=== PATIENT | female | born 1940 | race Caucasian/White ===

== ENCOUNTER → 2017-01-13 | Day surgery (SDC) | payer OTHER ==
[2017-01-08 08:06] VITALS: Ht 161.3 cm; Wt 67.3 kg
[~2017-01-13] VITALS: Ht 161.3 cm; Wt 67.3 kg
[~2017-01-13] MED LIST: 500ML BSS 0.3ML EPI 1:1000PF IRRIG ONE; ACETAMINOPHEN 325 MG TAB PO PRN; AMIO200T4 PO; AMLO2.5T PO; AMVISC PLUS 0.8ML SYRINGE INT OCU ONE; ANT25 PO; ATOR-26 PO; BROM0.07 OPR; BSS FLUSH ONE; BUSP-8 PO; CEPH500C PO; DEXT30TA7 PO; DULO60CA44 PO; EpINEphrine INJ 1MG/ML AMP 1 MG/ML AMP ONE; ISOS30TA35 PO; ISOS30TA51 PO; LACTATED RINGER'S 1000ML 500 ML IV SCH; LIDOCAINE 3.5% OPH GEL PER APPLICATION CHARGE ONE; LIDOCAINE HCL 1% MPF 2 ML VIAL ONE; MAGN400T5 PO; MECL1TAB42 PO; METO25TA56 PO; MIDAZOLAM HCL 1 MG/ML 2ML VIAL ONE; NRV5 PO; OCUCOAT 1 ML SOLN IO ONE; POLY335019 PO; POTA1TAB97 PO; POVIDONE-IODINE OP SOLN 30 ML BTL ONE; PRED1SUS OPR; PRLSR20 PO; PROM25TA9 PO; PROPARACAINE 0.5% OP SOLN PER DROP CHARGE OPR SCH; TOBRAMYCIN/DEXAMETHASONE OPH OINT PER APPLN CHARGE ONE; TRAZ1TAB5 PO; VSC/5 PO; WARF5TAB90 PO
[2017-01-13] MEDS: PHENYLEPHRINE HCL 2.5% OP SOLN PER DROP CHARGE OPR SCH ×2 (09:57→10:02)
[2017-01-13] MEDS: TROPICAMIDE 1% OP SOLN PER DROP CHARGE OPR SCH ×2 (09:58→10:03)
[2017-01-13] MEDS: CYCLOPENTOLATE HCL 1% OP SOLN PER DROP CHARGE OPR SCH ×2 (09:59→10:04)
[2017-01-13] MEDS: KETOROLAC 0.5% OP SOLN PER DROP CHARGE OPR SCH ×2 (10:00→10:05)
[2017-01-13] MEDS: GATIFLOXACIN OP SOLN PER DROP CHARGE OPR SCH ×2 (10:01→10:11)
--- NOTE | 2017-01-13 10:21 | History & Physical Bridge - [place] ---
H&P Re-Evaluation Bridge Note: I have examined the patient, reviewed the History & Physical and in the interval since the performance of the History & Physical I have noted the following changes of clinical significance: No changes noted
--- NOTE | 2017-01-13 11:05 | Discharge Instructions-SurgCtr ---
Discharge Instructions Date of Service Jan 13, 2017. Visit Reason for Visit: Cataract Right Eye Discharge Discharge Diagnosis / Problem: cataract Discharge Goals Goal(s): Improve function Activity Recommendations Activity Limitations: per Instructions/Follow-up section Anesthesia . Post Anesthesia Instructions: If you have had General Anesthesia or IV Sedation: * Do not drive today. * Resume driving when surgeon permits. * Do not make important decisions or sign legal documents today. * Call surgeon for: 1. Temperature elevations greater than 101 degrees F. 2. Uncontrollable pain. 3. Excessive bleeding. 4. Persistent nausea and vomiting. 5. Medication intolerance (nausea, vomiting or rash). * For nausea and vomiting use only clear liquids such as: tea, soda, bouillon until nausea subsides, then gradually increase diet as tolerated. * If you have any concerns or questions, call your surgeon's office. If physician is unavailable and it is an emergency, call 911 or go to the nearest emergency room. . Instructions / Follow-Up Instructions / Follow-Up ACTIVITY RECOMMENDATIONS: * No strenuous lifting, jogging or running for 4 days * No swimming or yard work for 1 week. * Limited bending is permitted, such as putting on shoes. RETURN TO SCHOOL/WORK: No work until seen by physician in office. MEDICATIONS: Resume previous medications unless instructed otherwise by your surgeon. This includes eye drops for glaucoma. Zymaxid/Gatifloxacin (catalan cap) - one drop every 2 hours until bedtime Nevanac/Ilevro/Prolensa/Ketorolac (otto cap) - one drop every 4 hours until bedtime Prednisolone (white/pink cap, SHAKE WELL) - one drop every 2 hours until bedtime Starting tomorrow - all 3 drops every 4 hours until seen in the office Optive drops - as needed for discomfort SPECIAL CARE INSTRUCTIONS: * Wear eyeshield when sleeping, for four nights. * You may wear your own glasses or sunglasses while awake. * You may read or watch TV * You may shower and wash your face, but be gentle around the eye and pat dry. * Blurry vision and mild irritation are normal. * Call office if pain is more severe or vision becomes dark at . FOLLOW UP VISIT: Follow-up with Dr Castro tomorrow. Diet Recommendations Home Diet: resume previous diet Procedures Procedures Performed: Right Cataract Phacoemulsification With Intraocular Lens Implant Pending Studies Studies pending at discharge: no Medical Emergencies . Who to Call and When: Medical Emergencies: If at any time you feel your situation is an emergency, please call 911 immediately. . Non-Emergent Contact Non-Emergency issues call your: [employer] . . "Provider Documentation" section prepared by Ishmael Castro.
[2017-01-13 11:06] VITALS: TEMP 36.7
--- NOTE | 2017-01-13 11:06 | [facility] Operative Report ---
Operative Report Date of Service Jan 13, 2017. Operative Report 1. PREOPERATIVE DIAGNOSIS: Cataract of the right eye. 2. POSTOPERATIVE DIAGNOSIS: Same. 3. PROCEDURE: Phacoemulsification with intraocular lens implantation of the right eye. SURGEON: Dr. Ishmael Castro. ANESTHESIA: Topical Lidocaine gel, 1% Non- Preserved intracameral Lidocaine, and monitored intravenous sedation. INDICATIONS FOR THE PROCEDURE: The patient is a 76 - year-old female with a history of cataract of the right eye causing significant visual impairment. The details of the proposed procedure were explained to the patient who asked appropriate questions and following discussion of all risks, benefits and alternatives agreed to have the procedure done. 4. OPERATION AND FINDINGS: DESCRIPTION OF PROCEDURE: After informed consent was obtained, the patient was brought to the Operating Room at the [facility]. The patient was placed in a supine position and then the right eye was prepped and draped in the usual sterile fashion for intraocular surgery. A drop of topical Lidocaine gel was placed in the operative eye. A wire lid speculum was then placed in the fornices. A corneal paracentesis was then created temporally. The Non-Preserved Lidocaine was then instilled into the anterior chamber. The anterior chamber was then pressurized with viscoelastic. A 2.0 mm clear corneal incision was then created temporally. A cystotome was inserted into the anterior chamber and used to create a tear in the anterior lens capsule. This capsular tear was then used to create a small flap and the flap was dragged in a counterclockwise direction in order to create a continuous curvilinear capsulorrhexis. Hydrodissection was accomplished with balanced salt solution. Phacoemulsification of the lens nucleus was then performed in a standard [id number] technique. The phaco time was 18 seconds with an average power of 14 %. The remaining cortical material was removed using irrigation aspiration. The capsular bag was then filled with viscoelastic. A [employer] Lomb MI60L +23.0 diopters lens was then loaded into the injector and injected into the capsular bag. The remaining viscoelastic was removed with the irrigation aspiration handpiece. The wound was hydrated and then checked and found to be watertight. The intraocular pressure was checked and found to be adequate. The wire lid speculum was removed and the patient's face was cleaned and dried. TobraDex ointment was placed in the inferior fornix. The patient was discharged to the Recovery Room having tolerated the procedure well. There were no complications. The patient will be seen tomorrow in the office for follow-up. I attest to the content of the Intraoperative Record and any orders documented therein. Any exceptions are noted below.
[2017-01-13 11:45] VITALS: BP 145/67; PULSE 52; O2SAT 96
--- NOTE | 2017-01-13 11:47 | Anesthesia Progress Nt - [facility] ---
Anesthesia Post Op Note Date & Time Jan 13, 2017 at 11:47 Vital Signs Pain Intensity: 0 Vital Signs Past 12 Hours Date Time Temp Pulse Resp B/P Pulse Ox O2 Delivery O2 Flow Rate FiO2 01/13/17 11:06 36.7 48 16 149/78 96 Room Air 01/13/17 09:48 36.7 68 16 188/88 94 Room Air Notes Mental Status: alert / awake / arousable, participated in evaluation Pt Amnestic to Procedure: Yes Nausea / Vomiting: adequately controlled Pain: adequately controlled Airway Patency, RR, SpO2: stable & adequate BP & HR: stable & adequate Hydration State: stable & adequate Anesthetic Complications: no major complications apparent
== END | disposition home or self-care (01) ==
LOC: X.SURG 09:17
PROVIDERS: ATTEND Ophthalmology
DX: H26.9 Unspecified cataract (principal); I25.10 Atherosclerotic heart disease of native coronary artery without angina pectoris; M15.9 Polyosteoarthritis, unspecified; G47.33 Obstructive sleep apnea (adult) (pediatric); I87.1 Compression of vein; I10 Essential (primary) hypertension; D50.9 Iron deficiency anemia, unspecified; Z79.899 Other long term (current) drug therapy

== ENCOUNTER 2017-01-25 15:18 | Emergency (ER) | payer OTHER ==
[~2017-01-25] VITALS: Ht 165.1 cm; Wt 69.0 kg
[~2017-01-25 15:18] MED LIST changes: -500ML BSS 0.3ML EPI 1:1000PF IRRIG ONE; -ACETAMINOPHEN 325 MG TAB PO PRN; -AMIO200T4 PO; -AMLO2.5T PO; -AMVISC PLUS 0.8ML SYRINGE INT OCU ONE; -ANT25 PO; -ATOR-26 PO; -BSS FLUSH ONE; -BUSP-8 PO; -CEPH500C PO; -DEXT30TA7 PO; -DULO60CA44 PO; -EpINEphrine INJ 1MG/ML AMP 1 MG/ML AMP ONE; -ISOS30TA35 PO; -ISOS30TA51 PO; -LACTATED RINGER'S 1000ML 500 ML IV SCH; -LIDOCAINE 3.5% OPH GEL PER APPLICATION CHARGE ONE; -LIDOCAINE HCL 1% MPF 2 ML VIAL ONE; -MAGN400T5 PO; -MECL1TAB42 PO; -MIDAZOLAM HCL 1 MG/ML 2ML VIAL ONE; -NRV5 PO; -OCUCOAT 1 ML SOLN IO ONE; -POTA1TAB97 PO; -POVIDONE-IODINE OP SOLN 30 ML BTL ONE; -PRED1SUS OPR; -PRLSR20 PO; -PROM25TA9 PO; -PROPARACAINE 0.5% OP SOLN PER DROP CHARGE OPR SCH; -TOBRAMYCIN/DEXAMETHASONE OPH OINT PER APPLN CHARGE ONE; -TRAZ1TAB5 PO; -VSC/5 PO; -WARF5TAB90 PO
[2017-01-25 15:33] VITALS: TEMP 36.3; Ht 165.1 cm; Wt 69.0 kg
[2017-01-25] MEDS ORDERED: SODIUM CHLORIDE 0.9% 1000ML 1,000 ML IV ONE (17:05)
[2017-01-25] MEDS ORDERED: SODIUM CHLORIDE 0.9% 1000ML 1,000 ML IV STA (17:05)
[2017-01-25] MEDS ORDERED: MECLIZINE HCL 25 MG TAB PO STA (17:06)
--- NOTE | 2017-01-25 17:08 | EMERGENCY ROOM VISIT NOTE ---
History Report prepared by Ashley: Edgar Robert Under the Supervision of: Dr. Heath Loomis M.D. First contact with patient: 16:55 Chief Complaint: DIZZY Stated Complaint: DIZZY, DRY HEAVES Nursing Triage Summary: Patient brought in to triage via wheelchair per patient has been dizzy since last night states she was unable to make it to the bathroom without assistance. Patient states when she moves her head she is dizzy also having nausea and vomiting. History of Present Illness The patient is a 76 year old female who presents to the Emergency Room with complaints of constant worsening dizziness starting yesterday. The states that she was at an auction, and she was unable to walk due to the dizziness. The patient additionally states that she has been vomiting liquid recently. The patient states that she is always dizzy, and this was after an aneurysm repair 7-8 years ago. The patient states that she feels like she is spinning. The patient denies headaches, chest pain, shortness of breath, fevers , chills, hematochezia, diarrhea, urinary symptoms, or ringing in her ears. The patient states that she is currently on Coumadin, and she denies any recent falls. The additionally states that the patient has not drank much water recently. Source of History: patient, spouse/significant other Onset: yesterday Position: other (global) Quality: other (diziness) Timing: constant, worsening Associated Symptoms: + vomiting, No SOB, No chest pain, No chills, No diarrhea, No fevers, No headache, No hematochezia, No urinary symptoms Review of Systems See HPI for pertinent positives & negatives. A total of 10 systems reviewed and were otherwise negative. Past Medical & Surgical Medical Problems: (1) Anticoagulant therapy (2) Asthma (3) Atrial fibrillation (4) Atrial fibrillation with RVR (5) Atrial fibrillation with RVR (6) Atrial fibrillation with RVR (7) Atrial flutter (8) Benign hypertension (9) Carotid artery stenosis (10) Cellulitis of left hand (11) CORON ATHEROSCLER NOS TYPE VESSEL, EWIIAAPAAYP OR GRAFT (12) Cystitis (13) Dehydration (14) Dizziness (15) Dizziness (16) Dizziness (17) Dizziness (18) Dizziness (19) Dizziness due to old head injury (20) Generalized osteoarthritis (21) History of - pulmonary embolus (22) Hypertensive heart disease (23) Hypothyroidism (24) Left ventricular hypertrophy (25) Multiple cardiac ablastions (26) Nausea & vomiting (27) Paroxysmal supraventricular tachycardia (28) Postconcussive syndrome (29) s/p ablation for SVT (30) s/p appendectomy (31) s/p hysterectomy (32) s/p left TKA (33) s/p lumbar decompression (34) s/p PTCA 1999 (35) Sleep apnea (36) Small bowel obstruction (37) Spinal stenosis in cervical region (38) Supratherapeutic INR (39) UTI (urinary tract infection) (40) UTI (urinary tract infection) (41) UTI (urinary tract infection) (42) UTI (urinary tract infection) (43) Vomiting (44) Weakness Old medical records were reviewed. Nurse's notes were reviewed and I agree with. Family History Diabetes mellitus FH: cancer FH: lung disease Hypertension Social History Smoking Status: Never Smoker Alcohol Use: none Drug Use: none Marital Status: Housing Status: lives with family Occupation Status: retired Current/Historical Medications Scheduled Amiodarone Hcl (Cordarone), 200 MG PO HS Atorvastatin (Lipitor), 80 MG PO HS Bromfenac Sodium (Ophth) (Prolensa), 1 DROP OPR DAILY Buspirone Hcl (Buspirone Hcl), 10 MG PO BID Cephalexin Monohydrate (Keflex), 500 MG PO QID Duloxetine Hcl (Cymbalta), 60 MG PO HS Isosorbide Dinitrate (Isordil), 30 MG PO QAM Magnesium Oxide (Mag-Ox), 400 MG PO QAM Metoprolol Tartrate (Lopressor) (Lopressor), 12.5 MG PO BID Omeprazole (Prilosec), 20 MG PO QAM Potassium Chloride (K-Tab), 1 TAB PO QAM Prednisolone Acetate (Ophth) (Omnipred), 1 DROPS OPR TID Solifenacin (Vesicare), 5 MG PO QAM Trazodone Hcl (Desyrel), 50 MG PO HS Warfarin Sodium (Coumadin), 5 MG PO Q2D Warfarin Sodium (Coumadin), 2.5 MG PO Q2D Scheduled PRN Meclizine Hcl (Meclizine Hcl), 1 TAB PO TID PRN for Dizziness or Vertigo Allergies Coded Allergies: Carbenicillin (Verified Allergy, Unknown, "DON'T REMEMBER", 01/25/17) Penicillins (Verified Allergy, Unknown, HIVES, 01/25/17) has tolerated ceftriaxone and cefepime Pneumococcal Polysaccharides (Verified Allergy, Unknown, FEVER/RASH, ) Sulfamethoxazole w/Trimethoprim (Verified Adverse Reaction, Mild, GI SYMPTOMS, 01/25/17) nausea /vomiting Physical Exam Vital Signs Date Time Temp Pulse Resp B/P Pulse Ox O2 Delivery O2 Flow Rate FiO2 01/25/17 19:44 59 18 161/73 96 Room Air 01/25/17 18:51 55 24 162/70 99 Room Air 01/25/17 17:11 54 01/25/17 16:56 61 169/75 72 156/84 78 178/91 01/25/17 15:33 36.3 56 20 183/76 98 Room Air Physical Exam General: Non-ill appearing older female in no acute distress. Awake and answering questions appropriately HEENT: Normal cephalic atraumatic. Pupils are equal round and reactive to light. Sclerae anicteric. No nystagmus. Extraocular movements are intact. Oropharynx is pink with moist mucous membranes. No swelling of the mouth lips or tongue. Neck: Supple with a midline trachea. No meningeal signs or stiffness, no JVD or bruits. No Stridor. Chest: Clear to auscultation bilaterally. No wheezes or rhonchi. No increased work of breathing. Heart: regular rate and rhythm. Abdomen: Soft nontender, nondistended without rebound guarding or rigidity. Extremities: No cyanosis clubbing or edema. No calf tenderness or assymetry Spine/Back. Non tender to palpation. No CVA tenderness Skin: Good turgor without rashes. Neurologic exam: Dizziness occurs when she sits up but she seems fine at rest. Finger to nose intact. No tremor. Cranial nerves two through 12 are intact. Motor and sensation are intact and symmetrical throughout. Medical Decision & Procedures ER Provider Diagnostic Interpretation: Radiology results as stated below per my review and radiologist interpretation: HEAD CT NONCONTRAST CT DOSE: 537.48 mGy.cm HISTORY: Mental status change dizziness TECHNIQUE: Multiaxial CT images of the head were performed without the use of intravenous contrast. Comparison: 09/26/2016 Findings: The paranasal sinuses and mastoid air cells are clear. Stable operative changes consistent with several craniotomies and suprasellar clips. 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 Old left occipital infarct. Moderate chronic small vessel change of aging. Scattered areas of chronic encephalomalacia. No evidence for new or interval process. Impression: Chronic and postoperative change. No acute intracranial abnormality. Electronically signed by: David Fields M.D. 01/25/2017 6:41 PM Dictated Date/Time: 01/25/2017 6:39 PM CHEST ONE VIEW PORTABLE CLINICAL HISTORY: CHEST PAIN dyspnea COMPARISON STUDY: 12/26/2015 FINDINGS: Mild emphysematous change. Mild chronic interstitial change both lung bases. Calcification mitral annulus. No focal infiltrate. IMPRESSION: Chronic change. No acute process. Electronically signed by: David Fields M.D. 01/25/2017 5:25 PM Dictated Date/Time: 01/25/2017 5:24 PM Laboratory Results 01/25/17 16:50 Red Blood Count 4.62, Mean Corpuscular Volume 89.0, Mean Corpuscular Hemoglobin 30.3, Mean Corpuscular Hemoglobin Concent 34.1, Mean Platelet Volume 8.8, Neutrophils (%) (Auto) 82.5, Lymphocytes (%) (Auto) 8.2, Monocytes (%) (Auto) 8.2, Eosinophils (%) (Auto) 0.6, Basophils (%) (Auto) 0.2, Neutrophils # (Auto) 5.10, Lymphocytes # (Auto) 0.51, Monocytes # (Auto) 0.51, Eosinophils # (Auto) 0.04, Basophils # (Auto) 0.01 01/25/17 16:50 Test 01/25/17 16:50 01/25/17 17:17 01/25/17 17:40 White Blood Count 6.19 K/uL (4.8-10.8) Red Blood Count 4.62 M/uL (4.2-5.4) Hemoglobin 14.0 g/dL (12.0-16.0) Hematocrit 41.1 % (37-47) Mean Corpuscular Volume 89.0 fL (80-100) Mean Corpuscular Hemoglobin 30.3 pg (25-34) Mean Corpuscular Hemoglobin Concent 34.1 g/dl (32-36) Platelet Count 164 K/uL (130-400) Mean Platelet Volume 8.8 fL (7.4-10.4) Neutrophils (%) (Auto) 82.5 % Lymphocytes (%) (Auto) 8.2 % Monocytes (%) (Auto) 8.2 % Eosinophils (%) (Auto) 0.6 % Basophils (%) (Auto) 0.2 % Neutrophils # (Auto) 5.10 K/uL (1.4-6.5) Lymphocytes # (Auto) 0.51 K/uL (1.2-3.4) Monocytes # (Auto) 0.51 K/uL (0.11-0.59) Eosinophils # (Auto) 0.04 K/uL (0-0.5) Basophils # (Auto) 0.01 K/uL (0-0.2) RDW Standard Deviation 47.7 fL (36.4-46.3) RDW Coefficient of Variation 14.6 % (11.5-14.5) Immature Granulocyte % (Auto) 0.3 % Immature Granulocyte # (Auto) 0.02 K/uL (0.00-0.02) Prothrombin Time 18.6 SECONDS (9.0-12.0) Prothromb Time International Ratio 1.7 (0.9-1.1) Activated Partial Thromboplast Time 32.1 SECONDS (21.0-31.0) Partial Thromboplastin Ratio 1.2 Anion Gap 8.0 mmol/L (3-11) Est Creatinine Clear Calc Drug Dose 59.4 ml/min Estimated GFR () 82.9 Estimated GFR (Non- 71.5 BUN/Creatinine Ratio 15.6 (10-20) Calcium Level 8.9 mg/dl (8.5-10.1) Total Bilirubin 0.6 mg/dl (0.2-1) Direct Bilirubin 0.2 mg/dl (0-0.2) Aspartate Amino Transf (AST/SGOT) 21 U/L (15-37) Alanine Aminotransferase (ALT/SGPT) 26 U/L (12-78) Alkaline Phosphatase 77 U/L (45-117) Total Protein 7.6 gm/dl (6.4-8.2) Albumin 3.9 gm/dl (3.4-5.0) Lipase 358 U/L (73-393) Bedside Troponin I 0.000 ng/ml (0-0.045) Urine Color YELLOW Urine Appearance CLEAR (CLEAR) Urine pH 6.5 (4.5-7.5) Urine Specific Manly 1.025 (1.000-1.030) Urine Protein 1+ (NEG) Urine Glucose (UA) NEG (NEG) Urine Ketones NEG (NEG) Urine Occult Blood NEG (NEG) Urine Nitrite NEG (NEG) Urine Bilirubin NEG (NEG) Urine Urobilinogen NEG (NEG) Urine Leukocyte Esterase NEG (NEG) Urine WBC (Auto) 5-10 /hpf (0-5) Urine RBC (Auto) 0-4 /hpf (0-4) Urine Hyaline Casts (Auto) 0 /lpf (0-5) Urine Epithelial Cells (Auto) >30 /lpf (0-5) Urine Bacteria (Auto) 4+ (NEG) Urine RBC /hpf (0-4) Urine WBC /hpf (0-5) Urine Epithelial Cells /lpf (0-5) Urine Bacteria (NEG) Labs reviewed by me Medications Administered Medications (Trade) Dose Ordered Sig/Oz Route Start Time Stop Time Status Last Admin Dose Admin Sodium Chloride 1,000 ml @ 999 mls/hr Q1H1M STAT IV 01/25/17 17:05 01/25/17 18:05 DC 01/25/17 17:32 999 MLS/HR Sodium Chloride (Nss 1000ml) 1,000 ml @ 150 mls/hr Q6H40M ONCE IV 01/25/17 17:05 01/25/17 19:56 DC 01/25/17 17:32 150 MLS/HR Meclizine HCl (Antivert Tab) 25 mg NOW STAT PO 01/25/17 17:06 01/25/17 17:07 DC 01/25/17 17:32 25 MG Cephalexin Monohydrate (Keflex 500MG Home Pack) 1 homepack NOW ONCE PO 01/25/17 19:15 01/25/17 19:17 DC 01/25/17 19:43 1 HOMEPACK Meclizine HCl (Antivert 25MG Home Pack) 1 homepack UD ONCE PO 01/25/17 19:15 01/25/17 19:17 DC 01/25/17 19:43 1 HOMEPACK ECG Indication: other (dizziness) Rate (beats per minute): 53 Rhythm: sinus bradycardia Findings: no acute ischemic change Comparison ECG Date: 12/27/15 Change: no significant change ED Course 165: Past medical records reviewed. The patient was evaluated in room C9, and a complete history and physical examination were performed. 170: Sodium Chloride 1000 ml @ 150 mls/hr IV, Sodium Chloride 1000 ml @ 999 mls /hr IV 170: Antivert Tab 25mg PO 1909: Upon reevaluation, the patient is feeling better, she was walking around, and she wants to go home. I discussed the results and treatment plan with her. She verbalized agreement of the treatment plan. The patient was discharged home. 1914: Antivert 25mg 1 Home Pack PO, Keflex 500mg 1 Home Pack PO Medical Decision Differentials include, but are not limited to; vertigo, dehydration, infection, intracranial process, arrhythmia, CVA, electrolyte or metabolic abnormality. This patient comes in as described above. She was placed in room C9. She is having some dizziness. It is only with movement. She has a long history of this according to her . She's had no recent falls. She looks well on exam and has a normal neurologic exam. She has no tremor and a finger-nose is intact. She has complicated medical history.. CAT scan shows no acute intracranial hemorrhage or process. Her INR is slightly subtherapeutic at 1.7. EKG does not suggest acute coronary syndrome or arrhythmia nor her symptoms. She has no acute electrolyte or metabolic abdomen. She was given IV hydration as well as meclizine and felt better. She is able and light with minimal difficulty. Her urinalysis does suggest a UTI. I reviewed her chart and she's been having dizziness in the past related a UTI. In light of this, I will start her on an antibiotic with the first dose was given here. I also gave her some meclizine to go home with. I talked about the patient her at length and they both desire to go home. Her does feel she is safe to go home. The patient does have memory issues and dementia and denies any complaints at present. I told has and she certainly got to be a fall risk and I don't want her fall on Coumadin. again he feels comfortable does not want her admitted at this point. I encouraged close follow-up with her regular doctor also encouraged very careful getting up and down and return to ER if symptoms worsen in any way. They're happy the plan and she was discharged to home. Impression Primary Impression: Vertigo Additional Impressions: UTI (urinary tract infection) Dizziness Scribe Attestation The scribe's documentation has been prepared under my direction and personally reviewed by me in its entirety. I confirm that the note above accurately reflects all work, treatment, procedures, and medical decision making performed by me. Departure Information Dispostion Home / Self-Care Prescriptions Meclizine Hcl (MECLIZINE HCL) 25 Mg Tab 1 TAB PO TID Y for Dizziness or Vertigo, #10 TAB Prov: Heath Loomis M.D. 01/25/17 Cephalexin Monohydrate (Keflex) 500 Mg Cap 500 MG PO QID for 7 Days, #28 CAP Prov: Heath Loomis M.D. 01/25/17 Referrals Teagan Loaiza M.D. (PCP) Forms HOME CARE DOCUMENTATION FORM, IMPORTANT VISIT INFORMATION Patient Instructions My [facility] Additional Instructions Rest. Drink plenty of fluids. Be very careful getting up and down. Use Keflex 500 mg 4 times a day for 7 daysantibiotic For dizziness, use meclizine 25 mg every 8 hours, be very careful getting up and down as it may make you drowsy. Do not take with any other medications that are sedating or before driving. Return if: Worsening of symptoms, fever or chills, any new problems or concerns. Problem Qualifiers
[2017-01-25 17:14] LABS: HEMATOCRIT 41.1 % (37-47); MEAN CORPUSCULAR HEMOGLOBIN 30.3 pg (25-34); MEAN CORPUSCULAR HGB CONC 34.1 g/dl (32-36); MEAN PLATELET VOLUME 8.8 fL (7.4-10.4); PLATELET COUNT 164 K/uL (130-400); RED BLOOD COUNT 4.62 M/uL (4.2-5.4); WHITE BLOOD COUNT 6.19 K/uL (4.8-10.8)
[2017-01-25 17:24] LABS: INR 1.7 (0.9-1.1); PARTIAL THROMBOPLASTIN RATIO 1.2; PROTHROMBIN TIME (PATIENT) 18.6 SECONDS (9.0-12.0)
--- NOTE | 2017-01-25 17:26 | DIAGNOSTIC IMAGING REPORT ---
CHEST ONE VIEW PORTABLE CLINICAL HISTORY: CHEST PAIN dyspnea COMPARISON STUDY: 12/26/2015 FINDINGS: Mild emphysematous change. Mild chronic interstitial change both lung bases. Calcification mitral annulus. No focal infiltrate. IMPRESSION: Chronic change. No acute process. Electronically signed by: David Fields M.D. 01/25/2017 5:25 PM Dictated Date/Time: 01/25/2017 5:24 PM
[2017-01-25 17:32] LABS: BUN/CREATININE RATIO 15.6 (10-20); CALCIUM 8.9 mg/dl (8.5-10.1); CREATININE 0.81 mg/dl (0.60-1.20); POTASSIUM 3.7 mmol/L (3.5-5.1)
[2017-01-25 17:51] LABS: BASO % 0.2 %; BASO ABS # 0.01 K/uL (0-0.2); COMPLETE YES; EOS % 0.6 %; IG% 0.3 %; LYMPH % 8.2 %; LYMPH ABS # 0.51 K/uL (1.2-3.4); MONO % 8.2 %; NEUT % 82.5 %
[2017-01-25 17:59] LABS: MANUAL MICROSCOPIC REQUIRED? YES; URINE APPEARANCE CLEAR (CLEAR); URINE BILIRUBIN NEG (NEG); URINE COLOR YELLOW; URINE NITRITE NEG (NEG); URINE PH 6.5 (4.5-7.5); URINE SPECIFIC GRAVITY 1.025 (1.000-1.030); UROBILINOGEN NEG (NEG)
[2017-01-25 18:07] LABS: REVIEW REQ? NO
[2017-01-25 18:22] LABS: URINE EPITHELIAL CELL AUTO >30 /lpf (0-5)
--- NOTE | 2017-01-25 18:42 | DIAGNOSTIC IMAGING REPORT ---
HEAD CT NONCONTRAST CT DOSE: 537.48 mGy.cm HISTORY: Mental status change dizziness TECHNIQUE: Multiaxial CT images of the head were performed without the use of intravenous contrast. Comparison: 09/26/2016 Findings: The paranasal sinuses and mastoid air cells are clear. Stable operative changes consistent with several craniotomies and suprasellar clips. 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 Old left occipital infarct. Moderate chronic small vessel change of aging. Scattered areas of chronic encephalomalacia. No evidence for new or interval process. Impression: Chronic and postoperative change. No acute intracranial abnormality. Electronically signed by: David Fields M.D. 01/25/2017 6:41 PM Dictated Date/Time: 01/25/2017 6:39 PM
[2017-01-25] MEDS ORDERED: CEPHALEXIN 500MG HOME PACK 1 EA BTL PO ONE (19:15)
[2017-01-25] MEDS ORDERED: MECLIZINE HCL 25MG HOME PACK PO ONE (19:15)
[2017-01-25] MEDS ORDERED: CEPH500C PO (19:25)
[2017-01-25] MEDS ORDERED: MECL1TAB42 PO (19:25)
[2017-01-25 19:44] VITALS: BP 161/73; PULSE 59; O2SAT 96
--- NOTE | 2017-01-27 12:06 | Pharmacy Progress Note ---
ED Pharmacist Culture FollowUp Date of Service: Jan 27, 2017. Patient was sent home with a prescription for Cephalexin 500mg QID x 7 days, which should cover the E coli growing from the patient's URINE culture. No action required.
[2017-03-05] MEDS ORDERED: TRAZ1TAB5 PO (05:29)
[2017-03-05] MEDS ORDERED: VSC/5 PO (08:05)
[2017-03-05] MEDS ORDERED: AMIO200T4 PO (08:05)
[2017-03-05] MEDS ORDERED: PRED1SUS OPR (08:40)
[2017-03-05] MEDS ORDERED: ISOS30TA51 PO (09:31)
[2017-03-05] MEDS ORDERED: DULO60CA44 PO (09:31)
[2017-03-05] MEDS ORDERED: PRLSR20 PO (09:31)
[2017-03-05] MEDS ORDERED: POTA1TAB97 PO (09:31)
[2017-03-05] MEDS ORDERED: BUSP-8 PO (09:31)
[2017-03-06] MEDS ORDERED: ISOS30TA35 PO (12:10)
[2017-03-10] MEDS ORDERED: NRV5 PO (11:26)
[2017-03-10] MEDS ORDERED: ANT25 PO ×2 (11:26→11:32)
[2017-03-10] MEDS ORDERED: AMLO2.5T PO ×3 (11:32→11:34)
== END 2017-01-25 19:48 | disposition home or self-care (01) ==
LOC: C.EDB 15:21 → C.EDC 19:48
DX: R42 Dizziness and giddiness (principal); N39.0 Urinary tract infection, site not specified; Z79.01 Long term (current) use of anticoagulants; I48.91 Unspecified atrial fibrillation; I77.1 Stricture of artery; M19.90 Unspecified osteoarthritis, unspecified site; Z86.711 Personal history of pulmonary embolism; I11.9 Hypertensive heart disease without heart failure; E03.9 Hypothyroidism, unspecified; F07.81 Postconcussional syndrome; G47.30 Sleep apnea, unspecified; M48.02 Spinal stenosis, cervical region; Z83.3 Family history of diabetes mellitus; Z80.9 Family history of malignant neoplasm, unspecified; Z83.6 Family history of other diseases of the respiratory system; Z82.49 Family history of ischemic heart disease and other diseases of the circulatory system; Z79.899 Other long term (current) drug therapy

== ENCOUNTER → 2017-02-10 | Day surgery (SDC) | payer OTHER ==
[2017-01-23 08:43] VITALS: Ht 161.3 cm; Wt 67.3 kg
[~2017-02-10] VITALS: Ht 161.3 cm; Wt 67.3 kg
[~2017-02-10] MED LIST changes: +500ML BSS 0.3ML EPI 1:1000PF IRRIG ONE; +ACETAMINOPHEN 325 MG TAB PO PRN; +AMIO200T4 PO; +AMLO2.5T PO; +AMVISC PLUS 0.8ML SYRINGE INT OCU ONE; +ANT25 PO; +ATOR-26 PO; +BSS FLUSH ONE; +BUSP-8 PO; +DULO60CA44 PO; +EpINEphrine INJ 1MG/ML AMP 1 MG/ML AMP ONE; +ISOS30TA35 PO; +ISR/30 PO; +LACTATED RINGER'S 1000ML 500 ML IV SCH; +LIDOCAINE 3.5% OPH GEL PER APPLICATION CHARGE ONE; +LIDOCAINE HCL 1% MPF 2 ML VIAL ONE; +MAGN400T5 PO; +MECL-91 PO; +MECL1TAB42 PO; +MIDAZOLAM HCL 1 MG/ML 2ML VIAL ONE; +NITR1CAP16 PO; +NRV5 PO; +OCUCOAT 1 ML SOLN IO ONE; -POLY335019 PO; +POTA1TAB97 PO; +POVIDONE-IODINE OP SOLN 30 ML BTL ONE; +PRED1SUS OPR; +PRLSR20 PO; +PROM25TA9 PO; +PROPARACAINE 0.5% OP SOLN PER DROP CHARGE OPL SCH; +TOBRAMYCIN/DEXAMETHASONE OPH OINT PER APPLN CHARGE ONE; +TRAZ-120 PO; +VSC/5 PO; +WARF5TAB90 PO
[2017-02-10] MEDS: PHENYLEPHRINE HCL 2.5% OP SOLN PER DROP CHARGE OPL SCH ×2 (08:57→09:02)
[2017-02-10] MEDS: TROPICAMIDE 1% OP SOLN PER DROP CHARGE OPL SCH ×2 (08:58→09:03)
[2017-02-10] MEDS: CYCLOPENTOLATE HCL 1% OP SOLN PER DROP CHARGE OPL SCH ×2 (08:59→09:04)
[2017-02-10] MEDS: KETOROLAC 0.5% OP SOLN PER DROP CHARGE OPL SCH ×2 (09:00→09:05)
[2017-02-10] MEDS: GATIFLOXACIN OP SOLN PER DROP CHARGE OPL SCH ×2 (09:01→09:11)
--- NOTE | 2017-02-10 09:45 | Discharge Instructions-[facility] ---
Discharge Instructions Date of Service Feb 10, 2017. Visit Reason for Visit: Left Cataract Discharge Discharge Diagnosis / Problem: cataract Discharge Goals Goal(s): Improve function Activity Recommendations Activity Limitations: per Instructions/Follow-up section Anesthesia . Post Anesthesia Instructions: If you have had General Anesthesia or IV Sedation: * Do not drive today. * Resume driving when surgeon permits. * Do not make important decisions or sign legal documents today. * Call surgeon for: 1. Temperature elevations greater than 101 degrees F. 2. Uncontrollable pain. 3. Excessive bleeding. 4. Persistent nausea and vomiting. 5. Medication intolerance (nausea, vomiting or rash). * For nausea and vomiting use only clear liquids such as: tea, soda, bouillon until nausea subsides, then gradually increase diet as tolerated. * If you have any concerns or questions, call your surgeon's office. If physician is unavailable and it is an emergency, call 911 or go to the nearest emergency room. . Instructions / Follow-Up Instructions / Follow-Up ACTIVITY RECOMMENDATIONS: * No strenuous lifting, jogging or running for 4 days * No swimming or yard work for 1 week. * Limited bending is permitted, such as putting on shoes. RETURN TO SCHOOL/WORK: No work until seen by physician in office. MEDICATIONS: Resume previous medications unless instructed otherwise by your surgeon. This includes eye drops for glaucoma. Zymaxid/Gatifloxacin (catalan cap) - one drop every 2 hours until bedtime Nevanac/Ilevro/Prolensa/Ketorolac (otto cap) - one drop every 4 hours until bedtime Prednisolone (white/pink cap, SHAKE WELL) - one drop every 2 hours until bedtime Starting tomorrow - all 3 drops every 4 hours until seen in the office Optive drops - as needed for discomfort SPECIAL CARE INSTRUCTIONS: * Wear eyeshield when sleeping, for four nights. * You may wear your own glasses or sunglasses while awake. * You may read or watch TV * You may shower and wash your face, but be gentle around the eye and pat dry. * Blurry vision and mild irritation are normal. * Call office if pain is more severe or vision becomes dark at . FOLLOW UP VISIT: Follow-up with Dr Castro tomorrow. Diet Recommendations Home Diet: resume previous diet Procedures Procedures Performed: Left Cataract Phacoemulsification With Intraocular Lens Implant Pending Studies Studies pending at discharge: no Medical Emergencies . Who to Call and When: Medical Emergencies: If at any time you feel your situation is an emergency, please call 911 immediately. . Non-Emergent Contact Non-Emergency issues call your: Manager [employer] . . "Provider Documentation" section prepared by Ishmael Castro.
--- NOTE | 2017-02-10 09:46 | [facility] Operative Report ---
Operative Report Date of Service Feb 10, 2017. Operative Report 1. PREOPERATIVE DIAGNOSIS: Cataract of the left eye. 2. POSTOPERATIVE DIAGNOSIS: Same. 3. PROCEDURE: Phacoemulsification with intraocular lens implantation of the left eye. SURGEON: Dr. Ishmael Castro. ANESTHESIA: Topical Lidocaine gel, 1% Non- Preserved intracameral Lidocaine, and monitored intravenous sedation. INDICATIONS FOR THE PROCEDURE: The patient is a 76 - year-old female with a history of cataract of the left eye causing significant visual impairment. The details of the proposed procedure were explained to the patient who asked appropriate questions and following discussion of all risks, benefits and alternatives agreed to have the procedure done. 4. OPERATION AND FINDINGS: DESCRIPTION OF PROCEDURE: After informed consent was obtained, the patient was brought to the Operating Room at the [facility]. The patient was placed in a supine position and then the left eye was prepped and draped in the usual sterile fashion for intraocular surgery. A drop of topical Lidocaine gel was placed in the operative eye. A wire lid speculum was then placed in the fornices. A corneal paracentesis was then created temporally. The Non-Preserved Lidocaine was then instilled into the anterior chamber. The anterior chamber was then pressurized with viscoelastic. A 2.0 mm clear corneal incision was then created temporally. A cystotome was inserted into the anterior chamber and used to create a tear in the anterior lens capsule. This capsular tear was then used to create a small flap and the flap was dragged in a counterclockwise direction in order to create a continuous curvilinear capsulorrhexis. Hydrodissection was accomplished with balanced salt solution. Phacoemulsification of the lens nucleus was then performed in a standard [id number] technique. The phaco time was 24 seconds with an average power of 15 %. The remaining cortical material was removed using irrigation aspiration. The capsular bag was then filled with viscoelastic. A [employer]ch [employer] Lomb MI60L +23.0 diopters lens was then loaded into the injector and injected into the capsular bag. The remaining viscoelastic was removed with the irrigation aspiration handpiece. The wound was hydrated and then checked and found to be watertight. The intraocular pressure was checked and found to be adequate. The wire lid speculum was removed and the patient's face was cleaned and dried. TobraDex ointment was placed in the inferior fornix. The patient was discharged to the Recovery Room having tolerated the procedure well. There were no complications. The patient will be seen tomorrow in the office for follow-up. I attest to the content of the Intraoperative Record and any orders documented therein. Any exceptions are noted below.
[2017-02-10 09:50] VITALS: TEMP 36.8
--- NOTE | 2017-02-10 09:54 | Anesthesia Progress Nt - [facility] ---
Anesthesia Post Op Note Date & Time Feb 10, 2017 at 09:54 Vital Signs Pain Intensity: 0 Vital Signs Past 12 Hours Date Time Temp Pulse Resp B/P Pulse Ox O2 Delivery O2 Flow Rate FiO2 02/10/17 09:50 36.8 71 16 164/92 98 Room Air 02/10/17 08:49 36.6 66 16 131/79 95 Room Air Notes Mental Status: alert / awake / arousable, participated in evaluation Pt Amnestic to Procedure: No Nausea / Vomiting: adequately controlled Pain: adequately controlled Airway Patency, RR, SpO2: stable & adequate BP & HR: stable & adequate Hydration State: stable & adequate Anesthetic Complications: no major complications apparent Pt doing well. Recall as expected.
[2017-02-10 10:09] VITALS: BP 152/66; PULSE 61; O2SAT 95
== END | disposition home or self-care (01) ==
LOC: X.SURG 08:31
PROVIDERS: ATTEND Ophthalmology
DX: H26.9 Unspecified cataract (principal); E03.9 Hypothyroidism, unspecified

== ENCOUNTER 2017-03-05 15:10 | Inpatient (IN) | payer OTHER ==
[~2017-03-05] VITALS: Ht 165.1 cm; Wt 71.7 kg
[~2017-03-05 15:10] MED LIST changes: -500ML BSS 0.3ML EPI 1:1000PF IRRIG ONE; -ACETAMINOPHEN 325 MG TAB PO PRN; -AMLO2.5T PO; -AMVISC PLUS 0.8ML SYRINGE INT OCU ONE; -ANT25 PO; -ATOR-26 PO; -BSS FLUSH ONE; -EpINEphrine INJ 1MG/ML AMP 1 MG/ML AMP ONE; -ISOS30TA35 PO; -LACTATED RINGER'S 1000ML 500 ML IV SCH; -LIDOCAINE 3.5% OPH GEL PER APPLICATION CHARGE ONE; -LIDOCAINE HCL 1% MPF 2 ML VIAL ONE; -MAGN400T5 PO; -MECL-91 PO; -MIDAZOLAM HCL 1 MG/ML 2ML VIAL ONE; -NITR1CAP16 PO; -NRV5 PO; -OCUCOAT 1 ML SOLN IO ONE; -POVIDONE-IODINE OP SOLN 30 ML BTL ONE; -PROM25TA9 PO; -PROPARACAINE 0.5% OP SOLN PER DROP CHARGE OPL SCH; -TOBRAMYCIN/DEXAMETHASONE OPH OINT PER APPLN CHARGE ONE; -WARF5TAB90 PO
[2017-03-05] MEDS ORDERED: MAGN400T5 PO (15:18)
[2017-03-05] MEDS ORDERED: WARF5TAB90 PO (15:20)
--- NOTE | 2017-03-05 15:28 | EMERGENCY ROOM VISIT NOTE ---
History Report prepared by Ashley: Keshia Kim Under the Supervision of: Dr. Ish Howard D.O. First contact with patient: 15:15 Chief Complaint: DIZZY Stated Complaint: DIZZY, CONFUSION History of Present Illness The patient is a 76 year old female who presents to the Emergency Room with complaints of worsening dizziness beginning a month and a half prior to arrival. The patient has been experiencing vertigo symptoms that include dizziness with standing and the occasional nausea. She has also been experiencing confusion and forgetfulness of everyday task. Today the patient was out to lunch with her and was very weak getting out of the car. She had trouble bringing her fork to her mouth successfully and kept missing. The patient does experiencing shortness of breath with exertion. 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 She denies headache, fever, urinary symptoms, chest pain, swelling to legs or abdominal pain. She is currently on Warfarin. The patient's notes that 2 nights ago she got up to use the bathroom. He noticed it had been some time since she left and went to look for her. The patient's found the patient walking up the street. The patient is unsure as to why she was walking in the street. 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 Review of Systems See HPI for pertinent positives & negatives. A total of 10 systems reviewed and were otherwise negative. Past Medical & Surgical Medical Problems: (1) Anticoagulant therapy (2) Asthma (3) Atrial fibrillation (4) Atrial fibrillation with RVR (5) Atrial fibrillation with RVR (6) Atrial fibrillation with RVR (7) Atrial flutter (8) Benign hypertension (9) Carotid artery stenosis (10) Cellulitis of left hand (11) CORON ATHEROSCLER NOS TYPE VESSEL, UMKUMIUT OR GRAFT (12) Cystitis (13) Dehydration (14) Dizziness (15) Dizziness (16) Dizziness (17) Dizziness (18) Dizziness (19) Dizziness due to old head injury (20) Generalized osteoarthritis (21) History of - pulmonary embolus (22) Hypertensive heart disease (23) Hypothyroidism (24) Left ventricular hypertrophy (25) Multiple cardiac ablastions (26) Nausea & vomiting (27) Paroxysmal supraventricular tachycardia (28) Postconcussive syndrome (29) s/p ablation for SVT (30) s/p appendectomy (31) s/p hysterectomy (32) s/p left TKA (33) s/p lumbar decompression (34) s/p PTCA 1999 (35) Sleep apnea (36) Small bowel obstruction (37) Spinal stenosis in cervical region (38) Supratherapeutic INR (39) UTI (urinary tract infection) (40) UTI (urinary tract infection) (41) UTI (urinary tract infection) (42) UTI (urinary tract infection) (43) Vomiting (44) Weakness Family History Diabetes mellitus FH: cancer FH: lung disease Hypertension Social History Smoking Status: Never Smoker Alcohol Use: none Drug Use: none Marital Status: Housing Status: lives with family Occupation Status: retired Current/Historical Medications Scheduled Amiodarone Hcl (Cordarone), 200 MG PO HS Atorvastatin (Lipitor), 80 MG PO HS Bromfenac Sodium (Ophth) (Prolensa), 1 DROP OPR QID Buspirone Hcl (Buspirone Hcl), 10 MG PO BID Duloxetine Hcl (Cymbalta), 60 MG PO HS Isosorbide Dinitrate (Isordil), 30 MG PO QAM Magnesium Oxide (Mag-Ox), 400 MG PO QAM Metoprolol Tartrate (Lopressor) (Lopressor), 12.5 MG PO BID Omeprazole (Prilosec), 20 MG PO QAM Potassium Chloride (K-Tab), 1 TAB PO QAM Prednisolone Acetate (Ophth) (Omnipred), 1 DROPS OPR TID Solifenacin (Vesicare), 5 MG PO QAM Trazodone Hcl (Desyrel), 50 MG PO HS Warfarin Sodium (Coumadin), 5 MG PO Q2D Warfarin Sodium (Coumadin), 2.5 MG PO Q2D Allergies Coded Allergies: Carbenicillin (Verified Allergy, Unknown, "DON'T REMEMBER", 02/10/17) Penicillins (Verified Allergy, Unknown, HIVES, 02/10/17) has tolerated ceftriaxone and cefepime Pneumococcal Polysaccharides (Verified Allergy, Unknown, FEVER/RASH, 4/4/ 17) Sulfamethoxazole w/Trimethoprim (Verified Adverse Reaction, Mild, GI SYMPTOMS, 02/10/17) nausea /vomiting Physical Exam Vital Signs Date Time Temp Pulse Resp B/P Pulse Ox O2 Delivery O2 Flow Rate FiO2 03/05/17 17:58 96 03/05/17 17:56 70 110/62 Room Air 03/05/17 16:13 87 03/05/17 16:09 94 111/52 106 114/74 03/05/17 15:35 97 Room Air 03/05/17 15:35 97 Room Air 03/05/17 15:12 36.7 89 18 99/65 96 Room Air Physical Exam GENERAL: Patient is awake, alert, and in no acute distress. Patient is resting comfortably and showing no signs of anxiety or pain. EYES: The conjunctivae are clear. The pupils are round and reactive. EARS, NOSE, MOUTH AND THROAT: The nose is without any evidence of any deformity. Mucous membranes are dry tongue is midline NECK: The neck is nontender and supple. RESPIRATORY: Diminished breath sounds at both bases, no tachypnea or conversational dyspnea. CARDIOVASCULAR: Regular rate and rhythm noted there no murmurs rubs or gallops normal S1 normal S2 GASTROINTESTINAL: The abdomen is soft. Bowel sounds are present in all quadrants. Abdomen is nontender MUSCULOSKELETAL/EXTREMITIES: There is no evidence of gross deformity full range of motion is noted in the hips and shoulders SKIN: There is no obvious evidence of any rash. There are no petechiae, pallor or cyanosis noted. NEUROLOGIC: Patient is awake alert and oriented to person, place and situation. Strength symmetrical. No facial droop. Medical Decision & Procedures ER Provider Diagnostic Interpretation: Radiology results as stated below per my review and radiologist interpretation: CT HEAD WITHOUT CONTRAST (CT) CLINICAL HISTORY: Altered mental status. COMPARISON STUDY: 01/25/2017 TECHNIQUE: Axial CT of the brain is performed from the vertex to the skull base. IV contrast was not administered for this examination. CT DOSE: 638.56 mGycm FINDINGS: No intra or extra-axial mass lesions are visualized. There is no CT evidence of acute cortical infarction. There is no evidence of midline shift. There is no acute hemorrhage. No calvarial fractures are visualized. There are postsurgical changes of a right frontal temporal craniotomy. There are patchy white matter hypodensities likely on a small vessel basis. 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 There are postsurgical changes of prior aneurysm clipping. There is no evidence of pathologic ventricular dilatation. There is no evidence of acute sinusitis IMPRESSION: Old postsurgical changes and areas of encephalomalacia/prior infarction. No acute intracranial findings. Electronically signed by: Matheus Krishnamurthy M.D. 03/05/2017 4:34 PM Dictated Date/Time: 03/05/2017 4:31 PM CHEST ONE VIEW PORTABLE CLINICAL HISTORY: Altered mental status. Weakness. COMPARISON STUDY: Chest radiograph January 25, 2017. FINDINGS: Lung volumes are normal. Lungs are clear. There is no pneumothorax or pleural effusion. Cardiac size is normal. Cardiac mediastinal silhouette is stable. There is no evidence of pulmonary edema. IMPRESSION: No acute cardiopulmonary findings. Electronically signed by: Kong Liang M.D. 03/05/2017 4:05 PM Dictated Date/Time: 03/05/2017 4:[address] SCAN OF THE ABDOMEN AND PELVIS WITHOUT CONTRAST CLINICAL HISTORY: Left flank pain COMPARISON STUDY: 08/14/2015 TECHNIQUE: CT scan of the abdomen and pelvis was performed from the lung bases to the proximal femurs. Images are reviewed in the axial, sagittal, and coronal planes. IV contrast was not administered for this examination. CT DOSE: 286.24 mGy.cm FINDINGS: Lower chest: There are mild dependent atelectatic changes. Liver: The unenhanced liver is normal in size, contour, and attenuation. There is no intrahepatic biliary ductal dilatation. Gallbladder: Surgically absent Spleen: Normal in size and attenuation. Pancreas: No pancreatic masses are visualized in this noncontrast study. There is no CT evidence of acute pancreatitis. There is a stable linear calcification the pancreatic body. Adrenal glands: Unremarkable. Kidneys: No renal, ureteral, or bladder calculi are visualized. There is a 14 mm left renal cyst. Bowel: There are no transition zones to indicate bowel obstruction. There is mild fecal retention. There is no evidence of acute diverticulitis. The appendix is not visualized with certainty. There is no evidence of acute appendicitis. There is a left lower quadrant colonic anastomosis. Peritoneum: There is no intraperitoneal free air or abdominal ascites. Vasculature: There are moderate atheromatous calcifications present. There is mild iliac ectasia. There is no evidence of abdominal aortic aneurysm. Adenopathy: None. Pelvic viscera: The uterus appears surgically absent. There is air within the bladder, likely iatrogenic. Skeletal structures: There is a grade 2/4 spondylolisthesis of L5 and S1. There are postsurgical changes of an L5-S1 discectomy and interbody fusion and posterior pedicle screw fixation. IMPRESSION: 1. No evidence of bowel obstruction. No evidence of free air 2. No renal, ureteral, or bladder calculi identified 3. No acute inflammatory changes 4. Mild fecal retention 5. Air within the bladder, likely iatrogenic Electronically signed by: Matheus Krishnamurthy M.D. 03/05/2017 6:37 PM Dictated Date/Time: 03/05/2017 6:31 PM Laboratory Results 03/05/17 15:27 Red Blood Count 4.69, Mean Corpuscular Volume 93.4, Mean Corpuscular Hemoglobin 30.5, Mean Corpuscular Hemoglobin Concent 32.6, Mean Platelet Volume 9.0, Neutrophils (%) (Auto) 72.6, Lymphocytes (%) (Auto) 16.4, Monocytes (%) (Auto) 9.5, Eosinophils (%) (Auto) 1.3, Basophils (%) (Auto) 0.1, Neutrophils # (Auto) 4.97, Lymphocytes # (Auto) 1.12, Monocytes # (Auto) 0.65, Eosinophils # (Auto) 0.09, Basophils # (Auto) 0.01 03/05/17 15:27 Test 03/05/17 15:27 03/05/17 18:07 03/05/17 18:08 White Blood Count 6.85 K/uL (4.8-10.8) Red Blood Count 4.69 M/uL (4.2-5.4) Hemoglobin 14.3 g/dL (12.0-16.0) Hematocrit 43.8 % (37-47) Mean Corpuscular Volume 93.4 fL (80-100) Mean Corpuscular Hemoglobin 30.5 pg (25-34) Mean Corpuscular Hemoglobin Concent 32.6 g/dl (32-36) Platelet Count 220 K/uL (130-400) Mean Platelet Volume 9.0 fL (7.4-10.4) Neutrophils (%) (Auto) 72.6 % Lymphocytes (%) (Auto) 16.4 % Monocytes (%) (Auto) 9.5 % Eosinophils (%) (Auto) 1.3 % Basophils (%) (Auto) 0.1 % Neutrophils # (Auto) 4.97 K/uL (1.4-6.5) Lymphocytes # (Auto) 1.12 K/uL (1.2-3.4) Monocytes # (Auto) 0.65 K/uL (0.11-0.59) Eosinophils # (Auto) 0.09 K/uL (0-0.5) Basophils # (Auto) 0.01 K/uL (0-0.2) RDW Standard Deviation 48.7 fL (36.4-46.3) RDW Coefficient of Variation 14.4 % (11.5-14.5) Immature Granulocyte % (Auto) 0.1 % Immature Granulocyte # (Auto) 0.01 K/uL (0.00-0.02) Prothrombin Time 16.1 SECONDS (9.0-12.0) Prothromb Time International Ratio 1.5 (0.9-1.1) Activated Partial Thromboplast Time 28.2 SECONDS (21.0-31.0) Partial Thromboplastin Ratio 1.1 Anion Gap 5.0 mmol/L (3-11) Est Creatinine Clear Calc Drug Dose 39.4 ml/min Estimated GFR () 42.8 Estimated GFR (Non- 36.9 BUN/Creatinine Ratio 17.3 (10-20) Calcium Level 8.6 mg/dl (8.5-10.1) Phosphorus Level 2.8 mg/dl (2.5-4.9) Magnesium Level 2.3 mg/dl (1.8-2.4) Total Bilirubin 0.8 mg/dl (0.2-1) Direct Bilirubin 0.2 mg/dl (0-0.2) Aspartate Amino Transf (AST/SGOT) 18 U/L (15-37) Alanine Aminotransferase (ALT/SGPT) 29 U/L (12-78) Alkaline Phosphatase 73 U/L (45-117) Total Creatine Kinase 92 U/L (26-192) Creatine Kinase MB 1.8 ng/ml (0.5-3.6) Creatine Kinase MB Ratio 2.0 (0-3.0) Troponin I 0.024 ng/ml (0-0.045) Pro-B-Type Natriuretic Peptide 1902 pg/ml (0-900) Total Protein 7.2 gm/dl (6.4-8.2) Albumin 3.9 gm/dl (3.4-5.0) Lipase 355 U/L (73-393) Thyroid Stimulating Hormone (TSH) 1.390 uIu/ml (0.300-4.500) Bedside Lactic Acid Venous 1.05 mmol/L (0.90-1.70) Random Cortisol 8.17 mcg/dl Laboratory results per my review. Medications Administered Medications (Trade) Dose Ordered Sig/Oz Route Start Time Stop Time Status Last Admin Dose Admin Sodium Chloride (Nss 1000ml) 1,000 ml @ 999 mls/hr Q1H1M STAT IV 03/05/17 15:29 03/05/17 16:29 DC 03/05/17 15:29 999 MLS/HR ECG Indication: other (dizziness) Rate (beats per minute): 84 Rhythm: atrial flutter Findings: nonspecific-ST abn (diffuse), other (LVH by votlage criteria) Change: Atrial flutter replaced bradycardia from January 25, 2017. ED Course 1524: The patient was evaluated in room C1. A complete history and physical examination were performed. 1529: Sodium Chloride 1,000 ml @ 999 mls/hr IV. 1751: I reevaluated the patient and she is experiencing left flank pain. 1803: I discussed the patient's case with Dr. Lynn - [facility] [place]. The patient will be evaluated for further management. 1807: Upon reevaluation, the patient is hemodynamically stable. I discussed results and treatment plan with the patient and her . She verbalizes agreement and understanding. I spoke with Dr. Lynn of the [facility] [place]. The patient will be evaluated for further management and care. Medical Decision Differential diagnosis: Etiologies such as metabolic, infection, hypo/hyperglycemia, electrolyte abnormalities, cardiac sources, intracerebral event, toxicologic, neurologic, as well as others were entertained. Nursing notes reviewed. Additional history is obtained from the patient's family member. The patient is a 76-year-old female who presented to emergency department for an evaluation of dizziness. The patient was found have hypotension. He was treated with IV fluids. I discussed the patient's laboratory and radiographic studies with her and her family member. The patient was found have some signs of pulmonary edema but her creatinine was elevated compared to baseline. I discussed her case with the on-call [facility]. They've agreed to evaluate the patient in emergency department for further management and disposition. The patient's urine was still pending at the time of disposition. 2310: I discussed his case with the nighttime [facility] to make him aware of the urinalysis being positive for urinary tract infection. Urine culture is pending. I will defer antibiotic treatment to admitting team at this time. Consults Time Called: 1800 Consulting Physician: Dr. Shane KHAN Returned Call: 1802 I discussed the patient's case with Dr. Shane KHAN. The patient will be evaluated for further management. Impression Primary Impression: Dizziness Additional Impressions: Hypotension Dehydration Acute kidney injury UTI (urinary tract infection) Scribe Attestation The scribe's documentation has been prepared under my direction and personally reviewed by me in its entirety. I confirm that the note above accurately reflects all work, treatment, procedures, and medical decision making performed by me. Departure Information Dispostion Being Evaluated By Hospitalist Referrals Teagan Loaiza M.D. (PCP) Problem Qualifiers Additional Impressions: Hypotension Hypotension type: unspecified hypotension type Qualified Codes: I95.9 - Hypotension, unspecified UTI (urinary tract infection) Urinary tract infection type: acute cystitis Hematuria presence: without hematuria Qualified Codes: N30.00 - Acute cystitis without hematuria
[2017-03-05] MEDS ORDERED: SODIUM CHLORIDE 0.9% 1000ML 1,000 ML IV STA (15:29)
[2017-03-05 15:42] LABS: BASO % 0.1 %; BASO ABS # 0.01 K/uL (0-0.2); COMPLETE YES; EOS % 1.3 %; HEMATOCRIT 43.8 % (37-47); IG% 0.1 %; LYMPH % 16.4 %; LYMPH ABS # 1.12 K/uL (1.2-3.4); MEAN CELL VOLUME 93.4 fL (80-100); MEAN CORPUSCULAR HEMOGLOBIN 30.5 pg (25-34); MEAN CORPUSCULAR HGB CONC 32.6 g/dl (32-36); MONO % 9.5 %; NEUT % 72.6 %; PLATELET COUNT 220 K/uL (130-400); RED BLOOD COUNT 4.69 M/uL (4.2-5.4); WHITE BLOOD COUNT 6.85 K/uL (4.8-10.8)
[2017-03-05 15:53] LABS: INR 1.5 (0.9-1.1); PARTIAL THROMBOPLASTIN RATIO 1.1; PROTHROMBIN TIME (PATIENT) 16.1 SECONDS (9.0-12.0)
[2017-03-05 16:04] LABS: BUN/CREATININE RATIO 17.3 (10-20); CALCIUM 8.6 mg/dl (8.5-10.1); CREATININE 1.4 mg/dl (0.60-1.20); MAGNESIUM 2.3 mg/dl (1.8-2.4); POTASSIUM 3.5 mmol/L (3.5-5.1)
--- NOTE | 2017-03-05 16:07 | DIAGNOSTIC IMAGING REPORT ---
CHEST ONE VIEW PORTABLE CLINICAL HISTORY: Altered mental status. Weakness. COMPARISON STUDY: Chest radiograph January 25, 2017. FINDINGS: Lung volumes are normal. Lungs are clear. There is no pneumothorax or pleural effusion. Cardiac size is normal. Cardiac mediastinal silhouette is stable. There is no evidence of pulmonary edema. IMPRESSION: No acute cardiopulmonary findings. Electronically signed by: Kong Liang M.D. 03/05/2017 4:05 PM Dictated Date/Time: 03/05/2017 4:00 PM
[2017-03-05 16:12] LABS: PHOSPHORUS 2.8 mg/dl (2.5-4.9); THYROID STIMULATING HORMONE 1.39 uIu/ml (0.300-4.500)
--- NOTE | 2017-03-05 16:35 | DIAGNOSTIC IMAGING REPORT ---
CT HEAD WITHOUT CONTRAST (CT) CLINICAL HISTORY: Altered mental status. COMPARISON STUDY: 01/25/2017 TECHNIQUE: Axial CT of the brain is performed from the vertex to the skull base. IV contrast was not administered for this examination. CT DOSE: 638.56 mGycm FINDINGS: No intra or extra-axial mass lesions are visualized. There is no CT evidence of acute cortical infarction. There is no evidence of midline shift. There is no acute hemorrhage. No calvarial fractures are visualized. There are postsurgical changes of a right frontal temporal craniotomy. There are patchy white matter hypodensities likely on a small vessel basis. 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 There are postsurgical changes of prior aneurysm clipping. There is no evidence of pathologic ventricular dilatation. There is no evidence of acute sinusitis IMPRESSION: Old postsurgical changes and areas of encephalomalacia/prior infarction. No acute intracranial findings. Electronically signed by: Matheus Krishnamurthy M.D. 03/05/2017 4:34 PM Dictated Date/Time: 03/05/2017 4:31 PM
[2017-03-05] MEDS ORDERED: ATOR-26 PO (17:34)
--- NOTE | 2017-03-05 18:38 | DIAGNOSTIC IMAGING REPORT ---
CT SCAN OF THE ABDOMEN AND PELVIS WITHOUT CONTRAST CLINICAL HISTORY: Left flank pain COMPARISON STUDY: 08/14/2015 TECHNIQUE: CT scan of the abdomen and pelvis was performed from the lung bases to the proximal femurs. Images are reviewed in the axial, sagittal, and coronal planes. IV contrast was not administered for this examination. CT DOSE: 286.24 mGy.cm FINDINGS: Lower chest: There are mild dependent atelectatic changes. Liver: The unenhanced liver is normal in size, contour, and attenuation. There is no intrahepatic biliary ductal dilatation. Gallbladder: Surgically absent Spleen: Normal in size and attenuation. Pancreas: No pancreatic masses are visualized in this noncontrast study. There is no CT evidence of acute pancreatitis. There is a stable linear calcification the pancreatic body. Adrenal glands: Unremarkable. Kidneys: No renal, ureteral, or bladder calculi are visualized. There is a 14 mm left renal cyst. Bowel: There are no transition zones to indicate bowel obstruction. There is mild fecal retention. There is no evidence of acute diverticulitis. The appendix is not visualized with certainty. There is no evidence of acute appendicitis. There is a left lower quadrant colonic anastomosis. Peritoneum: There is no intraperitoneal free air or abdominal ascites. Vasculature: There are moderate atheromatous calcifications present. There is mild iliac ectasia. There is no evidence of abdominal aortic aneurysm. Adenopathy: None. Pelvic viscera: The uterus appears surgically absent. There is air within the bladder, likely iatrogenic. Skeletal structures: There is a grade 2/4 spondylolisthesis of L5 and S1. There are postsurgical changes of an L5-S1 discectomy and interbody fusion and posterior pedicle screw fixation. IMPRESSION: 1. No evidence of bowel obstruction. No evidence of free air 2. No renal, ureteral, or bladder calculi identified 3. No acute inflammatory changes 4. Mild fecal retention 5. Air within the bladder, likely iatrogenic Electronically signed by: Matheus Krishnamurthy M.D. 03/05/2017 6:37 PM Dictated Date/Time: 03/05/2017 6:31 PM
[2017-03-05] MEDS ORDERED: ACETAMINOPHEN 325 MG TAB PO PRN (18:45)
[2017-03-05] MEDS ORDERED: ONDANSETRON INJ 2 MG/ML 2 ML VIAL IV PRN (18:45)
[2017-03-05] MEDS ORDERED: POLYETHYLENE (MIRALAX) 17 GM PACK PO PRN (18:45)
--- NOTE | 2017-03-05 19:09 | History and Physical ---
History & Physical Date & Time of Service: Mar 05, 2017 at 18:55 Chief Complaint: Dizzy, Confusion Primary Care Physician: Teagan Loaiza M.D. History of Present Illness Source: patient, spouse The patient is a 76 year old female with PMH as below, who presents to the Emergency Room with complaints of worsening dizziness. Patient is awake, oriented to self, person, but not to time, unclear why she was brought to ER. History obtained from , daughter by bedside. Patient does have chronic dizziness on and off, admitted in past for it, tests done, but unclear etiology. She has also been experiencing increased confusion, forgetfulness with everyday tasks. 2 nights ago she got up to go to bathroom and ended up being outside her house Today the patient was out to lunch with her and was very weak getting out of the car. She had trouble bringing her fork to her mouth successfully and kept missing. The patient does experiencing shortness of breath with exertion, which is chronic. 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 She denies headache, fever, urinary symptoms, chest pain, swelling to legs or abdominal pain, cough, diarrhea, nausea, vomiting or any recent illness. does admit that she doesnt drink enough water. In ED, noted to be hypotensive with BP in 90s, responded to IVF and now it is 110s. Asymptomatic on my evaluation. Labs- no sig abnormalities, EKG- Atrial flutter , rate controlled, CXR, CT head , CT abd/pelvis- no acute abnormalities. RENU - creatinine 1\\.4 We will admit patient for hypotension, RENU further evaluation and mx. Past Medical/Surgical History Medical Problems: (1) Anticoagulant therapy Status: Chronic (2) Asthma Status: Chronic (3) Atrial fibrillation Status: Chronic (4) Atrial fibrillation with RVR Status: Resolved (5) Atrial fibrillation with RVR Status: Resolved (6) Atrial fibrillation with RVR Status: Resolved (7) Atrial flutter Status: Resolved (8) Benign hypertension Status: Chronic (9) Carotid artery stenosis Status: Chronic (10) Cellulitis of left hand Status: Resolved (11) CORON ATHEROSCLER NOS TYPE VESSEL, NUIQSUT OR GRAFT Status: Chronic (12) Cystitis Status: Resolved (13) Dehydration Status: Resolved (14) Dizziness Status: Resolved (15) Dizziness Status: Resolved (16) Dizziness Status: Resolved (17) Dizziness Status: Resolved (18) Dizziness Status: Resolved (19) Dizziness due to old head injury Status: Resolved (20) Generalized osteoarthritis Status: Chronic (21) History of - pulmonary embolus Status: Resolved (22) Hypertensive heart disease Status: Chronic (23) Hypothyroidism Status: Chronic (24) Left ventricular hypertrophy Status: Chronic (25) Multiple cardiac ablastions Status: Resolved (26) Nausea & vomiting Status: Resolved (27) Paroxysmal supraventricular tachycardia Status: Resolved (28) Postconcussive syndrome Status: Resolved (29) s/p ablation for SVT Permanent Comment: Dr. Osei [facility] [place] 08/28/10 Status: Resolved (30) s/p appendectomy Status: Resolved (31) s/p hysterectomy Status: Resolved (32) s/p left TKA Status: Resolved (33) s/p lumbar decompression Status: Resolved (34) s/p PTCA 1999 Status: Resolved (35) Sleep apnea Status: Chronic (36) Small bowel obstruction Status: Resolved (37) Spinal stenosis in cervical region Status: Chronic (38) Supratherapeutic INR Status: Resolved (39) UTI (urinary tract infection) Status: Resolved (40) UTI (urinary tract infection) Status: Resolved (41) UTI (urinary tract infection) Status: Resolved (42) UTI (urinary tract infection) Status: Resolved (43) Vomiting Status: Resolved (44) Weakness Status: Resolved Family History Diabetes mellitus FH: cancer FH: lung disease Hypertension Social History Smoking Status: Never Smoker Drug Use: none Marital Status: Housing status: lives with family Occupational Status: retired Immunizations History of Influenza Vaccine: Unknown Influenza Vaccine Date: Sep 08, 2011 History of Tetanus Vaccine?: Yes History of Pneumococcal: Unknown Pneumococcal Date: May 03, 2009 History of Hepatitis B Vaccine: Unknown Hepatitis Immunization Date: Dec 13, 1994 Multi-Drug Resistant Organisms History of MDRO: No Allergies Coded Allergies: Carbenicillin (Verified Allergy, Unknown, "DON'T REMEMBER", 02/10/17) Penicillins (Verified Allergy, Unknown, HIVES, 02/10/17) has tolerated ceftriaxone and cefepime Pneumococcal Polysaccharides (Verified Allergy, Unknown, FEVER/RASH, ) Sulfamethoxazole w/Trimethoprim (Verified Adverse Reaction, Mild, GI SYMPTOMS, 02/10/17) nausea /vomiting Home Medications Scheduled Amiodarone Hcl (Cordarone), 200 MG PO HS Atorvastatin (Lipitor), 80 MG PO HS Bromfenac Sodium (Ophth) (Prolensa), 1 DROP OPR QID Buspirone Hcl (Buspirone Hcl), 10 MG PO BID Duloxetine Hcl (Cymbalta), 60 MG PO HS Isosorbide Dinitrate (Isordil), 30 MG PO QAM Magnesium Oxide (Mag-Ox), 400 MG PO QAM Metoprolol Tartrate (Lopressor) (Lopressor), 12.5 MG PO BID Omeprazole (Prilosec), 20 MG PO QAM Potassium Chloride (K-Tab), 1 TAB PO QAM Prednisolone Acetate (Ophth) (Omnipred), 1 DROPS OPR TID Solifenacin (Vesicare), 5 MG PO QAM Trazodone Hcl (Desyrel), 50 MG PO HS Warfarin Sodium (Coumadin), 5 MG PO Q2D Warfarin Sodium (Coumadin), 2.5 MG PO Q2D Review of Systems Constitutional: No chills, No fever, No sweats, No weight loss Eyes: No discharge, No redness ENT: No hearing loss, No nasal symptoms Respiratory: + shortness of breath (chronic on exertion, mild), No cough, No hemoptysis, No sputum, No wheezing Cardiovascular: No chest pain, No edema, No orthopnea, No palpitations Abdomen: No constipation, No diarrhea, No nausea, No pain, No vomiting Genitourinary - Female: No dysuria, No urinary frequency, No urinary urgency Neurologic: + memory loss, + problem reported (dizziness +), No paralysis, No weakness Psychiatric: No depression symptoms Hematologic / Lymphatic: No abnormal bleeding/bruising Integumentary: No rash Physical Exam Vital Signs Date Time Temp Pulse Resp B/P Pulse Ox O2 Delivery O2 Flow Rate FiO2 03/05/17 17:58 96 03/05/17 17:56 70 110/62 Room Air 03/05/17 16:13 87 03/05/17 16:09 94 111/52 106 114/74 03/05/17 15:35 97 Room Air 03/05/17 15:35 97 Room Air 03/05/17 15:12 36.7 89 18 99/65 96 Room Air General Appearance: no apparent distress, + pertinent finding (awake, oriented to place, person but not to time) Head: normocephalic, atraumatic Eyes: PERRL ENT: hearing grossly normal Neck: supple, no JVD Respiratory/Chest: chest non-tender, lungs clear, normal breath sounds, no respiratory distress, no accessory muscle use Cardiovascular: no edema, no JVD, no murmur, + pertinent finding (atrial flutter) Abdomen/GI: normal bowel sounds, non tender, soft Back: no CVA tenderness Extremities/Musculoskelatal: no calf tenderness, no pedal edema Neurologic/Psych: ragman II-XII nml as tested, no motor/sensory deficits, alert Skin: normal color Diagnostics Laboratory Results Results Past 24 Hours Test 03/05/17 15:27 03/05/17 18:07 03/05/17 18:08 Range/Units White Blood Count 6.85 4.8-10.8 K/uL Red Blood Count 4.69 4.2-5.4 M/uL Hemoglobin 14.3 12.0-16.0 g/dL Hematocrit 43.8 37-47 % Mean Corpuscular Volume 93.4 80-100 fL Mean Corpuscular Hemoglobin 30.5 25-34 pg Mean Corpuscular Hemoglobin Concent 32.6 32-36 g/dl Platelet Count 220 130-400 K/uL Mean Platelet Volume 9.0 7.4-10.4 fL Neutrophils (%) (Auto) 72.6 % Lymphocytes (%) (Auto) 16.4 % Monocytes (%) (Auto) 9.5 % Eosinophils (%) (Auto) 1.3 % Basophils (%) (Auto) 0.1 % Neutrophils # (Auto) 4.97 1.4-6.5 K/uL Lymphocytes # (Auto) 1.12 1.2-3.4 K/uL Monocytes # (Auto) 0.65 0.11-0.59 K/uL Eosinophils # (Auto) 0.09 0-0.5 K/uL Basophils # (Auto) 0.01 0-0.2 K/uL RDW Standard Deviation 48.7 36.4-46.3 fL RDW Coefficient of Variation 14.4 11.5-14.5 % Immature Granulocyte % (Auto) 0.1 % Immature Granulocyte # (Auto) 0.01 0.00-0.02 K/uL Prothrombin Time 16.1 9.0-12.0 SECONDS Prothromb Time International Ratio 1.5 0.9-1.1 Activated Partial Thromboplast Time 28.2 21.0-31.0 SECONDS Partial Thromboplastin Ratio 1.1 Sodium Level 145 136-145 mmol/L Potassium Level 3.5 3.5-5.1 mmol/L Chloride Level 111 98-107 mmol/L Carbon Dioxide Level 29 21-32 mmol/L Anion Gap 5.0 3-11 mmol/L Blood Urea Nitrogen 24 7-18 mg/dl Creatinine 1.40 0.60-1.20 mg/dl Est Creatinine Clear Calc Drug Dose 39.4 ml/min Estimated GFR () 42.8 Estimated GFR (Non- 36.9 BUN/Creatinine Ratio 17.3 10-20 Random Glucose 104 70-99 mg/dl Calcium Level 8.6 8.5-10.1 mg/dl Phosphorus Level 2.8 2.5-4.9 mg/dl Magnesium Level 2.3 1.8-2.4 mg/dl Total Bilirubin 0.8 0.2-1 mg/dl Direct Bilirubin 0.2 0-0.2 mg/dl Aspartate Amino Transf (AST/SGOT) 18 15-37 U/L Alanine Aminotransferase (ALT/SGPT) 29 12-78 U/L Alkaline Phosphatase 73 45-117 U/L Total Creatine Kinase 92 26-192 U/L Creatine Kinase MB 1.8 0.5-3.6 ng/ml Creatine Kinase MB Ratio 2.0 0-3.0 Troponin I 0.024 0-0.045 ng/ml Pro-B-Type Natriuretic Peptide 1902 0-900 pg/ml Total Protein 7.2 6.4-8.2 gm/dl Albumin 3.9 3.4-5.0 gm/dl Lipase 355 73-393 U/L Thyroid Stimulating Hormone (TSH) 1.390 0.300-4.500 uIu/ml Bedside Lactic Acid Venous 1.05 0.90-1.70 mmol/L Microbiology Results 03/05/17 Blood Culture, Received Pending 03/05/17 Blood Culture, Received Pending Diagnostic Radiology EKG- A flutter , rate controlled 84, no acute changes CXR, CT abd/pelvis, CT head reviewed- no acute abn Impression Assessment and Plan DIZZINESS Likely secondary to HYPOTENSION Likely volume depletion, though exact etiology unclear.. Has had dizziness x 1 month, intermittent, no syncope palpitations, not associated with movements. -D/D considered: Infection, but clinically none noted- no s/s of infection, Chronically has elevated BPs so no tendency for low BP , Orthostatics - negative. No associated neurological symptoms. 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 DEMENTIA Per H & P developing signs of early dementia W/F Sundowning symptoms -WIll need outpatient evaluation and discussed about safety concerns at home- not to leave her alone HX OF ATRIAL FLUTTER, RATE CONTROLLED Hx of Ablation in past -On amiodarone -On warfarin, Heparin SQ till INR therapeutic HX OF STROKE With no focal deficits HX OF CAD WITH STENTING IN 1999 Stable -EKG- no acute changes DVT PROPHYLAXIS Heparin SQ till inr therapeutic DNR/DNI per patient DISPOSITION observation med surg Discussed with family Level of Care Med/Surg Resuscitation Status DO NOT RESUSCITATE VTE Prophylaxis VTE Risk Assessment Done? Y/N: Yes Risk Level: High Given or contraindicated: Unfractionated heparin SQ (coumadin)
[2017-03-05 19:32] LABS: URINE APPEARANCE CLOUDY (CLEAR); URINE BILIRUBIN NEG (NEG); URINE COLOR DK YELLOW; URINE EPITHELIAL CELL AUTO >30 /lpf (0-5); URINE NITRITE POS (NEG); URINE SPECIFIC GRAVITY 1.023 (1.000-1.030); UROBILINOGEN NEG (NEG)
[2017-03-05 19:36] LABS: MANUAL MICROSCOPIC REQUIRED? NO; REVIEW REQ? YES
[2017-03-05 20:22] VITALS: BP 160/86; PULSE 62; TEMP 36.7; O2SAT 97; Ht 165.1 cm; Wt 71.7 kg
[2017-03-05] MEDS: SODIUM CHLORIDE 0.9% 1000ML 1,000 ML IV SCH (21:42)
[2017-03-05] MEDS: PrednisoLONE ACET 1% OP SUSP 5 ML BTL OPR SCH (21:44)
[2017-03-05] MEDS ORDERED: PNEUMOCOCCAL POLYSACCHARIDES 25 MCG/0.5 ML VIAL/SYR IM. ONE (21:45)
[2017-03-05] MEDS ORDERED: PNEUMOCOCCAL ADMINISTRATION CHARGE ONE (21:45)
[2017-03-05] MEDS: METOPROLOL TARTRATE 25 MG TAB PO SCH (21:46)
[2017-03-05] MEDS: WARFARIN SOD 5 MG TAB PO SCH (21:47)
[2017-03-05] MEDS: AMIODARONE 200 MG TAB PO SCH (21:48)
[2017-03-05] MEDS: DULOXETINE HCL 60 MG CAP PO SCH (21:48)
[2017-03-05] MEDS: TRAZODONE HCL 50 MG TAB PO SCH (21:48)
[2017-03-05] MEDS: ATORVASTATIN 40 MG TAB PO SCH (21:48)
[2017-03-05] MEDS: HEPARIN SOD 5000 UNIT/0.5 ML CARP SQ SCH (21:55)
[2017-03-05 23:48] VITALS: BP 157/75; PULSE 75; TEMP 36.6; O2SAT 91
[2017-03-06] MEDS: CEFTRIAXONE SOD INJ 1 GM in DEXTROSE 5% ADD-VANTAGE 50ML 50 ML IV SCH (04:28)
[2017-03-06] MEDS: HEPARIN SOD 5000 UNIT/0.5 ML CARP SQ SCH ×3 (06:16→21:16)
[2017-03-06 08:04] LABS: MEAN CELL VOLUME 94.2 fL (80-100); MEAN CORPUSCULAR HEMOGLOBIN 29.5 pg (25-34); MEAN CORPUSCULAR HGB CONC 31.3 g/dl (32-36); MEAN PLATELET VOLUME 9.1 fL (7.4-10.4); PLATELET COUNT 171 K/uL (130-400); RED BLOOD COUNT 4.14 M/uL (4.2-5.4); WHITE BLOOD COUNT 4.28 K/uL (4.8-10.8)
[2017-03-06 08:09] LABS: INR 1.6 (0.9-1.1)
[2017-03-06] MEDS: MAGNESIUM OXIDE 400 MG TAB PO SCH (08:12)
[2017-03-06] MEDS: METOPROLOL TARTRATE 25 MG TAB PO SCH ×2 (08:12→20:58)
[2017-03-06] MEDS: POTASSIUM CHLORIDE 20 MEQ TABCR PO SCH (08:13)
[2017-03-06] MEDS: PANTOprazole SOD 40 MG TAB PO SCH (08:14)
[2017-03-06] MEDS: PrednisoLONE ACET 1% OP SUSP 5 ML BTL OPR SCH ×3 (08:15→20:56)
[2017-03-06] MEDS: SODIUM CHLORIDE 0.9% 1000ML 1,000 ML IV SCH (08:19)
[2017-03-06 08:34] LABS: BUN/CREATININE RATIO 21.9 (10-20); CREATININE 0.9 mg/dl (0.60-1.20); POTASSIUM 3.5 mmol/L (3.5-5.1)
[2017-03-06 08:40] VITALS: BP 161/80; PULSE 57; TEMP 36.3; O2SAT 100
[2017-03-06 08:57] LABS: CALCIUM 8.6 mg/dl (8.5-10.1)
[2017-03-06] MEDS ORDERED: ISOSORBIDE DINITRATE 30 MG PO SCH (09:00)
[2017-03-06] MEDS ORDERED: ISOS30TA35 PO (12:10)
[2017-03-06] MEDS: SODIUM CHLORIDE 0.45% 1000ML 1,000 ML IV SCH (12:35)
[2017-03-06] MEDS: POLYETHYLENE (MIRALAX) 17 GM PACK PO SCH (12:35)
[2017-03-06] MEDS ORDERED: MECLIZINE HCL 12.5 MG TAB PO PRN (15:30)
[2017-03-06] MEDS ORDERED: MECLIZINE HCL 25 MG TAB PO ONE (15:30)
--- NOTE | 2017-03-06 15:32 | Progress Note ---
Internal Med Progress Note Date of Service: Mar 06, 2017. Provider Documentation: SUBJECTIVE: ongoing dizziness for 1-2 months but got worse yesterday was not able to walk still feeling dizzy when sitting up afebrile no nausea no sob or chest pain OBJECTIVE: Vital Signs-as noted below Exam: General-Alert and awake ENT-normal hearing Neck-no neck masses Lungs-cta b/l no wheezing or crackles Heart-s1 and s2 heard regular rate and rhythm no murmurs Abdomen-soft bowel sounds no tenderness no distension Extremities-no edema no erythema Neuro-Alert and awake moves extremities Lab data as noted below. ASSESSMENT & PLAN: DIZZINESS was hypotensive on presentation but currently hypertensive no significant orthostatic hypotension ct head unremarkable meclizine prn gentle fluids pt/ot f/u echo and carotid Doppler RENU Creatinine 1.4, last one 0.81 resolved PROBABLE EARLY DEMENTIA Per H & P developing signs of early dementia W/F symptoms pt/ot out patient followup HX OF ATRIAL FLUTTER, RATE CONTROLLED Hx of Ablation in past On amiodarone On warfarin, Heparin SQ till INR therapeutic INR 1.6 today. HX OF STROKE With no focal deficits HX OF CAD WITH STENTING IN 1999 Stable on statin and b chon DVT PROPHYLAXIS Heparin SQ till inr therapeutic DNR/DNI per patient DISPOSITION observation med surg Vital Signs: Date Time Temp Pulse Resp B/P Pulse Ox O2 Delivery O2 Flow Rate FiO2 03/06/17 08:40 36.3 57 16 161/80 100 Room Air 03/06/17 08:00 Room Air 03/06/17 01:15 Room Air 03/05/17 23:48 36.6 75 20 157/75 91 Room Air 03/05/17 20:22 36.7 62 20 160/86 97 Room Air 03/05/17 19:15 74 14 122/69 96 Room Air 03/05/17 17:58 96 03/05/17 17:56 70 110/62 Room Air 03/05/17 16:13 87 03/05/17 16:09 94 111/52 106 114/74 03/05/17 15:35 97 Room Air 03/05/17 15:35 97 Room Air Lab Results: Results Past 24 Hours Test 03/05/17 18:07 03/05/17 18:08 03/05/17 19:15 03/06/17 07:14 Range/Units Bedside Lactic Acid Venous 1.05 0.90-1.70 mmol/L Random Cortisol 8.17 mcg/dl Urine Color DK YELLOW Urine Appearance CLOUDY CLEAR Urine pH 5.0 4.5-7.5 Urine Specific [place] 1.023 1.000-1.030 Urine Protein NEG NEG Urine Glucose (UA) NEG NEG Urine Ketones NEG NEG Urine Occult Blood 1+ NEG Urine Nitrite POS NEG Urine Bilirubin NEG NEG Urine Urobilinogen NEG NEG Urine Leukocyte Esterase LARGE NEG Urine WBC (Auto) >30 0-5 /hpf Urine RBC (Auto) 0-4 0-4 /hpf Urine Hyaline Casts (Auto) 1-5 0-5 /lpf Urine Epithelial Cells (Auto) >30 0-5 /lpf Urine Bacteria (Auto) 4+ NEG Urine Pathogenic Casts 0 /lpf White Blood Count 4.28 4.8-10.8 K/uL Red Blood Count 4.14 4.2-5.4 M/uL Hemoglobin 12.2 12.0-16.0 g/dL Hematocrit 39.0 37-47 % Mean Corpuscular Volume 94.2 80-100 fL Mean Corpuscular Hemoglobin 29.5 25-34 pg Mean Corpuscular Hemoglobin Concent 31.3 32-36 g/dl RDW Standard Deviation 48.9 36.4-46.3 fL RDW Coefficient of Variation 14.3 11.5-14.5 % Platelet Count 171 130-400 K/uL Mean Platelet Volume 9.1 7.4-10.4 fL Prothrombin Time 17.0 9.0-12.0 SECONDS Prothromb Time International Ratio 1.6 0.9-1.1 Sodium Level 148 136-145 mmol/L Potassium Level 3.5 3.5-5.1 mmol/L Chloride Level 112 98-107 mmol/L Carbon Dioxide Level 28 21-32 mmol/L Anion Gap 8.0 3-11 mmol/L Blood Urea Nitrogen 20 7-18 mg/dl Creatinine 0.90 0.60-1.20 mg/dl Est Creatinine Clear Calc Drug Dose 54.4 ml/min Estimated GFR () 73.0 Estimated GFR (Non- 63.0 BUN/Creatinine Ratio 21.9 10-20 Random Glucose 85 70-99 mg/dl Calcium Level 8.6 8.5-10.1 mg/dl Microbiology Results 03/05/17 Blood Culture, Received Pending 03/05/17 Blood Culture, Received Pending
[2017-03-06 15:37] VITALS: BP 151/95; PULSE 63; TEMP 36.4; O2SAT 94
[2017-03-06] MEDS: WARFARIN SOD 2.5 MG TAB PO SCH (15:45)
[2017-03-06 16:00] VITALS: O2SAT 96
[2017-03-06] MEDS: ATORVASTATIN 40 MG TAB PO SCH (20:59)
[2017-03-06] MEDS: AMIODARONE 200 MG TAB PO SCH (21:00)
[2017-03-06] MEDS: DULOXETINE HCL 60 MG CAP PO SCH (21:01)
[2017-03-06] MEDS: TRAZODONE HCL 50 MG TAB PO SCH (21:02)
[2017-03-06] MEDS ORDERED: LORAZEPAM 0.5 MG TAB PO ONE (23:00)
[2017-03-06 23:12] VITALS: BP 144/78; PULSE 100; TEMP 36.5; O2SAT 97
[2017-03-07] MEDS: SODIUM CHLORIDE 0.45% 1000ML 1,000 ML IV SCH ×2 (02:01→14:05)
[2017-03-07] MEDS: CEFTRIAXONE SOD INJ 1 GM in DEXTROSE 5% ADD-VANTAGE 50ML 50 ML IV SCH (03:46)
[2017-03-07] MEDS: HEPARIN SOD 5000 UNIT/0.5 ML CARP SQ SCH ×3 (05:54→20:24)
[2017-03-07 07:35] VITALS: BP 172/81; PULSE 87; TEMP 36.5; O2SAT 98
[2017-03-07 08:03] LABS: BASO % 0.3 %; BASO ABS # 0.01 K/uL (0-0.2); COMPLETE YES; EOS % 3.1 %; HEMATOCRIT 37.3 % (37-47); IG% 0.3 %; LYMPH % 24.5 %; LYMPH ABS # 0.78 K/uL (1.2-3.4); MEAN CELL VOLUME 92.8 fL (80-100); MEAN CORPUSCULAR HEMOGLOBIN 30.6 pg (25-34); MEAN PLATELET VOLUME 9.2 fL (7.4-10.4); MONO % 6.3 %; NEUT % 65.5 %; PLATELET COUNT 156 K/uL (130-400); RED BLOOD COUNT 4.02 M/uL (4.2-5.4); WHITE BLOOD COUNT 3.18 K/uL (4.8-10.8)
[2017-03-07 08:33] LABS: BUN/CREATININE RATIO 14.4 (10-20); CREATININE 0.94 mg/dl (0.60-1.20); MAGNESIUM 1.9 mg/dl (1.8-2.4); POTASSIUM 3.4 mmol/L (3.5-5.1)
[2017-03-07] MEDS: POLYETHYLENE (MIRALAX) 17 GM PACK PO SCH (08:43)
[2017-03-07] MEDS: PrednisoLONE ACET 1% OP SUSP 5 ML BTL OPR SCH ×3 (08:44→20:22)
[2017-03-07] MEDS: ISOSORBIDE MONONITRATE 30 MG TABCR PO SCH (08:45)
[2017-03-07] MEDS: POTASSIUM CHLORIDE 20 MEQ TABCR PO SCH (08:45)
[2017-03-07] MEDS: METOPROLOL TARTRATE 25 MG TAB PO SCH ×2 (08:46→20:22)
[2017-03-07] MEDS: MAGNESIUM OXIDE 400 MG TAB PO SCH (08:46)
[2017-03-07] MEDS: PANTOprazole SOD 40 MG TAB PO SCH (08:46)
[2017-03-07 15:22] VITALS: BP 128/82; PULSE 96; TEMP 36.3; O2SAT 95
[2017-03-07] MEDS: WARFARIN SOD 5 MG TAB PO SCH (15:56)
--- NOTE | 2017-03-07 16:38 | Progress Note ---
Internal Med Progress Note Date of Service: Mar 07, 2017. Provider Documentation: SUBJECTIVE: sitting on the chair comfortably daughter in the room says dizziness improved eating ok no complaints OBJECTIVE: Vital Signs-as noted below Exam: General-Alert and awake ENT-normal hearing Neck-no neck masses Lungs-cta b/l no wheezing or crackles Heart-s1 and s2 heard regular rate and rhythm no murmurs Abdomen-soft bowel sounds no tenderness no distension Extremities-no edema no erythema Neuro-Alert and awake moves extremities Lab data as noted below. ASSESSMENT & PLAN: DIZZINESS was hypotensive on presentation but currently hypertensive no significant orthostatic hypotension ct head unremarkable meclizine prn gentle fluids pt/ot improved pt/ot RENU Creatinine 1.4, last one 0.81 resolved PROBABLE EARLY DEMENTIA Per H & P developing signs of early dementia W/F owning symptoms pt/ot out patient followup HX OF ATRIAL FLUTTER, RATE CONTROLLED Hx of Ablation in past On amiodarone On warfarin, Heparin SQ till INR therapeutic INR 1.6 HX OF STROKE With no focal deficits HX OF CAD WITH STENTING IN 1999 Stable on statin and b chon DVT PROPHYLAXIS Heparin SQ till inr therapeutic DNR/DNI per patient DISPOSITION ot recommends rehab social service for d/c planning Vital Signs: Date Time Temp Pulse Resp B/P Pulse Ox O2 Delivery O2 Flow Rate FiO2 03/07/17 15:22 36.3 96 16 128/82 95 Room Air 03/07/17 10:19 Room Air 03/07/17 07:35 36.5 87 16 172/81 98 Room Air 03/07/17 00:15 Room Air 03/06/17 23:12 36.5 100 18 144/78 97 Room Air Lab Results: Results Past 24 Hours Test 03/07/17 07:35 Range/Units White Blood Count 3.18 4.8-10.8 K/uL Red Blood Count 4.02 4.2-5.4 M/uL Hemoglobin 12.3 12.0-16.0 g/dL Hematocrit 37.3 37-47 % Mean Corpuscular Volume 92.8 80-100 fL Mean Corpuscular Hemoglobin 30.6 25-34 pg Mean Corpuscular Hemoglobin Concent 33.0 32-36 g/dl Platelet Count 156 130-400 K/uL Mean Platelet Volume 9.2 7.4-10.4 fL Neutrophils (%) (Auto) 65.5 % Lymphocytes (%) (Auto) 24.5 % Monocytes (%) (Auto) 6.3 % Eosinophils (%) (Auto) 3.1 % Basophils (%) (Auto) 0.3 % Neutrophils # (Auto) 2.08 1.4-6.5 K/uL Lymphocytes # (Auto) 0.78 1.2-3.4 K/uL Monocytes # (Auto) 0.20 0.11-0.59 K/uL Eosinophils # (Auto) 0.10 0-0.5 K/uL Basophils # (Auto) 0.01 0-0.2 K/uL RDW Standard Deviation 47.7 36.4-46.3 fL RDW Coefficient of Variation 14.0 11.5-14.5 % Immature Granulocyte % (Auto) 0.3 % Immature Granulocyte # (Auto) 0.01 0.00-0.02 K/uL Sodium Level 146 136-145 mmol/L Potassium Level 3.4 3.5-5.1 mmol/L Chloride Level 109 98-107 mmol/L Carbon Dioxide Level 31 21-32 mmol/L Anion Gap 6.0 3-11 mmol/L Blood Urea Nitrogen 14 7-18 mg/dl Creatinine 0.94 0.60-1.20 mg/dl Est Creatinine Clear Calc Drug Dose 52.1 ml/min Estimated GFR () 69.3 Estimated GFR (Non- 59.8 BUN/Creatinine Ratio 14.4 10-20 Random Glucose 84 70-99 mg/dl Calcium Level 9.0 8.5-10.1 mg/dl Magnesium Level 1.9 1.8-2.4 mg/dl Vitamin B12 Level 328 211-911 pg/mL Folate 6.00 >5.38 ng/mL Microbiology Results 03/06/17 Urine Culture - Preliminary, Resulted PIN-POINT GROWTH PRESENT, REINCUBATING.
[2017-03-07] MEDS: DULOXETINE HCL 60 MG CAP PO SCH (20:20)
[2017-03-07] MEDS: ATORVASTATIN 40 MG TAB PO SCH (20:21)
[2017-03-07] MEDS: TRAZODONE HCL 50 MG TAB PO SCH (20:21)
[2017-03-07] MEDS: AMIODARONE 200 MG TAB PO SCH (20:21)
[2017-03-07 22:51] VITALS: BP 140/96; PULSE 132; TEMP 36.6; O2SAT 95
[2017-03-08] MEDS: CEFTRIAXONE SOD INJ 1 GM in DEXTROSE 5% ADD-VANTAGE 50ML 50 ML IV SCH (04:09)
[2017-03-08] MEDS: HEPARIN SOD 5000 UNIT/0.5 ML CARP SQ SCH (06:26)
[2017-03-08 06:58] VITALS: BP 152/93; PULSE 70; TEMP 36.6; O2SAT 96
[2017-03-08 07:26] LABS: BASO % 0.2 %; BASO ABS # 0.01 K/uL (0-0.2); COMPLETE YES; EOS % 2.6 %; HEMATOCRIT 36.9 % (37-47); IG% 0.2 %; LYMPH % 25.1 %; LYMPH ABS # 1.05 K/uL (1.2-3.4); MEAN CELL VOLUME 92.9 fL (80-100); MEAN CORPUSCULAR HEMOGLOBIN 30.2 pg (25-34); MEAN CORPUSCULAR HGB CONC 32.5 g/dl (32-36); MEAN PLATELET VOLUME 9.1 fL (7.4-10.4); MONO % 9.6 %; NEUT % 62.3 %; PLATELET COUNT 143 K/uL (130-400); RED BLOOD COUNT 3.97 M/uL (4.2-5.4); WHITE BLOOD COUNT 4.18 K/uL (4.8-10.8)
[2017-03-08 07:34] LABS: INR 2.1 (0.9-1.1); PROTHROMBIN TIME (PATIENT) 22.7 SECONDS (9.0-12.0)
[2017-03-08 07:53] LABS: BUN/CREATININE RATIO 15.6 (10-20); CALCIUM 8.3 mg/dl (8.5-10.1); CREATININE 0.96 mg/dl (0.60-1.20); MAGNESIUM 1.9 mg/dl (1.8-2.4); POTASSIUM 3.9 mmol/L (3.5-5.1)
[2017-03-08] MEDS: PrednisoLONE ACET 1% OP SUSP 5 ML BTL OPR SCH ×3 (09:00→20:34)
[2017-03-08] MEDS: POTASSIUM CHLORIDE 20 MEQ TABCR PO SCH (09:00)
[2017-03-08] MEDS: ISOSORBIDE MONONITRATE 30 MG TABCR PO SCH (09:00)
[2017-03-08] MEDS: MAGNESIUM OXIDE 400 MG TAB PO SCH (09:01)
[2017-03-08] MEDS: METOPROLOL TARTRATE 25 MG TAB PO SCH ×2 (09:01→20:36)
[2017-03-08] MEDS: PANTOprazole SOD 40 MG TAB PO SCH (09:01)
[2017-03-08] MEDS: POLYETHYLENE (MIRALAX) 17 GM PACK PO SCH (09:01)
[2017-03-08 09:44] VITALS: O2SAT 96
--- NOTE | 2017-03-08 14:13 | Progress Note ---
Internal Med Progress Note Date of Service: Mar 08, 2017. Provider Documentation: SUBJECTIVE: patient was confused last night doing ok now eating fine moved bowels no dizziness OBJECTIVE: Vital Signs-as noted below Exam: General-Alert and awake ENT-normal hearing Neck-no neck masses Lungs-cta b/l no wheezing or crackles Heart-s1 and s2 heard regular rate and rhythm no murmurs Abdomen-soft bowel sounds no tenderness no distension Extremities-no edema no erythema Neuro-Alert and awake moves extremities Lab data as noted below. ASSESSMENT & PLAN: DIZZINESS was hypotensive on presentation but currently hypertensive no significant orthostatic hypotension ct head unremarkable meclizine prn gentle fluids improved pt/ot RENU Creatinine 1.4, last one 0.81 resolved PROBABLE EARLY DEMENTIA Per H & P developing signs of early dementia W/F symptoms seems had delirium last night will monitor out patient followup HX OF ATRIAL FLUTTER, RATE CONTROLLED Hx of Ablation in past On amiodarone On warfarin, Heparin SQ till INR therapeutic INR 2.1 HX OF STROKE With no focal deficits HX OF CAD WITH STENTING IN 1999 Stable on statin and b chon DVT PROPHYLAXIS on coumadin DNR/DNI per patient DISPOSITION ot recommends rehab social service for d/c planning Vital Signs: Date Time Temp Pulse Resp B/P Pulse Ox O2 Delivery O2 Flow Rate FiO2 03/08/17 09:44 96 Room Air 03/08/17 06:58 36.6 70 18 152/93 96 03/07/17 23:50 Room Air 03/07/17 22:51 36.6 132 20 140/96 95 Room Air 03/07/17 16:00 Room Air 03/07/17 15:22 36.3 96 16 128/82 95 Room Air Lab Results: Results Past 24 Hours Test 03/08/17 07:16 Range/Units White Blood Count 4.18 4.8-10.8 K/uL Red Blood Count 3.97 4.2-5.4 M/uL Hemoglobin 12.0 12.0-16.0 g/dL Hematocrit 36.9 37-47 % Mean Corpuscular Volume 92.9 80-100 fL Mean Corpuscular Hemoglobin 30.2 25-34 pg Mean Corpuscular Hemoglobin Concent 32.5 32-36 g/dl Platelet Count 143 130-400 K/uL Mean Platelet Volume 9.1 7.4-10.4 fL Neutrophils (%) (Auto) 62.3 % Lymphocytes (%) (Auto) 25.1 % Monocytes (%) (Auto) 9.6 % Eosinophils (%) (Auto) 2.6 % Basophils (%) (Auto) 0.2 % Neutrophils # (Auto) 2.60 1.4-6.5 K/uL Lymphocytes # (Auto) 1.05 1.2-3.4 K/uL Monocytes # (Auto) 0.40 0.11-0.59 K/uL Eosinophils # (Auto) 0.11 0-0.5 K/uL Basophils # (Auto) 0.01 0-0.2 K/uL RDW Standard Deviation 48.1 36.4-46.3 fL RDW Coefficient of Variation 14.2 11.5-14.5 % Immature Granulocyte % (Auto) 0.2 % Immature Granulocyte # (Auto) 0.01 0.00-0.02 K/uL Prothrombin Time 22.7 9.0-12.0 SECONDS Prothromb Time International Ratio 2.1 0.9-1.1 Sodium Level 147 136-145 mmol/L Potassium Level 3.9 3.5-5.1 mmol/L Chloride Level 110 98-107 mmol/L Carbon Dioxide Level 32 21-32 mmol/L Anion Gap 5.0 3-11 mmol/L Blood Urea Nitrogen 15 7-18 mg/dl Creatinine 0.96 0.60-1.20 mg/dl Est Creatinine Clear Calc Drug Dose 51.0 ml/min Estimated GFR () 67.5 Estimated GFR (Non- 58.3 BUN/Creatinine Ratio 15.6 10-20 Random Glucose 90 70-99 mg/dl Calcium Level 8.3 8.5-10.1 mg/dl Magnesium Level 1.9 1.8-2.4 mg/dl
[2017-03-08 14:50] VITALS: BP 93/53; PULSE 87; TEMP 36.6; O2SAT 95
[2017-03-08] MEDS: WARFARIN SOD 2.5 MG TAB PO SCH (16:17)
[2017-03-08] MEDS: ATORVASTATIN 40 MG TAB PO SCH (20:32)
[2017-03-08] MEDS: TRAZODONE HCL 50 MG TAB PO SCH (20:33)
[2017-03-08] MEDS: AMIODARONE 200 MG TAB PO SCH (20:33)
[2017-03-08] MEDS: DULOXETINE HCL 60 MG CAP PO SCH (20:34)
[2017-03-08 20:42] VITALS: BP 165/83; PULSE 90
[2017-03-09] VITALS (8 sets, daily range): BP systolic 86–155; BP diastolic 52–79; PULSE 68–98; TEMP 36.7; O2SAT 93–97
[2017-03-09] MEDS: CEFTRIAXONE SOD INJ 1 GM in DEXTROSE 5% ADD-VANTAGE 50ML 50 ML IV SCH (04:48)
[2017-03-09 07:00] LABS: BASO % 0.5 %; BASO ABS # 0.02 K/uL (0-0.2); COMPLETE YES; EOS % 2.1 %; HEMATOCRIT 36.3 % (37-47); IG% 0.3 %; LYMPH % 21.3 %; LYMPH ABS # 0.81 K/uL (1.2-3.4); MEAN CELL VOLUME 92.8 fL (80-100); MEAN CORPUSCULAR HEMOGLOBIN 30.7 pg (25-34); MEAN CORPUSCULAR HGB CONC 33.1 g/dl (32-36); MEAN PLATELET VOLUME 9.3 fL (7.4-10.4); MONO % 8.7 %; NEUT % 67.1 %; PLATELET COUNT 159 K/uL (130-400); RED BLOOD COUNT 3.91 M/uL (4.2-5.4)
[2017-03-09 07:12] LABS: INR 2.1 (0.9-1.1); PROTHROMBIN TIME (PATIENT) 23.7 SECONDS (9.0-12.0)
[2017-03-09 07:41] LABS: CREATININE 0.95 mg/dl (0.60-1.20)
[2017-03-09 07:42] LABS: BUN/CREATININE RATIO 14.6 (10-20); CALCIUM 8.9 mg/dl (8.5-10.1); MAGNESIUM 1.9 mg/dl (1.8-2.4); POTASSIUM 3.6 mmol/L (3.5-5.1)
[2017-03-09] MEDS: PrednisoLONE ACET 1% OP SUSP 5 ML BTL OPR SCH ×3 (08:42→20:26)
[2017-03-09] MEDS: ISOSORBIDE MONONITRATE 30 MG TABCR PO SCH (08:42)
[2017-03-09] MEDS: POLYETHYLENE (MIRALAX) 17 GM PACK PO SCH (08:43)
[2017-03-09] MEDS: POTASSIUM CHLORIDE 20 MEQ TABCR PO SCH (08:43)
[2017-03-09] MEDS: METOPROLOL TARTRATE 25 MG TAB PO SCH ×2 (08:43→20:27)
[2017-03-09] MEDS: MAGNESIUM OXIDE 400 MG TAB PO SCH (08:43)
[2017-03-09] MEDS: PANTOprazole SOD 40 MG TAB PO SCH (08:44)
[2017-03-09] MEDS: WARFARIN SOD 5 MG TAB PO SCH (16:24)
--- NOTE | 2017-03-09 18:15 | Progress Note ---
Internal Med Progress Note Date of Service: March 09, 2017. Provider Documentation: SUBJECTIVE: patine BP was high in morning and dropped to 80's after imdur and felt dizzy later feeling ok afebrile no nausea OBJECTIVE: Vital Signs-as noted below Exam: General-Alert and awake ENT-normal hearing Neck-no neck masses Lungs-cta b/l no wheezing or crackles Heart-s1 and s2 heard regular rate and rhythm no murmurs Abdomen-soft bowel sounds no tenderness no distension Extremities-no edema no erythema Neuro-Alert and awake moves extremities Lab data as noted below. ASSESSMENT & PLAN: DIZZINESS was hypotensive on presentation but currently hypertensive no significant orthostatic hypotension ct head unremarkable meclizine prn gentle fluids improved but again having dizziness today and her BP dropped after taking BP med will f/u echo changed Imdur to Norvasc will f/u mri RENU Creatinine 1.4, last one 0.81 resolved PROBABLE EARLY DEMENTIA Per H & P developing signs of early dementia W/F Sundowning symptoms will monitor out patient followup HX OF ATRIAL FLUTTER, RATE CONTROLLED Hx of Ablation in past On amiodarone On warfarin, Heparin SQ till INR therapeutic INR 2.1 HX OF STROKE With no focal deficits HX OF CAD WITH STENTING IN 1999 Stable on statin and b chon DVT PROPHYLAXIS on coumadin DNR/DNI per patient DISPOSITION plan to d/c home with home health in 1-2days social service for d/c planning Vital Signs: Date Time Temp Pulse Resp B/P Pulse Ox O2 Delivery O2 Flow Rate FiO2 03/09/17 15:44 36.7 83 20 138/79 93 03/09/17 13:13 68 109/69 03/09/17 11:16 98 90/55 03/09/17 10:30 99/62 03/09/17 10:30 98 86/52 03/09/17 09:49 Room Air 03/09/17 08:00 36.7 97 16 155/75 93 Room Air 03/09/17 00:05 96 Room Air 03/08/17 20:42 90 165/83 Lab Results: Results Past 24 Hours Test 03/09/17 06:00 Range/Units White Blood Count 3.80 4.8-10.8 K/uL Red Blood Count 3.91 4.2-5.4 M/uL Hemoglobin 12.0 12.0-16.0 g/dL Hematocrit 36.3 37-47 % Mean Corpuscular Volume 92.8 80-100 fL Mean Corpuscular Hemoglobin 30.7 25-34 pg Mean Corpuscular Hemoglobin Concent 33.1 32-36 g/dl Platelet Count 159 130-400 K/uL Mean Platelet Volume 9.3 7.4-10.4 fL Neutrophils (%) (Auto) 67.1 % Lymphocytes (%) (Auto) 21.3 % Monocytes (%) (Auto) 8.7 % Eosinophils (%) (Auto) 2.1 % Basophils (%) (Auto) 0.5 % Neutrophils # (Auto) 2.55 1.4-6.5 K/uL Lymphocytes # (Auto) 0.81 1.2-3.4 K/uL Monocytes # (Auto) 0.33 0.11-0.59 K/uL Eosinophils # (Auto) 0.08 0-0.5 K/uL Basophils # (Auto) 0.02 0-0.2 K/uL RDW Standard Deviation 48.3 36.4-46.3 fL RDW Coefficient of Variation 14.2 11.5-14.5 % Immature Granulocyte % (Auto) 0.3 % Immature Granulocyte # (Auto) 0.01 0.00-0.02 K/uL Prothrombin Time 23.7 9.0-12.0 SECONDS Prothromb Time International Ratio 2.1 0.9-1.1 Sodium Level 146 136-145 mmol/L Potassium Level 3.6 3.5-5.1 mmol/L Chloride Level 109 98-107 mmol/L Carbon Dioxide Level 30 21-32 mmol/L Anion Gap 7.0 3-11 mmol/L Blood Urea Nitrogen 14 7-18 mg/dl Creatinine 0.95 0.60-1.20 mg/dl Est Creatinine Clear Calc Drug Dose 51.6 ml/min Estimated GFR () 68.4 Estimated GFR (Non- 59.0 BUN/Creatinine Ratio 14.6 10-20 Random Glucose 87 70-99 mg/dl Calcium Level 8.9 8.5-10.1 mg/dl Magnesium Level 1.9 1.8-2.4 mg/dl
[2017-03-09] MEDS: TRAZODONE HCL 50 MG TAB PO SCH (20:26)
[2017-03-09] MEDS: AMIODARONE 200 MG TAB PO SCH (20:27)
[2017-03-09] MEDS: ATORVASTATIN 40 MG TAB PO SCH (20:28)
[2017-03-09] MEDS: DULOXETINE HCL 60 MG CAP PO SCH (20:28)
[2017-03-10 00:01] VITALS: BP 108/55; PULSE 79; TEMP 36.5; O2SAT 95
[2017-03-10 06:39] LABS: INR 2.1 (0.9-1.1); PROTHROMBIN TIME (PATIENT) 23.7 SECONDS (9.0-12.0)
[2017-03-10 07:29] VITALS: BP 170/114; PULSE 99; TEMP 36.6; O2SAT 98
[2017-03-10] MEDS ORDERED: AMLODIPINE BESYLATE 5 MG TAB PO SCH (08:00)
[2017-03-10] MEDS: MAGNESIUM OXIDE 400 MG TAB PO SCH (08:24)
[2017-03-10] MEDS: POTASSIUM CHLORIDE 20 MEQ TABCR PO SCH (08:24)
[2017-03-10] MEDS: METOPROLOL TARTRATE 25 MG TAB PO SCH (08:24)
[2017-03-10] MEDS: PrednisoLONE ACET 1% OP SUSP 5 ML BTL OPR SCH (08:25)
[2017-03-10] MEDS: PANTOprazole SOD 40 MG TAB PO SCH (08:25)
[2017-03-10] MEDS: POLYETHYLENE (MIRALAX) 17 GM PACK PO SCH (08:25)
[2017-03-10 08:26] VITALS: BP 130/68; PULSE 73
[2017-03-10] MEDS ORDERED: ANT25 PO ×2 (11:26→11:32)
[2017-03-10] MEDS ORDERED: NRV5 PO (11:26)
--- NOTE | 2017-03-10 11:28 | Discharge Instructions ---
Discharge Instructions Date of Service March 10, 2017. Admission Reason for Admission: Dizziness Discharge Discharge Diagnosis / Problem: dizziness, hypotesnion Discharge Goals Goal(s): Decrease discomfort, Improve function Activity Recommendations Activity Limitations: resume your previous activity . Instructions / Follow-Up Instructions / Follow-Up FOLLOWUP WITH FAMILY DOCTOR SCHEDULED ON March. BLOOD PRESSURE FOLLOWUP WITH FAMILY DOCTOR. STOPPED IMDUR BLOOD PRESSURE DROPPED AFTER TAKING IT AND CHANGED TO NEW MEDICATION AMLODIPINE. STOPPED MEDICATION IMDUR NEW MEDICATION AMLODIPINE 2.5MG PO DAILY Current Hospital Diet Patient's current hospital diet: AHA Diet (Heart Healthy), Low Sodium Diet (2gm Na) Discharge Diet Recommended Diet: AHA Diet (Heart Healthy) Pending Studies Studies pending at discharge: yes List of pending studies: ECHO REPORT Medical Emergencies . Who to Call and When: Medical Emergencies: If at any time you feel your situation is an emergency, please call 911 immediately. . Non-Emergent Contact Non-Emergency issues call your: Primary Care Provider . . "Provider Documentation" section prepared by Josh Pendleton. . VTE Core Measure Inpt VTE Proph given/why not?: Unfractionated heparin SQ (coumadin)
[2017-03-10 11:32] VITALS: BP 130/68; PULSE 73; TEMP 36.6; O2SAT 98
[2017-03-10] MEDS ORDERED: AMLO2.5T PO ×3 (11:32→11:34)
--- NOTE | 2017-03-10 13:22 | Progress Note ---
Internal Med Progress Note Date of Service: March 10, 2017. Provider Documentation: SUBJECTIVE: resting comfortably no dizziness today no sob eating fine ok to go home OBJECTIVE: Vital Signs-as noted below Exam: General-Alert and awake ENT-normal hearing Neck-no neck masses Lungs-cta b/l no wheezing or crackles Heart-s1 and s2 heard regular rate and rhythm no murmurs Abdomen-soft bowel sounds no tenderness no distension Extremities-no edema no erythema Neuro-Alert and awake moves extremities Lab data as noted below. ASSESSMENT & PLAN: DIZZINESS was hypotensive on presentation but currently hypertensive no significant orthostatic hypotension ct head unremarkable meclizine prn gentle fluids improved but again having dizziness on 03/09/17 and her BP dropped after taking Imdur will f/u echo changed Imdur to Norvasc stable now discharged to followup with PCP RENU Creatinine 1.4, last one 0.81 resolved PROBABLE EARLY DEMENTIA Per H & P developing signs of early dementia W/F Sundowning symptoms will monitor out patient followup HX OF ATRIAL FLUTTER, RATE CONTROLLED Hx of Ablation in past On amiodarone On warfarin, INR 2.1 HX OF STROKE With no focal deficits HX OF CAD WITH STENTING IN 1999 Stable on statin and b chon Discharged home with home health Vital Signs: Date Time Temp Pulse Resp B/P Pulse Ox O2 Delivery O2 Flow Rate FiO2 03/10/17 11:32 36.6 73 17 98 Room Air 03/10/17 09:00 Room Air 03/10/17 08:26 73 130/68 03/10/17 07:29 36.6 99 17 170/114 98 Room Air 03/10/17 00:01 36.5 79 16 108/55 95 Room Air 03/10/17 00:00 Room Air 03/09/17 20:24 94 129/76 97 03/09/17 16:00 93 Room Air 03/09/17 15:44 36.7 83 20 138/79 93 Lab Results: Results Past 24 Hours Test 03/10/17 06:00 Range/Units Prothrombin Time 23.7 9.0-12.0 SECONDS Prothromb Time International Ratio 2.1 0.9-1.1
--- NOTE | 2017-03-10 13:24 | Discharge Summary ---
Discharge Summary Date of Service March 10, 2017. Discharge Summary Admission Date: Mar 05, 2017 at 18:40 Discharge Date: March 10, 2017 Discharge Disposition: Home with services Principal Diagnosis: DIZZINESS HYPOTENSION Secondary Diagnoses/Problems: (1) Anticoagulant therapy Status: Chronic (2) Asthma Status: Chronic (3) Atrial fibrillation Status: Chronic (4) Atrial fibrillation with RVR Status: Resolved (5) Atrial fibrillation with RVR Status: Resolved (6) Atrial fibrillation with RVR Status: Resolved (7) Atrial flutter Status: Resolved (8) Benign hypertension Status: Chronic (9) Carotid artery stenosis Status: Chronic (10) Cellulitis of left hand Status: Resolved (11) CORON ATHEROSCLER NOS TYPE VESSEL, COQUILLE OR GRAFT Status: Chronic (12) Cystitis Status: Resolved (13) Dehydration Status: Resolved (14) Dizziness Status: Resolved (15) Dizziness Status: Resolved (16) Dizziness Status: Resolved (17) Dizziness Status: Resolved (18) Dizziness Status: Resolved (19) Dizziness due to old head injury Status: Resolved (20) Generalized osteoarthritis Status: Chronic (21) History of - pulmonary embolus Status: Resolved (22) Hypertensive heart disease Status: Chronic (23) Hypothyroidism Status: Chronic (24) Left ventricular hypertrophy Status: Chronic (25) Multiple cardiac ablastions Status: Resolved (26) Nausea & vomiting Status: Resolved (27) Paroxysmal supraventricular tachycardia Status: Resolved (28) Postconcussive syndrome Status: Resolved Procedures: CT HEAD: Old postsurgical changes and areas of encephalomalacia/prior infarction. No acute intracranial findings. CXR: No acute cardiopulmonary findings. CT ABD/PELVIS: 1. No evidence of bowel obstruction. No evidence of free air 2. No renal, ureteral, or bladder calculi identified 3. No acute inflammatory changes 4. Mild fecal retention 5. Air within the bladder, likely iatrogenic Medication Reconciliation New Medications: Amlodipine (Norvasc) 2.5 Mg Tab 2.5 MG PO DAILY for 30 Days, #30 TAB 2 Refills Meclizine HCl (Meclizine HCl) 25 Mg Tab 12.5 MG PO TID PRN for Dizziness or Vertigo, #20 TAB Continued Medications: Amiodarone Hcl (Cordarone) 200 Mg Tab 200 MG PO HS, TAB Atorvastatin (Lipitor) 80 Mg Tab 80 MG PO HS Bromfenac Sodium (Ophth) (Prolensa) 0.07 % Angélica 1 DROP OPR QID Buspirone Hcl (Buspirone Hcl) 10 Mg Tab 10 MG PO BID, TAB Duloxetine Hcl (Cymbalta) 60 Mg Cap 60 MG PO HS, CAP Magnesium Oxide (Mag-Ox) 400 Mg Tab 400 MG PO QAM Metoprolol Tartrate (Lopressor) (Lopressor) 25 Mg Tab 12.5 MG PO BID for 90 Days, #90 TAB 3 Refills Omeprazole (Prilosec) 20 Mg Capcr 20 MG PO QAM, CAP Potassium Chloride (K-Tab) 20 Meq Tab 1 TAB PO QAM Prednisolone Acetate (Ophth) (Omnipred) 1 % Delmy 1 DROPS OPR TID Solifenacin (Vesicare) 5 Mg Tab 5 MG PO QAM, TAB Trazodone Hcl (Desyrel) 50 Mg Tab 50 MG PO HS Warfarin Sodium (Coumadin) 5 Mg Tab 5 MG PO Q2D, TAB Warfarin Sodium (Coumadin) 5 Mg Tab 2.5 MG PO Q2D, TAB Discontinued Medications: Isosorbide Mononitrate Ext Rel (Imdur Ext Rel) 30 Mg Tabcr 1 TAB PO QAM, #30 TAB Admission Information HPI (per Admitting provider): The patient is a 76 year old female with PMH as below, who presents to the Emergency Room with complaints of worsening dizziness. Patient is awake, oriented to self, person, but not to time, unclear why she was brought to ER. History obtained from , daughter by bedside. Patient does have chronic dizziness on and off, admitted in past for it, tests done, but unclear etiology. She has also been experiencing increased confusion, forgetfulness with everyday tasks. 2 nights ago she got up to go to bathroom and ended up being outside her house Today the patient was out to lunch with her and was very weak getting out of the car. She had trouble bringing her fork to her mouth successfully and kept missing. The patient does experiencing shortness of breath with exertion, which is chronic. 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 She denies headache, fever, urinary symptoms, chest pain, swelling to legs or abdominal pain, cough, diarrhea, nausea, vomiting or any recent illness. does admit that she doesnt drink enough water. In ED, noted to be hypotensive with BP in 90s, responded to IVF and now it is 110s. Asymptomatic on my evaluation. Labs- no sig abnormalities, EKG- Atrial flutter , rate controlled, CXR, CT head , CT abd/pelvis- no acute abnormalities. RENU - creatinine 1\\.4 We will admit patient for hypotension, RENU further evaluation and mx. 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, no motor/sensory deficits, alert Skin: normal color Hospital Course DIZZINESS was hypotensive on presentation but currently hypertensive no significant orthostatic hypotension ct head unremarkable meclizine prn gentle fluids improved but again having dizziness on 03/09/17 and her BP dropped after taking Imdur will f/u echo changed Imdur to Norvasc stable now discharged to followup with PCP RENU Creatinine 1.4, last one 0.81 resolved PROBABLE EARLY DEMENTIA Per H & P developing signs of early dementia W/F Sundowning symptoms will monitor out patient followup HX OF ATRIAL FLUTTER, RATE CONTROLLED Hx of Ablation in past On amiodarone On warfarin, INR 2.1 HX OF STROKE With no focal deficits HX OF CAD WITH STENTING IN 1999 Stable on statin and b chon Discharged home with home health Total time spent on discharge = 35MINUTES This includes examination of the patient, discharge planning, medication reconciliation, and communication with other providers. Discharge Instructions Discharge Instructions Date of Service March 10, 2017. Admission Reason for Admission: Dizziness Discharge Discharge Diagnosis / Problem: dizziness, hypotesnion Discharge Goals Goal(s): Decrease discomfort, Improve function Activity Recommendations Activity Limitations: resume your previous activity . Instructions / Follow-Up Instructions / Follow-Up FOLLOWUP WITH FAMILY DOCTOR SCHEDULED ON March. BLOOD PRESSURE FOLLOWUP WITH FAMILY DOCTOR. STOPPED MEDICATION IMDUR NEW MEDICATION AMLODIPINE 2.5MG PO DAILY Current Hospital Diet Patient's current hospital diet: AHA Diet (Heart Healthy), Low Sodium Diet (2gm Na) Discharge Diet Recommended Diet: AHA Diet (Heart Healthy) Pending Studies Studies pending at discharge: yes List of pending studies: ECHO REPORT Medical Emergencies . Who to Call and When: Medical Emergencies: If at any time you feel your situation is an emergency, please call 911 immediately. . Non-Emergent Contact Non-Emergency issues call your: Primary Care Provider . . "Provider Documentation" section prepared by Josh Pendleton. . VTE Core Measure Inpt VTE Proph given/why not?: Unfractionated heparin SQ (coumadin)
== END 2017-03-10 12:22 | disposition home health service (06) | DRG 315 ==
LOC: ENRESERVDT → ENRESERVTM → C.EDB 15:11 → C.MS4W 18:40
PROVIDERS: ADMIT Internal Medicine; ATTEND Internal Medicine
DX: I95.9 Hypotension, unspecified (principal); I47.1 Supraventricular tachycardia; N30.00 Acute cystitis without hematuria; N17.9 Acute kidney failure, unspecified; I48.92 Unspecified atrial flutter; J45.909 Unspecified asthma, uncomplicated; I48.91 Unspecified atrial fibrillation; F03.90 Unspecified dementia, unspecified severity, without behavioral disturbance, psychotic disturbance, mood disturbance, and anxiety; I10 Essential (primary) hypertension; Z96.652 Presence of left artificial knee joint; Z88.0 Allergy status to penicillin; Z79.01 Long term (current) use of anticoagulants; E86.0 Dehydration; I65.29 Occlusion and stenosis of unspecified carotid artery; I25.10 Atherosclerotic heart disease of native coronary artery without angina pectoris; Z83.3 Family history of diabetes mellitus; Z86.73 Personal history of transient ischemic attack (TIA), and cerebral infarction without residual deficits; Z95.5 Presence of coronary angioplasty implant and graft; Z88.2 Allergy status to sulfonamides; Z86.711 Personal history of pulmonary embolism; Z66 Do not resuscitate

== ENCOUNTER 2017-03-15 14:52 | Emergency (ER) | payer OTHER ==
[~2017-03-15] VITALS: Ht 167.6 cm; Wt 68.5 kg
[~2017-03-15 14:52] MED LIST changes: +AMLO2.5T PO; +ANT25 PO; +ATOR-26 PO; -ISR/30 PO; +MAGN400T5 PO; -MECL1TAB42 PO; +WARF5TAB90 PO
[2017-03-15 15:01] VITALS: TEMP 36.4; Ht 167.6 cm; Wt 68.5 kg
[2017-03-15] MEDS ORDERED: ONDANSETRON INJ 2 MG/ML 2 ML VIAL IV STA (15:23)
[2017-03-15] MEDS ORDERED: SODIUM CHLORIDE 0.9% 1000ML 500 ML IV STA (15:23)
--- NOTE | 2017-03-15 15:30 | EMERGENCY ROOM VISIT NOTE ---
History Report prepared by Ashley: Susanne Barragan Under the Supervision of: Dr. Bubba Cooper M.D. First contact with patient: 15:16 Chief Complaint: ABDOMINAL PAIN Stated Complaint: ADB PAIN Nursing Triage Summary: Triage NOte: Pt reports right abd pain x several days. pt reports nausea. pt reports "i didn't sleep well last night i don't know why." History of Present Illness The patient is a 76 year old female who presents to the Emergency Room with complaints of intermittent lower abdominal pain for the past week. Her pain is worse on the right side. She is also nauseated and had diarrhea. Eating does not exacerbate her symptoms. She rates her pain as a 6/10 at its most severe. She has had this pain before but states that it was worse this morning. The patient denies urinary symptoms, fever, and vomiting. She has a history of bowel obstruction, as well as appendectomy, hysterectomy, and cholecystectomy. She takes Coumadin. She was recently in the hospital for dehydration and was discharged home 6 days ago. Daughter states that she started complaining of abdominal pain when she got home from the hospital. Source of History: patient, family Onset: 1 week ago Position: abdomen (lower) Symptom Intensity: 6/10 Timing: intermittent Associated Symptoms: + diarrhea, + nausea, No fevers, No urinary symptoms, No vomiting Review of Systems See HPI for pertinent positives & negatives. A total of 10 systems reviewed and were otherwise negative. Past Medical & Surgical Medical Problems: (1) Anticoagulant therapy (2) Asthma (3) Atrial fibrillation (4) Atrial fibrillation with RVR (5) Atrial fibrillation with RVR (6) Atrial fibrillation with RVR (7) Atrial flutter (8) Benign hypertension (9) Carotid artery stenosis (10) Cellulitis of left hand (11) CORON ATHEROSCLER NOS TYPE VESSEL, COMANCHE OR GRAFT (12) Cystitis (13) Dehydration (14) Dizziness (15) Dizziness (16) Dizziness (17) Dizziness (18) Dizziness (19) Dizziness due to old head injury (20) Generalized osteoarthritis (21) History of - pulmonary embolus (22) Hypertensive heart disease (23) Hypothyroidism (24) Left ventricular hypertrophy (25) Multiple cardiac ablastions (26) Nausea & vomiting (27) Paroxysmal supraventricular tachycardia (28) Postconcussive syndrome (29) s/p ablation for SVT (30) s/p appendectomy (31) s/p hysterectomy (32) s/p left TKA (33) s/p lumbar decompression (34) s/p PTCA 1999 (35) Sleep apnea (36) Small bowel obstruction (37) Spinal stenosis in cervical region (38) Supratherapeutic INR (39) UTI (urinary tract infection) (40) UTI (urinary tract infection) (41) UTI (urinary tract infection) (42) UTI (urinary tract infection) (43) Vomiting (44) Weakness Family History Diabetes mellitus FH: cancer FH: lung disease Hypertension Social History Smoking Status: Former Smoker Alcohol Use: none Drug Use: none Marital Status: Housing Status: lives with family Occupation Status: retired Current/Historical Medications Scheduled Amiodarone Hcl (Cordarone), 200 MG PO HS Amlodipine (Norvasc), 2.5 MG PO DAILY Atorvastatin (Lipitor), 80 MG PO HS Bromfenac Sodium (Ophth) (Prolensa), 1 DROP OPR QID Buspirone Hcl (Buspirone Hcl), 10 MG PO BID Duloxetine Hcl (Cymbalta), 60 MG PO HS Magnesium Oxide (Mag-Ox), 400 MG PO QAM Metoprolol Tartrate (Lopressor) (Lopressor), 12.5 MG PO BID Omeprazole (Prilosec), 20 MG PO QAM Potassium Chloride (K-Tab), 1 TAB PO QAM Prednisolone Acetate (Ophth) (Omnipred), 1 DROPS OPR TID Solifenacin (Vesicare), 5 MG PO QAM Trazodone Hcl (Desyrel), 50 MG PO HS Warfarin Sodium (Coumadin), 5 MG PO Q2D Warfarin Sodium (Coumadin), 2.5 MG PO Q2D Scheduled PRN Meclizine HCl (Meclizine HCl), 12.5 MG PO TID PRN for Dizziness or Vertigo Promethazine Hcl (Phenergan), 25 MG PO Q6H PRN for Nausea Allergies Coded Allergies: Carbenicillin (Verified Allergy, Unknown, "DON'T REMEMBER", 02/10/17) Penicillins (Verified Allergy, Unknown, HIVES, 02/10/17) has tolerated ceftriaxone and cefepime Pneumococcal Polysaccharides (Verified Allergy, Unknown, FEVER/RASH, ) Sulfamethoxazole w/Trimethoprim (Verified Adverse Reaction, Mild, GI SYMPTOMS, 02/10/17) nausea /vomiting Physical Exam Vital Signs Date Time Temp Pulse Resp B/P Pulse Ox O2 Delivery O2 Flow Rate FiO2 03/15/17 17:50 88 20 146/82 98 Room Air 03/15/17 16:37 80 18 141/71 98 Room Air 03/15/17 15:01 36.4 110 20 133/72 96 Room Air Physical Exam GENERAL: Patient is in no acute distress. HEENT: No acute trauma, normocephalic atraumatic, mucous membranes moist, no nasal congestion, no scleral icterus. NECK: No stridor, no adenopathy, no meningismus, trachea is midline. LUNGS: Clear to auscultation bilaterally, no wheeze, no rhonchi, breath sounds equal. HEART: Irregular and mildly tachycardic, no murmurs. ABDOMEN: Soft, tender mostly in the upper abdomen bilaterally, bowel sounds positive, no hernias, no peritonitis. EXTREMITIES: No cyanosis or edema, full range of motion of all the joints without pain or difficulty, no signs for acute trauma. NEUROLOGIC: Dementia noted, poor historian, no focal motor deficits, awake and alert. SKIN: No rash, no jaundice, no diaphoresis. Medical Decision & Procedures ER Provider Diagnostic Interpretation: Radiology results as stated below per my review and radiologist interpretation: CHEST ONE VIEW PORTABLE CLINICAL HISTORY: Pain, radiating to the abdomen. COMPARISON STUDY: 03/05/2017 FINDINGS: Current study is slightly limited due to motion artifact. The heart is at the upper limits of normal in size. There is no focal pulmonary consolidation. There is no overt failure. There are no effusions.[ IMPRESSION: No active disease in the chest. Electronically signed by: Matheus Krishnamurthy M.D. 03/15/2017 4:04 PM Dictated Date/Time: 03/15/2017 4:[address] SCAN OF THE ABDOMEN AND PELVIS WITHOUT CONTRAST CLINICAL HISTORY: Generalized abdominal pain COMPARISON STUDY: 03/05/2017 TECHNIQUE: CT scan of the abdomen and pelvis was performed from the lung bases to the proximal femurs. Images are reviewed in the axial, sagittal, and coronal planes. IV contrast was not administered for this examination. CT DOSE: 283.09 mGy.cm FINDINGS: Lower chest: There are mild dependent atelectatic changes. Liver: Right lobe of the liver is elongated measuring 20 cm. No focal hepatic masses are visualized on this noncontrast study Gallbladder: Surgically absent Spleen: Normal in size and attenuation. Pancreas: Unremarkable. Adrenal glands: Unremarkable. Kidneys: No renal calculi are visualized. There is a 16 mm left renal hypodensity likely representing a cyst. There is an 8 mm right renal hypodensity likely representing a cyst. Bowel: There is a surgical anastomotic suture line in the left pelvis. There are no transition zones indicate obstruction. By history the appendix is surgically absent. There is no acute diverticulitis. Peritoneum: There is no intraperitoneal free air or abdominal ascites. Vasculature: The abdominal aorta is normal in course and caliber. Adenopathy: None. Pelvic viscera: The uterus appears surgically absent. Skeletal structures: There are postsurgical changes the L5-S1 level. There is a grade 2 spondylolisthesis of L5 and S1. IMPRESSION: 1. No evidence of bowel obstruction. No evidence of free air 2. No renal, ureteral, or bladder calculi identified. 3. No acute inflammatory changes Electronically signed by: Matheus Krishnamurthy M.D. 03/15/2017 4:29 PM Dictated Date/Time: 03/15/2017 4:24 PM Laboratory Results 03/15/17 15:45 Red Blood Count 4.28, Mean Corpuscular Volume 92.8, Mean Corpuscular Hemoglobin 30.1, Mean Corpuscular Hemoglobin Concent 32.5, Mean Platelet Volume 8.7, Neutrophils (%) (Auto) 76.7, Lymphocytes (%) (Auto) 14.3, Monocytes (%) (Auto) 6.9, Eosinophils (%) (Auto) 1.5, Basophils (%) (Auto) 0.4, Neutrophils # (Auto) 4.12, Lymphocytes # (Auto) 0.77, Monocytes # (Auto) 0.37, Eosinophils # (Auto) 0.08, Basophils # (Auto) 0.02 03/15/17 15:45 Test 03/15/17 15:45 03/15/17 16:50 White Blood Count 5.37 K/uL (4.8-10.8) Red Blood Count 4.28 M/uL (4.2-5.4) Hemoglobin 12.9 g/dL (12.0-16.0) Hematocrit 39.7 % (37-47) Mean Corpuscular Volume 92.8 fL (80-100) Mean Corpuscular Hemoglobin 30.1 pg (25-34) Mean Corpuscular Hemoglobin Concent 32.5 g/dl (32-36) Platelet Count 181 K/uL (130-400) Mean Platelet Volume 8.7 fL (7.4-10.4) Neutrophils (%) (Auto) 76.7 % Lymphocytes (%) (Auto) 14.3 % Monocytes (%) (Auto) 6.9 % Eosinophils (%) (Auto) 1.5 % Basophils (%) (Auto) 0.4 % Neutrophils # (Auto) 4.12 K/uL (1.4-6.5) Lymphocytes # (Auto) 0.77 K/uL (1.2-3.4) Monocytes # (Auto) 0.37 K/uL (0.11-0.59) Eosinophils # (Auto) 0.08 K/uL (0-0.5) Basophils # (Auto) 0.02 K/uL (0-0.2) RDW Standard Deviation 47.8 fL (36.4-46.3) RDW Coefficient of Variation 14.1 % (11.5-14.5) Immature Granulocyte % (Auto) 0.2 % Immature Granulocyte # (Auto) 0.01 K/uL (0.00-0.02) Prothrombin Time 42.5 SECONDS (9.0-12.0) Prothromb Time International Ratio 3.8 (0.9-1.1) Activated Partial Thromboplast Time 38.7 SECONDS (21.0-31.0) Partial Thromboplastin Ratio 1.5 Anion Gap 8.0 mmol/L (3-11) Est Creatinine Clear Calc Drug Dose 46.2 ml/min Estimated GFR () 64.3 Estimated GFR (Non- 55.5 BUN/Creatinine Ratio 14.7 (10-20) Calcium Level 8.5 mg/dl (8.5-10.1) Total Bilirubin 0.9 mg/dl (0.2-1) Aspartate Amino Transf (AST/SGOT) 29 U/L (15-37) Alanine Aminotransferase (ALT/SGPT) 36 U/L (12-78) Alkaline Phosphatase 73 U/L (45-117) Troponin I < 0.015 ng/ml (0-0.045) Total Protein 7.0 gm/dl (6.4-8.2) Albumin 3.6 gm/dl (3.4-5.0) Globulin 3.4 gm/dl (2.5-4.0) Albumin/Globulin Ratio 1.1 (0.9-2) Lipase 252 U/L (73-393) Urine Color YELLOW Urine Appearance CLOUDY (CLEAR) Urine pH 6.0 (4.5-7.5) Urine Specific [place] 1.021 (1.000-1.030) Urine Protein NEG (NEG) Urine Glucose (UA) NEG (NEG) Urine Ketones NEG (NEG) Urine Occult Blood NEG (NEG) Urine Nitrite NEG (NEG) Urine Bilirubin NEG (NEG) Urine Urobilinogen NEG (NEG) Urine Leukocyte Esterase TRACE (NEG) Urine WBC (Auto) 5-10 /hpf (0-5) Urine RBC (Auto) 0-4 /hpf (0-4) Urine Hyaline Casts (Auto) 5-10 /lpf (0-5) Urine Epithelial Cells (Auto) >30 /lpf (0-5) Urine Bacteria (Auto) 1+ (NEG) Laboratory results reviewed by me. Medications Administered Medications (Trade) Dose Ordered Sig/Oz Route Start Time Stop Time Status Last Admin Dose Admin Sodium Chloride (Nss 1000ml) 500 ml @ 999 mls/hr Q31M STAT IV 03/15/17 15:23 03/15/17 15:53 DC 03/15/17 15:48 999 MLS/HR Ondansetron HCl (Zofran Inj) 4 mg NOW STAT IV 03/15/17 15:23 03/15/17 15:26 DC 03/15/17 15:47 4 MG ECG Indication: abdominal pain Rate (beats per minute): 85 Rhythm: atrial flutter Findings: no acute ischemic change, no ectopy ED Course 1516: The patient was evaluated in room A4B. A complete history and physical exam was performed. 1523: Zofran 4 mg IV, NSS 500 ml @ 999 mls/hr IV 1647: I reevaluated the patient and she is doing well. 1749: I reassessed the patient at this time. She is feeling better and resting comfortably. I discussed the results and treatment plan with the patient and her daughter. I answered all pertaining questions that they had. They expressed understanding and verbalized agreement. The patient will be discharged home. 181: Zofran 4 mg PO 1 homepack Medical Decision Differential diagnoses includes bowel obstruction, diverticulitis, hernia, pancreatitis, constipation, bowel ischemia, UTI. There is no leukocytosis or concerning anemia. No significant electrolyte abnormality, kidney failure, hepatitis or pancreatitis. Urinalysis does not show infection or hematuria. Chest x-ray does not show pneumonia or CHF, there was no free air. EKG showed atrial flutter, no acute ischemia. Cardiac enzyme testing 1 is not consistent with acute cardiac injury. Abdominal and pelvis CT does not show any evidence for diverticulitis or for bowel obstruction. There was no acute surgical process. INR was elevated, she was slightly over anticoagulated with Coumadin-of note, she is not bleeding. The patient received IV saline, she was given IV Zofran, she looks well. The cause for the pain is unclear. The pain does seem to come and go, she does not have any worrisome findings by our testing. She is being discharged with a few Phenergan tablets for nausea, a bland diet was suggested. She will follow with her doctor, she already has an upcoming appointment. Patient was encouraged to return to this ER for worsening symptoms, worsening pain, fever or vomiting. Impression Primary Impression: Diffuse abdominal pain Additional Impression: Nausea Scribe Attestation The scribe's documentation has been prepared under my direction and personally reviewed by me in its entirety. I confirm that the note above accurately reflects all work, treatment, procedures, and medical decision making performed by me. Departure Information Dispostion Home / Self-Care Prescriptions Promethazine Hcl (Phenergan) 25 Mg Tab 25 MG PO Q6H Y for Nausea, #12 TAB Prov: Bubba Cooper M.D. 03/15/17 Referrals Teagan Loaiza M.D. (PCP) Forms HOME CARE DOCUMENTATION FORM, IMPORTANT VISIT INFORMATION Patient Instructions My [facility] Additional Instructions phenergan 1 tab every 6 hours for nausea bland diet---crackers, soup, toast, gatorade see tracy rodriguez for a recheck this week return for fever, vomiting or worsening pain testing today was all ok as we discussed Problem Qualifiers
[2017-03-15 15:50] LABS: BASO % 0.4 %; BASO ABS # 0.02 K/uL (0-0.2); COMPLETE YES; EOS % 1.5 %; HEMATOCRIT 39.7 % (37-47); IG% 0.2 %; LYMPH % 14.3 %; LYMPH ABS # 0.77 K/uL (1.2-3.4); MEAN CELL VOLUME 92.8 fL (80-100); MEAN CORPUSCULAR HEMOGLOBIN 30.1 pg (25-34); MEAN CORPUSCULAR HGB CONC 32.5 g/dl (32-36); MEAN PLATELET VOLUME 8.7 fL (7.4-10.4); MONO % 6.9 %; NEUT % 76.7 %; PLATELET COUNT 181 K/uL (130-400); RED BLOOD COUNT 4.28 M/uL (4.2-5.4); WHITE BLOOD COUNT 5.37 K/uL (4.8-10.8)
--- NOTE | 2017-03-15 16:05 | DIAGNOSTIC IMAGING REPORT ---
CHEST ONE VIEW PORTABLE CLINICAL HISTORY: Pain, radiating to the abdomen. COMPARISON STUDY: 03/05/2017 FINDINGS: Current study is slightly limited due to motion artifact. The heart is at the upper limits of normal in size. There is no focal pulmonary consolidation. There is no overt failure. There are no effusions.[ IMPRESSION: No active disease in the chest. Electronically signed by: Matheus Krishnamurthy M.D. 03/15/2017 4:04 PM Dictated Date/Time: 03/15/2017 4:03 PM
[2017-03-15 16:06] LABS: PARTIAL THROMBOPLASTIN RATIO 1.5; PROTHROMBIN TIME (PATIENT) 42.5 SECONDS (9.0-12.0)
[2017-03-15 16:07] LABS: ALT/SGPT 36 U/L (12-78); AST/SGOT 29 U/L (15-37); BLOOD UREA NITROGEN 15 mg/dl (7-18); BUN/CREATININE RATIO 14.7 (10-20); CALCIUM 8.5 mg/dl (8.5-10.1); CARBON DIOXIDE 29 mmol/L (21-32); CHLORIDE 107 mmol/L (98-107); GLUCOSE 128 mg/dl (70-99); POTASSIUM 3.9 mmol/L (3.5-5.1); SODIUM 144 mmol/L (136-145)
[2017-03-15 16:10] LABS: INR 3.8 (0.9-1.1)
[2017-03-15 16:12] LABS: ALB/GLOB RATIO 1.1 (0.9-2); ALKALINE PHOSPHATASE 73 U/L (45-117)
--- NOTE | 2017-03-15 16:30 | DIAGNOSTIC IMAGING REPORT ---
CT SCAN OF THE ABDOMEN AND PELVIS WITHOUT CONTRAST CLINICAL HISTORY: Generalized abdominal pain COMPARISON STUDY: 03/05/2017 TECHNIQUE: CT scan of the abdomen and pelvis was performed from the lung bases to the proximal femurs. Images are reviewed in the axial, sagittal, and coronal planes. IV contrast was not administered for this examination. CT DOSE: 283.09 mGy.cm FINDINGS: Lower chest: There are mild dependent atelectatic changes. Liver: Right lobe of the liver is elongated measuring 20 cm. No focal hepatic masses are visualized on this noncontrast study Gallbladder: Surgically absent Spleen: Normal in size and attenuation. Pancreas: Unremarkable. Adrenal glands: Unremarkable. Kidneys: No renal calculi are visualized. There is a 16 mm left renal hypodensity likely representing a cyst. There is an 8 mm right renal hypodensity likely representing a cyst. Bowel: There is a surgical anastomotic suture line in the left pelvis. There are no transition zones indicate obstruction. By history the appendix is surgically absent. There is no acute diverticulitis. Peritoneum: There is no intraperitoneal free air or abdominal ascites. Vasculature: The abdominal aorta is normal in course and caliber. Adenopathy: None. Pelvic viscera: The uterus appears surgically absent. Skeletal structures: There are postsurgical changes the L5-S1 level. There is a grade 2 spondylolisthesis of L5 and S1. IMPRESSION: 1. No evidence of bowel obstruction. No evidence of free air 2. No renal, ureteral, or bladder calculi identified. 3. No acute inflammatory changes Electronically signed by: Matheus Krishnamurthy M.D. 03/15/2017 4:29 PM Dictated Date/Time: 03/15/2017 4:24 PM
[2017-03-15 17:01] LABS: URINE APPEARANCE CLOUDY (CLEAR); URINE BILIRUBIN NEG (NEG); URINE COLOR YELLOW; URINE EPITHELIAL CELL AUTO >30 /lpf (0-5); URINE NITRITE NEG (NEG); URINE SPECIFIC GRAVITY 1.021 (1.000-1.030); UROBILINOGEN NEG (NEG); ZZUR CULT IF INDIC CLEAN CATCH YES
[2017-03-15 17:08] LABS: MANUAL MICROSCOPIC REQUIRED? NO; REVIEW REQ? NO
[2017-03-15 17:50] VITALS: BP 146/82; PULSE 88; O2SAT 98
[2017-03-15] MEDS ORDERED: PROM25TA9 PO (18:10)
[2017-03-15] MEDS ORDERED: ONDANSETRON HOME PACK 4MG OD TAB PO ONE (18:15)
== END 2017-03-15 18:28 | disposition home or self-care (01) ==
LOC: C.EDB 14:53 → C.EDA 18:28
DX: R10.30 Lower abdominal pain, unspecified (principal); R11.0 Nausea; I48.92 Unspecified atrial flutter; I48.91 Unspecified atrial fibrillation; I10 Essential (primary) hypertension; E03.9 Hypothyroidism, unspecified; I25.10 Atherosclerotic heart disease of native coronary artery without angina pectoris; J45.909 Unspecified asthma, uncomplicated; I11.0 Hypertensive heart disease with heart failure; M19.90 Unspecified osteoarthritis, unspecified site; K56.60 Unspecified intestinal obstruction; Z87.820 Personal history of traumatic brain injury; Z87.440 Personal history of urinary (tract) infections; Z90.710 Acquired absence of both cervix and uterus; Z98.61 Coronary angioplasty status; Z86.711 Personal history of pulmonary embolism; Z87.891 Personal history of nicotine dependence; Z79.01 Long term (current) use of anticoagulants; Z79.899 Other long term (current) drug therapy; Z88.0 Allergy status to penicillin; Z88.2 Allergy status to sulfonamides; Z88.8 Allergy status to other drugs, medicaments and biological substances; Z83.3 Family history of diabetes mellitus; Z80.9 Family history of malignant neoplasm, unspecified; Z82.49 Family history of ischemic heart disease and other diseases of the circulatory system

== ENCOUNTER 2017-09-20 22:29 | Emergency (ER) | payer OTHER ==
[2017-09-20 22:32] VITALS: TEMP 36.6; Ht 154.9 cm
--- NOTE | 2017-09-20 23:06 | EMERGENCY ROOM VISIT NOTE ---
History Report prepared by Ashley: Merrill Luna Under the Supervision of: Dr. Michael Ledesma M.D. First contact with patient: 22:53 Chief Complaint: ABDOMINAL PAIN Stated Complaint: PAIN IN STOMACH,DIZZY Nursing Triage Summary: upper abdominal pain. and R side pain. started tonight after loose stool at 1700. talks for pt. pt states she has no pain. pt denies symptoms. when states, you had pain earlier, pt states "oh yes that was scary". states pt also had difficulty breathing earlier with the episode of pain and he put the "pap mask on her" and it made her feel better. pt does not use oxygen at home but wears CPap at night. History of Present Illness The patient is a 76 year old female who presents to the Emergency Room with complaints of constant right abdominal pain beginning a few hours ago. She currently rates her discomfort a 2/10 in severity. The patient notes her pain radiates across the lower abdomen, but it is more on the right side than the left. She states she got up to use the restroom, and when she returned to bed, she was short of breath. The patient's reports she tried using her breathing machine, but it did not help. The patient denies current shortness of breath, back pain, leg pain, and a history of gallbladder problems. She notes she has a history of an appendectomy, and she is on Coumadin. The states she has a history of a brain aneurysm that has resulted in mild memory contemplations. Source of History: patient, spouse/significant other Onset: a few hours ago Position: abdomen (lower) Symptom Intensity: 2/10 Timing: constant Associated Symptoms: + SOB, No back pain Note: Denies: leg pain Review of Systems All systems have been listed, reviewed, and are negative other than those previously mentioned. Please see Additional Medical History Sheet. Past Medical & Surgical Medical Problems: (1) Anticoagulant therapy (2) Asthma (3) Atrial fibrillation (4) Atrial fibrillation with RVR (5) Atrial fibrillation with RVR (6) Atrial fibrillation with RVR (7) Atrial flutter (8) Benign hypertension (9) Carotid artery stenosis (10) Cellulitis of left hand (11) CORON ATHEROSCLER NOS TYPE VESSEL, [place] OR GRAFT (12) Cystitis (13) Dehydration (14) Dizziness (15) Dizziness (16) Dizziness (17) Dizziness (18) Dizziness (19) Dizziness due to old head injury (20) Generalized osteoarthritis (21) History of - pulmonary embolus (22) Hypertensive heart disease (23) Hypothyroidism (24) Left ventricular hypertrophy (25) Multiple cardiac ablastions (26) Nausea & vomiting (27) Paroxysmal supraventricular tachycardia (28) Postconcussive syndrome (29) s/p ablation for SVT (30) s/p appendectomy (31) s/p hysterectomy (32) s/p left TKA (33) s/p lumbar decompression (34) s/p PTCA 1999 (35) Sleep apnea (36) Small bowel obstruction (37) Spinal stenosis in cervical region (38) Supratherapeutic INR (39) UTI (urinary tract infection) (40) UTI (urinary tract infection) (41) UTI (urinary tract infection) (42) UTI (urinary tract infection) (43) Vomiting (44) Weakness Family History Diabetes mellitus FH: cancer FH: lung disease Heart disease Hypertension Social History Smoking Status: Former Smoker Alcohol Use: none Drug Use: none Marital Status: Housing Status: lives with family Occupation Status: retired Current/Historical Medications Scheduled Amiodarone Hcl (Cordarone), 200 MG PO HS Amlodipine (Norvasc), 2.5 MG PO DAILY Atorvastatin (Lipitor), 80 MG PO HS Bromfenac Sodium (Ophth) (Prolensa), 1 DROP OPR QID Buspirone Hcl (Buspirone Hcl), 10 MG PO BID Duloxetine Hcl (Cymbalta), 60 MG PO HS Magnesium Oxide (Mag-Ox), 400 MG PO QAM Metoprolol Tartrate (Lopressor) (Lopressor), 112.5 MG PO BID Omeprazole (Prilosec), 20 MG PO QAM Potassium Chloride (K-Tab), 1 TAB PO QAM Prednisolone Acetate (Ophth) (Omnipred), 1 DROPS OPR TID Solifenacin (Vesicare), 5 MG PO QAM Trazodone Hcl (Desyrel), 50 MG PO HS Warfarin Sodium (Coumadin), 5 MG PO Q2D Warfarin Sodium (Coumadin), 2.5 MG PO Q2D Scheduled PRN Meclizine HCl (Meclizine 25), 12.5 MG PO TID PRN for dizziness Allergies Coded Allergies: Carbenicillin (Verified Allergy, Unknown, "DON'T REMEMBER", 09/20/17) Penicillins (Verified Allergy, Unknown, HIVES, 09/20/17) has tolerated ceftriaxone and cefepime Pneumococcal Polysaccharides (Verified Allergy, Unknown, FEVER/RASH, 09/20) Sulfamethoxazole w/Trimethoprim (Verified Adverse Reaction, Mild, GI SYMPTOMS, 09/20/17) nausea /vomiting Physical Exam Vital Signs Date Time Temp Pulse Resp B/P (MAP) Pulse Ox O2 Delivery O2 Flow Rate FiO2 09/21/17 01:01 93 17 115/52 96 09/20/17 23:49 86 20 166/78 98 Room Air 09/20/17 23:28 98 Room Air 09/20/17 23:26 96 14 168/146 97 Room Air 09/20/17 23:19 109 09/20/17 22:32 36.6 92 20 138/85 94 Room Air Physical Exam GENERAL: Patient awake, alert, oriented x 3. Patient follows commands. Patient does not appear toxic. Patient is adequately hydrated and well- nourished. SKIN: No erythema, pallor, cyanosis or rash HEENT: Normal head, pupils equal, reactive to light and accommodation. Oral cavity and posterior pharynx appear normal. Neck: Without adenopathy, no neck vein distention. LUNGS: Clear to auscultation. No wheezes, no rales, no rhonchi. HEART: No murmurs. No gallops. No rubs ABDOMEN: Right upper quadrant is tender to palpation. No masses, no rebound, no hepatomegaly or splenomegaly. Lower abdominal scar that is well healed. EXTREMITIES: No signs of trauma or infection. NEUROLOGIC: Cranial nerves II-XII within normal limits. No gross motor sensory function deficits. Medical Decision & Procedures ER Provider Diagnostic Interpretation: Radiology results as stated below per my review and radiologist interpretation: US Abdomen: No abdominal aortic aneurysm detected. Gallbladder surgically absent. Mild biliary prominence is likely due to cholecystectomy status. Enlarged echogenic liver, suggestive of hepatic steatosis. No hydronephrosis. Left renal cyst. Spleen is unremarkable. No free fluid. Radiologist: Robert Flaherty MD Study ready at 0055 and initial results transmitted at 0120. Chest X-Ray Interpretation: No acute infiltrate, pneumonia, or pneumothorax. Laboratory Results 09/20/17 23:15 Red Blood Count 4.58, Mean Corpuscular Volume 89.7, Mean Corpuscular Hemoglobin 29.7, Mean Corpuscular Hemoglobin Concent 33.1, Mean Platelet Volume 9.1, Neutrophils (%) (Auto) 74.5, Lymphocytes (%) (Auto) 15.6, Monocytes (%) (Auto) 7.8, Eosinophils (%) (Auto) 0.8, Basophils (%) (Auto) 0.3, Neutrophils # (Auto) 5.89, Lymphocytes # (Auto) 1.23, Monocytes # (Auto) 0.62, Eosinophils # (Auto) 0.06, Basophils # (Auto) 0.02 09/20/17 23:15 09/21/17 00:59 Test 09/20/17 23:15 09/21/17 00:59 White Blood Count 7.90 K/uL (4.8-10.8) Red Blood Count 4.58 M/uL (4.2-5.4) Hemoglobin 13.6 g/dL (12.0-16.0) Hematocrit 41.1 % (37-47) Mean Corpuscular Volume 89.7 fL (80-100) Mean Corpuscular Hemoglobin 29.7 pg (25-34) Mean Corpuscular Hemoglobin Concent 33.1 g/dl (32-36) Platelet Count 258 K/uL (130-400) Mean Platelet Volume 9.1 fL (7.4-10.4) Neutrophils (%) (Auto) 74.5 % Lymphocytes (%) (Auto) 15.6 % Monocytes (%) (Auto) 7.8 % Eosinophils (%) (Auto) 0.8 % Basophils (%) (Auto) 0.3 % Neutrophils # (Auto) 5.89 K/uL (1.4-6.5) Lymphocytes # (Auto) 1.23 K/uL (1.2-3.4) Monocytes # (Auto) 0.62 K/uL (0.11-0.59) Eosinophils # (Auto) 0.06 K/uL (0-0.5) Basophils # (Auto) 0.02 K/uL (0-0.2) RDW Standard Deviation 46.7 fL (36.4-46.3) RDW Coefficient of Variation 14.2 % (11.5-14.5) Immature Granulocyte % (Auto) 1.0 % Immature Granulocyte # (Auto) 0.08 K/uL (0.00-0.02) Prothrombin Time 20.8 SECONDS (9.0-12.0) Prothromb Time International Ratio 1.9 (0.9-1.1) Urine Color DK YELLOW Urine Appearance CLOUDY (CLEAR) Urine pH 5.0 (4.5-7.5) Urine Specific [place] 1.024 (1.000-1.030) Urine Protein 1+ (NEG) Urine Glucose (UA) NEG (NEG) Urine Ketones TRACE (NEG) Urine Occult Blood NEG (NEG) Urine Nitrite NEG (NEG) Urine Bilirubin NEG (NEG) Urine Urobilinogen NEG (NEG) Urine Leukocyte Esterase MODERATE (NEG) Urine WBC (Auto) >30 /hpf (0-5) Urine RBC (Auto) 0-4 /hpf (0-4) Urine Hyaline Casts (Auto) 10-30 /lpf (0-5) Urine Epithelial Cells (Auto) 20-30 /lpf (0-5) Urine Bacteria (Auto) 4+ (NEG) Urine Pathogenic Casts /lpf (0) Anion Gap 14.0 mmol/L (3-11) Estimated GFR () 37.3 Estimated GFR (Non- 32.1 BUN/Creatinine Ratio 13.4 (10-20) Calcium Level 9.2 mg/dl (8.5-10.1) Total Bilirubin 0.6 mg/dl (0.2-1) Alanine Aminotransferase (ALT/SGPT) 26 U/L (12-78) Alkaline Phosphatase 103 U/L (45-117) Total Protein 7.9 gm/dl (6.4-8.2) Albumin 3.7 gm/dl (3.4-5.0) Globulin 4.2 gm/dl (2.5-4.0) Albumin/Globulin Ratio 0.9 (0.9-2) Lipase 590 U/L (73-393) Aspartate Amino Transf (AST/SGOT) 110 U/L (15-37) Laboratory results as stated above per my review. Medications Administered Medications (Trade) Dose Ordered Sig/Oz Route Start Time Stop Time Status Last Admin Dose Admin Morphine Sulfate (MoRPHine SULFATE INJ) 6 mg Q1H PRN IV 09/20/17 23:45 10/04/17 23:44 09/20/17 23:46 6 MG Ondansetron HCl (Zofran Inj) 4 mg Q1HWA PRN IV 09/20/17 23:45 10/20/17 23:44 09/20/17 23:46 4 MG ECG Indication: abdominal pain Rate (beats per minute): 85 Rhythm: atrial flutter Findings: nonspecific-ST abn, other (variable block, normal axis) ED Course 2254: Past medical records reviewed. The patient was evaluated in room B09. A complete history and physical examination was performed. 2338: After being notified by the nurse, I reevaluated the patient. She is now experiencing severe epigastric pain that radiates into her back. 2345: Ordered Ondansetron HCl 4mg IV, Morphine Sulfate 6mg IV 0133: I reevaluated the patient. She is feeling better, but her pain keeps coming and going. Medical Decision I considered multiple diagnoses including: cholecystitis, cholelithiasis, UTI, bowel obstruction, diverticulitis, intestinal spasm, pyelonephritis, pancreatitis. The patient is here with abdominal pain which was apparently very severe at home and then subsided. While here in the ED the pain got worse again. The patient appeared to be writhing on the gurney. Multiple labs, urinalysis and imaging were obtained. Please see above. The patient appears to have a urinary tract infection. Her lipase is elevated. Ultrasound does not reveal a problem with her aorta. Patient was given morphine for pain. Due to the patient's intermittent and sometimes severe abdominal pain a CT with contrast was also ordered. The case was signed if to Dr. Gomez at 02:22. Medication Reconcilliation Current Medication List: was personally reviewed by me Blood Pressure Screening Patient's blood pressure: Normal blood pressure Blood pressure disposition: Did not require urgent referral Impression Primary Impression: Upper abdominal pain Additional Impressions: Urinary tract infection Elevated lipase Scribe Attestation The scribe's documentation has been prepared under my direction and personally reviewed by me in its entirety. I confirm that the note above accurately reflects all work, treatment, procedures, and medical decision making performed by me. Departure Information Referrals Teagan Loaiza M.D. (PCP) Patient Instructions My [facility] Problem Qualifiers
[2017-09-20] MEDS ORDERED: AMLO2.5T PO (23:24)
[2017-09-20] MEDS ORDERED: MECL-91 PO (23:27)
[2017-09-20 23:28] VITALS: O2SAT 98
[2017-09-20] MEDS ORDERED: METO25TA56 PO (23:29)
[2017-09-20 23:45] LABS: URINE APPEARANCE CLOUDY (CLEAR); URINE COLOR DK YELLOW; URINE EPITHELIAL CELL AUTO 20-30 /lpf (0-5); URINE NITRITE NEG (NEG); URINE SPECIFIC GRAVITY 1.024 (1.000-1.030); UROBILINOGEN NEG (NEG); ZZURINE CULT IF INDIC CATH YES
[2017-09-20] MEDS ORDERED: ONDANSETRON INJ 2 MG/ML 2 ML VIAL IV PRN (23:45)
[2017-09-20] MEDS ORDERED: MoRPHine SULFATE 10 MG/ML CARP/VIAL IV PRN (23:45)
[2017-09-20 23:46] LABS: BASO % 0.3 %; BASO ABS # 0.02 K/uL (0-0.2); COMPLETE YES; EOS % 0.8 %; HEMATOCRIT 41.1 % (37-47); LYMPH % 15.6 %; LYMPH ABS # 1.23 K/uL (1.2-3.4); MEAN CELL VOLUME 89.7 fL (80-100); MEAN CORPUSCULAR HEMOGLOBIN 29.7 pg (25-34); MEAN CORPUSCULAR HGB CONC 33.1 g/dl (32-36); MEAN PLATELET VOLUME 9.1 fL (7.4-10.4); MONO % 7.8 %; NEUT % 74.5 %; PLATELET COUNT 258 K/uL (130-400); RED BLOOD COUNT 4.58 M/uL (4.2-5.4)
[2017-09-20 23:55] LABS: INR 1.9 (0.9-1.1); PROTHROMBIN TIME (PATIENT) 20.8 SECONDS (9.0-12.0)
[2017-09-21 00:06] LABS: ALT/SGPT 26 U/L (12-78); BLOOD UREA NITROGEN 21 mg/dl (7-18); BUN/CREATININE RATIO 13.4 (10-20); CALCIUM 9.2 mg/dl (8.5-10.1); CARBON DIOXIDE 24 mmol/L (21-32); CHLORIDE 107 mmol/L (98-107); CREATININE 1.57 mg/dl (0.60-1.20); GLUCOSE 99 mg/dl (70-99); SODIUM 145 mmol/L (136-145)
[2017-09-21 00:08] LABS: ALB/GLOB RATIO 0.9 (0.9-2); ALKALINE PHOSPHATASE 103 U/L (45-117)
[2017-09-21 00:17] LABS: MANUAL MICROSCOPIC REQUIRED? NO; REVIEW REQ? YES
[2017-09-21 00:18] LABS: URINE BILIRUBIN NEG (NEG)
[2017-09-21 01:23] LABS: POTASSIUM 3.8 mmol/L (3.5-5.1)
[2017-09-21] MEDS ORDERED: OPTIRAY 320 IV PRN (03:30)
[2017-09-21] MEDS ORDERED: NITROFURANTOIN MONOHYDRATE 100 MG CAP PO ONE (06:00)
--- NOTE | 2017-09-21 06:02 | EMERGENCY ROOM VISIT NOTE ---
ED Visit Note First contact with patient: 02:49 This case was signed out to me at change of shift awaiting CT scan of the abdomen/pelvis. CT scan of the abdomen/pelvis as per stat rad: CT ABDOMEN & PELVIS wit contrast: Coarse calcification of mitral valve annulus. Coronary artery calcifications. Mild intra and extra hepatic bile duct dilation likely second to prior cholecystectomy. Liver, spleen, pancreas and adrenal glands are unremarkable. Cysts seen within both kidneys. Gas is seen within the urinary bladder likely secondary to recent instrumentation. Uterus is surgically absent. No adnexal masses. Appendix is not visualized. Stomach and small bowel are unremarkable. Noninflamed colonic diverticulosis. Degenerative changed of the spine with post-surgical changes. No acute osseous abnormality. Radiologist Eduardo Mendez I reviewed the results with the patient and her . I also reviewed previous urine cultures which show repetitive events of Escherichia coli UTI. 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 The Escherichia coli does appear to be susceptible to Macrobid. I do believe that the patient is suffering from acute cystitis. I will start her on Macrobid twice a day for the next 10 days. She was cautioned to return here to the emergency department if symptoms worsen. Also, she can follow up with her PCP in the next 48 hours for recheck.
[2017-09-21] MEDS ORDERED: NITR1CAP16 PO (06:05)
[2017-09-21 06:17] VITALS: BP 109/59; PULSE 73; O2SAT 97
--- NOTE | 2017-09-21 06:56 | DIAGNOSTIC IMAGING REPORT ---
CT ABD/PELVIS IV AND ORAL CONT CLINICAL HISTORY: intermittent mid abd pain COMPARISON STUDY: 03/15/2017 TECHNIQUE: Following the IV administration of 92 mL of Optiray-320, CT scan of the abdomen and pelvis was performed from the lung bases to the proximal femurs. Images are reviewed in the axial, sagittal, and coronal planes. IV contrast was administered without complication. A dose lowering technique was utilized adhering to the principles of ALARA. CT DOSE: 743.37 mGy.cm FINDINGS: Lower chest: There are dependent atelectatic changes present. Liver: The contrast-enhanced liver is normal in size, contour, and attenuation. There is no intrahepatic biliary ductal dilatation. The hepatic veins and portal veins are patent. Gallbladder: Surgically absent Spleen: Normal in size and attenuation. Pancreas: Unremarkable. Adrenal glands: Unremarkable. Kidneys: There is an 8 mm right renal cyst. There is a 2 cm left renal cyst. There is no hydronephrosis. Bowel: There are no transition zone to indicate bowel obstruction. By history the appendix is surgically absent. There is no acute diverticulitis. Peritoneum: There is no intraperitoneal free air or abdominal ascites. Vasculature: The abdominal aorta is normal in course and caliber. Adenopathy: None. Pelvic viscera: There is air within the bladder presumably iatrogenic. The uterus is surgically absent. Skeletal structures: Postsurgical changes are present the L5-S1 level. No destructive lesions are visualized. IMPRESSION: 1. No evidence of bowel obstruction. No evidence of free air 2. Air within the bladder likely iatrogenic 3. No acute inflammatory changes. Electronically signed by: Matheus Krishnamurthy M.D. 09/21/2017 6:55 AM Dictated Date/Time: 09/21/2017 6:51 AM
--- NOTE | 2017-09-21 07:17 | DIAGNOSTIC IMAGING REPORT ---
ABDOMEN COMPLETE (US) CLINICAL HISTORY: 76 years-old Female presenting with RUQ PAIN, SEVERE UPPER ABD PAIN INTO BACK. TECHNIQUE: Real-time grayscale and limited color Doppler ultrasound imaging of the abdomen was performed. COMPARISON: CT from 03/15/2017 and 09/21/2017. FINDINGS: Pancreas: Largely obscured due to overlying bowel gas. Liver: Hyperechogenic parenchyma with heterogeneous echotexture, likely indicating fibrosis or steatosis. The liver measures 20.0 cm in maximal sagittal dimension. Main portal vein patent with normal directional flow. Biliary: Mild diffuse intrahepatic biliary ductal dilatation involving both lobes of the liver. Common bile duct measures up to 8 mm in diameter. Gallbladder: Surgically absent. Spleen: Normal in echogenicity and size, measuring 10.3 cm in length. Kidneys: Simple 2.1 cm cyst noted at the upper pole the left kidney Otherwise normal in size and echogenicity. Right kidney measures 9.4 cm, and left kidney measures 8.9 cm. No hydronephrosis. Vasculature: Visualized portions of the IVC and abdominal aorta normal. Atherosclerosis. Ascites: None. IMPRESSION: 1. Hepatomegaly with suggestion of slightly hyperechogenic parenchyma with heterogeneous echotexture. This could indicate underlying steatosis, fibrosis, or inflammation. Correlate with liver function tests. 2. Mild diffuse intrahepatic biliary ductal dilatation likely a reservoir effect in the post cholecystectomy state. Electronically signed by: Kleber Gabriel M.D. 09/21/2017 7:16 AM Dictated Date/Time: 09/21/2017 7:10 AM
--- NOTE | 2017-09-21 08:00 | DIAGNOSTIC IMAGING REPORT ---
CHEST 2 VIEWS ROUTINE HISTORY: Right upper quadrant pain. Short of breath. COMPARISON: Chest 03/15/2017. FINDINGS: Mild diffuse interstitial thickening which is likely chronic. The heart is normal in size. Mitral annulus and aortic arch calcifications are again noted. No pleural effusions. No pneumothorax. No evidence for pulmonary edema. No new focal lung consolidations to suggest pneumonia. IMPRESSION: No significant change compared to the prior study. No acute process. Electronically signed by: Tapan Cat M.D. 09/21/2017 7:58 AM Dictated Date/Time: 09/21/2017 7:57 AM
== END 2017-09-21 06:19 | disposition home or self-care (01) ==
LOC: C.EDB 22:30
DX: R10.10 Upper abdominal pain, unspecified (principal); N39.0 Urinary tract infection, site not specified; R74.8 Abnormal levels of other serum enzymes; J45.909 Unspecified asthma, uncomplicated; I48.91 Unspecified atrial fibrillation; I25.10 Atherosclerotic heart disease of native coronary artery without angina pectoris; I11.9 Hypertensive heart disease without heart failure; M15.9 Polyosteoarthritis, unspecified; Z86.711 Personal history of pulmonary embolism; Z87.440 Personal history of urinary (tract) infections; Z87.820 Personal history of traumatic brain injury; Z87.891 Personal history of nicotine dependence; Z90.710 Acquired absence of both cervix and uterus; Z90.89 Acquired absence of other organs; Z98.890 Other specified postprocedural states; Z83.3 Family history of diabetes mellitus; Z82.49 Family history of ischemic heart disease and other diseases of the circulatory system; Z79.01 Long term (current) use of anticoagulants; Z79.899 Other long term (current) drug therapy

== ENCOUNTER 2017-10-17 11:12 | Emergency (ER) | payer OTHER ==
[~2017-10-17] VITALS: Ht 165.1 cm; Wt 68.5 kg
[2017-10-17 11:12] VITALS: Ht 165.1 cm; Wt 68.5 kg
[~2017-10-17 11:12] MED LIST changes: -ANT25 PO; +MECL-91 PO
[2017-10-17 11:20] VITALS: O2SAT 96
[2017-10-17 11:26] VITALS: TEMP 36.8
[2017-10-17 12:02] LABS: HEMATOCRIT 37.2 % (37-47); MEAN CELL VOLUME 90.1 fL (80-100); MEAN CORPUSCULAR HEMOGLOBIN 29.5 pg (25-34); MEAN CORPUSCULAR HGB CONC 32.8 g/dl (32-36); MEAN PLATELET VOLUME 9.1 fL (7.4-10.4); PLATELET COUNT 201 K/uL (130-400); RED BLOOD COUNT 4.13 M/uL (4.2-5.4); WHITE BLOOD COUNT 5.78 K/uL (4.8-10.8)
[2017-10-17 12:10] LABS: BUN/CREATININE RATIO 15.7 (10-20); CALCIUM 8.3 mg/dl (8.5-10.1); CREATININE 0.83 mg/dl (0.60-1.20); POTASSIUM 3.5 mmol/L (3.5-5.1)
[2017-10-17 12:11] LABS: INR 1.4 (0.9-1.1); PARTIAL THROMBOPLASTIN RATIO 1.2
--- NOTE | 2017-10-17 12:13 | DIAGNOSTIC IMAGING REPORT ---
CHEST ONE VIEW PORTABLE CLINICAL HISTORY: Chest pain. COMPARISON STUDY: Chest radiograph September 21, 2017. FINDINGS: There is no pneumothorax or pleural effusion. There is no consolidation to suggest pneumonia. Cardiomegaly is unchanged. Moderate interstitial thickening is unchanged. There is no evidence for overt pulmonary edema. IMPRESSION: No acute cardiopulmonary findings. No significant change since previous exam. Electronically signed by: Kong Liang M.D. 10/17/2017 12:12 PM Dictated Date/Time: 10/17/2017 12:10 PM
[2017-10-17 12:15] LABS: ALB/GLOB RATIO 0.9 (0.9-2); CKMB/CK RATIO 1.7 (0-3.0)
[2017-10-17] MEDS ORDERED: CIPR250T3 PO (12:19)
[2017-10-17] MEDS ORDERED: TRMCR130WC TOP (12:19)
--- NOTE | 2017-10-17 12:44 | EMERGENCY ROOM VISIT NOTE ---
History Report prepared by Ashley: Kirsten Eng Under the Supervision of: Dr. Devon Pineda D.O. First contact with patient: 11:41 Chief Complaint: CHEST PAIN Stated Complaint: CHEST PAIN Nursing Triage Summary: Patient presents to ER via ALS. Per EMS, patient lives at home with her family. Patient has hx of dementia. Patient c/o of chest pain and difficulty breathing. Symptoms resolved prior to arrival. Previous hx of A-fib. Patient received 324 mg of aspirin enroute. History of Present Illness The patient is a 76 year old female who presents to the Emergency Room with complaints of sudden chest pain beginning this morning. She rated the pain at a 6/10 when she had it, but states that she does not have it anymore. Per her family, the patient was having shortness of breath. Her family states that they gave her a Z-pack which did not help her shortness of breath. per family, the patient also had a headache and dry mouth. Her family states that the patient has dementia and Alzheimer's disease. The patient states that she feels fine right now, but her family states that the episode lasted a half hour. Her family states that the patient has atrial fibrillation and is on Warfarin. Source of History: patient Onset: this morning Position: chest Symptom Intensity: rated at a 6/10 Timing: other (sudden) Associated Symptoms: + headache, + SOB Review of Systems See HPI for pertinent positives & negatives. A total of 10 systems reviewed and were otherwise negative. 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, [employer] (13) Cystitis (14) Dehydration (15) Dementia (16) Dizziness (17) Dizziness (18) Dizziness (19) Dizziness (20) Dizziness (21) Dizziness due to old head injury (22) Generalized osteoarthritis (23) History of - pulmonary embolus (24) Hypertensive heart disease (25) Hypothyroidism (26) Left ventricular hypertrophy (27) Multiple cardiac ablastions (28) Nausea & vomiting (29) Paroxysmal supraventricular tachycardia (30) Postconcussive syndrome (31) s/p ablation for SVT (32) s/p appendectomy (33) s/p hysterectomy (34) s/p left TKA (35) s/p lumbar decompression (36) s/p PTCA 1999 (37) Sleep apnea (38) Small bowel obstruction (39) Spinal stenosis in cervical region (40) Supratherapeutic INR (41) UTI (urinary tract infection) (42) UTI (urinary tract infection) (43) UTI (urinary tract infection) (44) UTI (urinary tract infection) (45) Vomiting (46) Weakness Family History Diabetes mellitus FH: cancer FH: lung disease Heart disease Hypertension Social History Smoking Status: Former Smoker Alcohol Use: none Drug Use: none Marital Status: Housing Status: lives with family Occupation Status: retired Current/Historical Medications Scheduled Amiodarone Hcl (Cordarone), 200 MG PO HS Amlodipine (Norvasc), 2.5 MG PO DAILY Atorvastatin (Lipitor), 80 MG PO HS Buspirone Hcl (Buspirone Hcl), 10 MG PO BID Ciprofloxacin (Cipro), 250 MG PO BID Duloxetine Hcl (Cymbalta), 60 MG PO HS Magnesium Oxide (Mag-Ox), 400 MG PO QAM Metoprolol Tartrate (Lopressor) (Lopressor), 12.5 MG PO BID Omeprazole (Prilosec), 20 MG PO QAM Potassium Chloride (K-Tab), 20 MEQ PO QAM Solifenacin (Vesicare), 5 MG PO QAM Trazodone Hcl (Desyrel), 50 MG PO HS Triamcinolone Acet (Aristocort 0.1%), 1 APPLN TOP BID Warfarin Sodium (Coumadin), 5 MG PO Q2D Warfarin Sodium (Coumadin), 2.5 MG PO Q2D Scheduled PRN Meclizine HCl (Meclizine 25), 12.5 MG PO TID PRN for dizziness Allergies Coded Allergies: Carbenicillin (Verified Allergy, Unknown, "DON'T REMEMBER", 09/20/17) Penicillins (Verified Allergy, Unknown, HIVES, 09/20/17) has tolerated ceftriaxone and cefepime Pneumococcal Polysaccharides (Verified Allergy, Unknown, FEVER/RASH, 09/20) Sulfamethoxazole w/Trimethoprim (Verified Adverse Reaction, Mild, GI SYMPTOMS, 09/20/17) nausea /vomiting Physical Exam Vital Signs Date Time Temp Pulse Resp B/P (MAP) Pulse Ox O2 Delivery O2 Flow Rate FiO2 10/17/17 11:41 70 10/17/17 11:26 36.8 67 21 169/74 96 Room Air 10/17/17 11:20 36.8 67 21 169/74 96 Room Air 10/17/17 11:20 96 Room Air 10/17/17 11:12 96 Room Air 10/17/17 11:12 36.8 67 21 169/74 96 Room Air 10/17/17 11:12 96 Room Air Physical Exam CONSTITUTIONAL/VITAL SIGNS: Reviewed / noted above. GENERAL: Non-toxic in appearance. INTEGUMENTARY: Warm, dry, and [place]. HEAD: Normocephalic. EYES: without scleral icterus or trauma. ENT/OROPHARYNX: clear and moist. LYMPHADENOPATHY/NECK: Is supple without lymphadenopathy or meningismus. RESPIRATORY: Lungs clear and equal. CARDIOVASCULAR: Regular rate and rhythm. GI/ABDOMEN: Soft and nontender. No organomegaly or pulsatile mass. No rebound or guarding. Normal bowel sounds. EXTREMITIES: Warm and well perfused. BACK: No CVA tenderness. NEUROLOGICAL: Intact without focal deficits. PSYCHIATRIC: normal affect. MUSCULOSKELETAL: Normally developed with good muscle tone. Medical Decision & Procedures ER Provider Diagnostic Interpretation: Radiology results as stated below per my review and radiologist interpretation: CHEST ONE VIEW PORTABLE CLINICAL HISTORY: Chest pain. COMPARISON STUDY: Chest radiograph September 21, 2017. FINDINGS: There is no pneumothorax or pleural effusion. There is no consolidation to suggest pneumonia. Cardiomegaly is unchanged. Moderate interstitial thickening is unchanged. There is no evidence for overt pulmonary edema. IMPRESSION: No acute cardiopulmonary findings. No significant change since previous exam. Electronically signed by: Kong Liang M.D. 10/17/2017 12:12 PM Dictated Date/Time: 10/17/2017 12:10 PM Laboratory Results 10/17/17 10:42 10/17/17 10:42 Test 10/17/17 10:42 10/17/17 11:38 Red Blood Count 4.13 M/uL (4.2-5.4) Mean Corpuscular Volume 90.1 fL (80-100) Mean Corpuscular Hemoglobin 29.5 pg (25-34) Mean Corpuscular Hemoglobin Concent 32.8 g/dl (32-36) RDW Standard Deviation 45.8 fL (36.4-46.3) RDW Coefficient of Variation 13.9 % (11.5-14.5) Mean Platelet Volume 9.1 fL (7.4-10.4) Prothrombin Time 15.0 SECONDS (9.0-12.0) Prothromb Time International Ratio 1.4 (0.9-1.1) Activated Partial Thromboplast Time 30.7 SECONDS (21.0-31.0) Partial Thromboplastin Ratio 1.2 Anion Gap 3.0 mmol/L (3-11) Est Creatinine Clear Calc Drug Dose 57.8 ml/min Estimated GFR () 80.5 Estimated GFR (Non- 69.5 BUN/Creatinine Ratio 15.7 (10-20) Calcium Level 8.3 mg/dl (8.5-10.1) Total Bilirubin 0.7 mg/dl (0.2-1) Aspartate Amino Transf (AST/SGOT) 16 U/L (15-37) Alanine Aminotransferase (ALT/SGPT) 21 U/L (12-78) Alkaline Phosphatase 85 U/L (45-117) Total Creatine Kinase 65 U/L (26-192) Creatine Kinase MB 1.1 ng/ml (0.5-3.6) Creatine Kinase MB Ratio 1.7 (0-3.0) Total Protein 7.0 gm/dl (6.4-8.2) Albumin 3.4 gm/dl (3.4-5.0) Globulin 3.6 gm/dl (2.5-4.0) Albumin/Globulin Ratio 0.9 (0.9-2) Bedside Troponin I < 0.030 ng/ml (0-0.045) Laboratory results as stated above per my review. ECG Indication: chest pain Rate (beats per minute): 75 Rhythm: normal sinus Findings: no acute ischemic change, no ectopy ED Course 1132: Previous medical records were reviewed. The patient was evaluated in room C3. A complete history and physical examination was performed. 1237: On reevaluation, the patient is resting. I discussed the results and findings with the patient. She verbalized agreement of the treatment plan. She was discharged home. Medical Decision the differential was considered includes acute myocardial infarction, acute coronary syndrome, myocarditis, pericarditis, pericardial effusions /tamponad, esophageal perforation, thoracic aortic dissection, pulmonary embolism, pneumonia, pneumothorax, pancreatitis, shingles, acute cholecystitis, perforated abdominal viscus.. This is a 76-year-old female who presents to the ED with a chief complaint of some shortness of breath this morning that was transient and resolved after the daughter got there. The daughter states that she was able to calm down the mother. The patient was brought in for evaluation. The patient is not had any symptoms since that time. Total duration of her symptoms was about 30 minute. The patient has not had any fevers or recent illness. She denies having any exertional symptoms. Physical exam was normal. Vital signs are stable. Laboratory studies including CBC, metabolic panel and troponin as well as EKG were unremarkable. Chest x-ray did not show acute process. The patient was told the results of the tests. She is felt to be stable for discharge. Medication Reconcilliation Current Medication List: was personally reviewed by me Blood Pressure Screening Patient's blood pressure: Elevated blood pressure Blood pressure disposition: Referred to PCP Impression Primary Impression: SOB (shortness of breath) Scribe Attestation The scribe's documentation has been prepared under my direction and personally reviewed by me in its entirety. I confirm that the note above accurately reflects all work, treatment, procedures, and medical decision making performed by me. Departure Information Dispostion Home / Self-Care Referrals Leti De Los Santos D.O. (PCP) Forms Call Back Authorization, HOME CARE DOCUMENTATION FORM, IMPORTANT VISIT INFORMATION Patient Instructions My [facility] Additional Instructions Follow-up with your doctor for further care and evaluation in 1-2 days. Return to the emergency department for worsening or new symptoms or any concerns. You have been examined and treated today on an emergency basis only. This is not a substitute for, or an effort to provide, complete comprehensive medical care. It is impossible to recognize and treat all injuries or illnesses in a single emergency department visit. It is therefore important that you follow up closely with your doctor. Call as soon as possible for an appointment.
[2017-10-17 12:47] VITALS: PULSE 68; O2SAT 93
[2017-10-17 13:00] VITALS: BP 152/80
== END 2017-10-17 13:15 | disposition home or self-care (01) ==
LOC: EDBD 11:12 → C.EDC 11:13
DX: R06.02 Shortness of breath (principal); G30.9 Alzheimer's disease, unspecified; F02.80 Dementia in other diseases classified elsewhere, unspecified severity, without behavioral disturbance, psychotic disturbance, mood disturbance, and anxiety; J45.909 Unspecified asthma, uncomplicated; I11.9 Hypertensive heart disease without heart failure; I48.91 Unspecified atrial fibrillation; I25.10 Atherosclerotic heart disease of native coronary artery without angina pectoris; Z86.711 Personal history of pulmonary embolism; Z90.710 Acquired absence of both cervix and uterus; Z90.89 Acquired absence of other organs; Z87.891 Personal history of nicotine dependence; Z87.440 Personal history of urinary (tract) infections; Z79.01 Long term (current) use of anticoagulants; Z98.61 Coronary angioplasty status; Z83.3 Family history of diabetes mellitus; Z82.49 Family history of ischemic heart disease and other diseases of the circulatory system; Z79.899 Other long term (current) drug therapy

== ENCOUNTER 2018-03-26 17:24 | Inpatient (IN) | payer OTHER ==
[~2018-03-26] VITALS: Ht 157.5 cm; Wt 79.1 kg
[~2018-03-26 17:24] MED LIST changes: -ATOR-26 PO; -BROM0.07 OPR; +CIPR250T3 PO; -MECL-91 PO; -PRED1SUS OPR; +TRMCR130WC TOP
[2018-03-26] MEDS ORDERED: ATOR-26 PO (17:34)
[2018-03-26] MEDS ORDERED: SODIUM CHLORIDE 0.9% 500ML 500 ML IV STA (17:42)
--- NOTE | 2018-03-26 17:59 | DIAGNOSTIC IMAGING REPORT ---
CHEST ONE VIEW PORTABLE CLINICAL HISTORY: Weakness. Shortness of breath. COMPARISON STUDY: 10/17/2017 FINDINGS: The heart remains mildly enlarged. There is no overt failure. There is no focal pulmonary consolidation. There are no pleural effusions. Arthritic changes are present within the shoulders. There are peritendinous calcifications on the right. There is narrowing of the left humeral coronal distance suggesting chronic rotator cuff tear/degeneration[ IMPRESSION: No active disease in the chest. Electronically signed by: Matheus Krishnamurthy M.D. 03/26/2018 5:57 PM Dictated Date/Time: 03/26/2018 5:57 PM
[2018-03-26] MEDS ORDERED: DILTIAZEM BOLUS / DRIP IV STA (18:17)
[2018-03-26 18:33] LABS: BASO % 0.2 %; BASO ABS # 0.01 K/uL (0-0.2); EOS % 2.2 %; HEMATOCRIT 39.1 % (37-47); HEMOGLOBIN 12.9 g/dL (12.0-16.0); IG# 0.01 K/uL (0.00-0.02); LYMPH % 24.5 %; LYMPH ABS # 1.14 K/uL (1.2-3.4); MEAN CELL VOLUME 88.7 fL (80-100); MEAN CORPUSCULAR HEMOGLOBIN 29.3 pg (25-34); MEAN PLATELET VOLUME 8.9 fL (7.4-10.4); MONO ABS # 0.42 K/uL (0.11-0.59); NEUT % 63.9 %; NEUT ABS # 2.97 K/uL (1.4-6.5); PLATELET COUNT 202 K/uL (130-400); RED CELL DISTRIBUTION WIDTH CV 14.7 % (11.5-14.5); RED CELL DISTRIBUTION WIDTH SD 47.8 fL (36.4-46.3); WHITE BLOOD COUNT 4.65 K/uL (4.8-10.8)
[2018-03-26] MEDS ORDERED: DILTIAZEM BOLUS FROM BAG IV ONE (18:45)
[2018-03-26] MEDS ORDERED: DILTIAZEM HCL INJ 125 MG in DEXTROSE 5% 100ML IV PRN (18:45)
[2018-03-26 19:09] LABS: ALBUMIN 3.6 gm/dl (3.4-5.0); ALKALINE PHOSPHATASE 98 U/L (45-117); ALT/SGPT 20 U/L (12-78); AST/SGOT 19 U/L (15-37); BLOOD UREA NITROGEN 18 mg/dl (7-18); CALCIUM 8.3 mg/dl (8.5-10.1); CARBON DIOXIDE 29 mmol/L (21-32); CREATININE 1.02 mg/dl (0.60-1.20); GLUCOSE 104 mg/dl (70-99); POTASSIUM 3.9 mmol/L (3.5-5.1); SODIUM 142 mmol/L (136-145); TOTAL PROTEIN 7.1 gm/dl (6.4-8.2)
[2018-03-26 19:10] LABS: INR 2.4 (0.9-1.1); PTT PATIENT 35.4 SECONDS (21.0-31.0)
[2018-03-26] MEDS ORDERED: CEFTRIAXONE SOD INJ 1 GM ADDVIAL IV STA (19:11)
[2018-03-26] MEDS ORDERED: POTASSIUM CHLORIDE 10 MEQ TABCR PO STA (19:44)
[2018-03-26 20:00] VITALS: O2SAT 94
[2018-03-26] MEDS ORDERED: METOPROLOL TARTRATE 50 MG TAB PO ONE ×2 (20:15→22:02)
[2018-03-26] MEDS ORDERED: METO50TA17 PO (20:37)
[2018-03-26] MEDS ORDERED: SOLI5TAB2 PO (20:37)
[2018-03-26] MEDS ORDERED: SRQ25 PO (20:37)
[2018-03-26] MEDS ORDERED: PRMVC PV (20:37)
[2018-03-26] MEDS ORDERED: RIBO1TAB4 PO (20:37)
[2018-03-26] MEDS ORDERED: GUAI1TAB75 PO (20:37)
[2018-03-26] MEDS ORDERED: NMN5 PO (20:37)
[2018-03-26] MEDS ORDERED: RANI150T2 PO (20:37)
--- NOTE | 2018-03-26 20:58 | EMERGENCY ROOM VISIT NOTE ---
History Report prepared by Ashley: Merrill Luna Under the Supervision of: Dr. Eduardo Villalpando D.O. First contact with patient: 17:32 Chief Complaint: SHORTNESS OF BREATH Stated Complaint: SOB, RAPID HEART BEAT, CONFUSION, UTI? History of Present Illness The patient is a 77 year old female who presents to the Emergency Room with complaints of intermittent shortness of breath beginning a few days ago. The patient's daughter states the patient came up the stairs last night and almost fell. She reports the patient was weak, more confused, and short of breath. The daughter states she gave the patient Tylenol and waited to see how she became. The daughter notes the patient has been short of breath for a few days, and it worsens upon exertion. She states the patient was evaluated by her PCP today because of her shortness of breath and increased confusion. The daughter reports the patient had tests completed and told she had a fast heartbeat. She notes the patient can typically tell where she is at, and she typically does not know the year. The daughter states the patient has a history of a-fib and is on Coumadin. The patient reports she does not know where she is and what year it is. She notes she is currently discomfort-free. The patient denies headaches, change in vision, cough, runny nose, abdominal pain, weakness or numbness in her legs or arms, and chest pain. Source of History: patient Onset: few days ago Quality: other (SOB) Timing: intermittent Modifying Factors (Worsening): exertion Associated Symptoms: No headache, No cough, No chest pain, No weakness, No numbness Note: Associated symptoms: increased confusion Denies: change in vision, runny nose Review of Systems See HPI for pertinent positives & negatives. A total of 10 systems reviewed and were otherwise negative. Past Medical & Surgical Medical Problems: (1) Afib (2) Alzheimer disease (3) Anticoagulant therapy (4) Asthma (5) Atrial fibrillation (6) Atrial fibrillation with RVR (7) Atrial fibrillation with RVR (8) Atrial fibrillation with RVR (9) Atrial flutter (10) Benign hypertension (11) Carotid artery stenosis (12) Cellulitis of left hand (13) CORON ATHEROSCLER NOS TYPE VESSEL, [place] OR GRAFT (14) Cystitis (15) Dehydration (16) Dementia (17) Dizziness (18) Dizziness (19) Dizziness (20) Dizziness (21) Dizziness (22) Dizziness due to old head injury (23) Generalized osteoarthritis (24) History of - pulmonary embolus (25) Hypertensive heart disease (26) Hypothyroidism (27) Left ventricular hypertrophy (28) Multiple cardiac ablastions (29) Nausea & vomiting (30) Paroxysmal supraventricular tachycardia (31) Postconcussive syndrome (32) s/p ablation for SVT (33) s/p appendectomy (34) s/p hysterectomy (35) s/p left TKA (36) s/p lumbar decompression (37) s/p PTCA 1999 (38) Sleep apnea (39) Small bowel obstruction (40) Spinal stenosis in cervical region (41) Supratherapeutic INR (42) UTI (urinary tract infection) (43) UTI (urinary tract infection) (44) UTI (urinary tract infection) (45) UTI (urinary tract infection) (46) Vomiting (47) Weakness Family History Diabetes mellitus FH: cancer FH: lung disease Heart disease Hypertension Social History Smoking Status: Former Smoker Alcohol Use: none Drug Use: none Marital Status: Housing Status: lives with family Occupation Status: retired Current/Historical Medications Scheduled Amlodipine (Norvasc), 2.5 MG PO ON HOLD Atorvastatin (Lipitor), 80 MG PO HS Buspirone Hcl (Buspirone Hcl), 10 MG PO BID Duloxetine Hcl (Cymbalta), 60 MG PO HS Estrogens, Conjugated (Premarin), 1 APPLN PV MWF Magnesium Oxide (Mag-Ox), 400 MG PO QAM Memantine (Namenda), 5 MG PO BIDM Metoprolol Tartrate (Metoprolol Tartrate), 100 MG PO BID Omeprazole (Prilosec), 20 MG PO QAM Potassium Chloride (K-Tab), 20 MEQ PO QAM Quetiapine Fumarate (Quetiapine Fumarate), 25 MG PO HS Riboflavin (Riboflavin), 400 MG PO DAILY Solifenacin Succinate (Vesicare), 5 MG PO DAILY Trazodone Hcl (Desyrel), 50 MG PO HS Warfarin Sodium (Coumadin), 5 MG PO DAILY OR UD Scheduled PRN Guaifenesin La (Guaifenesin Er), 600 MG PO Q12H PRN for CONGESTION Meclizine HCl (Meclizine 25), 25 MG PO TID PRN for dizziness Ranitidine HCl (Ranitidine HCl), 150 MG PO QPM PRN for HEARTBURN Allergies Coded Allergies: Carbenicillin (Verified Allergy, Unknown, "DON'T REMEMBER", 09/20/17) Penicillins (Verified Allergy, Unknown, HIVES, 09/20/17) has tolerated ceftriaxone and cefepime Pneumococcal Polysaccharides (Verified Allergy, Unknown, FEVER/RASH, 09/20) Sulfamethoxazole w/Trimethoprim (Verified Adverse Reaction, Mild, GI SYMPTOMS, 09/20/17) nausea /vomiting Physical Exam Vital Signs Date Time Temp Pulse Resp B/P (MAP) Pulse Ox O2 Delivery O2 Flow Rate FiO2 03/26/18 20:00 98 18 120/77 94 Room Air 03/26/18 19:30 89 17 143/83 94 Room Air 03/26/18 19:00 116 19 158/111 97 03/26/18 18:39 95 Room Air 03/26/18 18:31 151/95 03/26/18 18:24 137 21 94 03/26/18 18:23 118 03/26/18 18:17 148/106 03/26/18 18:06 96 Room Air 03/26/18 18:06 96 Room Air 03/26/18 17:26 36.7 128 20 148/90 94 Room Air Physical Exam GENERAL: Sitting up in bed, alert, disheveled, no distress, non-toxic EYE EXAM: normal conjunctiva. PERRL and EOM's intact. OROPHARYNX: no exudate, no erythema, lips, buccal mucosa, and tongue normal and mucous membranes are moist NECK: supple, no nuchal rigidity, no adenopathy, non-tender LUNGS: Clear to auscultation. Normal chest wall mechanics HEART: Tachycardic and irregularly irregular, S1 normal and S2 normal ABDOMEN: abdomen soft, non-tender, normo-active bowel sounds, no masses, no rebound or guarding. BACK: Back is symmetrical on inspection and there is no deformity, no midline tenderness, no CVA tenderness. SKIN: no rashes and no bruising UPPER EXTREMITIES: upper extremities are grossly normal. LOWER EXTREMITIES: No pitting edema. NEURO EXAM: Awake no oriented to place or year. Cranial nerves II-XII intact, normal speech, no weakness of arms, no weakness of legs. No drift. Finger to nose intact. Gross sensation intact. Medical Decision & Procedures ER Provider Diagnostic Interpretation: Radiology results as stated below per my review and the radiologist's interpretation: CHEST ONE VIEW PORTABLE CLINICAL HISTORY: Weakness. Shortness of breath. COMPARISON STUDY: 10/17/2017 FINDINGS: The heart remains mildly enlarged. There is no overt failure. There is no focal pulmonary consolidation. There are no pleural effusions. Arthritic changes are present within the shoulders. There are peritendinous calcifications on the right. There is narrowing of the left humeral coronal distance suggesting chronic rotator cuff tear/degeneration[ IMPRESSION: No active disease in the chest. Electronically signed by: Matheus Krishnamurthy M.D. 03/26/2018 5:57 PM Dictated Date/Time: 03/26/2018 5:57 PM Laboratory Results 03/26/18 18:06 Red Blood Count 4.41, Mean Corpuscular Volume 88.7, Mean Corpuscular Hemoglobin 29.3, Mean Corpuscular Hemoglobin Concent 33.0, Mean Platelet Volume 8.9, Neutrophils (%) (Auto) 63.9, Lymphocytes (%) (Auto) 24.5, Monocytes (%) (Auto) 9.0, Eosinophils (%) (Auto) 2.2, Basophils (%) (Auto) 0.2, Neutrophils # (Auto) 2.97, Lymphocytes # (Auto) 1.14, Monocytes # (Auto) 0.42, Eosinophils # (Auto) 0.10, Basophils # (Auto) 0.01 03/26/18 18:06 Test 03/26/18 18:06 03/26/18 18:35 White Blood Count 4.65 K/uL (4.8-10.8) Red Blood Count 4.41 M/uL (4.2-5.4) Hemoglobin 12.9 g/dL (12.0-16.0) Hematocrit 39.1 % (37-47) Mean Corpuscular Volume 88.7 fL (80-100) Mean Corpuscular Hemoglobin 29.3 pg (25-34) Mean Corpuscular Hemoglobin Concent 33.0 g/dl (32-36) Platelet Count 202 K/uL (130-400) Mean Platelet Volume 8.9 fL (7.4-10.4) Neutrophils (%) (Auto) 63.9 % Lymphocytes (%) (Auto) 24.5 % Monocytes (%) (Auto) 9.0 % Eosinophils (%) (Auto) 2.2 % Basophils (%) (Auto) 0.2 % Neutrophils # (Auto) 2.97 K/uL (1.4-6.5) Lymphocytes # (Auto) 1.14 K/uL (1.2-3.4) Monocytes # (Auto) 0.42 K/uL (0.11-0.59) Eosinophils # (Auto) 0.10 K/uL (0-0.5) Basophils # (Auto) 0.01 K/uL (0-0.2) RDW Standard Deviation 47.8 fL (36.4-46.3) RDW Coefficient of Variation 14.7 % (11.5-14.5) Immature Granulocyte % (Auto) 0.2 % Immature Granulocyte # (Auto) 0.01 K/uL (0.00-0.02) Prothrombin Time 25.0 SECONDS (9.0-12.0) Prothromb Time International Ratio 2.4 (0.9-1.1) Activated Partial Thromboplast Time 35.4 SECONDS (21.0-31.0) Partial Thromboplastin Ratio 1.4 Anion Gap 6.0 mmol/L (3-11) Est Creatinine Clear Calc Drug Dose 47.3 ml/min Estimated GFR () 62.3 Estimated GFR (Non- 53.8 BUN/Creatinine Ratio 17.4 (10-20) Calcium Level 8.3 mg/dl (8.5-10.1) Magnesium Level 2.0 mg/dl (1.8-2.4) Total Bilirubin 0.6 mg/dl (0.2-1) Direct Bilirubin 0.2 mg/dl (0-0.2) Aspartate Amino Transf (AST/SGOT) 19 U/L (15-37) Alanine Aminotransferase (ALT/SGPT) 20 U/L (12-78) Alkaline Phosphatase 98 U/L (45-117) Troponin I < 0.015 ng/ml (0-0.045) Total Protein 7.1 gm/dl (6.4-8.2) Albumin 3.6 gm/dl (3.4-5.0) Thyroid Stimulating Hormone (TSH) 1.790 uIu/ml (0.300-4.500) Urine Color DK YELLOW Urine Appearance CLEAR (CLEAR) Urine pH 5.5 (4.5-7.5) Urine Specific [place] 1.023 (1.000-1.030) Urine Protein NEG (NEG) Urine Glucose (UA) NEG (NEG) Urine Ketones NEG (NEG) Urine Occult Blood TRACE (NEG) Urine Nitrite POS (NEG) Urine Bilirubin NEG (NEG) Urine Urobilinogen NEG (NEG) Urine Leukocyte Esterase SMALL (NEG) Urine WBC (Auto) 10-30 /hpf (0-5) Urine RBC (Auto) 0-4 /hpf (0-4) Urine Hyaline Casts (Auto) 1-5 /lpf (0-5) Urine Epithelial Cells (Auto) 10-20 /lpf (0-5) Urine Bacteria (Auto) 4+ (NEG) Laboratory results per my review. Medications Administered Medications (Trade) Dose Ordered Sig/Oz Route Start Time Stop Time Status Last Admin Dose Admin Sodium Chloride 500 ml @ 999 mls/hr Q31M STAT IV 03/26/18 17:42 03/26/18 18:12 DC 03/26/18 18:42 999 MLS/HR Diltiazem HCl (Cardizem Bolus From Bag) 15 mg ONE ONCE IV 03/26/18 18:45 03/26/18 18:46 DC 03/26/18 19:19 15 MG Diltiazem HCl 125 mg/Dextrose 125 ml @ 0 mls/hr Q0M PRN IV 03/26/18 18:45 04/25/18 18:44 03/26/18 19:13 5 MLS/HR Ceftriaxone Sodium (Rocephin Inj) 1 gm NOW STAT IV 03/26/18 19:11 03/26/18 19:12 DC 03/26/18 19:24 1 GM Potassium Chloride (Klor-Con M10) 20 meq NOW STAT PO 03/26/18 19:44 03/26/18 20:11 DC 03/26/18 20:18 20 MEQ Metoprolol Tartrate (Lopressor Tab) 50 mg 2015 ONCE PO 03/26/18 20:15 03/26/18 20:25 DC 03/26/18 20:18 50 MG ECG Per My Interpretation Indication: SOB/dyspnea Rate (beats per minute): 129 Rhythm: atrial flutter (with variable block) Findings: PVC, other (Normal axis.) ED Course ED COURSE: Vital signs were reviewed and showed hypertension and tachycardia. The patients medical record was reviewed The above diagnostic studies were performed and reviewed. ED treatments and interventions as stated above. 173: The patient was evaluated in room C08. A complete history and physical examination was performed. 174: Ordered Sodium Chloride 500 ml @ 999 mls/hr IV 1813: I reevaluated the patient and discussed current exam findings and test results. 1816: Ordered Diltiazem HCl 1ea IV 184: Ordered Diltiazem HCl 125mg/Dextrose 125ml @ 0 mls/hr Protocol IV, Diltiazem HCl 15mg IV 1910: Ordered Rocephin 1gm IV 1924: Upon reevaluation, the patient is resting and her heart rate is in the 90s. I discussed my findings with the patient and her daughter. They understand and agree with the treatment plan. 1927: [facility] the [facility] The patient will be evaluated for further management and care. Based on the patients age, coexisting illnesses, exam and lab findings the decision to treat as an inpatient was made. The patient remained stable while under my care. The patient will be evaluated for further management. Medical Decision Differential diagnoses includes but is not limited to pneumonia, bronchitis, COPD/Asthma exacerbation, pneumothorax, pulmonary embolism, congestive heart failure, acute coronary syndrome. Patient is a 77-year-old female who presents the ER for confusion associated with shortness of breath referred in by outside physicians office. On exam patient is tachycardic. EKG was obtained and showed atrial flutter with a variable block/A. fib with RVR heart rate was in the 130s. CBC along with BMP, LFTs, bilirubin, TSH and troponin was unremarkable. INR was therapeutic at 2.4. UA did suggest a UTI although some epithelial cells present with contamination. Patient was updated at bedside. Given IV antibiotics. Patient was placed on Cardizem drip and bolus. Heart rate trended down to the 90s. She remained stable. She is admitted to internal medicine with A. fib RVR now rate controlled and UTI. Medication Reconcilliation Current Medication List: was personally reviewed by me Blood Pressure Screening Patient's blood pressure: Elevated blood pressure Monitored by hospitalist. Consults Time Called: 1923 Consulting Physician: Rey Chaneler Hospitalist Returned Call: 1927 I discussed the patient's case with Dr. Enriquez [facility]. The patient will be evaluated for further management and care. Impression Primary Impression: Atrial fibrillation with RVR Additional Impression: UTI (urinary tract infection) Critical Care I have personally spent 35 minutes of critical care time in the direct management of this patient. This includes bedside care, interpretation of diagnostic studies, and testing, discussion with consultants, patient, and family members, and other required patient management activities. This 35 minutes is in excess of all separately billable procedures. Scribe Attestation The scribe's documentation has been prepared under my direction and personally reviewed by me in its entirety. I confirm that the note above accurately reflects all work, treatment, procedures, and medical decision making performed by me. Departure Information Dispostion Being Evaluated By Hospitalist Referrals Leti De Los Santos D.O. (PCP) Patient Instructions My [facility] Problem Qualifiers Additional Impression: UTI (urinary tract infection) Urinary tract infection type: acute cystitis Hematuria presence: with hematuria Qualified Codes: N30.01 - Acute cystitis with hematuria
[2018-03-26] MEDS ORDERED: OPTIRAY 320 IV PRN (21:00)
[2018-03-26] MEDS ORDERED: GUAIFENESIN 600 MG TABCR PO ONE (22:02)
[2018-03-26] MEDS ORDERED: QUETIAPINE FUMARATE 25 MG TAB PO ONE (22:02)
[2018-03-26] MEDS ORDERED: GUAIFENESIN 600 MG TABCR PO PRN (22:15)
[2018-03-26] MEDS ORDERED: RANITIDINE HCL 150 MG TAB PO PRN (22:15)
[2018-03-26] MEDS ORDERED: MECLIZINE HCL 12.5 MG TAB PO PRN (22:15)
[2018-03-26] MEDS ORDERED: CALCIUM GLUCONATE 10% 1,000 MG in SODIUM CHLORIDE 0.9% 50ML 50 ML IV STA (22:20)
[2018-03-26] MEDS ORDERED: PROCHLORPERAZINE INJ 5 MG in SYRINGE 4 ML IV PRN (22:30)
[2018-03-26] MEDS ORDERED: LACTATED RINGER'S 1000ML 1,000 ML IV ONE (22:30)
[2018-03-26] MEDS ORDERED: NITROGLYCERIN 0.4 MG SL PER TAB CHARGE SL PRN (22:30)
[2018-03-26] MEDS ORDERED: ACETAMINOPHEN 325 MG TAB PO PRN (22:30)
[2018-03-26] MEDS ORDERED: ERTAPENEM IV 1 GM in SODIUM CHLOR 0.9% AD-VAN 50ML 50 ML IV ONE (22:30)
[2018-03-26] MEDS ORDERED: HALOPERIDOL LACTATE 5 MG/ML 1 ML VIAL IM PRN (22:30)
[2018-03-26] MEDS ORDERED: HALOPERIDOL 1 MG TAB PO PRN (22:30)
[2018-03-26] MEDS ORDERED: TRAMADOL HCL 50 MG TAB PO PRN (22:30)
[2018-03-26 23:03] LABS: LIPASE 331 U/L (73-393)
[2018-03-26 23:06] VITALS: BP 158/99; PULSE 129; TEMP 36.6; O2SAT 96
[2018-03-26 23:22] VITALS: BP 173/84; PULSE 87; TEMP 36.7; Ht 157.5 cm; Wt 79.1 kg
[2018-03-26] MEDS ORDERED: MECL-91 PO (23:27)
[2018-03-27] MEDS ORDERED: DOCUSATE SODIUM 100 MG CAP PO ONE ×2 (03:07→08:00)
[2018-03-27 03:56] VITALS: BP 161/98; PULSE 102; TEMP 36.5; O2SAT 94
[2018-03-27] MEDS ORDERED: NURSING VERBAL MED ORDER ONE (04:30)
[2018-03-27] MEDS ORDERED: METOPROLOL TARTRATE 50 MG TAB PO ONE ×2 (04:32→07:50)
[2018-03-27 06:48] LABS: BASO % 0.2 %; BASO ABS # 0.01 K/uL (0-0.2); EOS % 1.9 %; EOS ABS # 0.11 K/uL (0-0.5); HEMATOCRIT 37.1 % (37-47); HEMOGLOBIN 12.4 g/dL (12.0-16.0); IG# 0.01 K/uL (0.00-0.02); LYMPH % 21.9 %; LYMPH ABS # 1.25 K/uL (1.2-3.4); MEAN CELL VOLUME 88.3 fL (80-100); MEAN CORPUSCULAR HEMOGLOBIN 29.5 pg (25-34); MEAN CORPUSCULAR HGB CONC 33.4 g/dl (32-36); MEAN PLATELET VOLUME 8.8 fL (7.4-10.4); MONO % 8.6 %; MONO ABS # 0.49 K/uL (0.11-0.59); NEUT % 67.2 %; NEUT ABS # 3.83 K/uL (1.4-6.5); PLATELET COUNT 174 K/uL (130-400); RED CELL DISTRIBUTION WIDTH CV 14.7 % (11.5-14.5); RED CELL DISTRIBUTION WIDTH SD 47.4 fL (36.4-46.3)
[2018-03-27 06:56] VITALS: BP 161/92; PULSE 92; TEMP 36.9; O2SAT 99
[2018-03-27 06:58] LABS: INR 2.2 (0.9-1.1)
[2018-03-27 07:29] LABS: BLOOD UREA NITROGEN 15 mg/dl (7-18); CALCIUM 8.6 mg/dl (8.5-10.1); CARBON DIOXIDE 27 mmol/L (21-32); CREATININE 0.81 mg/dl (0.60-1.20); GLUCOSE 102 mg/dl (70-99); POTASSIUM 3.7 mmol/L (3.5-5.1); SODIUM 142 mmol/L (136-145)
--- NOTE | 2018-03-27 07:51 | DIAGNOSTIC IMAGING REPORT ---
ABDOMEN AND PELVIS CT WITH IV CONTRAST CT DOSE: 522.07 mGy.cm HISTORY: Abdominal and back pain. TECHNIQUE: Multiaxial CT images of the abdomen and pelvis were performed following the use of intravenous contrast. A dose lowering technique was utilized adhering to the principles of ALARA. COMPARISON STUDY: Abdomen and pelvis CT 09/21/2017. FINDINGS: Cholecystectomy. Hysterectomy. Moderate stool within the colon. No bowel wall thickening or obstruction. The appendix is surgically absent. L5-S1 posterior fusion. Bilateral L5 pars defects. The heart is mildly enlarged. Coronary artery calcifications are noted. Mild motion artifact. No pneumoperitoneum. No pneumatosis. Degenerative changes seen within the bilateral hips. The liver, spleen, adrenal glands, and pancreas are unremarkable. No retroperitoneal lymphadenopathy. Advanced atherosclerotic plaque within the normal caliber abdominal aorta. No hydronephrosis. Stable left renal cyst. Circumferential bladder wall thickening. Punctate focus of gas within the bladder lumen. No retroperitoneal lymphadenopathy. No bowel wall thickening or obstruction. IMPRESSION: 1. Moderate bladder wall thickening. This favors a cystitis. Recommend correlation with urinalysis. Punctate focus of gas within the anterior bladder appears to be within the lumen and may be due to prior catheterization. 2. No bowel wall thickening or obstruction. 3. Postoperative changes as described above. Electronically signed by: Tapan Cta M.D. 03/27/2018 7:50 AM Dictated Date/Time: 03/27/2018 7:45 AM
[2018-03-27] MEDS: PANTOprazole SOD 40 MG TAB PO SCH (07:54)
[2018-03-27] MEDS: VESICARE~ORDER AWAITING ACTION SCH ×3 (07:55→16:00)
[2018-03-27] MEDS: MEMANTINE 5 MG TAB PO SCH ×2 (07:57→16:15)
[2018-03-27] MEDS ORDERED: ERTAPENEM CONSULT ACTIVE PRN (09:00)
[2018-03-27] MEDS ORDERED: METOPROLOL TARTRATE 50 MG TAB PO SCH ×2 (09:00→21:00)
--- NOTE | 2018-03-27 09:01 | HISTORY & PHYSICAL EXAMINATION ---
DATE OF ADMISSION: 03/26/2018 PRIMARY CARE DOCTOR: Dr. De Los Santos CHIEF COMPLAINT: "I don't know" as per records. "Fast heartbeat" as per daughter HISTORY OF PRESENT ILLNESS: History obtained from the patient, daughter, and records. Limited history from patient secondary to dementia. Medical history is significant for dementia, chronic diastolic heart failure, CAD sp stenting, hx CVA, history of PE/ DVT/atrial fibrillation/flutter sp ablation on Coumadin, history of recurrent UTI, urge incontinence per records, past tobacco abuse. History of ESBL E. coli UTI. Recent confinement last March 2017 for dizziness. As per the patient's daughter, the last few days the patient noted to be somewhat confused. Complaining of low back pain, possible UTI. Somewhat constipated. Seen at PCP's office. Heart rate noted to be elevated Patient's daughter mentioned that sometimes the patient struggles with her attempting to give patient her medication. Patient was sent to the Emergency Room, noted to be in rapid atrial flutter. Heart rate in the 120s. Cardizem infusion started in the ER. MEDICAL HISTORY: As above. A 2D echo from July 2017 showed atrial fibrillation, EF 65%, LVH, LA enlargement, mild MR, mild TR, moderate aortic sclerosis. SURGERIES: She has had appendectomy, hysterectomy, knee surgery, back surgery. HOME MEDICATIONS: Include amlodipine, atorvastatin, buspirone, duloxetine, guaifenesin, meclizine, Namenda, metoprolol 100 mg b.i.d., Prilosec, potassium chloride, atropine, Zantac, riboflavin, VESIcare, trazodone, Coumadin. ALLERGIES: ALLERGIC TO PENICILLIN, PNEUMOVAX. FAMILY HISTORY: Diabetes. PERSONAL AND SOCIAL HISTORY: Remote tobacco abuse. 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 No ETOH intake. Lives with . REVIEW OF SYSTEMS: Cannot be reliably obtained. PHYSICAL EXAMINATION: VITAL SIGNS: Blood pressure noted to be 148/90, pulse rate 120, later 105, RR 22, temperature 36.6, sats 98 on room air. GENERAL: Noted to be demented, pleasant, in no respiratory distress. SKIN: Normal color, warm. HEENT: Noted to be obese. [place] palpebral conjuctivae. No ptosis. Dry mucosa. NECK: Short neck. Supple. CHEST: Decreased breath sounds. No tenderness. HEART: Tachycardic, no murmur. ABDOMEN: Some distention, minimal hypogastric tenderness. EXTREMITIES: Minimal LE edema noted. No tenderness. No gross deformities. NEUROLOGIC EXAMINATION: Demented, but coherent. No facialasymmetry. No other gross focality. LABORATORIES: Hemoglobin was noted to be 12.9, hematocrit 39.1, white blood cell count 4.6, platelets 202. Sodium 138, potassium 3.9, chloride 107, CO2 29, BUN 80, creatinine 1, glucose 104. INR was noted to be 2.4. EKG: EKG as per my interpretation rate 130, atrial flutter, poor R-wave progression, occasional PVCs. Chest x-ray, no acute disease. UA, nitrite positive. ASSESSMENT: 1. Rapid atrial flutter Multifactorial : Discomfort from complicated UTI (hx urge incontinence as per records, past history ESBL E. coli UTI), no sepsis for now. Possible medication compliance issues secondary to dementia (Daughter says patient's oftentimes has to struggle to give patient her medications. ) INR therapeutic on Coumadin 2. Abdominal pain secondary to complicated UTI, constipation Rule out stone 3. hypertension, slightly elevated. 4. hx CAD/Cerebrovascular accident as per records. 5. Peripheral vascular disease as per records. 6. Past tobacco abuse per previous records. PLAN: PCU. titrate home beta chon Urine cultures, Ertapenem for now given past microbiologic hx. CT of the abdomen and pelvis RE abdominal pain ro stone Bowel regimen. PT/OT eval. DVT prophylaxis, Coumadin. INR 2-3 DNR as per patient's previous wishes as per daughter, Miss Autumn Ferreira. She requests updates from providers thru [phone]. MTDD
[2018-03-27 11:36] VITALS: BP 154/87; PULSE 69; TEMP 37.1; O2SAT 98
--- NOTE | 2018-03-27 15:00 | Progress Note ---
Internal Med Progress Note Date of Service: March 27, 2018. Provider Documentation: SUBJECTIVE: The patient was seen and examined in presence of daughters Has history of dementia and atrial fibrillation with history of recurrent UTI She was admitted yesterday with acute confusion and RVR She was noted to have UTI She has been feeling reasonably stable this morning OBJECTIVE: Vital Signs-as noted below Exam: General-no apparent distress Eyes-normal ENT-normal Neck-supple Lungs-clear to auscultate bilaterally with decreased breath sounds Heart-irregular Abdomen-benign, no hypogastric and/or renal angle tenderness Extremities-trace edema bilaterally Neuro-alert awake Pleasantly confused No focal neuro deficit Lab data as noted below. ASSESSMENT & PLAN: Mild Metabolic Encephalopathy Likely secondary to [place] SLOUGH with H/O recurrent UTI Has been ON Ertapenem Urine Culture-Gm Negative Bacilli Rapid atrial flutter RVR likely due to infection Metoprolol dose is Increased Rate is controlled Hypertension, slightly elevated. . Cerebrovascular accident as per records. No acute issue Peripheral vascular disease as per records. DVT prophylaxis, Coumadin. PT/OT eval. DNR PER DAUGHTER. The patient's power of deputy prosecuting attorney is daughter, Autumn Ferreira, requesting updates from providers, , . Vital Signs: Date Time Temp Pulse Resp B/P (MAP) Pulse Ox O2 Delivery O2 Flow Rate FiO2 03/27/18 11:36 37.1 69 20 154/87 (109) 98 Nasal Cannula 2.0 03/27/18 06:56 36.9 92 20 161/92 (115) 99 Nasal Cannula 3.0 03/27/18 04:00 Room Air 03/27/18 03:56 36.5 102 19 161/98 (119) 94 Room Air 03/27/18 00:00 Room Air 03/26/18 23:22 36.7 87 20 173/84 Room Air 03/26/18 23:06 36.6 129 18 158/99 (118) 96 Room Air 03/26/18 20:00 98 18 120/77 94 Room Air 03/26/18 19:30 89 17 143/83 94 Room Air 03/26/18 19:00 116 19 158/111 97 03/26/18 18:39 95 Room Air 03/26/18 18:31 151/95 03/26/18 18:24 137 21 94 5/18/18 18:23 118 03/26/18 18:17 148/106 03/26/18 18:06 96 Room Air 03/26/18 18:06 96 Room Air 03/26/18 17:26 36.7 128 20 148/90 94 Room Air Lab Results: Results Past 24 Hours Test 03/26/18 18:06 03/26/18 18:35 03/27/18 06:32 Range/Units White Blood Count 4.65 5.70 4.8-10.8 K/uL Red Blood Count 4.41 4.20 4.2-5.4 M/uL Hemoglobin 12.9 12.4 12.0-16.0 g/dL Hematocrit 39.1 37.1 37-47 % Mean Corpuscular Volume 88.7 88.3 80-100 fL Mean Corpuscular Hemoglobin 29.3 29.5 25-34 pg Mean Corpuscular Hemoglobin Concent 33.0 33.4 32-36 g/dl Platelet Count 202 174 130-400 K/uL Mean Platelet Volume 8.9 8.8 7.4-10.4 fL Neutrophils (%) (Auto) 63.9 67.2 % Lymphocytes (%) (Auto) 24.5 21.9 % Monocytes (%) (Auto) 9.0 8.6 % Eosinophils (%) (Auto) 2.2 1.9 % Basophils (%) (Auto) 0.2 0.2 % Neutrophils # (Auto) 2.97 3.83 1.4-6.5 K/uL Lymphocytes # (Auto) 1.14 1.25 1.2-3.4 K/uL Monocytes # (Auto) 0.42 0.49 0.11-0.59 K/uL Eosinophils # (Auto) 0.10 0.11 0-0.5 K/uL Basophils # (Auto) 0.01 0.01 0-0.2 K/uL RDW Standard Deviation 47.8 47.4 36.4-46.3 fL RDW Coefficient of Variation 14.7 14.7 11.5-14.5 % Immature Granulocyte % (Auto) 0.2 0.2 % Immature Granulocyte # (Auto) 0.01 0.01 0.00-0.02 K/uL Prothrombin Time 25.0 22.7 9.0-12.0 SECONDS Prothromb Time International Ratio 2.4 2.2 0.9-1.1 Activated Partial Thromboplast Time 35.4 21.0-31.0 SECONDS Partial Thromboplastin Ratio 1.4 Sodium Level 142 142 136-145 mmol/L Potassium Level 3.9 3.7 3.5-5.1 mmol/L Chloride Level 107 110 98-107 mmol/L Carbon Dioxide Level 29 27 21-32 mmol/L Anion Gap 6.0 5.0 3-11 mmol/L Blood Urea Nitrogen 18 15 7-18 mg/dl Creatinine 1.02 0.81 0.60-1.20 mg/dl Est Creatinine Clear Calc Drug Dose 47.3 58.4 ml/min Estimated GFR () 62.3 82.3 Estimated GFR (Non- 53.8 71.0 BUN/Creatinine Ratio 17.4 18.3 10-20 Random Glucose 104 102 70-99 mg/dl Calcium Level 8.3 8.6 8.5-10.1 mg/dl Magnesium Level 2.0 1.8-2.4 mg/dl Total Bilirubin 0.6 0.2-1 mg/dl Direct Bilirubin 0.2 0-0.2 mg/dl Aspartate Amino Transf (AST/SGOT) 19 15-37 U/L Alanine Aminotransferase (ALT/SGPT) 20 12-78 U/L Alkaline Phosphatase 98 45-117 U/L Troponin I < 0.015 < 0.015 0-0.045 ng/ml Total Protein 7.1 6.4-8.2 gm/dl Albumin 3.6 3.4-5.0 gm/dl Lipase 331 73-393 U/L Thyroid Stimulating Hormone (TSH) 1.790 0.300-4.500 uIu/ml Urine Color DK YELLOW Urine Appearance CLEAR CLEAR Urine pH 5.5 4.5-7.5 Urine Specific [place] 1.023 1.000-1.030 Urine Protein NEG NEG Urine Glucose (UA) NEG NEG Urine Ketones NEG NEG Urine Occult Blood TRACE NEG Urine Nitrite POS NEG Urine Bilirubin NEG NEG Urine Urobilinogen NEG NEG Urine Leukocyte Esterase SMALL NEG Urine WBC (Auto) 10-30 0-5 /hpf Urine RBC (Auto) 0-4 0-4 /hpf Urine Hyaline Casts (Auto) 1-5 0-5 /lpf Urine Epithelial Cells (Auto) 10-20 0-5 /lpf Urine Bacteria (Auto) 4+ NEG Microbiology Results 03/26/18 Urine Culture - Preliminary, Resulted Gram Negative Bacilli
[2018-03-27 15:09] VITALS: BP 167/112; PULSE 85; TEMP 36.7; O2SAT 92
[2018-03-27 15:23] VITALS: BP 171/97
[2018-03-27 19:00] VITALS: BP 149/72; PULSE 100; TEMP 37; O2SAT 98
[2018-03-27] MEDS ORDERED: TRAZODONE HCL 50 MG TAB PO SCH (21:00)
[2018-03-27] MEDS ORDERED: ATORVASTATIN 40 MG TAB PO SCH (21:00)
[2018-03-27] MEDS ORDERED: DULOXETINE HCL 60 MG CAP PO SCH (21:00)
[2018-03-27] MEDS ORDERED: QUETIAPINE FUMARATE 25 MG TAB PO SCH (21:00)
[2018-03-27] MEDS: METOPROLOL TARTRATE 50 MG TAB PO SCH (21:14)
[2018-03-27] MEDS ORDERED: ERTAPENEM IV 1 GM in SODIUM CHLOR 0.9% AD-VAN 50ML 50 ML IV SCH (23:00)
[2018-03-28 03:28] VITALS: BP 167/113; PULSE 101; TEMP 36.7; O2SAT 91
[2018-03-28 06:39] LABS: INR 1.6 (0.9-1.1)
[2018-03-28 06:58] VITALS: BP 137/86; PULSE 82; TEMP 36.3; O2SAT 97
[2018-03-28] MEDS: VESICARE~ORDER AWAITING ACTION SCH ×2 (08:42)
[2018-03-28] MEDS ORDERED: DOCUSATE SODIUM 100 MG CAP PO SCH (09:00)
[2018-03-28] MEDS ORDERED: CEPHALEXIN MONOHYDRATE 500 MG CAP PO ONE (09:39)
[2018-03-28] MEDS: METOPROLOL TARTRATE 50 MG TAB PO SCH (10:22)
[2018-03-28] MEDS: PANTOprazole SOD 40 MG TAB PO SCH (10:23)
[2018-03-28] MEDS: MEMANTINE 5 MG TAB PO SCH (10:23)
--- NOTE | 2018-03-28 11:00 | Progress Note ---
Internal Med Progress Note Date of Service: March 28, 2018. Provider Documentation: SUBJECTIVE: The patient was seen and examined in presence of daughters Has history of dementia and atrial fibrillation with history of recurrent UTI She was admitted yesterday with acute confusion and RVR She was noted to have UTI She has been feeling reasonably stable this morning 03/28: A little agitated last night Sleeping this AM No other symptoms reported OBJECTIVE: Vital Signs-as noted below Exam: General-no apparent distress Eyes-normal ENT-normal Neck-supple Lungs-clear to auscultate bilaterally with decreased breath sounds Heart-irregular Abdomen-benign, no hypogastric and/or renal angle tenderness Extremities-trace edema bilaterally Neuro-alert awake Pleasantly confused No focal neuro deficit Lab data as noted below. ASSESSMENT & PLAN: Mild Metabolic Encephalopathy Likely secondary to CROW with H/O recurrent UTI Has been ON Ertapenem Urine Culture-Gm Negative Bacilli Clearing up Back to baseline Started on Keflex Rapid atrial flutter RVR likely due to infection Metoprolol dose is Increased Rate is controlled Will continue current dose of BB Hypertension, slightly elevated. . Cerebrovascular accident as per records. No acute issue Peripheral vascular disease as per records. DVT prophylaxis, Coumadin. PT/OT eval. DNR PER DAUGHTER. The patient's power of attorney general is daughter, Autumn Ferreira, requesting updates from providers, , Discussed with the Daughter Willing to take her home today ,Has support at home. Vital Signs: Date Time Temp Pulse Resp B/P (MAP) Pulse Ox O2 Delivery O2 Flow Rate FiO2 03/28/18 06:58 36.3 82 20 137/86 (103) 97 Room Air 03/28/18 04:00 Room Air 03/28/18 03:28 36.7 101 18 167/113 (131) 91 Room Air 03/28/18 00:00 Room Air 03/27/18 20:00 Room Air 03/27/18 19:00 37.0 100 22 149/72 (97) 98 Room Air 03/27/18 16:05 Room Air 03/27/18 15:23 171/97 (121) 03/27/18 15:09 36.7 85 18 167/112 (130) 92 Room Air 03/27/18 12:05 Room Air 03/27/18 11:36 37.1 69 20 154/87 (109) 98 Nasal Cannula 2.0 Lab Results: Results Past 24 Hours Test 03/28/18 05:59 Range/Units Prothrombin Time 16.4 9.0-12.0 SECONDS Prothromb Time International Ratio 1.6 0.9-1.1
[2018-03-28 11:41] VITALS: BP 112/84; PULSE 90; TEMP 36.4; O2SAT 92
[2018-03-28] MEDS ORDERED: KFL500 PO (11:59)
--- NOTE | 2018-03-28 12:02 | Discharge Instructions ---
Discharge Instructions Date of Service March 28, 2018. Admission Reason for Admission: AFIB Discharge Discharge Diagnosis / Problem: Metabolic Encephalopathy-improved to baseline, UTI Discharge Goals Goal(s): Prevent Disease Progression Activity Recommendations Activity Limitations: resume your previous activity . Instructions / Follow-Up Instructions / Follow-Up PCP on 03/30/18 at 2:25 PM.Please keep the appointment Current Hospital Diet Patient's current hospital diet: AHA Diet (Heart Healthy) Discharge Diet Recommended Diet: AHA Diet (Heart Healthy) Pending Studies Studies pending at discharge: no Medical Emergencies . Who to Call and When: Medical Emergencies: If at any time you feel your situation is an emergency, please call 911 immediately. . Non-Emergent Contact Non-Emergency issues call your: Primary Care Provider . Past History Medical & Surgical History: (1) Atrial fibrillation (2) Hypothyroidism (3) Generalized osteoarthritis (4) Hypertensive heart disease (5) Paroxysmal atrial tachycardia (6) Sleep apnea (7) Spinal stenosis in cervical region (8) s/p PTCA 1999 (9) s/p ablation for SVT (10) s/p appendectomy (11) s/p hysterectomy (12) s/p left TKA (13) UTI (urinary tract infection) (14) Weakness . "Provider Documentation" section prepared by Ramos Erickson. .
[2018-03-28 13:18] VITALS: BP 112/84; PULSE 90; TEMP 36.4; O2SAT 92
--- NOTE | 2018-03-28 15:37 | Discharge Summary ---
Discharge Summary Date of Service March 28, 2018. Discharge Summary Admission Date: March 26, 2018 at 20:30 Discharge Date: March 28, 2018 Discharge Disposition: Home Principal Diagnosis: Metabolic Encephalopathy-improved to baseline,UTI Secondary Diagnoses/Problems: Please see H&P and Hospital progress note Medication Reconciliation New Medications: Cephalexin Monohydrate (Cephalexin) 500 Mg Cap 500 MG PO BID for 5 Days, #10 CAP Continued Medications: Amlodipine (Norvasc) 2.5 Mg Tab 2.5 MG PO ON HOLD, TAB Atorvastatin (Lipitor) 80 Mg Tab 80 MG PO HS Buspirone Hcl (Buspirone Hcl) 10 Mg Tab 10 MG PO BID, TAB Duloxetine Hcl (Cymbalta) 60 Mg Cap 60 MG PO HS, CAP Estrogens, Conjugated (Premarin) 14 Appln/30 Gm Cr 1 APPLN PV MWF 1/2 PLUNGER FULL Guaifenesin La (Guaifenesin Er) 600 Mg Tabcr 600 MG PO Q12H PRN for CONGESTION, TAB Magnesium Oxide (Mag-Ox) 400 Mg Tab 400 MG PO QAM Meclizine HCl (Meclizine 25) 25 Mg Tab 25 MG PO TID PRN for dizziness Memantine (Namenda) 5 Mg Tab 5 MG PO BIDM, TAB Metoprolol Tartrate (Metoprolol Tartrate) 50 Mg Tab 100 MG PO BID Omeprazole (Prilosec) 20 Mg Capcr 20 MG PO QAM, CAP Potassium Chloride (K-Tab) 20 Meq Tab 20 MEQ PO QAM Quetiapine Fumarate (Quetiapine Fumarate) 25 Mg Tab 25 MG PO HS Ranitidine HCl (Ranitidine HCl) 150 Mg Tab 150 MG PO QPM PRN for HEARTBURN TAKE AT DINNER OR HS Riboflavin (Riboflavin) 400 Mg Tab 400 MG PO DAILY Solifenacin Succinate (Vesicare) 5 Mg Tab 5 MG PO DAILY Trazodone Hcl (Desyrel) 50 Mg Tab 50 MG PO HS Warfarin Sodium (Coumadin) 5 Mg Tab 5 MG PO DAILY OR UD, TAB TAKE 1 TABLET DAILY OR UD BY ANTICOAGULATION CLINIC. Admission Information HPI (per Admitting provider): DATE OF ADMISSION: 03/26/2018 PRIMARY CARE DOCTOR: Dr. De Los Santos CHIEF COMPLAINT: "I don't know" as per records. "Fast heartbeat" as per daughter HISTORY OF PRESENT ILLNESS: History obtained from the patient, daughter, and records. Limited history from patient secondary to dementia. Medical history is significant for dementia, chronic diastolic heart failure, CAD sp stenting, hx CVA, history of PE/ DVT/atrial fibrillation/flutter sp ablation on Coumadin, history of recurrent UTI, urge incontinence per records, past tobacco abuse. History of ESBL E. coli UTI. Recent confinement last March 2017 for dizziness. As per the patient's daughter, the last few days the patient noted to be somewhat confused. Complaining of low back pain, possible UTI. Somewhat constipated. Seen at PCP's office. Heart rate noted to be elevated Patient's daughter mentioned that sometimes the patient struggles with her attempting to give patient her medication. Patient was sent to the Emergency Room, noted to be in rapid atrial flutter. Heart rate in the 120s. Cardizem infusion started in the ER. MEDICAL HISTORY: As above. A 2D echo from July 2017 showed atrial fibrillation, EF 65%, LVH, LA enlargement, mild MR, mild TR, moderate aortic sclerosis. SURGERIES: She has had appendectomy, hysterectomy, knee surgery, back surgery. HOME MEDICATIONS: Include amlodipine, atorvastatin, buspirone, duloxetine, guaifenesin, meclizine, Namenda, metoprolol 100 mg b.i.d., Prilosec, potassium chloride, atropine, Zantac, riboflavin, VESIcare, trazodone, Coumadin. ALLERGIES: ALLERGIC TO PENICILLIN, PNEUMOVAX. FAMILY HISTORY: Diabetes. PERSONAL AND SOCIAL HISTORY: Remote tobacco abuse. Retired [employer]. No ETOH intake. Lives with . REVIEW OF SYSTEMS: Cannot be reliably obtained. PHYSICAL EXAMINATION: VITAL SIGNS: Blood pressure noted to be 148/90, pulse rate 120, later 105, RR 22, temperature 36.6, sats 98 on room air. GENERAL: Noted to be demented, pleasant, in no respiratory distress. SKIN: Normal color, warm. HEENT: Noted to be obese. [place] palpebral conjuctivae. No ptosis. Dry mucosa. NECK: Short neck. Supple. CHEST: Decreased breath sounds. No tenderness. HEART: Tachycardic, no murmur. ABDOMEN: Some distention, minimal hypogastric tenderness. EXTREMITIES: Minimal LE edema noted. No tenderness. No gross deformities. NEUROLOGIC EXAMINATION: Demented, but coherent. No facialasymmetry. No other gross focality. LABORATORIES: Hemoglobin was noted to be 12.9, hematocrit 39.1, white blood cell count 4.6, platelets 202. Sodium 138, potassium 3.9, chloride 107, CO2 29, BUN 80, creatinine 1, glucose 104. INR was noted to be 2.4. EKG: EKG as per my interpretation rate 130, atrial flutter, poor R-wave progression, occasional PVCs. Chest x-ray, no acute disease. UA, nitrite positive. ASSESSMENT: 1. Rapid atrial flutter Multifactorial : Discomfort from complicated UTI (hx urge incontinence as per records, past history ESBL E. coli UTI), no sepsis for now. Possible medication compliance issues secondary to dementia (Daughter says patient's oftentimes has to struggle to give patient her medications. ) INR therapeutic on Coumadin 2. Abdominal pain secondary to complicated UTI, constipation Rule out stone 3. hypertension, slightly elevated. 4. hx CAD/Cerebrovascular accident as per records. 5. Peripheral vascular disease as per records. 6. Past tobacco abuse per previous records. PLAN: PCU. titrate home beta chon Urine cultures, Ertapenem for now given past microbiologic hx. CT of the abdomen and pelvis RE abdominal pain ro stone Bowel regimen. PT/OT eval. DVT prophylaxis, Coumadin. INR 2-3 DNR as per patient's previous wishes as per daughter, Miss Autumn Ferreira. She requests updates from providers thru [phone]. Hospital Course Mild Metabolic Encephalopathy Likely secondary to SHAYNA with H/O recurrent UTI Has been ON Ertapenem Urine Culture-Gm Negative Bacilli Clearing up Back to baseline Started on Keflex Rapid atrial flutter RVR likely due to infection Metoprolol dose is Increased Rate is controlled Will continue current dose of BB Hypertension, slightly elevated. . Cerebrovascular accident as per records. No acute issue Peripheral vascular disease as per records. DVT prophylaxis, Coumadin. PT/OT eval. DNR PER DAUGHTER. The patient's power of bankruptcy attorney is daughter, Autumn Ferreira, requesting updates from providers, , Discussed with the Daughter Willing to take her home today ,Has support at home. Total time spent on discharge = 35 minutes This includes examination of the patient, discharge planning, medication reconciliation, and communication with other providers. Discharge Instructions Date of Service March 28, 2018. Admission Reason for Admission: AFIB Discharge Discharge Diagnosis / Problem: Metabolic Encephalopathy-improved to baseline, UTI Discharge Goals Goal(s): Prevent Disease Progression Activity Recommendations Activity Limitations: resume your previous activity . Instructions / Follow-Up Instructions / Follow-Up PCP on 03/30/18 at 2:25 PM.Please keep the appointment Current Hospital Diet Patient's current hospital diet: AHA Diet (Heart Healthy) Discharge Diet Recommended Diet: AHA Diet (Heart Healthy) Pending Studies Studies pending at discharge: no Medical Emergencies . Who to Call and When: Medical Emergencies: If at any time you feel your situation is an emergency, please call 911 immediately. . Non-Emergent Contact Non-Emergency issues call your: Primary Care Provider . Past History Medical & Surgical History: (1) Atrial fibrillation (2) Hypothyroidism (3) Generalized osteoarthritis (4) Hypertensive heart disease (5) Paroxysmal atrial tachycardia (6) Sleep apnea (7) Spinal stenosis in cervical region (8) s/p PTCA 1999 (9) s/p ablation for SVT (10) s/p appendectomy (11) s/p hysterectomy (12) s/p left TKA (13) UTI (urinary tract infection) (14) Weakness . "Provider Documentation" section prepared by Ramos Erickson. . <Electronically signed by Ramos Erickson M.D.> Signed: 03/28/18 1207 Additional Copies To Leti De Los Santos D.O.
[2018-03-28] MEDS ORDERED: CEPHALEXIN MONOHYDRATE 500 MG CAP PO SCH (21:00)
== END 2018-03-28 14:10 | disposition home or self-care (01) | DRG 308 ==
LOC: C.EDB 17:25 → C.2T 20:30 → UNDOADMIN 20:30 → EDBEDREQ 20:34 → ENRESERV 20:39
PROVIDERS: ADMIT Internal Medicine; ATTEND Internal Medicine
DX: I48.92 Unspecified atrial flutter (principal); G93.41 Metabolic encephalopathy; N39.0 Urinary tract infection, site not specified; I50.32 Chronic diastolic (congestive) heart failure; B96.89 Other specified bacterial agents as the cause of diseases classified elsewhere; I48.91 Unspecified atrial fibrillation; K59.00 Constipation, unspecified; I11.0 Hypertensive heart disease with heart failure; I25.10 Atherosclerotic heart disease of native coronary artery without angina pectoris; G30.9 Alzheimer's disease, unspecified; F02.80 Dementia in other diseases classified elsewhere, unspecified severity, without behavioral disturbance, psychotic disturbance, mood disturbance, and anxiety; N39.41 Urge incontinence; J45.909 Unspecified asthma, uncomplicated; E03.9 Hypothyroidism, unspecified; I73.9 Peripheral vascular disease, unspecified; Z51.81 Encounter for therapeutic drug level monitoring; Z79.899 Other long term (current) drug therapy; Z79.01 Long term (current) use of anticoagulants; Z66 Do not resuscitate; Z86.711 Personal history of pulmonary embolism; Z87.440 Personal history of urinary (tract) infections; Z95.5 Presence of coronary angioplasty implant and graft; Z98.890 Other specified postprocedural states; Z86.73 Personal history of transient ischemic attack (TIA), and cerebral infarction without residual deficits; Z87.891 Personal history of nicotine dependence; Z88.1 Allergy status to other antibiotic agents; Z88.0 Allergy status to penicillin; Z88.2 Allergy status to sulfonamides; Z88.8 Allergy status to other drugs, medicaments and biological substances; Z88.7 Allergy status to serum and vaccine; Z82.49 Family history of ischemic heart disease and other diseases of the circulatory system; Z83.3 Family history of diabetes mellitus

== ENCOUNTER 2019-01-12 08:39 | Inpatient (IN) ==
[2019-01-12 09:33] LABS: Hematocrit (blood only) 40.3 % (37-47); Hemoglobin 12.7 g/dL (12.0-16.0); Immature Granulocytes # (auto) 0.02 K/uL (0.00-0.02); Immature Granulocytes % (auto) 0.3 %; Lymphocytes # (auto) 1.08 K/uL (1.2-3.4); Mean Corpuscular Hgb Conc 31.5 g/dL (32-36); Mean Platelet Volume 9.7 fL (7.4-10.4); Monocytes % (auto) 9.4 %; Neutrophils # (auto) 4.66 K/uL (1.4-6.5); Neutrophils % (auto) 73.3 %; Platelet Count 176 K/uL (130-400); RDW Coefficient of Variation 14.7 % (11.5-14.5); Red Blood Count 4.43 M/uL (4.2-5.4); White Blood Count 6.36 K/uL (4.8-10.8)
[2019-01-12 09:55] LABS: Albumin Level 3.6 gm/dl (3.4-5.0); BUN Creatinine Ratio 24.5 (10-20); Calcium 8.8 mg/dl (8.5-10.1); Est GFR (African American) 91.2; Est GFR (Non-African American) 78.7; Magnesium 2.1 mg/dl (1.8-2.4); Potassium 3.9 mmol/L (3.5-5.1)
[2019-01-12 09:57] LABS: Albumin Globulin Ratio 0.9 (0.9-2); Bilirubin,Total 0.6 mg/dl (0.2-1); Globulin 3.9 gm/dl (2.5-4.0); Total Protein 7.5 gm/dl (6.4-8.2); Troponin I 0.017 ng/ml (0-0.045)
--- NOTE | 2019-01-12 09:58 | CT Scan Report ---
HEAD CT NONCONTRAST CT DOSE: 1382.10 mGy.cm HISTORY: Right-sided weakness. Stroke evaluation TECHNIQUE: Multiaxial CT images of the head were performed without the use of intravenous contrast. A utomated exposure control was utilized for this study. A dose lowering technique was utilized adheri ng to the principles of ALARA. Comparison: Head CT 05/10/2018. Findings: The paranasal sinuses and mastoid air cells are clear. Motion artifact. No calvarial fractu res identified. 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 Atrophy and microvascular ischemic changes are noted. Multip le scattered areas of encephalomalacia seen throughout the brain consistent with old infarcts. The ri ght cerebellar and left frontal lobe old infarcts are new from the prior study. No definite mass, hem atoma, midline shift, or acute infarct. Impression: Motion artifact. No definite acute intracranial abnormality. Multiple old infarcts are noted. Electronically signed by: Tapan Cat M.D. 01/12/2019 9:53 AM
[2019-01-12 11:11] LABS: INR 1.1 (0.9-1.1); Partial Thromboplastin Ratio 0.9; Partial Thromboplastin Time 24.3 Seconds (21.0-31.0); Prothrombin Time 11.2 Seconds (9.0-12.0)
[2019-01-12] MEDS ORDERED: ASPIRIN CHEW 324 MG PO STA (11:35)
--- NOTE | 2019-01-12 13:03 | Emergency Department Note ---
Entered by Kirsten Eng acting as a scribe for History of Present Illness General Chief complaint: Weakness Time Seen by Provider: 01/12/19 08:49 Source: other (nursing staff) Limitations: altered mental status History of Present Illness Provider complaint: altered mental status Onset (ago): day(s) (last night) Location: head Quality: + other (altered mental status ) The patient is a 78 year old white female w/ PMHx of atrial fibrillation on Digoxin, a brain aneurysm, Alzheimer's, and HLD who presents to the ED w/ CC of an altered mental status since last night. Per nursing staff, the patient's last known well time was last night. Per nursing staff, there is decreased right arm strength. Limited HPI secondary to AMS. 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 Home Medications Home Medications Medication Instructions Recorded Confirmed Type atorvastatin 80 mg PO HS #0 06/22/15 01/12/19 History buspirone 10 mg PO TID #0 tab 02/08/16 01/12/19 History omeprazole 20 mg PO DAILY #0 cap 02/08/16 01/12/19 History metoprolol tartrate 100 mg PO BID #0 03/26/18 01/12/19 History digoxin 0.125 mg PO Q2D #0 05/10/18 01/12/19 History acetaminophen 325 mg PO Q4H PRN 01/12/19 01/12/19 History acetaminophen [Acetaminophen Extra 500 mg PO TID PRN 01/12/19 01/12/19 History Strength] bisacodyl 10 mg VA DAILY PRN 01/12/19 01/12/19 History hydrocodone-acetaminophen [Spangle] 1 tab PO Q4H 01/12/19 01/12/19 History lisinopril 40 mg PO DAILY 01/12/19 01/12/19 History lorazepam 0.5 mg PO DAILY 01/12/19 01/12/19 History lorazepam 0.5 mg PO DAILY PRN 01/12/19 01/12/19 History magnesium oxide 400 mg PO DAILY 01/12/19 01/12/19 History miconazole nitrate [Miconazorb AF] 1 applic TOPICAL BID 01/12/19 01/12/19 History potassium chloride 20 meq PO DAILY 01/12/19 01/12/19 History quetiapine 12.5 mg PO DAILY 01/12/19 01/12/19 History quetiapine 75 mg PO UD 01/12/19 01/12/19 History ranitidine HCl 150 mg PO BID 01/12/19 01/12/19 History sennosides-docusate sodium [Senna 2 tab PO BID 01/12/19 01/12/19 History with Docusate Sodium] sodium phosphates [Fleet Enema] 118 ml VA HS PRN 01/12/19 01/12/19 History venlafaxine 150 mg PO DAILY 01/12/19 01/12/19 History Allergies Allergy/AdvReac Type Severity Reaction Status Date / Time carbenicillin Allergy Unknown "DON'T Verified 01/12/19 09:06 REMEMBER" Penicillins Allergy Unknown HIVES Verified 01/12/19 09:06 pneumococcal vaccine Allergy Unknown FEVER/RASH Verified 01/12/19 09:06 Bactrim AdvReac Mild GI SYMPTOMS Verified 09/20/17 23:30 sulfamethoxazole AdvReac Mild GI SYMPTOMS Verified 01/12/19 09:06 trimethoprim AdvReac Mild GI SYMPTOMS Verified 01/12/19 09:06 Past Med/Surg History Medical History Brain aneurysm (Acute) Alzheimer disease (Chronic) Atrial fibrillation (Chronic) HLD (hyperlipidemia) (Chronic) Stroke (Resolved) Surgical History H/O craniotomy (Resolved) Social History Preferred Language: Singaporean Communication Ability: dementia Wiring Inspector Required: No Beliefs That Will Affect Care: None Current Living Situation: Long Term current occupational status: retired Other Information That Helps Us Care for You: No Feels Safe at Home: Yes Safety Concerns: Feels Safe At This Time Smoking Status: Never smoker Hx Alcohol Use: No Hx Substance Use: No Review of Systems Limited ROS secondary to AMS. Physical Exam Vital Signs Vital Signs - 24 hr 01/12/19 08:44 01/12/19 09:50 01/12/19 11:48 Temperature 36.6 C Temperature Source Oral Sepsis Recent Fever Within 48 Hours No Sepsis Action Taken by Nursing No Action Required Pulse Rate 66 Pulse Rate [Left] 90 96 H Pulse Rhythm [Left] Regular Regular Pulse Strength [Left] Normal Normal Respiratory Rate 16 20 20 Respiratory Effort / Characteristics Non-Labored Spontaneous Non-Labored Spontaneous Non-Labored Spontaneous Respiratory Depth Normal Normal Normal Respiratory Pattern Regular Regular Blood Pressure 172/106 H Blood Pressure [Left Arm] 190/62 H 190/112 H Blood Pressure Mean 128 Blood Pressure Mean [Left Arm] 104 138 Blood Pressure Position Sitting Blood Pressure Position [Left Arm] Lying Lying Pulse Oximetry 98 95 Oxygen Delivery Method Room Air Room Air 01/12/19 12:10 Temperature Temperature Source Sepsis Recent Fever Within 48 Hours Sepsis Action Taken by Nursing Pulse Rate Pulse Rate [Left] Pulse Rhythm [Left] Pulse Strength [Left] Respiratory Rate Respiratory Effort / Characteristics Spontaneous Respiratory Depth Shallow Respiratory Pattern Regular Blood Pressure Blood Pressure [Left Arm] Blood Pressure Mean Blood Pressure Mean [Left Arm] Blood Pressure Position Blood Pressure Position [Left Arm] Pulse Oximetry Oxygen Delivery Method Room Air GENERAL: Pleasantly demented, intermittently follows commands. EYE EXAM: Normal conjunctiva. PERRL, no anisocoria and EOM's grossly intact w/o pain OROPHARYNX: Moist mucus membranes. NECK: Supple, no nuchal rigidity, no adenopathy, non-tender. No signs of meningismus. LUNGS: Clear to auscultation bilaterally. Normal chest wall mechanics. HEART: Normal sinus rhythm, no MRG. ABDOMEN: Abdomen soft, non-tender, no masses, no rebound or guarding. BACK: No CVA TTP. SKIN: No rashes and no bruising. UPPER EXTREMITIES: Upper extremities are grossly normal. LOWER EXTREMITIES: No pitting edema. No calf pain. NEURO EXAM: Pleasantly demented. Some repetitive speech, questionable dysarthria. Alert. Eyes open. Intermittently follows commands. Difficult to ascertain RUE strength but is able to raise it to the level of her head. Symmetric b/l LE strength and good strenght LUE. Course 0854: Past medical records reviewed. The patient was evaluated in room C9, and a complete history and physical examination were performed. 1010: I spoke with the patient's daughter. She said that the patient does have some slight change to her speech and that her right arm may be weaker but she baseline weakness of the right arm. Furthermore, we discussed if there is no change in the treatment if she would be comfortable with taking the patient home and she agreed. 1131: I discussed the patient's case with Dr. Monae Neurology who recommends Aspirin and admission. 1139: I discussed the patient's case with Mindi Flores who will evaluate the patient for further management. 1145: I updated the patient's daughter who verbalized agreement and understanding of the treatment plan. Consultations Consultation #1: Dr. Monae Neurology Time: 11:31 Consultation #2: Mindi Flores Time: 11:39 Medical Decision Making Differential Diagnosis Etiologies such as metabolic, infection, hypoglycemia, electrolyte abnormalities, cardiac sources, intracerebral event, toxicologic, neurologic, as well as others were entertained. Medical Records Attestation: I reviewed the patient's medical records. Home Medications Current Medication List: was personally reviewed by me Laboratory Data Attestation: I reviewed the patient's lab results. Result diagrams: 01/12/19 09:11 01/12/19 09:11 Lab Results 01/12/19 01/12/19 01/12/19 Range/Units 09:11 09:11 09:11 WBC 6.36 (4.8-10.8) K/uL RBC 4.43 (4.2-5.4) M/uL Hgb 12.7 (12.0-16.0) g/dL Hct 40.3 (37-47) % MCV 91.0 (80-100) fL MCH 28.7 (25-34) pg MCHC 31.5 L (32-36) g/dL RDW Std Deviation 49.0 H (36.4-46.3) fL RDW Coeff of Tre 14.7 H (11.5-14.5) % Plt Count 176 (130-400) K/uL MPV 9.7 (7.4-10.4) fL Immature Gran % (Auto) 0.3 % Neut % (Auto) 73.3 % Lymph % (Auto) 17.0 % [place] % (Auto) 9.4 % Eos % (Auto) 0.0 % Baso % (Auto) 0.0 % Immature Gran # (Auto) 0.02 (0.00-0.02) K/uL Neut # (Auto) 4.66 (1.4-6.5) K/uL Lymph # (Auto) 1.08 L (1.2-3.4) K/uL [place] # (Auto) 0.60 H (0.11-0.59) K/uL Eos # (Auto) 0.00 (0-0.5) K/uL Baso # (Auto) 0.00 (0-0.2) K/uL PT Cancelled INR Cancelled APTT Cancelled PTT Ratio Cancelled Sodium 144 (136-145) mmol/L Potassium 3.9 (3.5-5.1) mmol/L Chloride 107 (98-107) mmol/L Carbon Dioxide 30 (21-32) mmol/L Anion Gap 6.0 (3-11) BUN 18 (7-18) mg/dl Creatinine 0.74 (0.6-1.2) mg/dl Est Cr Clr Drug Dosing 61.0 ml/min Est GFR ( Amer) 91.2 Est GFR (Non-Af Amer) 78.7 BUN/Creatinine Ratio 24.5 H (10-20) Glucose 95 (70-99) mg/dl Calcium 8.8 (8.5-10.1) mg/dl Magnesium 2.1 (1.8-2.4) mg/dl Total Bilirubin 0.6 (0.2-1) mg/dl AST 19 (15-37) U/L ALT 20 (12-78) U/L Alkaline Phosphatase 89 (45-117) U/L Troponin I 0.017 (0-0.045) ng/ml Total Protein 7.5 (6.4-8.2) gm/dl Albumin 3.6 (3.4-5.0) gm/dl Globulin 3.9 (2.5-4.0) gm/dl Albumin/Globulin Ratio 0.9 (0.9-2) Specimen Hemolysis Digoxin (0.8-2.0) ng/ml Blood Type Antibody Screen 01/12/19 01/12/19 01/12/19 Range/Units 09:11 09:11 10:15 WBC (4.8-10.8) K/uL RBC (4.2-5.4) M/uL Hgb (12.0-16.0) g/dL Hct (37-47) % MCV (80-100) fL MCH (25-34) pg MCHC (32-36) g/dL RDW Std Deviation (36.4-46.3) fL RDW Coeff of Tre (11.5-14.5) % Plt Count (130-400) K/uL MPV (7.4-10.4) fL Immature Gran % (Auto) % Neut % (Auto) % Lymph % (Auto) % [place] % (Auto) % Eos % (Auto) % Baso % (Auto) % Immature Gran # (Auto) (0.00-0.02) K/uL Neut # (Auto) (1.4-6.5) K/uL Lymph # (Auto) (1.2-3.4) K/uL [place] # (Auto) (0.11-0.59) K/uL Eos # (Auto) (0-0.5) K/uL Baso # (Auto) (0-0.2) K/uL PT INR APTT PTT Ratio Sodium (136-145) mmol/L Potassium (3.5-5.1) mmol/L Chloride (98-107) mmol/L Carbon Dioxide (21-32) mmol/L Anion Gap (3-11) BUN (7-18) mg/dl Creatinine (0.6-1.2) mg/dl Est Cr Clr Drug Dosing ml/min Est GFR ( Amer) Est GFR (Non-Af Amer) BUN/Creatinine Ratio (10-20) Glucose (70-99) mg/dl Calcium (8.5-10.1) mg/dl Magnesium (1.8-2.4) mg/dl Total Bilirubin (0.2-1) mg/dl AST (15-37) U/L ALT (12-78) U/L Alkaline Phosphatase (45-117) U/L Troponin I (0-0.045) ng/ml Total Protein (6.4-8.2) gm/dl Albumin (3.4-5.0) gm/dl Globulin (2.5-4.0) gm/dl Albumin/Globulin Ratio (0.9-2) Specimen Hemolysis Digoxin 0.3 L (0.8-2.0) ng/ml Blood Type Cancelled B Negative Antibody Screen Cancelled NEGATIVE 01/12/19 Range/Units 10:15 WBC (4.8-10.8) K/uL RBC (4.2-5.4) M/uL Hgb (12.0-16.0) g/dL Hct (37-47) % MCV (80-100) fL MCH (25-34) pg MCHC (32-36) g/dL RDW Std Deviation (36.4-46.3) fL RDW Coeff of Tre (11.5-14.5) % Plt Count (130-400) K/uL MPV (7.4-10.4) fL Immature Gran % (Auto) % Neut % (Auto) % Lymph % (Auto) % [place] % (Auto) % Eos % (Auto) % Baso % (Auto) % Immature Gran # (Auto) (0.00-0.02) K/uL Neut # (Auto) (1.4-6.5) K/uL Lymph # (Auto) (1.2-3.4) K/uL [place] # (Auto) (0.11-0.59) K/uL Eos # (Auto) (0-0.5) K/uL Baso # (Auto) (0-0.2) K/uL PT 11.2 INR 1.1 APTT 24.3 PTT Ratio 0.9 Sodium (136-145) mmol/L Potassium (3.5-5.1) mmol/L Chloride (98-107) mmol/L Carbon Dioxide (21-32) mmol/L Anion Gap (3-11) BUN (7-18) mg/dl Creatinine (0.6-1.2) mg/dl Est Cr Clr Drug Dosing ml/min Est GFR ( Amer) Est GFR (Non-Af Amer) BUN/Creatinine Ratio (10-20) Glucose (70-99) mg/dl Calcium (8.5-10.1) mg/dl Magnesium (1.8-2.4) mg/dl Total Bilirubin (0.2-1) mg/dl AST (15-37) U/L ALT (12-78) U/L Alkaline Phosphatase (45-117) U/L Troponin I (0-0.045) ng/ml Total Protein (6.4-8.2) gm/dl Albumin (3.4-5.0) gm/dl Globulin (2.5-4.0) gm/dl Albumin/Globulin Ratio (0.9-2) Specimen Hemolysis Digoxin (0.8-2.0) ng/ml Blood Type Antibody Screen Imaging Data Radiologist's Impression: Radiology results as stated below per my review and the radiologist's interpretation: HEAD CT NONCONTRAST CT DOSE: 1382.10 mGy.cm HISTORY: Right-sided weakness. Stroke evaluation TECHNIQUE: Multiaxial CT images of the head were performed without the use of intravenous contrast. Automated exposure control was utilized for this study. A dose lowering technique was utilized adhering to the principles of ALARA. Comparison: Head CT 05/10/2018. Findings: The paranasal sinuses and mastoid air cells are clear. Motion artifact. No calvarial fractures identified. 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 Atrophy and microvascular ischemic changes are noted. Multiple scattered areas of encephalomalacia seen throughout the brain consistent with old infarcts. The right cerebellar and left frontal lobe old infarcts are new from the prior study. No definite mass, hematoma, midline shift, or acute infarct. Impression: Motion artifact. No definite acute intracranial abnormality. Multiple old infa rcts are noted. Electronically signed by: Tapan Cat M.D. 01/12/2019 9:53 AM ECG Data Attestation: I personally reviewed and interpreted this ECG as follows: Indication: altered mental status Rate (beats per minute): 67 Rhythm: sinus rhythm Findings: + other (normal intervals, significant motion artifact) and + PAC; no acute ischemic change (no obvious) Blood Pressure Blood Pressure Findings: Elevated blood pressure Blood Pressure Disposition: further management by hospitalist ANDREA Santos Patient was seen and evaluated the bedside. Patient did have a known history of dementia A. fib on Coumadin. There was concern for right upper extremity weakness. Patient is somewhat difficult to understand but the patient will intermittently follow commands. The patient is able to raise her right upper extremity although may be somewhat weaker but it is difficult to test her strength she will only intermittently follow commands. Patient did a blood work completed along with CT of the head. CT the head is unremarkable. The patient's other blood work is unremarkable. Of note the patient does not take any antiplatelets and does not take any Coumadin. I did discuss that given the patient's known history and unknown time of onset I would speak with neurology. Neurology gave recommendations of full dose aspirin and additional imaging of the head and neck. I did convey this to the family who is in agreement of the bedside. The patient was subsequently admitted to the medicine service. Impression & Plan Slurred speech, History of dementia, Dysarthria Discharge Plan Visit Data Chief Complaint: Weakness ED Provider: Chris Ferrer Discharge Problem: Slurred speech, History of dementia, Dysarthria Patient Disposition: Being Evaluated by Hospitalist Forms Stand Alone Forms: My [facility] Prescriptions Prescriptions: No Action atorvastatin 80 mg Tablet 80 mg PO HS Qty: 0 RF: 0 buspirone 30 mg Tablet 10 mg PO TID Qty: 0 RF: 0 omeprazole 20 mg Capsule,Delayed Release(Dr/Ec) 20 mg PO DAILY Qty: 0 RF: 0 metoprolol tartrate 50 mg Tablet 100 mg PO BID Qty: 0 RF: 0 digoxin 125 mcg Tablet 0.125 mg PO Q2D Qty: 0 RF: 0 acetaminophen 325 mg Tablet 325 mg PO Q4H PRN (Reason: Pain) RF: 0 hydrocodone-acetaminophen [Spangle] 5-325 mg Tablet 1 tab PO Q4H RF: 0 sennosides-docusate sodium [Senna with Docusate Sodium] 8.6-50 mg Tablet 2 tab PO BID RF: 0 Miconazorb AF 2 % Powder 1 applic TOPICAL BID RF: 0 venlafaxine 150 mg Capsule,Extended Release 24hr 150 mg PO DAILY RF: 0 acetaminophen [Acetaminophen Extra Strength] 500 mg Tablet 500 mg PO TID PRN (Reason: Pain) RF: 0 bisacodyl 10 mg Suppository 10 mg VA DAILY PRN (Reason: Constipation) RF: 0 Fleet Enema 19-7 gram/118 mL Enema 118 ml VA HS PRN (Reason: Constipation) RF: 0 quetiapine 25 mg Tablet 12.5 mg PO DAILY RF: 0 quetiapine 25 mg Tablet 75 mg PO UD RF: 0 magnesium oxide 400 mg (241.3 mg magnesium) Tablet 400 mg PO DAILY RF: 0 lorazepam 0.5 mg Tablet 0.5 mg PO DAILY RF: 0 lorazepam 0.5 mg Tablet 0.5 mg PO DAILY PRN (Reason: Anxiety) RF: 0 ranitidine HCl 150 mg Tablet 150 mg PO BID RF: 0 lisinopril 40 mg Tablet 40 mg PO DAILY RF: 0 potassium chloride 20 mEq Tablet Extended Release 20 meq PO DAILY RF: 0 Referrals Referrals: Barbara Mckinney MD [Primary Care Provider] - The scribe's documentation has been prepared under my direction and personally reviewed by me in its entirety. I confirm that the note above accurately reflects all work, treatment, procedures, and medical decision making performed by me.
--- NOTE | 2019-01-12 13:21 | History & Physical Report ---
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 Complaints included R arm weakness, slurred speech and right facial droop from [facility]. In ED CT scan was obtained which revealed prior infarcts but no acute abnormality. Neurology was contacted per ED provider and recommended to give ASA 325 x 1. Patient does have history of right cerebellar infarct and left frontal infarct as well as recent small non-aneurysmal IPH in 05/2018. Lastly she had a right frontotemporal craniotomy with aneurysm clip repair. Pt was Hypertensive on admission with BP 192/111 UA also +wbc, bacturia, and leuk esterase History and Physical was very limited given patients advanced vascular dementia -admit to telemetry -obtain MRI of brain w/o contrast -obtain b/l carotid dopplar -consult neurology -patient is already on high intensity statin therapy but will obtain lipid panel -Initiate ASA 81mg daily and await further anti platelet recommendations as per neurology -PT/OT/ST consult for eval/tx -patient passed dysphagia screen so will advance diet to Heart Healthy -Initiate Ceftriaxone 1g daily until urine culture returns (2) Afib: -Patient with history of paroxysmal atrial fibrillation requiring numerous ablation and cardioversions in past -Currently on metoprolol and digoxin therapy -Patient is not on anticoagulation despite chadsvasc 7 given recent intraparenchymal hemorrhage and high fall risk -Further given patient's advanced dementia do not feel it would improve QOL at this point (3) HTN (hypertension): -will allow permissive HTN at this point until CVA r/o -continue metoprolol but will hold lisinopril for now -monitor (4) Vascular dementia: -with intermittent agitation and evening flight risk -continue lorazepam and seroquel as prescribed as outpatient -1:1 observation while family not in room (5) CKD (chronic kidney disease) stage 3, GFR 30-59 ml/min: -history of CKD stage 3 however current bun/cr 18/0.74 with egfr 78 -slight pre-renal with ratio >20:1 -will give 1L IVF at 70cc/hr -repeat BMP in a.m. (6) Diastolic CHF: -euvolemic on exam -continue BB, but hold lisinopril for now -not on any diuretics (7) SUSY (obstructive sleep apnea): -intolerant to cpap (8) GERD (gastroesophageal reflux disease): -continue PPI and ranitidine (9) Depression: -mood stable with intermittent agitation -Continue venlafaxine, Seroquel (10) DVT prophylaxis: -SCDS, given recent hx of IPH will avoid chemoprophylaxis Disposition: return to [facility] [facility] once medically able, case management consulted Follow up: PCP Dr. Mckinney/Majo Ramon PA-C upon discharge Patient was seen and examined in collaboration with Dr. Lemos, please see addendum. Starting 01/13/19 patient will be under the care of Dr. Bethea History of Present Illness Chief Complaint: CVA like sx starting this morning. 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 2 daughters are at bedside. ROS unobtainable from patient given dementia. According to [facility] reports patient exhibited right-sided weakness, was unable to sluggish, slurred speech, right facial droop started this morning, unknown time. At that time her BP was 179/83 and given history of CVA was referred to ED via EMS. At baseline patient has severe dementia, garbled speech, doesn't recognize family, wheel chair bound during the day. Per family [facility] reports at night patient will get out of bed and walk to other patient rooms and has had numerous falls w/o significant injury. Allergies Allergy/AdvReac Type Severity Reaction Status Date / Time carbenicillin Allergy Unknown "DON'T Verified 01/12/19 09:06 REMEMBER" Penicillins Allergy Unknown HIVES Verified 01/12/19 09:06 pneumococcal vaccine Allergy Unknown FEVER/RASH Verified 01/12/19 09:06 Bactrim AdvReac Mild GI SYMPTOMS Verified 09/20/17 23:30 sulfamethoxazole AdvReac Mild GI SYMPTOMS Verified 01/12/19 09:06 trimethoprim AdvReac Mild GI SYMPTOMS Verified 01/12/19 09:06 Home Medications Home Medications Medication Instructions Recorded Confirmed Type atorvastatin 80 mg PO HS #0 06/22/15 01/12/19 History buspirone 10 mg PO TID #0 tab 02/08/16 01/12/19 History omeprazole 20 mg PO DAILY #0 cap 02/08/16 01/12/19 History metoprolol tartrate 100 mg PO BID #0 03/26/18 01/12/19 History digoxin 0.125 mg PO Q2D #0 05/10/18 01/12/19 History acetaminophen 325 mg PO Q4H PRN 01/12/19 01/12/19 History acetaminophen [Acetaminophen Extra 500 mg PO TID PRN 01/12/19 01/12/19 History Strength] bisacodyl 10 mg [place] DAILY PRN 01/12/19 01/12/19 History hydrocodone-acetaminophen [[place]] 1 tab PO Q4H 01/12/19 01/12/19 History lisinopril 40 mg PO DAILY 01/12/19 01/12/19 History lorazepam 0.5 mg PO DAILY 01/12/19 01/12/19 History lorazepam 0.5 mg PO DAILY PRN 01/12/19 01/12/19 History magnesium oxide 400 mg PO DAILY 01/12/19 01/12/19 History miconazole nitrate [Miconazorb AF] 1 applic TOPICAL BID 01/12/19 01/12/19 History potassium chloride 20 meq PO DAILY 01/12/19 01/12/19 History quetiapine 12.5 mg PO DAILY 01/12/19 01/12/19 History quetiapine 75 mg PO UD 01/12/19 01/12/19 History ranitidine HCl 150 mg PO BID 01/12/19 01/12/19 History sennosides-docusate sodium [Senna 2 tab PO BID 01/12/19 01/12/19 History with Docusate Sodium] sodium phosphates [Fleet Enema] 118 ml CA HS PRN 01/12/19 01/12/19 History venlafaxine 150 mg PO DAILY 01/12/19 01/12/19 History Past Med/Surg History Medical History Vascular dementia (Chronic) HTN (hypertension) (Chronic) History of CVA (cerebrovascular accident) (Chronic) SUSY (obstructive sleep apnea) (Chronic) Diastolic CHF (Chronic) GERD (gastroesophageal reflux disease) (Chronic) CKD (chronic kidney disease) stage 3, GFR 30-59 ml/min (Chronic) Depression (Chronic) History of pulmonary embolus (PE) (Resolved) Atrial fibrillation (Chronic) HLD (hyperlipidemia) (Chronic) Hypothyroidism (Chronic) Stroke (Resolved) Surgical History History of appendectomy (Resolved) History of resection of small bowel (Resolved) secondary to high grade SBO History of total left knee replacement (TKR) (Resolved) History of percutaneous coronary intervention (Resolved) s/p Stent of RCA in 1999 History of radiofrequency ablation procedure for cardiac arrhythmia (Resolved) S/P PVI ablation in 2009 for afib/flutter s/p CTI flutter ablation in 2014 S/P Cardioversion in 04/2015 and 12/27/15 H/O craniotomy (Resolved) Right frontotemporal craniotomy with aneurysm clip Family History Other Family history non-contributory Social History Preferred Language: Tajik Communication Ability: Dementia 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 Beliefs That Will Affect Care: None Current Living Situation: [facility] current occupational status: retired Other Information That Helps Us Care for You: No Feels Safe at Home: Yes Safety Concerns: Feels Safe At This Time Smoking Status: Former smoker Hx Alcohol Use: No Hx Substance Use: No Review of Systems Unobtainable due to cognitive status Physical Exam Vital Signs (Past 24 Hours): Last Vital Signs Temp 36.6 C 01/12/19 08:44 Pulse 96 H 01/12/19 11:48 Resp 20 01/12/19 11:48 BP 190/112 H 01/12/19 11:48 Pulse Ox 95 01/12/19 11:48 Physical Exam: Gen: Elderly, F, lying in bed, sleeping, b/l temporal wasting, NAD, not conversing due to sleeping Patient recently agitated and combative and just fell asleep, family wishing to defer physical exam at this time until patient awake Head: Normocephalic, Atraumatic Eyes: unable to examine ENT: normal pharynx, mucous membranes dry, minimal teeth, poor dentition Neck: supple, no adenopathy, No JVD, no bruit, Resp: Clear to auscultation b/l, no wheeze, rales, rhonchi poor inspiratory effort/exam. Normal insp/exp effort, no accessory muscle use CV: Tachycardic rate, regular rhythm, 2/6 FENG noted RUSB, no rub, gallop, or ectopy Abd: +BS x 4, soft, nontender, nondistended Musculoskeletal: unable to assess Extremities: No edema bilaterally, b/l pedal pulse +1 equal Skin: warm, moist, no rash apparent, negative turgor, cap refill < 2sec Neuro: Sleeping/drowsy, unable to obtain adequate neuro exam : deferred Results & Data Laboratory Results Short CBC 01/12/19 Range/Units 09:11 WBC 6.36 (4.8-10.8) K/uL Hgb 12.7 (12.0-16.0) g/dL Hct 40.3 (37-47) % Plt Count 176 (130-400) K/uL BMP 01/12/19 09:11 Sodium 144 Potassium 3.9 Chloride 107 Carbon Dioxide 30 BUN 18 Creatinine 0.74 Glucose 95 Calcium 8.8 Cardiac Enzymes 01/12/19 Range/Units 09:11 Troponin I 0.017 (0-0.045) ng/ml Liver Function 01/12/19 Range/Units 09:11 Total Bilirubin 0.6 (0.2-1) mg/dl AST 19 (15-37) U/L ALT 20 (12-78) U/L Alkaline Phosphatase 89 (45-117) U/L Albumin 3.6 (3.4-5.0) gm/dl Diagnostic Findings CT Head: Comparison: Head CT 05/10/2018. Findings: The paranasal sinuses and mastoid air cells are clear. Motion artifact. No calvarial fractures identified. 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 Atrophy and microvascular ischemic changes are noted. Multiple scattered areas of encephalomalacia seen throughout the brain consistent with old infarcts. The right cerebellar and left frontal lobe old infarcts are new from the prior study. No definite mass, hematoma, midline shift, or acute infarct. Impression: Motion artifact. No definite acute intracranial abnormality. Multiple old infarcts are noted. ECG Rate (beats per minute): 67 Rhythm: normal sinus Code Status & VTE Plan Code Status DNR VTE Prophylaxis Plan VTE Prophylaxis will be ordered: Yes Reason for no VTE drug order: Contraindicated Supervising Physician Co-Signing Physician Notes Patient is a 78-year-old female with history of vascular dementia, CVA, frontotemporal aneurysm s/p craniotomy & Clip, Left thalamic hemorrhage and other problems presents with history of stroke like symptoms. Patient is a very poor historian secondary to vascular dementia and most of the history is obtained from patient's family, and old medical records and ER physician. As per the family, patient was noted to have right-sided weakness, slurred speech and facial droop. CT head showed multiple old infarcts and no acute intracranial abnormality. Patient does not follow commands but was able to move all her extremities. Patient developed SVT and later converted to A. fib RVR. Patient was initially given adenosine and later Cardizem which improved her heart rate. On exam patient is moderately built and nourished, lungs are clear to auscultation, irregularly irregular rhythm, tachycardic, positive systolic murmur, abdomen is soft, nontender, patient is alert and awake, moves all her extremities. Could not perform complete neurological exam secondary to patient's mental status. No pedal edema noted. Patient missed her morning medications including metoprolol. Patient will be admitted under telemetry unit. Stroke workup including MRI brain, carotid ultrasound, echo will be ordered. Neurology is consulted. Patient received aspirin in ED. Plan to initiate aspirin 81 mg and continue Lipitor. Afib RVR:: Restart home metoprolol, digoxin. Consider Cardizem drip if has recurrence of Afib RVR. Patient is currently not on anticoagulation secondary to history of spontaneous intra- cranial hemorrhage and high risk for bleeding and falls. Consult Cardiology for Input. Urine suggestive of possible urinary tract infection. Continue empiric Rocephin until urine cultures finalized. I personally reviewed the record. Patient is interviewed and examined at bedside. Patient's care is coordinated with Mindi Marc PA-C. Please refer to the documentation above for details of patient's presentation and for discussion of other issues. Patient is DNR status--confirmed with family. (1) Diastolic CHF Heart failure chronicity: chronic Qualified Code(s): I50.32 - Chronic diastolic (congestive) heart failure (2) Vascular dementia Dementia behavioral disturbance: with behavioral disturbance Qualified C ode(s): F01.51 - Vascular dementia with behavioral disturbance (3) Afib Atrial fibrillation type: paroxysmal Qualified Code(s): I48.0 - Paroxysmal atrial fibrillation (4) Depression Depression Type: unspecified Qualified Code(s): F32.9 - Major depressive disorder, single episode, unspecified (5) GERD (gastroesophageal reflux disease) Esophagitis presence: without esophagitis Qualified Code(s): K21.9 - Gastro- esophageal reflux disease without esophagitis (6) HTN (hypertension) Hypertension type: essential hypertension Qualified Code(s): I10 - Essential (primary) hypertension (7) CVA (cerebral vascular accident) CVA mechanism: unspecified Qualified Code(s): I63.9 - Cerebral infarction, unspecified
[2019-01-12] MEDS ORDERED: ACETAMINOPHEN 325 MG TAB PO PRN (15:18)
[2019-01-12] MEDS ORDERED: MAGNESIUM HYDROXIDE SUSP 30 ML UDC PO PRN (15:18)
[2019-01-12] MEDS ORDERED: LORazepam 0.5 MG TAB PO PRN (15:18)
[2019-01-12] MEDS ORDERED: ALUMINUM/MAGNESIUM SUSP 30 ML UDC PO PRN (15:18)
[2019-01-12] MEDS ORDERED: POLYETHYLENE (MIRALAX) 17 GM PACK PO PRN (15:18)
[2019-01-12] MEDS ORDERED: PHARMACIST DISCHARGE MED REC CONSULT PRN (15:18)
[2019-01-12] MEDS ORDERED: ONDANSETRON INJ 2 MG/ML 2 ML VIAL IV PRN (15:18)
[2019-01-12] MEDS ORDERED: SODIUM CHLORIDE 0.9% 1000ML 1,000 ML IV SCH (15:18)
[2019-01-12 16:27] LABS: Appearance Urine Cloudy (Clear); Bacteria Urine Automated 4+ (Negative); Bilirubin Urine Negative (Negative); Blood Urine Negative (Negative); Color Urine Yellow; Epithelial Cell Urine Auto >30 /lpf (0-5); Glucose Urine UA Negative (Negative); Ketones Urine Negative (Negative); Leukocyte Esterase Urine 1+ (Negative); Nitrite Urine Negative (Negative); Protein Urine Negative (Negative); RBC Urine Automated 0-4 /hpf (0-4); Urobilinogen Urine Negative (Negative); WBC Urine Automated >30 /hpf (0-5); pH Urine 8.5 (4.5-7.5)
[2019-01-12 16:38] LABS: Cast Urine Automated 0 /lpf (0-5)
[2019-01-12] MEDS: QUETIAPINE FUMARATE 25 MG TABLET PO SCH ×2 (16:45→20:30)
[2019-01-12] MEDS: DIGOXIN 0.125 MG TAB PO SCH (16:45)
--- NOTE | 2019-01-12 17:32 | Neurology Consultation ---
Date of Consultation January 12, 2019 Assessment & Plan (1) CVA (cerebral vascular accident): 1. previous 05/10/2018 stroke ICH deep white matter with INR 2.0 2. cardiology last outpatient note no anticoag due to high risk of bleed and fall risk 3. currently on no antiplt therapy will wait for full work up before decision if needed 4. TTE - EF 60-65% no ASD 5. carotid US pending read 6. MRI brain - ordered 7. family would be helpful with new compared to old symptoms 8. severe dementia limits physical exam and evaluation 9. UTI- treat to culture 10. digoxin - not therapeutic 11. further recommendations once imaging is completed. Supervising Physician Co-Signing Physician Notes I have seen and discussed above patient with Dr Tammy Adrian, neurology Pt not in room when I went to see her. Hx reviewed CT reviewed. Prior hx of aneurysm with clip and stroke and hx of L thal, int capsule hemorrhage while on coumadin with INR 2, no severe htn , hx of afib, with new R arm weakness, UTI. P MRI, carotid. would be infectious worsening of neurol deficit. Due to prior ICH pt is a poor AC candidate if new infarct. ASA likely of lower risk but protective, await imaging. 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 [facility] she exhibited right-sided weakness, was unable to sluggish, slurred speech, right facial droop started this morning, unknown time. At that time her BP was 179/83 and given history of CVA was referred to ED via EMS. She has severe dementia, garbled speech, doesn't recognize family, wheel chair bound during the day. She has had numerous falls at [facility] due to getting out of bed and wandering. Currently she is lying in bed and with movement she yells that she is having pain. no family in room currently. Allergies Allergy/AdvReac Type Severity Reaction Status Date / Time carbenicillin Allergy Unknown "DON'T Verified 01/12/19 09:06 REMEMBER" Penicillins Allergy Unknown HIVES Verified 01/12/19 09:06 pneumococcal vaccine Allergy Unknown FEVER/RASH Verified 01/12/19 09:06 Bactrim AdvReac Mild GI SYMPTOMS Verified 09/20/17 23:30 sulfamethoxazole AdvReac Mild GI SYMPTOMS Verified 01/12/19 09:06 trimethoprim AdvReac Mild GI SYMPTOMS Verified 01/12/19 09:06 Home Medications Home Medications Medication Instructions Recorded Confirmed Type atorvastatin 80 mg PO HS #0 06/22/15 01/12/19 History buspirone 10 mg PO TID #0 tab 02/08/16 01/12/19 History omeprazole 20 mg PO DAILY #0 cap 02/08/16 01/12/19 History metoprolol tartrate 100 mg PO BID #0 03/26/18 01/12/19 History digoxin 0.125 mg PO Q2D #0 05/10/18 01/12/19 History acetaminophen 325 mg PO Q4H PRN 01/12/19 01/12/19 History acetaminophen [Acetaminophen Extra 500 mg PO TID PRN 01/12/19 01/12/19 History Strength] bisacodyl 10 mg [place] DAILY PRN 01/12/19 01/12/19 History hydrocodone-acetaminophen [[place]] 1 tab PO Q4H 01/12/19 01/12/19 History lisinopril 40 mg PO DAILY 01/12/19 01/12/19 History lorazepam 0.5 mg PO DAILY 01/12/19 01/12/19 History lorazepam 0.5 mg PO DAILY PRN 01/12/19 01/12/19 History magnesium oxide 400 mg PO DAILY 01/12/19 01/12/19 History miconazole nitrate [Miconazorb AF] 1 applic TOPICAL BID 01/12/19 01/12/19 History potassium chloride 20 meq PO DAILY 01/12/19 01/12/19 History quetiapine 12.5 mg PO DAILY 01/12/19 01/12/19 History quetiapine 75 mg PO UD 01/12/19 01/12/19 History ranitidine HCl 150 mg PO BID 01/12/19 01/12/19 History sennosides-docusate sodium [Senna 2 tab PO BID 01/12/19 01/12/19 History with Docusate Sodium] sodium phosphates [Fleet Enema] 118 ml MI HS PRN 01/12/19 01/12/19 History venlafaxine 150 mg PO DAILY 01/12/19 01/12/19 History Patient History Medical History Vascular dementia (Chronic) HTN (hypertension) (Chronic) History of CVA (cerebrovascular accident) (Chronic) SUSY (obstructive sleep apnea) (Chronic) Diastolic CHF (Chronic) GERD (gastroesophageal reflux disease) (Chronic) CKD (chronic kidney disease) stage 3, GFR 30-59 ml/min (Chronic) Depression (Chronic) History of pulmonary embolus (PE) (Resolved) Atrial fibrillation (Chronic) HLD (hyperlipidemia) (Chronic) Hypothyroidism (Chronic) Stroke (Resolved) Surgical History History of appendectomy (Resolved) History of resection of small bowel (Resolved) secondary to high grade SBO History of total left knee replacement (TKR) (Resolved) History of percutaneous coronary intervention (Resolved) s/p Stent of RCA in 1999 History of radiofrequency ablation procedure for cardiac arrhythmia (Resolved) S/P PVI ablation in 2009 for afib/flutter s/p CTI flutter ablation in 2014 S/P Cardioversion in 04/2015 and 12/27/15 H/O craniotomy (Resolved) Right frontotemporal craniotomy with aneurysm clip Family History Other Family history non-contributory Social History Preferred Language: Lao Communication Ability: Dementia Production 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 Required: No Beliefs That Will Affect Care: None Current Living Situation: Intermediate current occupational status: retired Other Information That Helps Us Care for You: No Feels Safe at Home: Yes Safety Concerns: Feels Safe At This Time Smoking Status: Former smoker Hx Alcohol Use: No Hx Substance Use: No Physical Exam Vital Signs (Past 24 Hours): Last Vital Signs Temp 36.5 C 01/12/19 15:18 Pulse 111 H 01/12/19 16:45 Resp 19 01/12/19 15:18 BP 152/85 H 01/12/19 15:18 Pulse Ox 96 01/12/19 15:18 Gen: NAD, does not know where she is CV irregular lungs course breath sounds very garbled speech asked where she is in pain "I don't know" squeezes with hands and pulls against resistance lifts legs against gravity but yells when resistance is applied Results & Data Laboratory Results Abnormal lab results 01/12/19 01/12/19 01/12/19 Range/Units 09:11 09:11 09:11 MCHC 31.5 L (32-36) g/dL RDW Std Deviation 49.0 H (36.4-46.3) fL RDW Coeff of Tre 14.7 H (11.5-14.5) % Lymph # (Auto) 1.08 L (1.2-3.4) K/uL [place] # (Auto) 0.60 H (0.11-0.59) K/uL BUN/Creatinine Ratio 24.5 H (10-20) Urine Appearance (Clear) Urine pH (4.5-7.5) Ur Leukocyte Esterase (Negative) Urine WBC (Auto) (0-5) /hpf U Epithel Cells (Auto) (0-5) /lpf Urine Bacteria (Auto) (Negative) Digoxin 0.3 L (0.8-2.0) ng/ml 01/12/19 Range/Units 16:05 MCHC (32-36) g/dL RDW Std Deviation (36.4-46.3) fL RDW Coeff of Tre (11.5-14.5) % Lymph # (Auto) (1.2-3.4) K/uL [place] # (Auto) (0.11-0.59) K/uL BUN/Creatinine Ratio (10-20) Urine Appearance Cloudy H (Clear) Urine pH 8.5 H (4.5-7.5) Ur Leukocyte Esterase 1+ H (Negative) Urine WBC (Auto) >30 H (0-5) /hpf U Epithel Cells (Auto) >30 H (0-5) /lpf Urine Bacteria (Auto) 4+ H (Negative) Digoxin (0.8-2.0) ng/ml Diagnostic Findings CT head-Motion artifact. No definite acute intracranial abnormality. Multiple old infarcts are noted. carotid doppler pending read
--- NOTE | 2019-01-12 17:51 | Ultrasound Report ---
US carotid doppler BI CLINICAL HISTORY: 78 years-old Female with CVA. Acute strokelike symptoms COMPARISON: CT head of same day, CT soft tissue neck 12/11/2015, carotid ultrasound 05/17/2014 TECHNIQUE: Multiple real time sonographic images of the carotid bifurcations were obtained assessing otto scale, color Doppler and spectral wave form appearance FINDINGS: Blood pressures were not obtained secondary to patient condition. The overall study is limited second veda to patient condition. RIGHT CAROTID: No flow identified within the right ICA. Atheromatous plaque/thrombus noted about the distal common carotid artery and visualized ICA. Peak systolic velocity of 90 cm/s noted within the r ight external carotid artery. Systolic velocity of 19 cm/s within the common carotid artery. LEFT CAROTID: The peak systolic velocity within the left ICA is not diagnostically visualized The en d diastolic velocity was also not diagnostically visualized secondary to lack of patient cooperation. . Peak systolic velocity of 69 cm/s within the left common carotid artery with end-diastolic velocity of 15 cm/s. Moderate mixed plaque formation about the left common carotid artery and left carotid bu lb. There is normal antegrade vertebral flow bilaterally. IMPRESSION: 1. Very Limited exam secondary to patient condition and lack of cooperation. 2. Age-indeterminate thrombosed distal right common carotid artery, and visualized right ICA. These f indings are new from 2014. 3. Atheromatous plaque about the left carotid arteries with peak systolic velocities not identified s econdary to patient movement. The above report was generated using voice recognition software. It may contain grammatical, syntax o r spelling errors. Electronically signed by: Goyo Maldonado M.D. 01/12/2019 5:50 PM
[2019-01-12] MEDS ORDERED: LORazepam 0.5 MG/1 ML VIAL IV STA (18:05)
[2019-01-12] MEDS ORDERED: LORazepam 2 MG/4 ML VIAL ONE (18:11)
[2019-01-12] MEDS ORDERED: METOPROLOL TARTRATE 1 MG/ML VIAL IV ONE (18:14)
[2019-01-12] MEDS ORDERED: METOPROLOL TARTRATE 1 MG/ML VIAL IV STA (18:24)
[2019-01-12] MEDS ORDERED: ADENOSINE IV SOLN 3 MG/ML 2 ML VIAL IV ONE ×2 (18:27→18:28)
[2019-01-12] MEDS ORDERED: dilTIAZem HCl 5 MG/ML 5 ML VIAL IV ONE (18:39)
[2019-01-12] MEDS ORDERED: dilTIAZem HCl 125 MG in DEXTROSE 5% 100 ML IV SCH (18:45)
[2019-01-12] MEDS ORDERED: dilTIAZem HCl 5 MG/ML 5 ML VIAL IV STA (18:45)
[2019-01-12] MEDS ORDERED: ADENOSINE IV SOLN 3 MG/ML 2 ML VIAL IV STA ×2 (18:48)
[2019-01-12] MEDS: cefTRIAXone SODIUM 1,000 MG in DEXTROSE 5% 50 ML IV SCH (20:28)
[2019-01-12] MEDS: METOPROLOL TARTRATE 100 MG TAB PO SCH (20:29)
[2019-01-12] MEDS: MICONAZOLE NITRATE POWDER 43 GM TOP SCH (20:29)
[2019-01-12] MEDS: DOCUSATE SODIUM/SENNA 50/8.6MG TAB PO SCH (20:29)
[2019-01-12] MEDS: ATORVASTATIN 40 MG TAB PO SCH (20:31)
[2019-01-13] MEDS ORDERED: LABETALOL HCL IV 5 MG/ML 20ML IV STA (04:41)
[2019-01-13 07:31] LABS: Estimated Average Glucose 117 mg/dl; Hemoglobin A1C 5.7 % (4.5-5.6)
[2019-01-13 07:32] LABS: Basophils # (auto) 0.01 K/uL (0-0.2); Basophils % (auto) 0.1 %; Hematocrit (blood only) 42.7 % (37-47); Hemoglobin 13.7 g/dL (12.0-16.0); Immature Granulocytes # (auto) 0.01 K/uL (0.00-0.02); Immature Granulocytes % (auto) 0.1 %; Lymphocytes # (auto) 1.03 K/uL (1.2-3.4); Lymphocytes % (auto) 13.5 %; Mean Corpuscular Hgb Conc 32.1 g/dL (32-36); Mean Corpuscular Volume 89.7 fL (80-100); Mean Platelet Volume 9.8 fL (7.4-10.4); Monocytes # (auto) 0.76 K/uL (0.11-0.59); Neutrophils % (auto) 76.3 %; Platelet Count 210 K/uL (130-400); RDW Coefficient of Variation 14.6 % (11.5-14.5); RDW Standard Deviation 47.3 fL (36.4-46.3); Red Blood Count 4.76 M/uL (4.2-5.4); White Blood Count 7.61 K/uL (4.8-10.8)
[2019-01-13 08:14] LABS: BUN Creatinine Ratio 12.2 (10-20); Calcium 8.5 mg/dl (8.5-10.1); Creatinine Clr Calc Pharmacy 53.1 ml/min; Est GFR (African American) 80.6; Est GFR (Non-African American) 69.5; Potassium 3.6 mmol/L (3.5-5.1)
[2019-01-13] MEDS: cefTRIAXone SODIUM 1,000 MG in DEXTROSE 5% 50 ML IV SCH (08:53)
[2019-01-13] MEDS: MICONAZOLE NITRATE POWDER 43 GM TOP SCH ×2 (08:56→21:37)
[2019-01-13] MEDS: METOPROLOL TARTRATE 100 MG TAB PO SCH ×2 (08:57→21:35)
[2019-01-13] MEDS: QUETIAPINE FUMARATE 25 MG TABLET PO SCH ×3 (08:59→21:35)
[2019-01-13] MEDS: VENLAFAXINE HCL XR 150 MG CAPXR PO SCH (08:59)
[2019-01-13] MEDS: ASPIRIN 81 MG ECTAB PO SCH (09:00)
[2019-01-13] MEDS: PANTOprazole 40 MG TAB PO SCH (09:01)
[2019-01-13] MEDS: MAGNESIUM OXIDE 400 MG TAB PO SCH (09:02)
[2019-01-13] MEDS: DOCUSATE SODIUM/SENNA 50/8.6MG TAB PO SCH ×2 (09:02→21:38)
[2019-01-13] MEDS: POTASSIUM CHLORIDE 20 MEQ TABCR PO SCH (09:02)
--- NOTE | 2019-01-13 13:36 | Cardiology Consultation ---
Date of Consultation January 13, 2019 Assessment & Plan (1) Atrial flutter: Patient carries a history of paroxysmal atrial arrhythmias including atrial fibrillation and atrial flutter. Outpatient records reveal predominantly atrial fibrillation his rhythm. Though patient presented this admission and initially in sinus rhythm she is once again lapsed into atrial flutter overnight. This does not appear to be a cause of her current complaints question mental status changes secondary to acute neurologic event, hypertensive urgency, or underlying infectious process. We will titrate beta-chon higher for rate and rhythm control Documents reflect prior decision to avoid anticoagulation as patient would not reverse. Will supplement potassium Recommend resuming antihypertensive therapies (2) Vascular dementia: (3) HTN (hypertension): (4) History of CVA (cerebrovascular accident): History of Present Illness Reason for Consultation: Change in mental status Requesting Physician: Dr. Bethea Attending Physician: Lamine Bethea MD History of Present Illness Patient is a 78-year-old female with vascular dementia and complex past medical history as listed below 1. History of tachycardia induced cardiomyopathy 2. Paroxysmal, persistent, atrial fibrillation and atrial flutter. 1. Status post PVI ablation in 2009 2. Status post cardioversion in April 2015 3. Status post CTI flutter ablation in 07/2015. 4. Recurrent atrial flutter requiring resumption of amiodarone, successful ALPA guided synchronized electrical cardioversion using a single 125 J biphasic shock on December 27, 2015 5. Presentation on 12/09/2016 with with recurrent ASYMPTOMATIC atrial flutter with a controlled ventricular response. 24-hour holter monitor revealed normal sinus with an average heart rate of 63 bpm. There were rare PAC's and PVCs. Symptoms of shortness of breath and dizziness correlated with normal sinus rhythm. Minimum heart rate was 63 bpm. Maximum heart rate was 110 bpm. 3. Hospitalized at [facility] in May 2018 with a spontaneous nonaneurysmal left thalamic IPH and urinary tract infection. Hemorrhage felt to be in a typical location for a primary hypertensive bleed. No definitive evidence of amyloid on limited MRI per documentation. 4. ASCVD with prior stenting of the RCA in 1999 5. Cardiac catheterization in 2006 and again on February 03, 2012 showing nonobstructive coronary artery disease 6. Nonobstructive carotid occlusive disease 7. Diastolic CHF, NYHA Class II-III 8. Obstructive sleep apnea 9. Asthmatic lung disease 10. Past DVT and PE 11. Prior CVA 12. Hypertension with hypertensive heart disease 13. Dyslipidemia 14. Hypothyroidism 15. Obesity 16. Obstructive sleep apnea 17. Stage III CKD 18. Chronic fatigue syndrome 19. CKD 20. Osteoarthritis with cervical spinal stenosis Patient presents this admission noting having had change in mental status while at extended care facility per report patient unable to confirm or add additional information to recent records with minimal verbalization on questioning. There is reported observation of right arm weakness and slurring of speech. Initial CT scan in the emergency room unrevealing. Blood pressures since admission have been significantly hypertensive. Telemetry reveals lapse and atrial flutter with mildly elevated ventricular response rate overnight. In the past anticoagulation is not been administered due to past intracranial hemorrhage though possibly hypertensive mediated Allergies Allergy/AdvReac Type Severity Reaction Status Date / Time carbenicillin Allergy Unknown "DON'T Verified 01/12/19 09:06 REMEMBER" Penicillins Allergy Unknown HIVES Verified 01/12/19 09:06 pneumococcal vaccine Allergy Unknown FEVER/RASH Verified 01/12/19 09:06 Bactrim AdvReac Mild GI SYMPTOMS Verified 09/20/17 23:30 sulfamethoxazole AdvReac Mild GI SYMPTOMS Verified 01/12/19 09:06 trimethoprim AdvReac Mild GI SYMPTOMS Verified 01/12/19 09:06 Home Medications Home Medications Medication Instructions Recorded Confirmed Type atorvastatin 80 mg PO HS #0 06/22/15 01/12/19 History buspirone 10 mg PO TID #0 tab 02/08/16 01/12/19 History omeprazole 20 mg PO DAILY #0 cap 02/08/16 01/12/19 History metoprolol tartrate 100 mg PO BID #0 03/26/18 01/12/19 History digoxin 0.125 mg PO Q2D #0 05/10/18 01/12/19 History acetaminophen 325 mg PO Q4H PRN 01/12/19 01/12/19 History acetaminophen [Acetaminophen Extra 500 mg PO TID PRN 01/12/19 01/12/19 History Strength] bisacodyl 10 mg SC DAILY PRN 01/12/19 01/12/19 History hydrocodone-acetaminophen [[facility]] 1 tab PO Q4H 01/12/19 01/12/19 History lisinopril 40 mg PO DAILY 01/12/19 01/12/19 History lorazepam 0.5 mg PO DAILY 01/12/19 01/12/19 History lorazepam 0.5 mg PO DAILY PRN 01/12/19 01/12/19 History magnesium oxide 400 mg PO DAILY 01/12/19 01/12/19 History miconazole nitrate [Miconazorb AF] 1 applic TOPICAL BID 01/12/19 01/12/19 History potassium chloride 20 meq PO DAILY 01/12/19 01/12/19 History quetiapine 12.5 mg PO DAILY 01/12/19 01/12/19 History quetiapine 75 mg PO UD 01/12/19 01/12/19 History ranitidine HCl 150 mg PO BID 01/12/19 01/12/19 History sennosides-docusate sodium [Senna 2 tab PO BID 01/12/19 01/12/19 History with Docusate Sodium] sodium phosphates [Fleet Enema] 118 ml SC HS PRN 01/12/19 01/12/19 History venlafaxine 150 mg PO DAILY 01/12/19 01/12/19 History Patient History Medical History Vascular dementia (Chronic) HTN (hypertension) (Chronic) History of CVA (cerebrovascular accident) (Chronic) SUSY (obstructive sleep apnea) (Chronic) Diastolic CHF (Chronic) GERD (gastroesophageal reflux disease) (Chronic) CKD (chronic kidney disease) stage 3, GFR 30-59 ml/min (Chronic) Depression (Chronic) History of pulmonary embolus (PE) (Resolved) Atrial fibrillation (Chronic) HLD (hyperlipidemia) (Chronic) Hypothyroidism (Chronic) Stroke (Resolved) Surgical History History of appendectomy (Resolved) History of resection of small bowel (Resolved) secondary to high grade SBO History of total left knee replacement (TKR) (Resolved) History of percutaneous coronary intervention (Resolved) s/p Stent of RCA in 1999 History of radiofrequency ablation procedure for cardiac arrhythmia (Resolved) S/P PVI ablation in 2009 for afib/flutter s/p CTI flutter ablation in 2014 S/P Cardioversion in 04/2015 and 12/27/15 H/O craniotomy (Resolved) Right frontotemporal craniotomy with aneurysm clip Family History Other Family history non-contributory Social History Preferred Language: Russian Communication Ability: Dementia Gold Layer Required: No Beliefs That Will Affect Care: None Current Living Situation: Alf current occupational status: retired Other Information That Helps Us Care for You: No Feels Safe at Home: Yes Safety Concerns: Feels Safe At This Time Smoking Status: Former smoker Hx Alcohol Use: No Hx Substance Use: No Review of Systems As per HPI and otherwise unobtainable Physical Exam Vital Signs (Past 24 Hours): Last Vital Signs Temp 36.7 C 01/13/19 11:31 Pulse 103 H 01/13/19 11:31 Resp 20 01/13/19 11:31 BP 178/98 H 01/13/19 11:31 Pulse Ox 95 01/13/19 11:31 Physical Exam: Vital signs heart rates 103 blood pressure is 178/98 P Patient is a chronically ill-appearing female. Currently being fed lunch. No overt verbalization HEENT exam is normocephalic and atraumatic Neck is thin there is no distinct jugular venous distention there is no audible bruits there is no visible marie waves Lungs revealed mildly diminished breath sounds without rhonchi rales or wheeze Cardiovascular exam is irregularly irregular grade 2/6 systolic murmur is no diastolic murmur Abdomen soft nontender is no palpable visceromegaly Extremities trace pedal edema only Neuro patient nonconversant does move extremities Results & Data Laboratory Results Laboratory Results - last 24 hr 01/12/19 01/12/19 01/12/19 09:11 09:11 16:05 WBC RBC Hgb Hct MCV MCH MCHC RDW Std Deviation RDW Coeff of Tre Plt Count MPV Immature Gran % (Auto) Neut % (Auto) Lymph % (Auto) [place] % (Auto) Eos % (Auto) Baso % (Auto) Immature Gran # (Auto) Neut # (Auto) Lymph # (Auto) [place] # (Auto) Eos # (Auto) Baso # (Auto) Sodium Potassium Chloride Carbon Dioxide Anion Gap BUN Creatinine Est Cr Clr Drug Dosing Est GFR ( Amer) Est GFR (Non-Af Amer) BUN/Creatinine Ratio Glucose Estimat Average Glucose 117 Hemoglobin A1c 5.7 H Calcium Triglycerides Cholesterol LDL Cholesterol, Calc VLDL Cholesterol, Calc HDL Cholesterol Cholesterol/HDL Ratio TSH 1.380 Urine Color Yellow Urine Appearance Cloudy H Urine pH 8.5 H Ur Specific [place] 1.010 Urine Protein Negative Urine Glucose (UA) Negative Urine Ketones Negative Urine Blood Negative Urine Nitrite Negative Urine Bilirubin Negative Urine Urobilinogen Negative Ur Leukocyte Esterase 1+ H Urine WBC (Auto) >30 H Urine RBC (Auto) 0-4 U Hyaline Cast (Auto) 0 U Epithel Cells (Auto) >30 H Urine Bacteria (Auto) 4+ H 01/13/19 01/13/19 07:03 07:03 WBC 7.61 RBC 4.76 Hgb 13.7 Hct 42.7 MCV 89.7 MCH 28.8 MCHC 32.1 RDW Std Deviation 47.3 H RDW Coeff of Tre 14.6 H Plt Count 210 MPV 9.8 Immature Gran % (Auto) 0.1 Neut % (Auto) 76.3 Lymph % (Auto) 13.5 [place] % (Auto) 10.0 Eos % (Auto) 0.0 Baso % (Auto) 0.1 Immature Gran # (Auto) 0.01 Neut # (Auto) 5.80 Lymph # (Auto) 1.03 L [place] # (Auto) 0.76 H Eos # (Auto) 0.00 Baso # (Auto) 0.01 Sodium 141 Potassium 3.6 Chloride 105 Carbon Dioxide 28 Anion Gap 8.0 BUN 10 D Creatinine 0.82 Est Cr Clr Drug Dosing 53.1 Est GFR ( Amer) 80.6 Est GFR (Non-Af Amer) 69.5 BUN/Creatinine Ratio 12.2 Glucose 122 H Estimat Average Glucose Hemoglobin A1c Calcium 8.5 Triglycerides 111 Cholesterol 143 LDL Cholesterol, Calc 83 VLDL Cholesterol, Calc 22 HDL Cholesterol 38 Cholesterol/HDL Ratio 4 TSH Urine Color Urine Appearance Urine pH Ur Specific [place] Urine Protein Urine Glucose (UA) Urine Ketones Urine Blood Urine Nitrite Urine Bilirubin Urine Urobilinogen Ur Leukocyte Esterase Urine WBC (Auto) Urine RBC (Auto) U Hyaline Cast (Auto) U Epithel Cells (Auto) Urine Bacteria (Auto) (1) Vascular dementia Dementia behavioral disturbance: with behavioral disturbance Qualified Code(s): F01.51 - Vascular dementia with behavioral disturbance (2) HTN (hypertension) Hypertension type: essential hypertension Qualified Code(s): I10 - Essential (primary) hypertension
[2019-01-13] MEDS ORDERED: POTASSIUM CHLORIDE 20 MEQ/15 ML UDC PO STA (13:52)
[2019-01-13] MEDS ORDERED: METOPROLOL TARTRATE 50 MG TAB PO STA (13:53)
--- NOTE | 2019-01-13 14:37 | Neurology Progress Note ---
Date of Service January 13, 2019 Assessment & Plan (1) CVA (cerebral vascular accident): 1. previous 05/10/2018 stroke ICH deep white matter with INR 2.0 2. cardiology last outpatient note no anticoag due to high risk of bleed and fall risk- seen this visit with no change recommended 3. currently on no antiplt therapy will wait for full work up before decision if needed 4. TTE - EF 60-65% no ASD 5. carotid US poor quality and some plaque formation 6. MRI brain - ordered may be delayed due to aneurysm clip 7. family would be helpful with new compared to old symptoms 8. severe dementia limits physical exam and evaluation 9. UTI- treat to culture 10. digoxin - not therapeutic Supervising Physician Co-Signing Physician Notes I have seen and discussed above patient with Dr Tammy Adrian, neurology Pt awake alert, unable to state name, marginally follows command but is purposeful. Perhaps mild flattening R NLF and perhaps R arm drifts greater than left. Imp pt with multiple prior central episodes most recently L thal bleed, nonhypertensive, INR 2 at time. Now with increased R sided sx, possibly related to UTI, cannot entirely exclude new ischemic stroke. Since pt has a fib, it would be reasonable to start asa.MRI may not be able to be done due to inability to cooperate. Discussed issues, risks with family. 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 According to halfway reports she exhibited right-sided weakness, was unable to sluggish, slurred speech, right facial droop started this morning, unknown time. At that time her BP was 179/83 and given history of CVA was referred to ED via EMS. She has severe dementia, garbled speech, doesn't recognize family, wheel chair bound during the day. She has had numerous falls at [place] due to getting out of bed and wandering. Currently she is lying in bed and OT is working to get her to bedside chair. when asked if she has pain she states "yes" but can not voice where. She was cooperative with bathing this am and ate her lunch with assistance. Physical Exam Vital Signs (Past 24 Hours): Last Vital Signs Temp 36.7 C 01/13/19 11:31 Pulse 103 H 01/13/19 11:31 Resp 20 01/13/19 11:31 BP 178/98 H 01/13/19 11:31 Pulse Ox 95 01/13/19 11:31 Gen: alert to name lungs CTA CV irregular with help of PT patient is sat up in bed, legs over edge sits independently. She bears her own weight at bedside and sits independently in chair She is not following instructions but she does say she is "cold" Results & Data Laboratory Results Abnormal lab results 01/12/19 01/12/19 01/13/19 Range/Units 09:11 16:05 07:03 RDW Std Deviation 47.3 H (36.4-46.3) fL RDW Coeff of Tre 14.6 H (11.5-14.5) % Lymph # (Auto) 1.03 L (1.2-3.4) K/uL [place] # (Auto) 0.76 H (0.11-0.59) K/uL Glucose (70-99) mg/dl Hemoglobin A1c 5.7 H (4.5-5.6) % Urine Appearance Cloudy H (Clear) Urine pH 8.5 H (4.5-7.5) Ur Leukocyte Esterase 1+ H (Negative) Urine WBC (Auto) >30 H (0-5) /hpf U Epithel Cells (Auto) >30 H (0-5) /lpf Urine Bacteria (Auto) 4+ H (Negative) 01/13/19 Range/Units 07:03 RDW Std Deviation (36.4-46.3) fL RDW Coeff of Tre (11.5-14.5) % Lymph # (Auto) (1.2-3.4) K/uL [place] # (Auto) (0.11-0.59) K/uL Glucose 122 H (70-99) mg/dl Hemoglobin A1c (4.5-5.6) % Urine Appearance (Clear) Urine pH (4.5-7.5) Ur Leukocyte Esterase (Negative) Urine WBC (Auto) (0-5) /hpf U Epithel Cells (Auto) (0-5) /lpf Urine Bacteria (Auto) (Negative) Diagnostic Findings carotid doppler- Very Limited exam secondary to patient condition and lack of cooperation. Age-indeterminate thrombosed distal right common carotid artery, and visualized right ICA. These findings are new from 2014. Atheromatous plaque about the left carotid arteries with peak systolic velocities not identified secondary to patient movement. (1) CVA (cerebral vascular accident) CVA mechanism: unspecified Qualified Code(s): I63.9 - Cerebral infarction, unspecified
[2019-01-13] MEDS: LORazepam 0.5 MG TAB PO SCH (15:18)
--- NOTE | 2019-01-13 16:06 | Hospitalist Progress Note ---
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 Complaints included R arm weakness, slurred speech and right facial droop from [facility]. In ED CT scan was obtained which revealed prior infarcts but no acute abnormality. Neurology was contacted per ED provider and recommended to give ASA 325 x 1. Patient does have history of right cerebellar infarct and left frontal infarct as well as recent small non-aneurysmal IPH in 05/2018. Lastly she had a right frontotemporal craniotomy with aneurysm clip repair. Pt was Hypertensive on admission with BP 192/111 UA also +wbc, bacturia, and leuk esterase 01/13/19 Brain MRI cannot be performed as patient not cooperating started on Aspirin 81mg po daily may need repeat CT head today Neurologist consulted maintain BP on the high normal range to promote adequate cerebral perfusion for the next 48 hours (2) Afib: per admitting service notes: -Patient with history of paroxysmal atrial fibrillation requiring numerous ablation and cardioversions in past -Currently on metoprolol and digoxin therapy -Patient is not on anticoagulation despite chadsvasc 7 given recent intraparenchymal hemorrhage and high fall risk -Further given patient's advanced dementia do not feel it would improve QOL at this point 01/13/19 remain in a fib Additional Metoprolol added ASA started on admission monitor (3) HTN (hypertension): -will allow permissive HTN at this point until CVA r/o -continue metoprolol - systolic bp only 120s hold Lisinopril (4) Vascular dementia: -with intermittent agitation and evening flight risk -continue lorazepam and seroquel as prescribed as outpatient -1:1 observation while family not in room (5) CKD (chronic kidney disease) stage 3, GFR 30-59 ml/min: -history of CKD stage 3 however current bun/cr 18/0.74 with egfr 78 crea 0.8 (6) Diastolic CHF: -euvolemic on exam -continue BB, but hold lisinopril for now -not on any diuretics (7) SUSY (obstructive sleep apnea): -intolerant to cpap (8) GERD (gastroesophageal reflux disease): -continue PPI and ranitidine (9) Depression: -mood stable with intermittent agitation -Continue venlafaxine, Seroquel (10) DVT prophylaxis: -SCDS, given recent hx of IPH will avoid chemoprophylaxis [facility], case management consulted Follow up: PCP Dr. Mckinney/Majo Ramon PA-C upon discharge Subjective ff up for cva symptoms remains in A fib with RVR seen resting in bed, sleeping, drowsy opens eyes, but very irritable, not cooperating with exam comfortable moves all extremities equally,no dysarthria, no facial droop no other symptoms/signs noted Physical Exam Vital Signs (Past 24 Hours): Last Vital Signs Temp 37.0 C 01/13/19 14:43 Pulse 96 H 01/13/19 14:43 Resp 18 01/13/19 14:43 BP 120/63 01/13/19 14:43 Pulse Ox 96 01/13/19 14:43 Physical Exam: General-not in distress, speaks in sentences with no effort or accessory muscle use Eyes- anicteric Neck- no JVD Lungs- clear breath sounds bilaterally, no rales/wheezes Heart- normal rate, irregularly irregular rhythm; no murmurs Abdomen- normal bowel sounds, nondistended, soft, nontender Extremities- no pretibial edema, no calf tenderness Neuro-sleepy, no gross focal deficits notes Skin- warm & dry Results & Data Laboratory Results Laboratory Results - last 24 hr 01/12/19 01/12/19 01/13/19 09:11 16:05 07:03 WBC 7.61 RBC 4.76 Hgb 13.7 Hct 42.7 MCV 89.7 MCH 28.8 MCHC 32.1 RDW Std Deviation 47.3 H RDW Coeff of Tre 14.6 H Plt Count 210 MPV 9.8 Immature Gran % (Auto) 0.1 Neut % (Auto) 76.3 Lymph % (Auto) 13.5 [place] % (Auto) 10.0 Eos % (Auto) 0.0 Baso % (Auto) 0.1 Immature Gran # (Auto) 0.01 Neut # (Auto) 5.80 Lymph # (Auto) 1.03 L [place] # (Auto) 0.76 H Eos # (Auto) 0.00 Baso # (Auto) 0.01 Sodium Potassium Chloride Carbon Dioxide Anion Gap BUN Creatinine Est Cr Clr Drug Dosing Est GFR ( Amer) Est GFR (Non-Af Amer) BUN/Creatinine Ratio Glucose Estimat Average Glucose 117 Hemoglobin A1c 5.7 H Calcium Triglycerides Cholesterol LDL Cholesterol, Calc VLDL Cholesterol, Calc HDL Cholesterol Cholesterol/HDL Ratio Urine Color Yellow Urine Appearance Cloudy H Urine pH 8.5 H Ur Specific [place] 1.010 Urine Protein Negative Urine Glucose (UA) Negative Urine Ketones Negative Urine Blood Negative Urine Nitrite Negative Urine Bilirubin Negative Urine Urobilinogen Negative Ur Leukocyte Esterase 1+ H Urine WBC (Auto) >30 H Urine RBC (Auto) 0-4 U Hyaline Cast (Auto) 0 U Epithel Cells (Auto) >30 H Urine Bacteria (Auto) 4+ H 01/13/19 07:03 WBC RBC Hgb Hct MCV MCH MCHC RDW Std Deviation RDW Coeff of Tre Plt Count MPV Immature Gran % (Auto) Neut % (Auto) Lymph % (Auto) [place] % (Auto) Eos % (Auto) Baso % (Auto) Immature Gran # (Auto) Neut # (Auto) Lymph # (Auto) [place] # (Auto) Eos # (Auto) Baso # (Auto) Sodium 141 Potassium 3.6 Chloride 105 Carbon Dioxide 28 Anion Gap 8.0 BUN 10 D Creatinine 0.82 Est Cr Clr Drug Dosing 53.1 Est GFR ( Amer) 80.6 Est GFR (Non-Af Amer) 69.5 BUN/Creatinine Ratio 12.2 Glucose 122 H Estimat Average Glucose Hemoglobin A1c Calcium 8.5 Triglycerides 111 Cholesterol 143 LDL Cholesterol, Calc 83 VLDL Cholesterol, Calc 22 HDL Cholesterol 38 Cholesterol/HDL Ratio 4 Urine Color Urine Appearance Urine pH Ur Specific [place] Urine Protein Urine Glucose (UA) Urine Ketones Urine Blood Urine Nitrite Urine Bilirubin Urine Urobilinogen Ur Leukocyte Esterase Urine WBC (Auto) Urine RBC (Auto) U Hyaline Cast (Auto) U Epithel Cells (Auto) Urine Bacteria (Auto) (1) CVA (cerebral vascular accident) CVA mechanism: unspecified Qualified Code(s): I63.9 - Cerebral infarction, unspecified (2) Afib Atrial fibrillation type: paroxysmal Qualified Code(s): I48.0 - Paroxysmal atrial fibrillation (3) HTN (hypertension) Hypertension type: essential hypertension Qualified Code(s): I10 - Essential (primary) hypertension (4) Vascular dementia Dementia behavioral disturbance: with behavioral disturbance Qualified Code(s): F01.51 - Vascular dementia with behavioral disturbance (5) Diastolic CHF Heart failure chronicity: chronic Qualified Code(s): I50.32 - Chronic diastolic (congestive) heart failure (6) GERD (gastroesophageal reflux disease) Esophagitis presence: without esophagitis Qualified Code(s): K21.9 - Gastro- esophageal reflux disease without esophagitis (7) Depression Depression Type: unspecified Qualified Code(s): F32.9 - Major depressive disorder, single episode, unspecified
[2019-01-13] MEDS: ATORVASTATIN 40 MG TAB PO SCH (21:37)
[2019-01-14] MEDS ORDERED: LABETALOL HCL IV 5 MG/ML 20ML IV PRN (03:56)
[2019-01-14 06:51] LABS: Basophils # (auto) 0.01 K/uL (0-0.2); Basophils % (auto) 0.1 %; Hematocrit (blood only) 44.2 % (37-47); Hemoglobin 14.3 g/dL (12.0-16.0); Immature Granulocytes # (auto) 0.03 K/uL (0.00-0.02); Immature Granulocytes % (auto) 0.3 %; Lymphocytes % (auto) 6.7 %; Mean Corpuscular Hgb Conc 32.4 g/dL (32-36); Mean Corpuscular Volume 89.3 fL (80-100); Mean Platelet Volume 10.2 fL (7.4-10.4); Monocytes # (auto) 0.53 K/uL (0.11-0.59); Neutrophils # (auto) 9.24 K/uL (1.4-6.5); Neutrophils % (auto) 87.9 %; Platelet Count 206 K/uL (130-400); RDW Coefficient of Variation 14.5 % (11.5-14.5); RDW Standard Deviation 46.8 fL (36.4-46.3); Red Blood Count 4.95 M/uL (4.2-5.4); White Blood Count 10.51 K/uL (4.8-10.8)
[2019-01-14] MEDS ORDERED: HydrALAZINE HCL 20 MG/ML VIAL IV STA (06:52)
[2019-01-14 07:30] LABS: BUN Creatinine Ratio 17.7 (10-20); Calcium 9.1 mg/dl (8.5-10.1); Creatinine Clr Calc Pharmacy 53.9 ml/min; Est GFR (African American) 81.8; Est GFR (Non-African American) 70.5; Potassium 3.8 mmol/L (3.5-5.1)
[2019-01-14] MEDS: METOPROLOL TARTRATE 100 MG TAB PO SCH ×2 (08:04→20:23)
[2019-01-14] MEDS: MAGNESIUM OXIDE 400 MG TAB PO SCH (08:04)
[2019-01-14] MEDS: PANTOprazole 40 MG TAB PO SCH (08:05)
[2019-01-14] MEDS: QUETIAPINE FUMARATE 25 MG TABLET PO SCH ×3 (08:05→20:23)
[2019-01-14] MEDS: VENLAFAXINE HCL XR 150 MG CAPXR PO SCH (08:05)
[2019-01-14] MEDS: ASPIRIN 81 MG ECTAB PO SCH (08:05)
[2019-01-14] MEDS: DOCUSATE SODIUM/SENNA 50/8.6MG TAB PO SCH ×2 (08:05→20:24)
[2019-01-14] MEDS: cefTRIAXone SODIUM 1,000 MG in DEXTROSE 5% 50 ML IV SCH (08:05)
[2019-01-14] MEDS: POTASSIUM CHLORIDE 20 MEQ TABCR PO SCH (08:06)
[2019-01-14] MEDS: MICONAZOLE NITRATE POWDER 43 GM TOP SCH ×2 (08:06→20:23)
--- NOTE | 2019-01-14 11:30 | Hospitalist Progress Note ---
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 Complaints included R arm weakness, slurred speech and right facial droop from [facility]. In ED CT scan was obtained which revealed prior infarcts but no acute abnormality. Neurology was contacted per ED provider and recommended to give ASA 325 x 1. Patient does have history of right cerebellar infarct and left frontal infarct as well as recent small non-aneurysmal IPH in 05/2018. Lastly she had a right frontotemporal craniotomy with aneurysm clip repair. Pt was Hypertensive on admission with BP 192/111 UA also +wbc, bacturia, and leuk esterase 01/14/19 symptoms resolved, no recurrence since admission initial CT head: no acute process Brain MRI cannot be performed as patient not cooperating no further imaging as per Neuro started on Aspirin 81mg po daily per Neuro recommendations in light of A fib maintaining BP on the high normal range to promote adequate cerebral perfusion (2) Afib: per admitting service notes: -Patient with history of paroxysmal atrial fibrillation requiring numerous ablation and cardioversions in past -Currently on metoprolol and digoxin therapy -Patient is not on anticoagulation despite chadsvasc 7 given recent intraparenchymal hemorrhage and high fall risk -Further given patient's advanced dementia do not feel it would improve QOL at this point 01/14/19 remains in a fib on usua Metoprolol BID HR 120s late afternoon IV NSS x 1 bag ordered as patient seems somewhat dry, possible leading to tachycardia ASA started on admission appreciate Cardiology service recommendations (3) HTN (hypertension): BP elevated overnight -continue metoprolol, Lisinopril monitor (4) UTI (urinary tract infection): Urine culture E coli already received 3 days of IV Ceftriaxone (5) Vascular dementia: -with intermittent agitation and evening flight risk -continue lorazepam and seroquel as prescribed as outpatient -1:1 observation while family not in room (6) CKD (chronic kidney disease) stage 3, GFR 30-59 ml/min: -history of CKD stage 3 however current bun/cr 18/0.74 with egfr 78 crea 0.8 (7) Diastolic CHF: -not on any diuretics on the dry side, given IV NSS x 1 bag (8) SUSY (obstructive sleep apnea): -intolerant to cpap (9) GERD (gastroesophageal reflux disease): -continue PPI and ranitidine (10) Depression: -mood stable with intermittent agitation -Continue venlafaxine, Seroquel (11) DVT prophylaxis: -SCDS, given recent hx of IPH will avoid chemoprophylaxis [facility]position: [facility] Follow up: PCP Dr. Mckinney/Majo Ramon PA-C upon discharge Subjective ff up for stroke like symptoms seen resting in bedside chair comfortable, but irritable not cooperative with exam ambulated to the bathroom with assistance moves all extremities equally, no facial droop no neuro symptoms as per RN no other symptoms Physical Exam Vital Signs (Past 24 Hours): Last Vital Signs Temp 36.8 C 01/14/19 07:24 Pulse 94 H 01/14/19 09:05 Resp 22 01/14/19 07:24 BP 155/80 H 01/14/19 09:05 Pulse Ox 98 01/14/19 07:24 Physical Exam: General- alert, not in distress, breathing with no effort or accessory muscle use Eyes- anicteric Neck- no JVD Lungs- clear breath sounds bilaterally, no rales/wheezes Heart- normal rate, regular rhythm; no murmurs Abdomen- normal bowel sounds, nondistended, soft, nontender Extremities- no pretibial edema, no calf tenderness Neuro- alert,no gross focal neurologic deficits noted difficult to perform as patient noncooperative Skin- warm & dry Results & Data Laboratory Results Laboratory Results - last 24 hr 01/14/19 01/15/19 01/15/19 06:34 06:34 06:34 WBC 13.54 H RBC 4.92 Hgb 14.1 Hct 44.4 MCV 90.2 MCH 28.7 MCHC 31.8 L RDW Std Deviation 48.2 H RDW Coeff of Tre 14.8 H Plt Count 192 MPV 10.5 H Immature Gran % (Auto) 0.1 Neut % (Auto) 82.1 Lymph % (Auto) 6.5 Boyle % (Auto) 11.2 Eos % (Auto) 0.0 Baso % (Auto) 0.1 Immature Gran # (Auto) 0.02 Neut # (Auto) 11.11 H Lymph # (Auto) 0.88 L Boyle # (Auto) 1.52 H Eos # (Auto) 0.00 Baso # (Auto) 0.01 Sodium 140 141 Potassium 3.8 3.7 Chloride 107 107 Carbon Dioxide 27 26 Anion Gap 6.0 8.0 BUN 14 15 Creatinine 0.81 0.95 Est Cr Clr Drug Dosing 53.9 46.0 Est GFR ( Amer) 81.8 67.4 Est GFR (Non-Af Amer) 70.5 58.2 BUN/Creatinine Ratio 17.7 15.3 Glucose 161 H 138 H Calcium 9.1 9.0 (1) Diastolic CHF Heart failure chronicity: chronic Qualified Code(s): I50.32 - Chronic diastolic (congestive) heart failure (2) Vascular dementia Dementia behavioral disturbance: with behavioral disturbance Qualified Code(s): F01.51 - Vascular dementia with behavioral disturbance (3) Afib Atrial fibrillation type: paroxysmal Qualified Code(s): I48.0 - Paroxysmal atrial fibrillation (4) Depression Depression Type: unspecified Qualified Code(s): F32.9 - Major depressive disorder, single episode, unspecified (5) GERD (gastroesophageal reflux disease) Esophagitis presence: without esophagitis Qualified Code(s): K21.9 - Gastro- esophageal reflux disease without esophagitis (6) HTN (hypertension) Hypertension type: essential hypertension Qualified Code(s): I10 - Essential (primary) hypertension
[2019-01-14] MEDS: METOPROLOL TARTRATE 1 MG/ML VIAL IV PRN (13:19)
[2019-01-14] MEDS: LORazepam 0.5 MG TAB PO SCH (13:55)
--- NOTE | 2019-01-14 15:04 | Cardiology Progress Note ---
Date of Service January 14, 2019 Assessment & Plan (1) Atrial flutter: Patient carries a history of paroxysmal atrial arrhythmias including atrial fibrillation and atrial flutter. Outpatient records reveal predominantly atrial fibrillation his rhythm. Though patient presented this admission and initially in sinus rhythm she is once again lapsed into atrial flutter overnight. This does not appear to be a cause of her current complaints question mental status changes secondary to acute neurologic event, hypertensive urgency, or underlying infectious process. Plan continue current dose of beta-chon Documents reflect prior decision to avoid anticoagulation as patient would not reverse. As rates are improving we will continue therapies as ordered we will sign off (2) Vascular dementia: (3) HTN (hypertension): (4) History of CVA (cerebrovascular accident): Subjective Patient seen and examined, chart medications telemetry reviewed. Patient nonverbal brighter more alert today intermittently agitated with stimulation Heart rates trending toward better control Physical Exam Vital Signs (Past 24 Hours): Last Vital Signs Temp 36.5 C 01/14/19 12:00 Pulse 94 H 01/14/19 12:00 Resp 20 01/14/19 12:00 BP 117/79 01/14/19 12:00 Pulse Ox 94 01/14/19 12:00 Physical Exam: Patient is a chronically ill-appearing female. Sitting out of bed in chair. No overt verbalization HEENT exam is normocephalic and atraumatic Neck is thin there is no distinct jugular venous distention there is no audible bruits there is no visible marie waves Lungs revealed mildly diminished breath sounds without rhonchi rales or wheeze Cardiovascular exam is irregularly irregular grade 2/6 systolic murmur is no diastolic murmur Abdomen soft nontender is no palpable visceromegaly Extremities trace pedal edema only Neuro patient nonconversant does move extremities (1) Vascular dementia Dementia behavioral disturbance: with behavioral disturbance Qualified Code(s): F01.51 - Vascular dementia with behavioral disturbance (2) HTN (hypertension) Hypertension type: essential hypertension Qualified Code(s): I10 - Essential (primary) hypertension
[2019-01-14] MEDS: DIGOXIN 0.125 MG TAB PO SCH (15:48)
[2019-01-14] MEDS ORDERED: SODIUM CHLORIDE 0.9% 500 ML IV SCH (18:15)
[2019-01-14] MEDS: ATORVASTATIN 40 MG TAB PO SCH (20:22)
[2019-01-15] MEDS: METOPROLOL TARTRATE 1 MG/ML VIAL IV PRN (04:09)
[2019-01-15 06:51] LABS: Basophils # (auto) 0.01 K/uL (0-0.2); Basophils % (auto) 0.1 %; Hematocrit (blood only) 44.4 % (37-47); Hemoglobin 14.1 g/dL (12.0-16.0); Immature Granulocytes # (auto) 0.02 K/uL (0.00-0.02); Immature Granulocytes % (auto) 0.1 %; Lymphocytes # (auto) 0.88 K/uL (1.2-3.4); Lymphocytes % (auto) 6.5 %; Mean Corpuscular Hgb Conc 31.8 g/dL (32-36); Mean Corpuscular Volume 90.2 fL (80-100); Mean Platelet Volume 10.5 fL (7.4-10.4); Monocytes # (auto) 1.52 K/uL (0.11-0.59); Monocytes % (auto) 11.2 %; Neutrophils # (auto) 11.11 K/uL (1.4-6.5); Neutrophils % (auto) 82.1 %; Platelet Count 192 K/uL (130-400); RDW Coefficient of Variation 14.8 % (11.5-14.5); RDW Standard Deviation 48.2 fL (36.4-46.3); Red Blood Count 4.92 M/uL (4.2-5.4); White Blood Count 13.54 K/uL (4.8-10.8)
[2019-01-15 07:08] LABS: BUN Creatinine Ratio 15.3 (10-20); Est GFR (African American) 67.4; Est GFR (Non-African American) 58.2; Potassium 3.7 mmol/L (3.5-5.1)
[2019-01-15] MEDS: DOCUSATE SODIUM/SENNA 50/8.6MG TAB PO SCH ×3 (07:44→21:32)
[2019-01-15] MEDS: cefTRIAXone SODIUM 1,000 MG in DEXTROSE 5% 50 ML IV SCH (07:44)
[2019-01-15] MEDS: MAGNESIUM OXIDE 400 MG TAB PO SCH (07:45)
[2019-01-15] MEDS: QUETIAPINE FUMARATE 25 MG TABLET PO SCH ×4 (07:45→21:32)
[2019-01-15] MEDS: VENLAFAXINE HCL XR 150 MG CAPXR PO SCH (07:45)
[2019-01-15] MEDS: PANTOprazole 40 MG TAB PO SCH (07:47)
[2019-01-15] MEDS: ASPIRIN 81 MG ECTAB PO SCH (07:48)
[2019-01-15] MEDS: METOPROLOL TARTRATE 100 MG TAB PO SCH ×3 (07:48→21:32)
[2019-01-15] MEDS: POTASSIUM CHLORIDE 20 MEQ TABCR PO SCH (07:49)
[2019-01-15] MEDS: MICONAZOLE NITRATE POWDER 43 GM TOP SCH ×2 (07:49→19:53)
[2019-01-15] MEDS: LISINOPRIL 40 MG TAB PO SCH (07:50)
--- NOTE | 2019-01-15 13:47 | Hospitalist Progress Note ---
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 Complaints included R arm weakness, slurred speech and right facial droop from [facility]. In ED CT scan was obtained which revealed prior infarcts but no acute abnormality. Neurology was contacted per ED provider and recommended to give ASA 325 x 1. Patient does have history of right cerebellar infarct and left frontal infarct as well as recent small non-aneurysmal intracranial Hge in 05/2018. Lastly she had a right frontotemporal craniotomy with aneurysm clip repair. Pt was Hypertensive on admission with BP 192/111 UA also +wbc, bacturia, and leuk esterase initial CT head: no acute process Brain MRI cannot be performed as patient not cooperating no further imaging as per Neuro started on Aspirin 81mg po daily per Neuro recommendations in light of A fib maintaining BP on the high normal range to promote adequate cerebral perfusion (2) Afib: -Patient with history of paroxysmal atrial fibrillation requiring numerous ablation and cardioversions in past -Currently on metoprolol and digoxin therapy -Patient is not on anticoagulation despite chadsvasc 7 given recent intraparenchymal hemorrhage and high fall risk -Further given patient's advanced dementia do not feel it would improve QOL at this point appreciate Cardiology service recommendations (3) HTN (hypertension): -continue metoprolol, Lisinopril monitor (4) UTI (urinary tract infection): Urine culture E coli on iv rocephin (5) Vascular dementia: -pt found to be more sedated this evening hx of behavioral disturbance with agitation at evening was on scheduled dose of Ativan , Buspar and Seroquel will hold off scheduled Ativan and reduce dose of Seroquel to prevent worsening sedation in setting of possive TIA vs CVA cont tomnitor (6) CKD (chronic kidney disease) stage 3, GFR 30-59 ml/min: -history of CKD stage 3 however current bun/cr 18/0.74 with egfr 78 crea 0.8 (7) Diastolic CHF: vol status stable (8) SUSY (obstructive sleep apnea): -intolerant to cpap (9) GERD (gastroesophageal reflux disease): -continue PPI and ranitidine (10) Depression: -Continue venlafaxine, Seroquel (11) DVT prophylaxis: -SCDS, given recent hx of IPH will avoid chemoprophylaxis Disposition: return to [facility] Follow up: PCP Dr. Mckinney/Majo Ramon PA-C upon discharge Subjective Patient found to be very sedated, difficult to arouse Per nursing aid, did not wake up to have dinner, Patient was awake earlier today, got Seroquel around 5 PM, has been sleeping since Vitals remained stable Reviewed patient's medication list On multiple sedative medications, which can have worsening effect in the setting of TIA /possible CVA ( unable to have MRI scan ) with baseline advanced dementia Order to hold scheduled dose of Ativan Will reduce dose of Seroquel at p.m.: Ordered for 75 mg at 5 PM and 9 PM Also on BuSpar scheduled dose 10 mg p.o. 3 times daily Continue to monitor patient's mental status, avoid polypharmacy, and will titrate down sedative meds as much as possible Physical Exam Vital Signs (Past 24 Hours): Last Vital Signs Temp 36.5 C 01/15/19 11:32 Pulse 80 01/15/19 11:32 Resp 20 01/15/19 11:32 BP 150/84 H 01/15/19 11:32 Pulse Ox 96 01/15/19 11:32 Constitutional: + ill appearing Elderly female remains sedated, moves all limbs with sternal rub, barely arousable Does not follow command, not able to complete Eyes: Clear nonicteric, reactive to to light, pupils bilateral round ENMT: Dry oral mucosa Cardiovascular: RRR, no murmur, no edema Gastrointestinal (Abdomen): Percussion/Palpation: abdomen soft Neurologic: Able to assess this patient not able to cooperate it, remain sedated Psychiatric: Slight advanced dementia, with worsening of mental status secondary to acute CVA, medication effect (1) Diastolic CHF Heart failure chronicity: chronic Qualified Code(s): I50.32 - Chronic diastolic (congestive) heart failure (2) Vascular dementia Dementia behavioral disturbance: with behavioral disturbance Qualified Code(s): F01.51 - Vascular dementia with behavioral disturbance (3) Afib Atrial fibrillation type: paroxysmal Qualified Code(s): I48.0 - Paroxysmal atrial fibrillation (4) Depression Depression Type: unspecified Qualified Code(s): F32.9 - Major depressive disorder, single episode, unspecified (5) GERD (gastroesophageal reflux disease) Esophagitis presence: without esophagitis Qualified Code(s): K21.9 - Gastro- esophageal reflux disease without esophagitis (6) HTN (hypertension) Hypertension type: essential hypertension Qualified Code(s): I10 - Essential (primary) hypertension
[2019-01-15] MEDS: LORazepam 0.5 MG TAB PO SCH (14:33)
[2019-01-15] MEDS: ATORVASTATIN 40 MG TAB PO SCH ×2 (19:53→21:32)
[2019-01-16] MEDS: cefTRIAXone SODIUM 1,000 MG in DEXTROSE 5% 50 ML IV SCH (08:33)
[2019-01-16] MEDS: MICONAZOLE NITRATE POWDER 43 GM TOP SCH ×2 (08:35→19:53)
[2019-01-16] MEDS: DOCUSATE SODIUM/SENNA 50/8.6MG TAB PO SCH ×3 (08:49→19:56)
[2019-01-16] MEDS: PANTOprazole 40 MG TAB PO SCH (08:49)
[2019-01-16] MEDS: METOPROLOL TARTRATE 100 MG TAB PO SCH ×3 (08:49→19:57)
[2019-01-16] MEDS: LISINOPRIL 40 MG TAB PO SCH ×2 (08:49→10:43)
[2019-01-16] MEDS: VENLAFAXINE HCL XR 150 MG CAPXR PO SCH ×2 (08:49→10:40)
[2019-01-16] MEDS: QUETIAPINE FUMARATE 25 MG TABLET PO SCH (08:50)
[2019-01-16] MEDS: ASPIRIN 81 MG ECTAB PO SCH ×2 (08:50→10:40)
[2019-01-16] MEDS: MAGNESIUM OXIDE 400 MG TAB PO SCH ×2 (08:51→10:42)
[2019-01-16] MEDS: POTASSIUM CHLORIDE 20 MEQ TABCR PO SCH (08:51)
[2019-01-16] MEDS: METOPROLOL TARTRATE 1 MG/ML VIAL IV PRN (09:00)
[2019-01-16] MEDS ORDERED: SOD PHOSPHATE/SOD BIPHOSPHATE ENEMA 132 ML BTL PR PRN (11:47)
[2019-01-16] MEDS ORDERED: ACETAMINOPHEN 500 MG TAB PO PRN (11:47)
[2019-01-16] MEDS ORDERED: BISACODYL 10 MG SUPP PR PRN (11:47)
[2019-01-16] MEDS: DIGOXIN 0.125 MG TAB PO SCH (16:13)
--- NOTE | 2019-01-16 16:58 | Hospitalist Progress Note ---
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 ED from [facility] secondary to stroke like symptoms. Complaints included R arm weakness, slurred speech and right facial droop from [facility]. In ED CT scan was obtained which revealed prior infarcts but no acute abnormality. Neurology was contacted per ED provider and recommended to give ASA 325 x 1. Patient does have history of right cerebellar infarct and left frontal infarct as well as recent small non-aneurysmal intracranial Hge in 05/2018. Lastly she had a right frontotemporal craniotomy with aneurysm clip repair. Pt was Hypertensive on admission with BP 192/111 UA also +wbc, bacturia, and leuk esterase initial CT head: no acute process Brain MRI cannot be performed as patient not cooperating no further imaging as per Neuro started on Aspirin 81mg po daily per Neuro recommendations \hx of Afib given hx of intracranial bleed further anticoagulation will not be beneficial cont on statin return back to [facility] when medically stable (2) Afib: -Patient with history of paroxysmal atrial fibrillation requiring numerous ablation and cardioversions in past -Currently on metoprolol and digoxin therapy -Patient is not on anticoagulation despite chadsvasc 7 given recent intraparenchymal hemorrhage and high fall risk -Further given patient's advanced dementia do not feel it would improve QOL at this point appreciate Cardiology service recommendations (3) HTN (hypertension): -continue metoprolol, Lisinopril monitor (4) UTI (urinary tract infection): Urine culture E coli on iv rocephin-completed course (5) Vascular dementia: -pt found to be more sedated this evening hx of behavioral disturbance with agitation at evening buspar resumed Seroquel resumed at lower dose to prevent sedation (6) CKD (chronic kidney disease) stage 3, GFR 30-59 ml/min: -history of CKD stage 3 however current bun/cr 18/0.74 with egfr 78 crea 0.8 (7) Diastolic CHF: vol status stable (8) SUSY (obstructive sleep apnea): -intolerant to cpap (9) GERD (gastroesophageal reflux disease): -continue PPI and ranitidine (10) Depression: -Continue venlafaxine, Seroquel (11) DVT prophylaxis: -SCDS, given recent hx of IPH will avoid chemoprophylaxis Disposition: return to [facility] tomorrow 01/17/19 Follow up: PCP Dr. Mckinney/Majo Ramon PA-C upon discharge Subjective awake and alert today remains confused , appears to be uncomfortable , unable to verbalize had no bowel movement for past few days got Dulculax suppositories can get fleet enema if not result plan to return back to [facility] in AM Physical Exam Vital Signs (Past 24 Hours): Last Vital Signs Temp 36.3 C L 01/16/19 16:16 Pulse 92 H 01/16/19 16:16 Resp 18 01/16/19 16:16 BP 133/86 01/16/19 16:16 Pulse Ox 93 01/16/19 16:16 Constitutional: + ill appearing advanced dementia Eyes: sclera non icteric ENMT: dry oral mucosa Neck: trachea midline, no thyromegaly Respiratory: normal respiratory effort, lungs clear to auscultation Cardiovascular: RRR, no murmur, no edema Gastrointestinal (Abdomen): Percussion/Palpation: abdomen soft Neurologic: advanced dementia (1) Diastolic CHF Heart failure chronicity: chronic Qualified Code(s): I50.32 - Chronic diastolic (congestive) heart failure (2) Vascular dementia Dementia behavioral disturbance: with behavioral disturbance Qualified Code(s): F01.51 - Vascular dementia with behavioral disturbance (3) Afib Atrial fibrillation type: paroxysmal Qualified Code(s): I48.0 - Paroxysmal atrial fibrillation (4) Depression Depression Type: unspecified Qualified Code(s): F32.9 - Major depressive disorder, single episode, unspecified (5) GERD (gastroesophageal reflux disease) Esophagitis presence: without esophagitis Qualified Code(s): K21.9 - Gastro-esophageal reflux disease without esophagitis (6) HTN (hypertension) Hypertension type: essential hypertension Qualified Code(s): I10 - Essential (primary) hypertension
[2019-01-16] MEDS ORDERED: QUETIAPINE FUMARATE 25 MG TABLET PO ONE (18:34)
[2019-01-16] MEDS: ATORVASTATIN 40 MG TAB PO SCH (19:52)
[2019-01-16] MEDS ORDERED: QUETIAPINE FUMARATE 25 MG TABLET PO SCH (21:00)
[2019-01-17] MEDS: DOCUSATE SODIUM/SENNA 50/8.6MG TAB PO SCH (07:39)
[2019-01-17] MEDS: METOPROLOL TARTRATE 100 MG TAB PO SCH (07:40)
[2019-01-17] MEDS: cefTRIAXone SODIUM 1,000 MG in DEXTROSE 5% 50 ML IV SCH (07:40)
[2019-01-17] MEDS: MICONAZOLE NITRATE POWDER 43 GM TOP SCH (07:40)
[2019-01-17] MEDS: MAGNESIUM OXIDE 400 MG TAB PO SCH (07:40)
[2019-01-17] MEDS: QUETIAPINE FUMARATE 25 MG TABLET PO SCH (07:40)
[2019-01-17] MEDS: PANTOprazole 40 MG TAB PO SCH (07:40)
[2019-01-17] MEDS: ASPIRIN 81 MG ECTAB PO SCH (07:40)
[2019-01-17] MEDS: POTASSIUM CHLORIDE 20 MEQ TABCR PO SCH (07:40)
[2019-01-17] MEDS: VENLAFAXINE HCL XR 150 MG CAPXR PO SCH (07:40)
[2019-01-17] MEDS: LISINOPRIL 40 MG TAB PO SCH (07:41)
[2019-01-17] MEDS ORDERED: STROKE PATIENT DISCHARGE STA (11:26)
--- NOTE | 2019-01-17 11:31 | Discharge Summary ---
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 2 daughters are at bedside. ROS unobtainable from patient given dementia. According to long term reports patient exhibited right-sided weakness, was unable to sluggish, slurred speech, right facial droop started this morning, unknown time. At that time her BP was 179/83 and given history of CVA was referred to ED via EMS. At baseline patient has severe dementia, garbled speech, doesn't recognize family, wheel chair bound during the day. Per family [facility] reports at night patient will get out of bed and walk to other patient rooms and has had numerous falls w/o significant injury. Principal Diagnosis TIA Discharge Exam Constitutional + ill appearing Neck trachea midline, no thyromegaly Respiratory normal respiratory effort, lungs clear to auscultation Cardiovascular RRR, no murmur, no edema Gastrointestinal (Abdomen) Percussion/Palpation: abdomen soft Discharge Data Allergies Allergy/AdvReac Type Severity Reaction Status Date / Time carbenicillin Allergy Unknown "DON'T Verified 01/12/19 09:06 REMEMBER" Penicillins Allergy Unknown HIVES Verified 01/12/19 09:06 pneumococcal vaccine Allergy Unknown FEVER/RASH Verified 01/12/19 09:06 Bactrim AdvReac Mild GI SYMPTOMS Verified 09/20/17 23:30 sulfamethoxazole AdvReac Mild GI SYMPTOMS Verified 01/12/19 09:06 trimethoprim AdvReac Mild GI SYMPTOMS Verified 01/12/19 09:06 Consultations 01/12/19 11:44 ED Decision to Admit Stat 01/12/19 11:55 Consult Neurology Routine 01/12/19 15:18 Consult Case Management - Discharge Planning Routine 01/12/19 19:07 Consult Cardiology Routine Ordered Studies 01/12/19 08:58 CT head/brain wo con Stat 01/12/19 15:18 US carotid doppler BI Routine Hospital Course (1) TIA (transient ischemic attack): This is a 78-year-old female who has profound vascular dementia, history of ischemic CVA x 2, recent spontaneous non-aneurysmal left thalamic IPH 05/2018, 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 Complaints included R arm weakness, slurred speech and right facial droop from [facility]. In ED CT scan was obtained which revealed prior infarcts but no acute abnormality. Neurology was contacted per ED provider and recommended to give ASA 325 x 1. Patient does have history of right cerebellar infarct and left frontal infarct as well as recent small non-aneurysmal intracranial Hge in 05/2018. Lastly she had a right frontotemporal craniotomy with aneurysm clip repair. Pt was Hypertensive on admission with BP 192/111 UA also +wbc, bacturia, and leuk esterase initial CT head: no acute process Brain MRI cannot be performed as patient not cooperating no further imaging as per Neuro started on Aspirin 81mg po daily per Neuro recommendations \\hx of Afib given hx of intracranial bleed further anticoagulation will not be beneficial cont on statin return back to [place] [facility] today (2) Afib: -Patient with history of paroxysmal atrial fibrillation requiring numerous ablation and cardioversions in past -Currently on metoprolol and digoxin therapy -Patient is not on anticoagulation despite chadsvasc 7 given recent intraparenchymal hemorrhage and high fall risk -Further given patient's advanced dementia do not feel it would improve QOL at this point appreciate Cardiology service recommendations pt will be continued with Aspirin 81 mg PO daily (3) HTN (hypertension): -continue metoprolol, Lisinopril stable (4) UTI (urinary tract infection): Urine culture E coli on iv rocephin-completed course (5) Vascular dementia: -pt found to be more sedated this evening hx of behavioral disturbance with agitation at evening buspar resumed Seroquel resumed at lower dose to prevent sedation (6) CKD (chronic kidney disease) stage 3, GFR 30-59 ml/min: -history of CKD stage 3 however current bun/cr 18/0.74 with egfr 78 crea 0.8 (7) Diastolic CHF: vol status stable (8) SUSY (obstructive sleep apnea): -intolerant to cpap (9) GERD (gastroesophageal reflux disease): -continue PPI and ranitidine (10) Depression: -Continue venlafaxine, Seroquel (11) DVT prophylaxis: -SCDS, given recent hx of IPH will avoid chemoprophylaxis Disposition: return to [facility] today 01/17/19 Follow up: PCP Dr. Mckinney/Majo Ramon PA-C upon discharge Total Time Total Time Spent Total Time Spent (In Minutes): approx 35 mins Total Time Includes: Examination of the Patient, Discharge Planning and Medication Reconciliation Discharge Plan Discharge Items Patient Disposition: [facility] Reason For Visit: CVA WORK UP Discharge Diagnosis: TIA Discharge Goals: Decrease discomfort, Improve disease control and Therapeutic intervention Activity: Resume your previous activity Non-emergency contact: Primary Care Provider Call non-emergency contact if: you have any medication questions Follow-up/Referrals: Barbara Mckinney MD [Primary Care Provider] - Diet: Heart Healthy Diet Texture: Pureed (blended smooth) Addtl Provider Instructions: Risk Factors for Stroke: You can reduce your chances of stroke by working with your medical provider to adopt a healthy lifestyle. Some specific ways to lower your chance of stroke are: * If you are a smoker, now is the time to stop smoking cigarettes * If you are diabetic, improve the control of your blood sugars * Avoid excessive amounts of alcohol * Control high blood pressure * Lose weight if you are overweight * Be sure to lead an active lifestyle * Eat a healthy diet low in salt, cholesterol and fat You should know about other risk factors for stroke that you are unable to control. These include: * Age 55 years or older * Male gender * Certain racial groups: , or / * Family History of Stroke, Mini stroke or Heart Attack * Sickle Cell Disease Follow Up: It is important for you to keep your follow up appointments with your medical provider. Who to Call and When: Medical Emergencies: Call 911 immediately if you experience any of the following warning signs and symptoms of Stroke: * Sudden numbness or weakness of the face, arm or leg, especially on one side of the body * Sudden confusion, trouble speaking or understanding * Sudden trouble seeing in one or both eyes * Sudden trouble walking, dizziness, loss of balance or coordination * Sudden severe headache with no cause Do not delay calling 911 if you experience any warning signs or symptoms of a stroke. Delay in seeking medical attention may affect what treatments can be given to you. . Prescriptions: New aspirin [Ecotrin Low Strength] 81 mg Tablet,Delayed Release (Dr/Ec) 81 mg PO QAM 81 Days Qty: 81 RF: 0 hydrocodone-acetaminophen [Krebs] 5-325 mg Tablet 1 tab PO Q4H PRN (Reason: pain) Qty: 10 RF: 0 lorazepam 0.5 mg Tablet 0.5 mg PO DAILY Qty: 10 RF: 0 Continued atorvastatin 80 mg Tablet 80 mg PO HS Qty: 0 RF: 0 buspirone 30 mg Tablet 10 mg PO TID Qty: 0 RF: 0 omeprazole 20 mg Capsule,Delayed Release(Dr/Ec) 20 mg PO DAILY Qty: 0 RF: 0 metoprolol tartrate 50 mg Tablet 100 mg PO BID Qty: 0 RF: 0 digoxin 125 mcg Tablet 0.125 mg PO Q2D Qty: 0 RF: 0 acetaminophen 325 mg Tablet 325 mg PO Q4H PRN (Reason: Pain) RF: 0 sennosides-docusate sodium [Senna with Docusate Sodium] 8.6-50 mg Tablet 2 tab PO BID RF: 0 Miconazorb AF 2 % Powder 1 applic TOPICAL BID RF: 0 venlafaxine 150 mg Capsule,Extended Release 24hr 150 mg PO DAILY RF: 0 acetaminophen [Acetaminophen Extra Strength] 500 mg Tablet 500 mg PO TID PRN (Reason: Pain) RF: 0 bisacodyl 10 mg Suppository 10 mg TX DAILY PRN (Reason: Constipation) RF: 0 Fleet Enema 19-7 gram/118 mL Enema 118 ml TX HS PRN (Reason: Constipation) RF: 0 quetiapine 25 mg Tablet 12.5 mg PO DAILY RF: 0 magnesium oxide 400 mg (241.3 mg magnesium) Tablet 400 mg PO DAILY RF: 0 lorazepam 0.5 mg Tablet 0.5 mg PO DAILY PRN (Reason: Anxiety) RF: 0 ranitidine HCl 150 mg Tablet 150 mg PO BID RF: 0 lisinopril 40 mg Tablet 40 mg PO DAILY RF: 0 potassium chloride 20 mEq Tablet Extended Release 20 meq PO DAILY RF: 0 Changed quetiapine 25 mg Tablet 50 mg PO UD Qty: 0 RF: 0 Stand-Alone Forms: [facility] Discharge Orders: Discharge Order (Routine); Ordered 01/17/19 Ordered By: Bren Romero Skilled Items Patient informed of condition?: Yes DNR: Yes Discharge Level of Care: Skilled Communicable Disease: No Discharge Prognosis: Stable Admission Data Admit Date/Time: 01/12/19 11:54 Attending Provider: Bren Romero Admit Provider: Davin Lemos Primary Care Provider: Barbara Mckinney Other Providers: Lamine Bethea ; Davin Lemos ; Tammy Adrian ; Valentin Schmidt Service: Medical
== END 2019-01-17 17:50 | DRG 69 ==
LOC: ED 08:39 → 2S 11:54 → SUATTDRO 11:54 → 2S 14:54 → 4W 01-16 10:10 → UNDODISIN 01-17 15:17

== ENCOUNTER 2019-01-21 07:56 | Inpatient (IN) ==
[2019-01-21 09:00] LABS: Basophils # (auto) 0.01 K/uL (0-0.2); Basophils % (auto) 0.1 %; Hematocrit (blood only) 47.1 % (37-47); Hemoglobin 14.7 g/dL (12.0-16.0); Immature Granulocytes # (auto) 0.03 K/uL (0.00-0.02); Immature Granulocytes % (auto) 0.4 %; Lymphocytes % (auto) 18.4 %; Mean Corpuscular Hgb Conc 31.2 g/dL (32-36); Mean Corpuscular Volume 93.1 fL (80-100); Mean Platelet Volume 10.6 fL (7.4-10.4); Monocytes # (auto) 0.52 K/uL (0.11-0.59); Monocytes % (auto) 6.9 %; Neutrophils # (auto) 5.63 K/uL (1.4-6.5); Neutrophils % (auto) 74.2 %; Platelet Count 197 K/uL (130-400); RDW Standard Deviation 50.3 fL (36.4-46.3); Red Blood Count 5.06 M/uL (4.2-5.4); White Blood Count 7.59 K/uL (4.8-10.8)
[2019-01-21 09:09] LABS: Appearance Urine Clear (Clear); Bilirubin Urine Negative (Negative); Blood Urine Negative (Negative); Color Urine Dark Yellow; Glucose Urine UA Negative (Negative); Ketones Urine Negative (Negative); Leukocyte Esterase Urine Negative (Negative); Nitrite Urine Negative (Negative); Protein Urine Negative (Negative); Specific Gravity Urine 1.024 (1.000-1.030); Urobilinogen Urine Negative (Negative)
[2019-01-21 09:17] LABS: Alanine Aminotransferase 33 U/L (12-78); Albumin Level 3.6 gm/dl (3.4-5.0); Aspartate Aminotransferase 32 U/L (15-37); BUN Creatinine Ratio 32.1 (10-20); Blood Urea Nitrogen 33 mg/dl (7-18); Calcium 9.1 mg/dl (8.5-10.1); Carbon Dioxide 28 mmol/L (21-32); Chloride 120 mmol/L (98-107); Est GFR (African American) 60.4; Est GFR (Non-African American) 52.1; Glucose 112 mg/dl (70-99); Magnesium 2.6 mg/dl (1.8-2.4); Sodium 154 mmol/L (136-145)
--- NOTE | 2019-01-21 09:27 | CT Scan Report ---
CT OF THE HEAD WITHOUT CONTRAST CLINICAL HISTORY: lethargy, recent CVA COMPARISON STUDY: Head CT January 12, 2019. CT DOSE: 537.48 mGy.cm TECHNIQUE: Helical axial images of the head were obtained without IV contrast. Automated exposure con trol was utilized for the study. A dose lowering technique was utilized adhering to the principles o f ALARA. FINDINGS: No acute intracranial hemorrhage, midline shift or mass effect is present. A right temporal craniotomy is noted. Old infarcts are noted, including infarcts within the left frontal, right tempo ral, left occipital lobes as well as the right cerebellar hemisphere. There are no findings to sugges t acute dural sinus thrombosis or acute territorial infarct. A suspected aneurysm clip within the sup ra parasellar region is noted. There are no significant calvarial abnormalities. IMPRESSION: 1. No acute intracranial findings. No change in appearance of the brain. 2. Multiple old infarcts, as described above. Electronically signed by: Kong Liang M.D. 01/21/2019 9:26 AM
[2019-01-21 09:28] LABS: Albumin Globulin Ratio 0.8 (0.9-2); Alkaline Phosphatase 85 U/L (45-117); Bilirubin,Total 0.5 mg/dl (0.2-1); Globulin 4.3 gm/dl (2.5-4.0); Total Protein 7.9 gm/dl (6.4-8.2); Troponin I < 0.015 ng/ml (0-0.045)
--- NOTE | 2019-01-21 09:33 | XRay Report ---
XR chest 1V portable HISTORY: weakness COMPARISON: Chest 05/10/2018. FINDINGS: The lungs are hyperexpanded with mild apical predominant emphysematous changes. No new foca l lung consolidations to suggest pneumonia. No evidence for pulmonary edema. Mild interstitial thicke mitch which is likely chronic. Stable mild cardiomegaly. IMPRESSION: No significant change compared to the prior study. No acute process. Electronically signed by: Tapan Cat M.D. 01/21/2019 9:31 AM
[2019-01-21] MEDS ORDERED: SODIUM CHLORIDE 0.45 % 1,000 ML IV SCH (10:45)
--- NOTE | 2019-01-21 11:48 | History & Physical Report ---
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 In ED pt noted to have hypernatremia 154, acute kidney insufficiency bun/cr 33/1.04, mag elevated 2.6, Urine clean, CT head multiple old infarcts, CXR w/o acute abnormality, ecg aflutter Free water deficit 3.9L Started on 1/2 NS at 125cc/hr -admit to telemetry -continue IVF but switch to D5 1/2 NS 125cc/hr x 2 liter and re-evaluate -encourage free water but difficult given advanced dementia -goal serum NA 145 in 24 hr -bmp at 8pm and in a.m. (2) CKD (chronic kidney disease) stage 3, GFR 30-59 ml/min: -baseline Cr 0.8, now with mild acute renal insufficiency -BUN/Cr 33/ 1.04 -ratio 32.1, likely pre renal volume contraction -Change IVF to D5 1/2 NS at 125 cc/hr x 2 L -repeat bmp at 8pm and in a.m. (3) Atrial flutter: -Patient with history of paroxysmal atrial fibrillation/flutter requiring numerous ablation and cardioversions in past -Currently on metoprolol and digoxin therapy, metoprolol recently titrated up secondary to RVR -Patient is not on anticoagulation despite chadsvasc 7 given recent intraparenchymal hemorrhage and high fall risk -Further given patient's advanced dementia do not feel it would improve QOL at this point -pt did not receive any medications this morning, HR currently 120-140s, will order her metoprolol tartrate po x 1 now (4) Vascular dementia: -with intermittent agitation and evening flight risk per family -continue lorazepam, buspar and seroquel as prescribed as outpatient. Buspar and seroquel now at reduced dose -required 1:1 observation while family not in room last admission, may need to re-implement (5) HTN (hypertension): -Patient hypertensive since arrival -Continue metoprolol, hold lisinopril given RENU -Continue to monitor if remains elevated add as needed clonidine (6) History of CVA (cerebrovascular accident): -Continue ASA and statin -Recent admission for CVA workup -CT of head performed today reveals multiple old infarcts in patient with significant vascular dementia -Not a candidate for oral anticoagulation (7) Diastolic CHF: -hypovolemic on exam -echo 01/12/19 preserved EF, mild LVH, severe left atrial dilation, mild -continue BB, but hold lisinopril for now -not on any diuretics -monitor daily weights and strict I and O secondary to IVF (8) Depression: -mood stable with intermittent agitation -Continue venlafaxine, Seroquel, buspar (seroquel reduced to 12.5mg daily and buspar reduced to 10mg tid upon last discharge) (9) GERD (gastroesophageal reflux disease): -continue PPI and ranitidine (10) DVT prophylaxis: -SCDS, given recent hx of IPH will avoid chemoprophylaxis Disposition: return to [facility] once medically able, case management consulted Follow up: PCP Dr. Mckinney/Majo Ramon PA-C upon discharge Patient was seen and examined in collaboration with Dr. Erickson, please see addendum. Starting 01/22/19 patient will be under the care of Dr. Bethea Spoke with daughter and POA at bedside History of Present Illness Chief Complaint: Reported lethargy x 1 day. 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 Pt recently confined at [facility] 01/12-01/17 secondary to CVA like symptoms. Patient was seen by neuro and started on ASA and recommended to continue ASA. MRI unable to be obtained due to patient unable to cooperate. She further suffered from episode of rapid a flutter requiring titration of her metoprolol. Anticoagulation again discouraged given advanced vascular dementia and risk > benefits. She also has increased lethargy and therefore her seroquel and buspar were reduced. She was stabilized and d/c back to [facility] on 01/17 and represents today due to increased lethargy. According to nursing staff at [facility] she was increasingly lethargic, decreased PO intake and her nailbeds were cyanotic unable to obtain adequate O2 sats. Pt ROS unable to be obtained given advanced dementia, no family at bedside but in route as I talked with MAHIN . Allergies Allergy/AdvReac Type Severity Reaction Status Date / Time carbenicillin Allergy Unknown "DON'T Verified 01/21/19 08:25 REMEMBER" Penicillins Allergy Unknown HIVES Verified 01/21/19 08:25 pneumococcal vaccine Allergy Unknown FEVER/RASH Verified 01/21/19 08:25 Bactrim AdvReac Mild GI SYMPTOMS Verified 09/20/17 23:30 sulfamethoxazole AdvReac Mild GI SYMPTOMS Verified 01/21/19 08:25 trimethoprim AdvReac Mild GI SYMPTOMS Verified 01/21/19 08:25 Home Medications Home Medications Medication Instructions Recorded Confirmed Type atorvastatin 80 mg PO HS #0 06/22/15 01/21/19 History omeprazole 20 mg PO QAM #0 cap 02/08/16 01/21/19 History digoxin 0.125 mg PO Q2D #0 05/10/18 01/21/19 History Fleet Enema 118 ml [place] HS PRN 01/12/19 01/21/19 History Miconazorb AF 1 applic TOPICAL BID 01/12/19 01/21/19 History acetaminophen 325 mg PO Q4H PRN 01/12/19 01/21/19 History acetaminophen [Acetaminophen Extra 500 mg PO TID PRN 01/12/19 01/21/19 History Strength] bisacodyl 10 mg [place] DAILY PRN 01/12/19 01/21/19 History lorazepam 0.5 mg PO DAILY PRN 01/12/19 01/21/19 History magnesium oxide 400 mg PO QAM 01/12/19 01/21/19 History potassium chloride 20 meq PO PM 01/12/19 01/21/19 History quetiapine 12.5 mg PO QAM 01/12/19 01/21/19 History ranitidine HCl 150 mg PO BID 01/12/19 01/21/19 History sennosides-docusate sodium [Senna 2 tab PO BID 01/12/19 01/21/19 History with Docusate Sodium] venlafaxine 150 mg PO QAM 01/12/19 01/21/19 History aspirin [Ecotrin Low Strength] 81 mg PO QAM 81 Days #81 tab 01/17/19 01/21/19 Rx hydrocodone-acetaminophen [[place]] 1 tab PO Q4H PRN #10 tab 01/17/19 01/21/19 Rx buspirone 10 mg PO TID 01/21/19 01/21/19 History lisinopril 40 mg PO QAM 01/21/19 01/21/19 History lorazepam 0.5 mg PO 1500 01/21/19 01/21/19 History metoprolol tartrate 100 mg PO Q12 01/21/19 01/21/19 History Past Med/Surg History Medical History Vascular dementia (Chronic) HTN (hypertension) (Chronic) History of CVA (cerebrovascular accident) (Chronic) SUSY (obstructive sleep apnea) (Chronic) Diastolic CHF (Chronic) GERD (gastroesophageal reflux disease) (Chronic) CKD (chronic kidney disease) stage 3, GFR 30-59 ml/min (Chronic) Depression (Chronic) History of pulmonary embolus (PE) (Resolved) Atrial fibrillation (Chronic) HLD (hyperlipidemia) (Chronic) Hypothyroidism (Chronic) Stroke (Resolved) Surgical History History of appendectomy (Resolved) History of resection of small bowel (Resolved) secondary to high grade SBO History of total left knee replacement (TKR) (Resolved) History of percutaneous coronary intervention (Resolved) s/p Stent of RCA in 1999 History of radiofrequency ablation procedure for cardiac arrhythmia (Resolved) S/P PVI ablation in 2009 for afib/flutter s/p CTI flutter ablation in 2014 S/P Cardioversion in 04/2015 and 12/27/15 H/O craniotomy (Resolved) Right frontotemporal craniotomy with aneurysm clip Family History Other Family history non-contributory Social History Communication Ability: Unable [employer] Required: No Beliefs That Will Affect Care: None marital status: Current Living Situation: [facility] Current Living Situation Comment: Resides in [facility]. current occupational status: retired Other Information That Helps Us Care for You: Yes Feels Safe at Home: No Smoking Status: Never smoker Hx Alcohol Use: No Hx Substance Use: No Review of Systems Unobtainable due to cognitive status Physical Exam Vital Signs (Past 24 Hours): Last Vital Signs Temp 36.4 C L 01/21/19 08:01 Pulse 105 H 01/21/19 11:05 Resp 16 01/21/19 11:05 BP 168/103 H 01/21/19 11:05 Pulse Ox 99 01/21/19 11:05 Physical Exam: Gen: Thin, petite, elderly, F, lying in bed, does not answer questions appropriately given cognitive status Head: Normocephalic, Atraumatic Eyes: Sclera normal, no conjunctival injection, PERRLA, EOMI ENT: Gross hearing intact, normal pharynx, mucous membranes dry Neck: supple, no adenopathy, No JVD, no bruit, Resp: Clear to auscultation b/l, no wheeze, rales, rhonchi. Normal insp/exp effort, no accessory muscle use CV: Irregular rate, irregular rhythm, no murmur, rub, gallop, or ectopy Abd: +BS x 4, soft, nontender, nondistended Musculoskeletal: Does not follow commands to assess muscular strength or rom Extremities: No edema bilaterally Skin: warm warm centrally, cool peripherally, cyanotic nailbeds, diminished peripheral pulses, dry, no rash,mod turgor, cap refill > 2sec Neuro: Alert and oriented to self only, speech mumbled and garbled, cran nerve 2-12 intact grossly : deferred Results & Data Laboratory Results Short CBC 01/21/19 Range/Units 08:40 WBC 7.59 (4.8-10.8) K/uL Hgb 14.7 (12.0-16.0) g/dL Hct 47.1 H (37-47) % Plt Count 197 (130-400) K/uL BMP 01/21/19 08:40 Sodium 154 H Potassium 4.0 Chloride 120 H Carbon Dioxide 28 BUN 33 H Creatinine 1.04 Glucose 112 H Calcium 9.1 Cardiac Enzymes 01/21/19 Range/Units 08:40 Troponin I < 0.015 (0-0.045) ng/ml Liver Function 01/21/19 Range/Units 08:40 Total Bilirubin 0.5 (0.2-1) mg/dl AST 32 (15-37) U/L ALT 33 (12-78) U/L Alkaline Phosphatase 85 (45-117) U/L Albumin 3.6 (3.4-5.0) gm/dl Urine 01/21/19 Range/Units 09:00 Urine Color Dark Yellow Urine Appearance Clear (Clear) Urine pH 5.0 (4.5-7.5) Ur Specific [place] 1.024 (1.000-1.030) Urine Protein Negative (Negative) Urine Glucose (UA) Negative (Negative) Diagnostic Findings Head CT: FINDINGS: No acute intracranial hemorrhage, midline shift or mass effect is present. A right temporal craniotomy is noted. Old infarcts are noted, including infarcts within the left frontal, right temporal, left occipital lobes as well as the right cerebellar hemisphere. There are no findings to suggest acute dural sinus thrombosis or acute territorial infarct. A suspected aneurysm clip within the supra parasellar region is noted. There are no significant calvarial abnormalities. IMPRESSION: 1. No acute intracranial findings. No change in appearance of the brain. 2. Multiple old infarcts, as described above. CXR: IMPRESSION: No significant change compared to the prior study. No acute process. 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 She was noted to have hyponatremia and the signs of changes in nailbeds are almost gone at the time I saw her She does not have any acute distress and denies any significant symptoms On examination No apparent distress at rest Hemodynamically stable Chest-clear to auscultate bilaterally Heart-S1-S2 Abdomen-benign Extremities-trace edema bilateral [employer]-alert and awake, has dementia, generally weak Admission labs and imaging studies reviewed Has hyponatremia with dehydration We will give cautious amount of IV fluid and monitor PRP I agree with assessment and plan as outlined above by Mindi Erickson (1) Diastolic CHF Heart failure chronicity: chronic Qualified Code(s): I50.32 - Chronic diastolic (congestive) heart failure (2) Vascular dementia Dementia behavioral disturbance: with behavioral disturbance Qualified Code(s): F01.51 - Vascular dementia with behavioral disturbance (3) Atrial flutter Atrial flutter type: unspecified Qualified Code(s): I48.92 - Unspecified atrial flutter (4) Depression Depression Type: unspecified Qualified Code(s): F32.9 - Major depressive disorder, single episode, unspecified (5) GERD (gastroesophageal reflux disease) Esophagitis presence: without esophagitis Qualified Code(s): K21.9 - Gastro- esophageal reflux disease without esophagitis (6) HTN (hypertension) Hypertension type: essential hypertension Qualified Code(s): I10 - Essential (primary) hypertension
[2019-01-21] MEDS ORDERED: METOPROLOL TARTRATE 100 MG TAB PO STA (12:37)
[2019-01-21] MEDS ORDERED: METOPROLOL TARTRATE 50 MG TAB ONE (12:47)
[2019-01-21] MEDS ORDERED: HYDROCODONE/ACETAMOPHEN 5/325MG TAB PO PRN (13:47)
[2019-01-21] MEDS ORDERED: LORazepam 0.5 MG TAB PO PRN (13:47)
[2019-01-21] MEDS ORDERED: ONDANSETRON INJ 2 MG/ML 2 ML VIAL IV PRN (13:47)
[2019-01-21] MEDS ORDERED: ALUMINUM/MAGNESIUM SUSP 30 ML UDC PO PRN (13:47)
[2019-01-21] MEDS ORDERED: ACETAMINOPHEN 325 MG TAB PO PRN (13:47)
[2019-01-21] MEDS ORDERED: MAGNESIUM HYDROXIDE SUSP 30 ML UDC PO PRN (13:47)
[2019-01-21] MEDS ORDERED: POLYETHYLENE (MIRALAX) 17 GM PACK PO PRN (13:47)
[2019-01-21] MEDS ORDERED: LORazepam 0.5 MG TAB PO SCH (15:00)
[2019-01-21] MEDS: DIGOXIN 0.125 MG TAB PO SCH (15:29)
[2019-01-21] MEDS: D5W AND 1/2NSS 1,000 ML IV SCH ×2 (15:34→23:34)
--- NOTE | 2019-01-21 16:13 | Emergency Department Note ---
Entered by Musa Chiang acting as a scribe for Tiarra Maynard MD History of Present Illness General Chief complaint: Lethargic Source: other (nurse) Mode of arrival: EMS Limitations: altered mental status History of Present Illness Onset (ago): unknown (prior to arrival) Location: head (global) Pain Consistency: + other (persistent) Quality: + other (lethargy) Associated symptoms: + other (fingers reportedly cyanotic and cold to touch) History is limited due to altered mental status. The patient is a 78 year old fe male who presents to the Emergency Room with persistent lethargy. Nursing staff state that the patient was sent to the ER because prior to arrival her fingers were reportedly cyanotic, she was cold to the touch, and they were unable to acquire oxygen saturation. They state that the patient had a stroke a week ago that caused garbled speech. They note a history of dementia. Review of records shows that the patient was admitted on January 12 and discharged on the . She was sedated due to agitation, and her dose of Seroquel was lowered. She had a UTI with rodriguez-sensitive E.coli and was treated with ceftriaxone. Home Medications Home Medications Medication Instructions Recorded Confirmed Type atorvastatin 80 mg PO HS #0 06/22/15 01/21/19 History omeprazole 20 mg PO QAM #0 cap 02/08/16 01/21/19 History digoxin 0.125 mg PO Q2D #0 05/10/18 01/21/19 History Fleet Enema 118 ml NC HS PRN 01/12/19 01/21/19 History Miconazorb AF 1 applic TOPICAL BID 01/12/19 01/21/19 History acetaminophen 325 mg PO Q4H PRN 01/12/19 01/21/19 History acetaminophen [Acetaminophen Extra 500 mg PO TID PRN 01/12/19 01/21/19 History Strength] bisacodyl 10 mg NC DAILY PRN 01/12/19 01/21/19 History lorazepam 0.5 mg PO DAILY PRN 01/12/19 01/21/19 History magnesium oxide 400 mg PO QAM 01/12/19 01/21/19 History potassium chloride 20 meq PO PM 01/12/19 01/21/19 History quetiapine 12.5 mg PO QAM 01/12/19 01/21/19 History ranitidine HCl 150 mg PO BID 01/12/19 01/21/19 History sennosides-docusate sodium [Senna 2 tab PO BID 01/12/19 01/21/19 History with Docusate Sodium] venlafaxine 150 mg PO QAM 01/12/19 01/21/19 History aspirin [Ecotrin Low Strength] 81 mg PO QAM 81 Days #81 tab 01/17/19 01/21/19 Rx hydrocodone-acetaminophen [[place]] 1 tab PO Q4H PRN #10 tab 01/17/19 01/21/19 Rx buspirone 10 mg PO TID 01/21/19 01/21/19 History lisinopril 40 mg PO QAM 01/21/19 01/21/19 History lorazepam 0.5 mg PO 1500 01/21/19 01/21/19 History metoprolol tartrate 100 mg PO Q12 01/21/19 01/21/19 History Allergies Allergy/AdvReac Type Severity Reaction Status Date / Time carbenicillin Allergy Unknown "DON'T Verified 01/21/19 08:25 REMEMBER" Penicillins Allergy Unknown HIVES Verified 01/21/19 08:25 pneumococcal vaccine Allergy Unknown FEVER/RASH Verified 01/21/19 08:25 Bactrim AdvReac Mild GI SYMPTOMS Verified 09/20/17 23:30 sulfamethoxazole AdvReac Mild GI SYMPTOMS Verified 01/21/19 08:25 trimethoprim AdvReac Mild GI SYMPTOMS Verified 01/21/19 08:25 Past Med/Surg History Medical History Vascular dementia (Chronic) HTN (hypertension) (Chronic) History of CVA (cerebrovascular accident) (Chronic) SUSY (obstructive sleep apnea) (Chronic) Diastolic CHF (Chronic) GERD (gastroesophageal reflux disease) (Chronic) CKD (chronic kidney disease) stage 3, GFR 30-59 ml/min (Chronic) Depression (Chronic) History of pulmonary embolus (PE) (Resolved) Atrial fibrillation (Chronic) HLD (hyperlipidemia) (Chronic) Hypothyroidism (Chronic) Stroke (Resolved) Surgical History History of appendectomy (Resolved) History of resection of small bowel (Resolved) secondary to high grade SBO History of total left knee replacement (TKR) (Resolved) History of percutaneous coronary intervention (Resolved) s/p Stent of RCA in 1999 History of radiofrequency ablation procedure for cardiac arrhythmia (Resolved) S/P PVI ablation in 2009 for afib/flutter s/p CTI flutter ablation in 2014 S/P Cardioversion in 04/2015 and 12/27/15 H/O craniotomy (Resolved) Right frontotemporal craniotomy with aneurysm clip Family History Other Family history non-contributory Social History Communication Ability: Unable Tabulating Clerk Required: No Beliefs That Will Affect Care: None marital status: Current Living Situation: Assisted [facility] current occupational status: retired Other Information That Helps Us Care for You: Yes Feels Safe at Home: No Smoking Status: Never smoker Hx Alcohol Use: No Hx Substance Use: No Review of Systems Unobtainable due to cognitive status Physical Exam Vital Signs Vital Signs - 24 hr 01/21/19 19:06 01/21/19 19:28 01/21/19 23:38 Temperature 36.7 C Temperature Source Axillary Pulse Rate 78 Pulse Rate [Apical] 96 H Pulse Rate [Left Finger] Respiratory Rate 18 Respiratory Effort / Characteristics Non-Labored Spontaneous Non-Labored Spontaneous Respiratory Depth Normal Normal Respiratory Pattern Regular Regular Blood Pressure [Left Arm] 161/77 H Blood Pressure [Right Arm] Blood Pressure Mean [Left Arm] 105 Blood Pressure Mean [Right Arm] Blood Pressure Position [Left Arm] Blood Pressure Position [Right Arm] Pulse Oximetry Oxygen Delivery Method Room Air Room Air 01/22/19 00:24 01/22/19 04:45 01/22/19 07:27 Temperature 36.7 C 36.1 C L 37.0 C Temperature Source Oral Oral Oral Pulse Rate Pulse Rate [Apical] Pulse Rate [Left Finger] 77 88 109 H Respiratory Rate 20 20 18 Respiratory Effort / Characteristics Respiratory Depth Respiratory Pattern Blood Pressure [Left Arm] 164/99 H 157/86 H Blood Pressure [Right Arm] 147/71 H Blood Pressure Mean [Left Arm] 120 109 Blood Pressure Mean [Right Arm] 96 Blood Pressure Position [Left Arm] Lying Blood Pressure Position [Right Arm] Pulse Oximetry 91 Oxygen Delivery Method Room Air 01/22/19 11:29 01/22/19 15:15 Temperature 36.5 C 36.9 C Temperature Source Axillary Axillary Pulse Rate Pulse Rate [Apical] Pulse Rate [Left Finger] 103 H 76 Respiratory Rate 18 20 Respiratory Effort / Characteristics Respiratory Depth Respiratory Pattern Blood Pressure [Left Arm] 123/75 Blood Pressure [Right Arm] 134/71 Blood Pressure Mean [Left Arm] 91 Blood Pressure Mean [Right Arm] 92 Blood Pressure Position [Left Arm] Lying Blood Pressure Position [Right Arm] Lying Pulse Oximetry 99 Oxygen Delivery Method Room Air Room Air Vital signs reviewed. General: Elderly and chronically ill-appearing female, in no significant distress. HEENT: No scleral icterus, PERRLA, neck supple. Atraumatic. Cardiovascular: Regular rate and rhythm, no extra sounds. Pulmonary: Clear to auscultation bilaterally, normal work of breathing. Abdomen: Soft, nontender, nondistended, positive bowel sounds. Musculoskeletal: No peripheral edema. She has a small skin tear of the left forearm. Fingers are somewhat discolored but warm to the touch with good cap refill. Neurologic: Awakens to verbal stimuli. Nonsensical and garbled speech. Unable to follow commands. Skin: Warm, dry, no rash Course 0816: Past medical records reviewed. The patient was evaluated in room C2B, and a complete history and physical examination were performed. 1042: I consulted Mindi Marc PA-C: Rey Óscar. The patient will be reevaluated for hospitalization. 1115: The patient has been evaluated and will be hospitalized under Dr. Georgina Cantrell. 1226: The patient has developed rapid atrial fibrillation. Mindi Marc PA-C is in the room with the patient. Consultations Consultation #1: I consulted Mindi Marc [facility] The patient will be reevaluated for hospitalization. Time: 10:42 Administered Medications Aspirin (Ecotrin Ectab) 81 mg PO [place] Stop: 02/21/19 08:59 Last Admin: 01/22/19 09:43 Dose: 81 mg Documented by: [id number] Atorvastatin Calcium (Lipitor) [address] [facility] Stop: 02/20/19 20:59 Last Admin: 01/21/19 20:49 Dose: 80 mg Documented by: [id number] Buspirone HCl (Buspar) 10 mg PO TID [facility] Stop: 02/20/19 13:59 Last Admin: 01/22/19 15:05 Dose: Not Given Documented by: [id number] Admin: 01/22/19 09:45 Dose: 10 mg Documented by: [id number] Admin: 01/21/19 20:49 Dose: 10 mg Documented by: [id number] Admin: 01/21/19 15:28 Dose: 10 mg Documented by: [id number] Digoxin (Lanoxin) 0.125 mg PO Q2D@1600 [facility] Stop: 02/20/19 15:59 Last Admin: 01/21/19 15:29 Dose: 0.125 mg Documented by: [id number] Sodium Chloride (1/2 Nss) 1,000 mls @ 60 mls/hr IV .[id number] [facility] Stop: 02/21/19 09:29 Last Admin: 01/22/19 10:11 Dose: 60 mls/hr Documented by: [id number] Metoprolol Tartrate (Lopressor) 100 mg PO Q12 [facility] Stop: 02/20/19 20:59 Last Admin: 01/22/19 09:43 Dose: 100 mg Documented by: [id number] Admin: 01/21/19 20:49 Dose: 100 mg Documented by: [id number] Miconazole Nitrate (Desenex) 1 appln TOP BID [facility] Stop: 01/28/19 20:59 Last Admin: 01/22/19 09:45 Dose: 1 appln Documented by: [id number] Admin: 01/21/19 20:48 Dose: 1 appln Documented by: [id number] Pantoprazole Sodium (Protonix) 40 mg PO QAM [facility] Stop: 02/21/19 08:59 Last Admin: 01/22/19 09:44 Dose: 40 mg Documented by: [id number] Potassium Chloride (Klor-Con M20) 20 meq PO PM [facility] Stop: 02/20/19 20:59 Last Admin: 01/21/19 20:49 Dose: 20 meq Documented by: [id number] Quetiapine Fumarate (Seroquel) 12.5 mg PO QAM [facility] Stop: 02/21/19 08:59 Last Admin: 01/22/19 10:11 Dose: 12.5 mg Documented by: [id number] Ranitidine HCl (Zantac) 150 mg PO BID [facility] Stop: 02/20/19 20:59 Last Admin: 01/22/19 09:44 Dose: 150 mg Documented by: [id number] Admin: 01/21/19 20:49 Dose: 150 mg Documented by: [id number] Senna/Docusate Sodium (Senokot S) 2 tab PO BID [facility] Stop: 02/20/19 20:59 Last Admin: 01/22/19 09:43 Dose: 2 tab Documented by: [id number] Admin: 01/21/19 20:48 Dose: 2 tab Documented by: [id number] Venlafaxine HCl (Effexor Extended Release) 150 mg PO QAM [facility] Stop: 02/21/19 08:59 Last Admin: 01/22/19 09:37 Dose: 150 mg Documented by: [id number] Discontinued Medications Sodium Chloride (1/2 Nss) 1,000 mls @ 125 mls/hr IV .Q8H [facility] Stop: 02/20/19 10:44 Last Infusion: 01/21/19 15:33 Dose: 0 mls/hr Documented by: [id number] Admin: 01/21/19 11:02 Dose: 125 mls/hr Documented by: [id number] Dextrose/Sodium Chloride (D5w And 1/2nss) 1,000 mls @ 125 mls/hr IV .Q8H [facility] Stop: 01/22/19 06:59 Last Infusion: 01/22/19 08:00 Dose: 0 mls/hr Documented by: [id number] Admin: 01/21/19 23:34 Dose: 125 mls/hr Documented by: [id number] Infusion: 01/21/19 23:34 Dose: 0 mls/hr Documented by: [id number] Admin: 01/21/19 15:34 Dose: 125 mls/hr Documented by: [id number] Lorazepam (Ativan) 0.5 mg PO 1500 [facility] Stop: 02/20/19 14:59 Last Admin: 01/21/19 15:39 Dose: 0.5 mg Documented by: [id number] Lorazepam (Ativan) 0.25 mg PO 1500 [facility] Stop: 02/21/19 14:59 Last Admin: 01/22/19 14:31 Dose: 0.25 mg Documented by: [id number] Metoprolol Tartrate (Lopressor) Confirm Administered Dose 100 mg .ROUTE .Fangdd ONE Stop: 01/21/19 12:48 Last Admin: 01/21/19 12:50 Dose: 100 mg Documented by: [id number] Medical Decision Making Differential Diagnosis Differential diagnosis: Etiologies such as metabolic, infection, hypo/hyperglycemia, electrolyte abnormalities, cardiac sources, intracerebral event, toxicologic, neurologic, as well as others were entertained. Medical Records Attestation: I reviewed the patient's medical records. Home Medications Current Medication List: was personally reviewed by me Laboratory Data Attestation: I reviewed the patient's lab results. Result diagrams: 01/22/19 05:25 01/22/19 14:29 Lab Results 01/21/19 01/21/19 01/21/19 Range/Units 08:40 08:40 09:00 WBC 7.59 (4.8-10.8) K/uL RBC 5.06 (4.2-5.4) M/uL Hgb 14.7 (12.0-16.0) g/dL Hct 47.1 H (37-47) % MCV 93.1 (80-100) fL MCH 29.1 (25-34) pg MCHC 31.2 L (32-36) g/dL RDW Std Deviation 50.3 H (36.4-46.3) fL RDW Coeff of Tre 15.0 H (11.5-14.5) % Plt Count 197 (130-400) K/uL MPV 10.6 H (7.4-10.4) fL Immature Gran % (Auto) 0.4 % Neut % (Auto) 74.2 % Lymph % (Auto) 18.4 % Martin % (Auto) 6.9 % Eos % (Auto) 0.0 % Baso % (Auto) 0.1 % Immature Gran # (Auto) 0.03 H (0.00-0.02) K/uL Neut # (Auto) 5.63 (1.4-6.5) K/uL Lymph # (Auto) 1.40 (1.2-3.4) K/uL Martin # (Auto) 0.52 (0.11-0.59) K/uL Eos # (Auto) 0.00 (0-0.5) K/uL Baso # (Auto) 0.01 (0-0.2) K/uL Sodium 154 H (136-145) mmol/L Potassium 4.0 (3.5-5.1) mmol/L Chloride 120 H (98-107) mmol/L Carbon Dioxide 28 (21-32) mmol/L Anion Gap 6.0 (3-11) BUN 33 H (7-18) mg/dl Creatinine 1.04 (0.6-1.2) mg/dl Est Cr Clr Drug Dosing Not Reportable Est GFR ( Amer) 60.4 Est GFR (Non-Af Amer) 52.1 BUN/Creatinine Ratio 32.1 H (10-20) Glucose 112 H (70-99) mg/dl Calcium 9.1 (8.5-10.1) mg/dl Magnesium 2.6 H (1.8-2.4) mg/dl Total Bilirubin 0.5 (0.2-1) mg/dl AST 32 (15-37) U/L ALT 33 (12-78) U/L Alkaline Phosphatase 85 (45-117) U/L Troponin I < 0.015 (0-0.045) ng/ml Total Protein 7.9 (6.4-8.2) gm/dl Albumin 3.6 (3.4-5.0) gm/dl Globulin 4.3 H (2.5-4.0) gm/dl Albumin/Globulin Ratio 0.8 L (0.9-2) TSH 1.600 (0.300-4.500) uIu/ml Urine Color Dark Yellow Urine Appearance Clear (Clear) Urine pH 5.0 (4.5-7.5) Ur Specific [place] 1.024 (1.000-1.030) Urine Protein Negative (Negative) Urine Glucose (UA) Negative (Negative) Urine Ketones Negative (Negative) Urine Blood Negative (Negative) Urine Nitrite Negative (Negative) Urine Bilirubin Negative (Negative) Urine Urobilinogen Negative (Negative) Ur Leukocyte Esterase Negative (Negative) Nasal Screen MRSA (PCR) (Negative) 01/21/19 01/21/19 01/22/19 Range/Units 17:10 19:54 05:25 WBC 9.40 (4.8-10.8) K/uL RBC 4.45 (4.2-5.4) M/uL Hgb 13.0 (12.0-16.0) g/dL Hct 41.4 (37-47) % MCV 93.0 (80-100) fL MCH 29.2 (25-34) pg MCHC 31.4 L (32-36) g/dL RDW Std Deviation 48.7 H (36.4-46.3) fL RDW Coeff of Tre 14.4 (11.5-14.5) % Plt Count 190 (130-400) K/uL MPV 11.1 H (7.4-10.4) fL Immature Gran % (Auto) % Neut % (Auto) % Lymph % (Auto) % Martin % (Auto) % Eos % (Auto) % Baso % (Auto) % Immature Gran # (Auto) (0.00-0.02) K/uL Neut # (Auto) (1.4-6.5) K/uL Lymph # (Auto) (1.2-3.4) K/uL Martin # (Auto) (0.11-0.59) K/uL Eos # (Auto) (0-0.5) K/uL Baso # (Auto) (0-0.2) K/uL Sodium 152 H (136-145) mmol/L Potassium 3.9 (3.5-5.1) mmol/L Chloride 118 H (98-107) mmol/L Carbon Dioxide 29 (21-32) mmol/L Anion Gap 4.0 (3-11) BUN 28 H (7-18) mg/dl Creatinine 0.99 (0.6-1.2) mg/dl Est Cr Clr Drug Dosing 40.0 Est GFR ( Amer) 64.2 Est GFR (Non-Af Amer) 55.4 BUN/Creatinine Ratio 28.2 H (10-20) Glucose 100 H (70-99) mg/dl Calcium 8.5 (8.5-10.1) mg/dl Magnesium (1.8-2.4) mg/dl Total Bilirubin (0.2-1) mg/dl AST (15-37) U/L ALT (12-78) U/L Alkaline Phosphatase (45-117) U/L Troponin I (0-0.045) ng/ml Total Protein (6.4-8.2) gm/dl Albumin (3.4-5.0) gm/dl Globulin (2.5-4.0) gm/dl Albumin/Globulin Ratio (0.9-2) TSH (0.300-4.500) uIu/ml Urine Color Urine Appearance (Clear) Urine pH (4.5-7.5) Ur Specific [place] (1.000-1.030) Urine Protein (Negative) Urine Glucose (UA) (Negative) Urine Ketones (Negative) Urine Blood (Negative) Urine Nitrite (Negative) Urine Bilirubin (Negative) Urine Urobilinogen (Negative) Ur Leukocyte Esterase (Negative) Nasal Screen MRSA (PCR) Positive A (Negative) 01/22/19 01/22/19 01/22/19 Range/Units 05:25 08:56 14:29 WBC (4.8-10.8) K/uL RBC (4.2-5.4) M/uL Hgb (12.0-16.0) g/dL Hct (37-47) % MCV (80-100) fL MCH (25-34) pg MCHC (32-36) g/dL RDW Std Deviation (36.4-46.3) fL RDW Coeff of Tre (11.5-14.5) % Plt Count (130-400) K/uL MPV (7.4-10.4) fL Immature Gran % (Auto) % Neut % (Auto) % Lymph % (Auto) % Martin % (Auto) % Eos % (Auto) % Baso % (Auto) % Immature Gran # (Auto) (0.00-0.02) K/uL Neut # (Auto) (1.4-6.5) K/uL Lymph # (Auto) (1.2-3.4) K/uL Martin # (Auto) (0.11-0.59) K/uL Eos # (Auto) (0-0.5) K/uL Baso # (Auto) (0-0.2) K/uL Sodium 148 H 149 H 148 H (136-145) mmol/L Potassium 3.5 3.6 3.7 (3.5-5.1) mmol/L Chloride 116 H 118 H 116 H (98-107) mmol/L Carbon Dioxide 27 27 27 (21-32) mmol/L Anion Gap 5.0 4.0 5.0 (3-11) BUN 21 H 19 H 16 (7-18) mg/dl Creatinine 0.92 0.94 0.85 (0.6-1.2) mg/dl Est Cr Clr Drug Dosing 43.0 46.0 50.8 Est GFR ( Amer) 70.1 68.3 77.1 Est GFR (Non-Af Amer) 60.5 58.9 66.6 BUN/Creatinine Ratio 22.9 H 20.0 18.6 (10-20) Glucose 89 92 94 (70-99) mg/dl Calcium 8.2 L 8.3 L 8.0 L (8.5-10.1) mg/dl Magnesium 2.3 (1.8-2.4) mg/dl Total Bilirubin (0.2-1) mg/dl AST (15-37) U/L ALT (12-78) U/L Alkaline Phosphatase (45-117) U/L Troponin I (0-0.045) ng/ml Total Protein (6.4-8.2) gm/dl Albumin (3.4-5.0) gm/dl Globulin (2.5-4.0) gm/dl Albumin/Globulin Ratio (0.9-2) TSH (0.300-4.500) uIu/ml Urine Color Urine Appearance (Clear) Urine pH (4.5-7.5) Ur Specific [place] (1.000-1.030) Urine Protein (Negative) Urine Glucose (UA) (Negative) Urine Ketones (Negative) Urine Blood (Negative) Urine Nitrite (Negative) Urine Bilirubin (Negative) Urine Urobilinogen (Negative) Ur Leukocyte Esterase (Negative) Nasal Screen MRSA (PCR) (Negative) Imaging Data Radiologist's Impression: Radiology results as stated below per my review and the radiologist's interpretation: XR chest 1V portable HISTORY: weakness COMPARISON: Chest 05/10/2018. FINDINGS: The lungs are hyperexpanded with mild apical predominant emphysematous changes. No new focal lung consolidations to suggest pneumonia. No evidence for pulmonary edema. Mild interstitial thickening which is likely chronic. Stable mild cardiomegaly. IMPRESSION: No significant change compared to the prior study. No acute process. Electronically signed by: Tapan Cat M.D. 01/21/2019 9:[address] OF THE HEAD WITHOUT CONTRAST CLINICAL HISTORY: lethargy, recent CVA COMPARISON STUDY: Head CT January 12, 2019. CT DOSE: 537.48 mGy.cm TECHNIQUE: Helical axial images of the head were obtained without IV contrast. Automated exposure control was utilized for the study. A dose lowering technique was utilized adhering to the principles of ALARA. FINDINGS: No acute intracranial hemorrhage, midline shift or mass effect is present. A right temporal craniotomy is noted. Old infarcts are noted, including infarcts within the left frontal, right temporal, left occipital lobes as well as the right cerebellar hemisphere. There are no findings to suggest acute dural sinus thrombosis or acute territorial infarct. A suspected aneurysm clip within the supra parasellar region is noted. There are no significant calvarial abnormalities. IMPRESSION: 1. No acute intracranial findings. No change in appearance of the brain. 2. Multiple old infarcts, as described above. Electronically signed by: Kong Liang M.D. 01/21/2019 9:26 AM ECG Data Attestation: I personally reviewed and interpreted this ECG as follows: Indication: weakness Rate (beats per minute): 81 Rhythm: atrial flutter Findings: + other (4:1 conduction; right axis deviation; QTc is 432) and + nonspecific-ST abn Blood Pressure Blood Pressure Findings: Elevated blood pressure Blood Pressure Disposition: further management by hospitalist MDM Narrative This patient was evaluated and appeared to be in no significant distress. Patient was easily awakened but is not able to answer questions. Laboratory work and recent hospitalization records were reviewed. The patient was apparently on Seroquel for anxiety and agitation in the evenings. Initially this is thought to be contributing to her altered mentation at the nursing facility. Patient's laboratory work reveals hyponatremia at 154. Urinalysis and oxygenation appeared to be within normal limits. Patient was started on 1/2 normal saline solution at 125 mL's per hour. The [facility] hospitalist service was consulted, patient will be evaluated for further management. Impression & Plan Hypernatremia, Daytime somnolence Discharge Plan Visit Data *Final* Discharge Date/Time: 01/21/19 13:27 Chief Complaint: Lethargic ED Provider: Tiarra Maynard Discharge Problem: Hypernatremia, Daytime somnolence Patient Disposition: Admitted As Inpatient Discharge Instructions Interventions: ED Discharge Assessment Last Done: 01/21/19 13:27 The scribe's documentation has been prepared under my direction and personally reviewed by me in its entirety. I confirm that the note above accurately reflects all work, treatment, procedures, and medical decision making performed by me.
[2019-01-21 20:16] LABS: BUN Creatinine Ratio 28.2 (10-20); Calcium 8.5 mg/dl (8.5-10.1); Est GFR (African American) 64.2; Est GFR (Non-African American) 55.4; Potassium 3.9 mmol/L (3.5-5.1)
[2019-01-21] MEDS: MICONAZOLE NITRATE POWDER 43 GM TOP SCH (20:48)
[2019-01-21] MEDS: DOCUSATE SODIUM/SENNA 50/8.6MG TAB PO SCH (20:48)
[2019-01-21] MEDS: ATORVASTATIN 40 MG TAB PO SCH (20:49)
[2019-01-21] MEDS: METOPROLOL TARTRATE 100 MG TAB PO SCH (20:49)
[2019-01-21] MEDS: POTASSIUM CHLORIDE 20 MEQ TABCR PO SCH (20:49)
[2019-01-22 06:15] LABS: Hematocrit (blood only) 41.4 % (37-47); Mean Corpuscular Hgb Conc 31.4 g/dL (32-36); Mean Platelet Volume 11.1 fL (7.4-10.4); Platelet Count 190 K/uL (130-400); RDW Coefficient of Variation 14.4 % (11.5-14.5); RDW Standard Deviation 48.7 fL (36.4-46.3); Red Blood Count 4.45 M/uL (4.2-5.4)
[2019-01-22 06:52] LABS: BUN Creatinine Ratio 22.9 (10-20); Calcium 8.2 mg/dl (8.5-10.1); Est GFR (African American) 70.1; Est GFR (Non-African American) 60.5; Magnesium 2.3 mg/dl (1.8-2.4); Potassium 3.5 mmol/L (3.5-5.1)
[2019-01-22] MEDS ORDERED: QUETIAPINE FUMARATE 25 MG TABLET PO SCH (09:00)
[2019-01-22] MEDS: VENLAFAXINE HCL XR 150 MG CAPXR PO SCH (09:37)
[2019-01-22 09:43] LABS: Calcium 8.3 mg/dl (8.5-10.1); Est GFR (African American) 68.3; Est GFR (Non-African American) 58.9; Potassium 3.6 mmol/L (3.5-5.1)
[2019-01-22] MEDS: ASPIRIN 81 MG ECTAB PO SCH (09:43)
[2019-01-22] MEDS: DOCUSATE SODIUM/SENNA 50/8.6MG TAB PO SCH ×2 (09:43→21:35)
[2019-01-22] MEDS: METOPROLOL TARTRATE 100 MG TAB PO SCH ×2 (09:43→21:35)
[2019-01-22] MEDS: PANTOprazole 40 MG TAB PO SCH (09:44)
[2019-01-22] MEDS: MICONAZOLE NITRATE POWDER 43 GM TOP SCH ×2 (09:45→21:28)
[2019-01-22] MEDS: SODIUM CHLORIDE 0.45 % 1,000 ML IV SCH (10:11)
[2019-01-22] MEDS ORDERED: LORazepam 0.5 MG TAB PO SCH (15:00)
[2019-01-22 15:12] LABS: BUN Creatinine Ratio 18.6 (10-20); Creatinine Clr Calc Pharmacy 50.8 ml/min; Est GFR (African American) 77.1; Est GFR (Non-African American) 66.6; Potassium 3.7 mmol/L (3.5-5.1)
--- NOTE | 2019-01-22 16:44 | Hospitalist Progress Note ---
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 In ED pt noted to have hypernatremia 154, acute kidney insufficiency bun/cr 33/1.04, mag elevated 2.6, Urine clean, CT head multiple old infarcts, CXR w/o acute abnormality, ecg aflutter Free water deficit 3.9L Started on 1/2 NS at 125cc/hr Hyponatremia likely secondary to dehydration from poor oral intake Gradually improving, now at 147, continue gentle IV fluids with half NS, continue to monitor every 6 hours In terms of lethargy: CT head negative for acute process Dehydration contributing Secondary to medications, currently on risperidone, Effexor, Seroquel Psychiatry service consulted for psychiatric medications evaluation Check with [facility], patient not taking [place] or Ativan for at least a month now Rule out infection Afebrile, no leukocytosis Will check urine and blood cultures (2) CKD (chronic kidney disease) stage 3, GFR 30-59 ml/min: -baseline Cr 0.8, now with mild acute renal insufficiency -BUN/Cr 33/ 1.04 -ratio 32.1, likely pre renal volume contraction Creatinine 0.85 today (3) Atrial flutter: -Patient with history of paroxysmal atrial fibrillation/flutter requiring numerous ablation and cardioversions in past -Currently on metoprolol and digoxin therapy, metoprolol recently titrated up secondary to RVR -Patient is not on anticoagulation despite chadsvasc 7 given recent intraparenchymal hemorrhage and high fall risk -Further given patient's advanced dementia do not feel it would improve QOL at this point Continue metoprolol and digoxin (4) Vascular dementia: -with intermittent agitation and evening flight risk per family -continue buspar and seroquel as prescribed as outpatient. (5) HTN (hypertension): BP stable at this time Continue metoprolol Hold lisinopril (6) History of CVA (cerebrovascular accident): -Continue ASA and statin -Recent admission for CVA workup -CT of head :multiple old infarcts in patient with significant vascular dementia -Not a candidate for oral anticoagulation (7) Diastolic CHF: -hypovolemic on exam -echo 01/12/19 preserved EF, mild LVH, severe left atrial dilation, mild -continue BB, but hold lisinopril for now -not on any diuretics -monitor daily weights and strict I and O secondary to IVF Currently euvolemic (8) Depression: -mood stable with intermittent agitation -Continue venlafaxine, Seroquel, buspar (seroquel reduced to 12.5mg daily and buspar reduced to 10mg tid upon last discharge) Psychiatry service consulted for medication evaluation in light of patient's lethargy (9) GERD (gastroesophageal reflux disease): -continue PPI and ranitidine (10) DVT prophylaxis: -SCDS, given recent hx of IPH will avoid chemoprophylaxis Disposition: return to [facility] once medically able, case management consulted Follow up: PCP Dr. Mckinney/Majo Ramon PA-C upon discharge Subjective Follow-up for lethargy Seen resting in bed, sleeping, when woken up the patient opens her eyes but is noncooperative and is not following commands Does not seem to be in distress at all, appears comfortable No other signs symptoms per nursing staff Physical Exam Vital Signs (Past 24 Hours): Last Vital Signs Temp 36.9 C 01/22/19 15:15 Pulse 76 01/22/19 15:15 Resp 20 01/22/19 15:15 BP 123/75 01/22/19 15:15 Pulse Ox 99 01/22/19 15:15 Physical Exam: General- not in distress, does answer questions , no accessory muscle Eyes- anicteric Neck- no JVD Lungs- clear BS bilaterally no rales/wheezing Heart- normal rate, regular rhythm; no murmurs Abdomen- normal bowel sounds, nondistended, soft, nontender Extremities- no pretibial edema, no calf tenderness Neuro-no facial symmetry, moves all extremities equally, no other gross neurologic deficits noted Skin- warm & dry Results & Data Laboratory Results Laboratory Results - last 24 hr 01/21/19 01/21/19 01/22/19 17:10 19:54 05:25 WBC 9.40 RBC 4.45 Hgb 13.0 Hct 41.4 MCV 93.0 MCH 29.2 MCHC 31.4 L RDW Std Deviation 48.7 H RDW Coeff of Tre 14.4 Plt Count 190 MPV 11.1 H Sodium 152 H Potassium 3.9 Chloride 118 H Carbon Dioxide 29 Anion Gap 4.0 BUN 28 H Creatinine 0.99 Est Cr Clr Drug Dosing 40.0 Est GFR ( Amer) 64.2 Est GFR (Non-Af Amer) 55.4 BUN/Creatinine Ratio 28.2 H Glucose 100 H Calcium 8.5 Magnesium Nasal Screen MRSA (PCR) Positive A 01/22/19 01/22/19 01/22/19 05:25 08:56 14:29 WBC RBC Hgb Hct MCV MCH MCHC RDW Std Deviation RDW Coeff of Tre Plt Count MPV Sodium 148 H 149 H 148 H Potassium 3.5 3.6 3.7 Chloride 116 H 118 H 116 H Carbon Dioxide 27 27 27 Anion Gap 5.0 4.0 5.0 BUN 21 H 19 H 16 Creatinine 0.92 0.94 0.85 Est Cr Clr Drug Dosing 43.0 46.0 50.8 Est GFR ( Amer) 70.1 68.3 77.1 Est GFR (Non-Af Amer) 60.5 58.9 66.6 BUN/Creatinine Ratio 22.9 H 20.0 18.6 Glucose 89 92 94 Calcium 8.2 L 8.3 L 8.0 L Magnesium 2.3 Nasal Screen MRSA (PCR) (1) Atrial flutter Atrial flutter type: unspecified Qualified Code(s): I48.92 - Unspecified atrial flutter (2) Vascular dementia Dementia behavioral disturbance: with behavioral disturbance Qualified Code(s): F01.51 - Vascular dementia with behavioral disturbance (3) HTN (hypertension) Hypertension type: essential hypertension Qualified Code(s): I10 - Essential (primary) hypertension (4) Diastolic CHF Heart failure chronicity: chronic Qualified Code(s): I50.32 - Chronic diastolic (congestive) heart failure (5) Depression Depression Type: unspecified Qualified Code(s): F32.9 - Major depressive disorder, single episode, unspecified (6) GERD (gastroesophageal reflux disease) Esophagitis presence: without esophagitis Qualified Code(s): K21.9 - Gastro- esophageal reflux disease without esophagitis
[2019-01-22 21:22] LABS: BUN Creatinine Ratio 17.1 (10-20); Calcium 8.3 mg/dl (8.5-10.1); Creatinine Clr Calc Pharmacy 48.6 ml/min
[2019-01-22] MEDS: ATORVASTATIN 40 MG TAB PO SCH (21:30)
[2019-01-22] MEDS: POTASSIUM CHLORIDE 20 MEQ TABCR PO SCH (21:35)
[2019-01-23 03:12] LABS: BUN Creatinine Ratio 17.2 (10-20); Creatinine Clr Calc Pharmacy 53.4 ml/min; Est GFR (African American) 81.8; Est GFR (Non-African American) 70.5; Potassium 3.5 mmol/L (3.5-5.1)
[2019-01-23] MEDS: SODIUM CHLORIDE 0.45 % 1,000 ML IV SCH ×2 (05:12→18:30)
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
--- NOTE | 2019-01-23 08:56 | Hospitalist Progress Note ---
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 In ED pt noted to have hypernatremia 154, acute kidney insufficiency bun/cr 33/1.04, mag elevated 2.6, Urine clean, CT head multiple old infarcts, CXR w/o acute abnormality, ecg aflutter Free water deficit 3.9L Started on 1/2 NS at 125cc/hr Hyponatremia likely secondary to dehydration from poor oral intake improving, continue gentle IV fluids with half NS In terms of lethargy: CT head negative for acute process Dehydration contributing Secondary to medications, currently on risperidone, Effexor, Seroquel Psychiatry service consulted for psychiatric medications evaluation Check with [facility], patient not taking [place] or Ativan for at least a month now Seroquel changed to PRN monitor Rule out infection Afebrile, no leukocytosis urine and blood cultures pending (2) CKD (chronic kidney disease) stage 3, GFR 30-59 ml/min: -baseline Cr 0.8, now with mild acute renal insufficiency -BUN/Cr 33/ 1.04 at baseline (3) Atrial flutter: -Patient with history of paroxysmal atrial fibrillation/flutter requiring numerous ablation and cardioversions in past -Currently on metoprolol and digoxin therapy, metoprolol recently titrated up secondary to RVR -Patient is not on anticoagulation despite chadsvasc 7 given recent intraparenchymal hemorrhage and high fall risk -Further given patient's advanced dementia do not feel it would improve QOL at this point Continue metoprolol and digoxin (4) Vascular dementia: -with intermittent agitation and evening flight risk per family -continue buspar - seroquel changed to PRN (5) HTN (hypertension): BP stable at this time Continue metoprolol Hold lisinopril (6) History of CVA (cerebrovascular accident): -Continue ASA and statin -Recent admission for CVA workup -CT of head :multiple old infarcts in patient with significant vascular dementia -Not a candidate for oral anticoagulation (7) Diastolic CHF: -hypovolemic on exam -echo 01/12/19 preserved EF, mild LVH, severe left atrial dilation, mild -continue BB, but hold lisinopril for now -not on any diuretics -monitor daily weights and strict I and O secondary to IVF Currently euvolemic (8) Depression: -mood stable with intermittent agitation -Continue venlafaxine, Seroquel, buspar (seroquel reduced to 12.5mg daily and buspar reduced to 10mg tid upon last discharge) Psychiatry service consulted for medication evaluation in light of patient's lethargy (9) GERD (gastroesophageal reflux disease): -continue PPI and ranitidine (10) DVT prophylaxis: -SCDS, given recent hx of IPH will avoid chemoprophylaxis Disposition: return to [facility] once medically able, case management consulted Follow up: PCP Dr. Mckinney/Majo Ramon PA-C upon discharge Subjective ff up for lethargy seen sleeping, opens eyes when awakened denies pain, or any other symptoms as per RN patient ate 25% of her meal more awake as per RN no other symptoms noted Physical Exam Vital Signs (Past 24 Hours): Last Vital Signs Temp 36.2 C L 01/23/19 07:33 Pulse 86 01/23/19 07:33 Resp 18 01/23/19 07:33 BP 120/74 01/23/19 07:33 Pulse Ox 91 01/23/19 07:33 Physical Exam: General- not in distress, no accessory muscle use Eyes- anicteric Neck- no JVD Lungs- clear breath sounds bilaterally Heart- normal rate, regular rhythm; no murmurs Abdomen- normal bowel sounds, nondistended, soft, nontender Extremities- no pretibial edema, no calf tenderness Neuro- no gross focal neurologic deficits Skin- warm & dry Results & Data Laboratory Results all noted and reviewed (1) Diastolic CHF Heart failure chronicity: chronic Qualified Code(s): I50.32 - Chronic diastolic (congestive) heart failure (2) Vascular dementia Dementia behavioral disturbance: with behavioral disturbance Qualified Code(s): F01.51 - Vascular dementia with behavioral disturbance (3) Atrial flutter Atrial flutter type: unspecified Qualified Code(s): I48.92 - Unspecified atrial flutter (4) Depression Depression Type: unspecified Qualified Code(s): F32.9 - Major depressive disorder, single episode, unspecified (5) GERD (gastroesophageal reflux disease) Esophagitis presence: without esophagitis Qualified Code(s): K21.9 - Gastro- esophageal reflux disease without esophagitis (6) HTN (hypertension) Hypertension type: essential hypertension Qualified Code(s): I10 - Essential (primary) hypertension
[2019-01-23] MEDS: MICONAZOLE NITRATE POWDER 43 GM TOP SCH ×2 (09:33→19:44)
[2019-01-23] MEDS: PANTOprazole 40 MG TAB PO SCH (09:33)
[2019-01-23] MEDS: DOCUSATE SODIUM/SENNA 50/8.6MG TAB PO SCH ×2 (09:34→19:45)
[2019-01-23] MEDS: ASPIRIN 81 MG ECTAB PO SCH (09:34)
[2019-01-23] MEDS: METOPROLOL TARTRATE 100 MG TAB PO SCH ×2 (09:34→19:50)
[2019-01-23] MEDS: VENLAFAXINE HCL XR 150 MG CAPXR PO SCH (09:36)
[2019-01-23] MEDS: MUPIROCIN 2% OINT 22 GM TUBE EXT SCH ×2 (15:28→20:52)
[2019-01-23] MEDS: DIGOXIN 0.125 MG TAB PO SCH (16:27)
[2019-01-23] MEDS: QUETIAPINE FUMARATE 25 MG TABLET PO PRN (18:29)
[2019-01-23] MEDS: POTASSIUM CHLORIDE 20 MEQ TABCR PO SCH (19:44)
[2019-01-23] MEDS: ATORVASTATIN 40 MG TAB PO SCH (19:45)
[2019-01-24] MEDS: METOPROLOL TARTRATE 100 MG TAB PO SCH ×3 (07:35→21:34)
[2019-01-24] MEDS: ASPIRIN 81 MG ECTAB PO SCH (10:33)
[2019-01-24] MEDS: MICONAZOLE NITRATE POWDER 43 GM TOP SCH ×2 (10:34→21:30)
[2019-01-24] MEDS: VENLAFAXINE HCL XR 150 MG CAPXR PO SCH (10:35)
[2019-01-24] MEDS: DOCUSATE SODIUM/SENNA 50/8.6MG TAB PO SCH ×2 (10:35→21:31)
[2019-01-24] MEDS: MUPIROCIN 2% OINT 22 GM TUBE EXT SCH ×2 (10:35→21:30)
[2019-01-24] MEDS: PANTOprazole 40 MG TAB PO SCH (10:36)
[2019-01-24] MEDS: SODIUM CHLORIDE 0.45 % 1,000 ML IV SCH (11:19)
[2019-01-24] MEDS: ATORVASTATIN 40 MG TAB PO SCH (21:34)
[2019-01-24] MEDS: POTASSIUM CHLORIDE 20 MEQ TABCR PO SCH (21:34)
--- NOTE | 2019-01-24 23:34 | Hospitalist Progress Note ---
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 In ED pt noted to have hypernatremia 154, acute kidney insufficiency bun/cr 33/1.04, mag elevated 2.6, Urine clean, CT head multiple old infarcts, CXR w/o acute abnormality, ecg aflutter Free water deficit 3.9L Started on 1/2 NS at 125cc/hr Hyponatremia likely secondary to dehydration from poor oral intake improving, continue half NS In terms of lethargy: CT head negative for acute process Dehydration contributing Secondary to medications, currently on risperidone, Effexor, Seroquel Psychiatry service consulted for psychiatric medications evaluation Check with [facility], patient not taking [place] or Ativan for at least a month now Seroquel changed to PRN monitor Rule out infection Afebrile, no leukocytosis UA: does not indicate UTI blood cultures negative gradually improving, monitor (2) CKD (chronic kidney disease) stage 3, GFR 30-59 ml/min: -baseline Cr 0.8, now with mild acute renal insufficiency -BUN/Cr 33/ 1.04 at baseline (3) Atrial flutter: -Patient with history of paroxysmal atrial fibrillation/flutter requiring numerous ablation and cardioversions in past -Currently on metoprolol and digoxin therapy, metoprolol recently titrated up secondary to RVR -Patient is not on anticoagulation despite chadsvasc 7 given recent intraparenchymal hemorrhage and high fall risk -Further given patient's advanced dementia do not feel it would improve QOL at this point Continue metoprolol and digoxin (4) Vascular dementia: -with intermittent agitation and evening flight risk per family -continue buspar - seroquel changed to PRN (5) HTN (hypertension): BP stable at this time Continue metoprolol Hold lisinopril (6) History of CVA (cerebrovascular accident): -Continue ASA and statin -Recent admission for CVA workup -CT of head :multiple old infarcts in patient with significant vascular dementia -Not a candidate for oral anticoagulation (7) Diastolic CHF: -hypovolemic on exam -echo 01/12/19 preserved EF, mild LVH, severe left atrial dilation, mild -continue BB, but hold lisinopril for now -not on any diuretics -monitor daily weights and strict I and O secondary to IVF on the dry side (8) Depression: -mood stable with intermittent agitation -Continue venlafaxine, Seroquel, buspar (seroquel reduced to 12.5mg daily and buspar reduced to 10mg tid upon last discharge) Psychiatry service consulted for medication evaluation in light of patient's lethargy (9) GERD (gastroesophageal reflux disease): -continue PPI and ranitidine (10) DVT prophylaxis: -SCDS, given recent hx of IPH will avoid chemoprophylaxis Disposition: return to [facility] once medically able, case management consulted Follow up: PCP Dr. Mckinney/Majo Ramon PA-C upon discharge Subjective ff up for lethargy sleeping but easily rousable not in distress as per RN, patient is more awake but appetite seems to be poor today no other symptoms Physical Exam Vital Signs (Past 24 Hours): Last Vital Signs Temp 36.4 C L 01/24/19 20:09 Pulse 85 01/24/19 23:15 Resp 18 01/24/19 20:09 BP 119/75 01/24/19 20:09 Pulse Ox 92 01/24/19 20:09 Physical Exam: General- not in distress, no effort or accessory muscle use Eyes- anicteric Neck- no JVD Lungs- clear breath sounds bilaterally Heart- normal rate, regular rhythm; no murmurs Abdomen- normal bowel sounds, nondistended, soft, nontender Extremities- no pretibial edema, no calf tenderness Neuro- no gross focal neurologic deficits Skin- warm & dry Results & Data Laboratory Results all noted and reviewed (1) Atrial flutter Atrial flutter type: unspecified Qualified Code(s): I48.92 - Unspecified atrial flutter (2) Vascular dementia Dementia behavioral disturbance: with behavioral disturbance Qualified C ode(s): F01.51 - Vascular dementia with behavioral disturbance (3) HTN (hypertension) Hypertension type: essential hypertension Qualified Code(s): I10 - Essential (primary) hypertension (4) Diastolic CHF Heart failure chronicity: chronic Qualified Code(s): I50.32 - Chronic diastolic (congestive) heart failure (5) Depression Depression Type: unspecified Qualified Code(s): F32.9 - Major depressive disorder, single episode, unspecified (6) GERD (gastroesophageal reflux disease) Esophagitis presence: without esophagitis Qualified Code(s): K21.9 - Gastro- esophageal reflux disease without esophagitis
[2019-01-24] MEDS ORDERED: METOPROLOL TARTRATE 1 MG/ML VIAL IV STA (23:39)
[2019-01-24] MEDS ORDERED: METOPROLOL TARTRATE 1 MG/ML VIAL IV PRN (23:39)
[2019-01-24] MEDS: QUETIAPINE FUMARATE 25 MG TABLET PO PRN (23:56)
[2019-01-25 06:58] LABS: BUN Creatinine Ratio 16.2 (10-20); Calcium 8.1 mg/dl (8.5-10.1); Creatinine Clr Calc Pharmacy 71.9 ml/min; Est GFR (African American) 97.5; Est GFR (Non-African American) 84.2; Potassium 3.3 mmol/L (3.5-5.1)
[2019-01-25] MEDS: METOPROLOL TARTRATE 100 MG TAB PO SCH ×2 (08:21→19:18)
[2019-01-25] MEDS: MUPIROCIN 2% OINT 22 GM TUBE EXT SCH ×2 (08:22→19:17)
[2019-01-25] MEDS: ASPIRIN 81 MG ECTAB PO SCH (09:03)
[2019-01-25] MEDS: VENLAFAXINE HCL XR 150 MG CAPXR PO SCH (09:03)
[2019-01-25] MEDS: DOCUSATE SODIUM/SENNA 50/8.6MG TAB PO SCH ×2 (09:04→19:28)
[2019-01-25] MEDS: PANTOprazole 40 MG TAB PO SCH (09:04)
[2019-01-25] MEDS: MICONAZOLE NITRATE POWDER 43 GM TOP SCH ×2 (10:04→19:23)
[2019-01-25] MEDS ORDERED: POTASSIUM CHLORIDE 10 MEQ TABCR PO STA (13:03)
--- NOTE | 2019-01-25 13:42 | Psychiatric Progress Note ---
Date of Service January 25, 2019 Impression / Recommendations Impression The patient does not appear sedated today and it feels that there is a volitional component to not answering questions. She has received Seroquel 12.5 mg at HS the last 2 nights, but there is no note from nursing on 09/15 as to her sleep pattern. The liaison obtained info from the long-termfuneral home associate as below: Called [facility] and spoke with the fractionation plant supervisor sanitation superintendent. Inquired about Ativan and Seroquel use for the past month. According to staff, since her most recent CVA, she has not gotten any PRN Ativan, but she did receive Ativan 0.5mg @ 1500 regularly. She was also receiving Seroquel 12.5mg @ 0900 each day, and Seroquel 75mg @ HS. According to staff, she has not been acting the same since the CVA. At her baseline, she would be agitated/restless and attempt to get OOB frequently, but recently, she has been not getting OOB much at all. The patient has intermittantly been refusing medications, even when crushed an placed in applesauce. Her behavior at present does not seem much different from that at the long-term when she was on higher doses of Seroquel, so I doubt her presentation can be attributed to sedation from meds since she is on considerably less Seroquel at this point. there is no documentation that she has been agitated, and therefore I do not have any recommendations for meds at this time. I would encourage nursing to get her OOB during the day and provide stimulation and reorientation to prevent day/night flip and to address disorientation. Interval History Identifying Information 78 yo woman from [facility] whom we have been consulted to evaluate psychiatric meds and possible contribution to sedation. Chief Complaint None stated Subjective Subjective Patient was seen & assessed and interval progress reviewed. The patient is inher bed with eyes closed initially. She opens her eyes to verbal, but does not respond to any questions or simple commands. She gives a vague nod yes when I ask if she can hear me. She does not appear to be responding to internal stimuli. She looks at my eyes for an extended period of time, then closes her eyes and turns away. Physical Exam Psychiatric Patient does not answer questions Orientation: + uncooperative Vital Signs (Past 24 Hours) Last Vital Signs Temp 36.5 C 01/25/19 07:31 Pulse 89 01/25/19 07:31 Resp 16 01/25/19 07:31 BP 142/87 H 01/25/19 07:31 Pulse Ox 92 01/25/19 07:31 Results & Data Laboratory Results Laboratory Results - last 24 hr 01/25/19 05:52 Sodium 144 Potassium 3.3 L Chloride 112 H Carbon Dioxide 27 Anion Gap 5.0 BUN 11 Creatinine 0.70 Est Cr Clr Drug Dosing 71.9 Est GFR ( Amer) 97.5 Est GFR (Non-Af Amer) 84.2 BUN/Creatinine Ratio 16.2 Glucose 73 Calcium 8.1 L Current Inpatient Medications Current Inpatient Medications: Current Inpatient Medications Acetaminophen (Tylenol) 650 mg PO Q4H PRN PRN Reason: Pain or Fever Stop: 02/20/19 13:46 Al Hydrox/Mg Hydrox/Simethicone (Maalox) 15 ml PO Q4H PRN PRN Reason: Dyspepsia Stop: 02/20/19 13:46 Aspirin (Ecotrin Ectab) 81 mg PO QAM [facility] Stop: 02/21/19 08:59 Last Admin: 01/25/19 09:03 Dose: Not Given Documented by: Atorvastatin Calcium (Lipitor) 80 mg PO HS [facility] Stop: 02/20/19 20:59 Last Admin: 01/24/19 21:34 Dose: Not Given Documented by: Buspirone HCl (Buspar) 10 mg PO TID [facility] Stop: 02/20/19 13:59 Last Admin: 01/25/19 08:21 Dose: 10 mg Documented by: Digoxin (Lanoxin) 0.125 mg PO Q2D@1600 [facility] Stop: 02/20/19 15:59 Last Admin: 01/23/19 16:27 Dose: 0.125 mg Documented by: Magnesium Hydroxide (Milk Of Magnesia) 30 ml PO Q12H PRN PRN Reason: Constipation Stop: 02/20/19 13:46 Metoprolol Tartrate (Lopressor) 100 mg PO Q12 [facility] Stop: 02/20/19 20:59 Last Admin: 01/25/19 08:21 Dose: 100 mg Documented by: Metoprolol Tartrate (Lopressor) 2.5 mg IV Q4 PRN PRN Reason: Tachycardia Stop: 02/24/19 00:00 Miconazole Nitrate (Desenex) 1 appln TOP BID [facility] Stop: 01/28/19 20:59 Last Admin: 01/25/19 10:04 Dose: 1 appln Documented by: Mupirocin (Bactroban 2%) 1 appln EXT BID [facility] Stop: 02/22/19 09:44 Last Admin: 01/25/19 08:22 Dose: 1 appln Documented by: Ondansetron HCl (Zofran) 4 mg IV Q6H PRN PRN Reason: Nausea Stop: 02/20/19 13:46 Pantoprazole Sodium (Protonix) 40 mg PO QAM [facility] Stop: 02/21/19 08:59 Last Admin: 01/25/19 09:04 Dose: Not Given Documented by: Polyethylene Glycol (Miralax Powder Packet) 17 gm PO DAILY PRN PRN Reason: Constipation Stop: 02/20/19 13:46 Potassium Chloride (Klor-Con M20) 20 meq PO PM [facility] Stop: 02/20/19 20:59 Last Admin: 01/24/19 21:34 Dose: Not Given Documented by: Quetiapine Fumarate (Seroquel) 12.5 mg PO DAILY PRN PRN Reason: Agitation Stop: 02/22/19 13:40 Last Admin: 01/24/19 23:56 Dose: 12.5 mg Documented by: Ranitidine HCl (Zantac) 150 mg PO BID [facility] Stop: 02/20/19 20:59 Last Admin: 01/25/19 09:04 Dose: Not Given Documented by: Senna/Docusate Sodium (Senokot S) 2 tab PO BID [facility] Stop: 02/20/19 20:59 Last Admin: 01/25/19 09:04 Dose: Not Given Documented by: Venlafaxine HCl (Effexor Extended Release) 150 mg PO QAM [facility] Stop: 02/21/19 08:59 Last Admin: 01/25/19 09:03 Dose: Not Given Documented by: CPT Code CPT Code 46011
[2019-01-25] MEDS: DIGOXIN 0.125 MG TAB PO SCH (16:40)
[2019-01-25] MEDS: QUETIAPINE FUMARATE 25 MG TABLET PO PRN (19:15)
[2019-01-25] MEDS: ATORVASTATIN 40 MG TAB PO SCH (19:18)
[2019-01-25] MEDS: POTASSIUM CHLORIDE 20 MEQ TABCR PO SCH (19:19)
[2019-01-26 00:08] VITALS: TEMP 98.2
[2019-01-26 07:58] LABS: BUN Creatinine Ratio 17.1 (10-20); Calcium 8.6 mg/dl (8.5-10.1); Creatinine Clr Calc Pharmacy 62.9 ml/min; Est GFR (Non-African American) 71.6; Potassium 3.8 mmol/L (3.5-5.1)
[2019-01-26] MEDS: MUPIROCIN 2% OINT 22 GM TUBE EXT SCH (08:11)
[2019-01-26] MEDS: MICONAZOLE NITRATE POWDER 43 GM TOP SCH (08:12)
[2019-01-26] MEDS: VENLAFAXINE HCL XR 150 MG CAPXR PO SCH (08:13)
[2019-01-26] MEDS: PANTOprazole 40 MG TAB PO SCH (08:13)
[2019-01-26] MEDS: METOPROLOL TARTRATE 100 MG TAB PO SCH (08:13)
[2019-01-26] MEDS: ASPIRIN 81 MG ECTAB PO SCH (08:13)
[2019-01-26] MEDS: DOCUSATE SODIUM/SENNA 50/8.6MG TAB PO SCH (08:14)
[2019-01-26 08:19] VITALS: O2SAT 98
[2019-01-26] MEDS ORDERED: SODIUM CHLORIDE 0.45 % 1,000 ML IV SCH (08:45)
--- NOTE | 2019-01-26 09:29 | Hospitalist Progress Note ---
Date of Service January 26, 2019 delayed entry date of service 01/25/19 Assessment & Plan (1) Hypernatremia: This is a 78-year-old female who has profound vascular dementia, history of ischemic CVA x 2, recent spontaneous non-aneurysmal left thalamic IPH 05/2018, hx of R frontotemporal aneurysm s/p craniotomy and clip, PAF, CAD w/ prior stenting of RCA in 1999, diastolic CHF, nonobstructive carotid occlusive disease, SUSY intolerant to CPAP, history of DVT and PE, HTN, HLD, hypothyroidism, CKD stage III, depression who presents to [facility] ED from [facility] secondary to lethargy and cyanotic nail beds. In ED pt noted to have hypernatremia 154, acute kidney insufficiency bun/cr 33/1.04, mag elevated 2.6, Urine clean, CT head multiple old infarcts, CXR w/o acute abnormality, ecg aflutter Free water deficit 3.9L Started on 1/2 NS at 125cc/hr Hyponatremia likely secondary to dehydration from poor oral intake improved In terms of lethargy: CT head negative for acute process Dehydration contributing Secondary to medications, currently on risperidone, Effexor, Seroquel Psychiatry service consulted for psychiatric medications evaluation Check with [facility], patient not taking [place] or Ativan for at least a month now Seroquel changed to PRN more awake, eating more as per member of technical staff Infection ruled out Afebrile, no leukocytosis UA: does not indicate UTI blood cultures negative improving daily Seroquel now PRN recommend NO Benzodiazepenes, Narcotics Psych following (2) CKD (chronic kidney disease) stage 3, GFR 30-59 ml/min: -baseline Cr 0.8, now with mild acute renal insufficiency -BUN/Cr 33/ 1.04 at baseline (3) Atrial flutter: -Patient with history of paroxysmal atrial fibrillation/flutter requiring numerous ablation and cardioversions in past -Currently on metoprolol and digoxin therapy, metoprolol recently titrated up secondary to RVR -Patient is not on anticoagulation despite chadsvasc 7 given recent intraparenchymal hemorrhage and high fall risk -Further given patient's advanced dementia do not feel it would improve QOL at this point Continue metoprolol and digoxin (4) Vascular dementia: -with intermittent agitation and evening flight risk per family -continue buspar - seroquel changed to PRN (5) HTN (hypertension): BP stable at this time Continue metoprolol Hold lisinopril (6) History of CVA (cerebrovascular accident): -Continue ASA and statin -Recent admission for CVA workup -CT of head :multiple old infarcts in patient with significant vascular dementia -Not a candidate for oral anticoagulation (7) Diastolic CHF: -hypovolemic on exam -echo 01/12/19 preserved EF, mild LVH, severe left atrial dilation, mild -continue BB, but hold lisinopril for now -not on any diuretics -monitor daily weights and strict I and O secondary to IVF on the dry side (8) Depression: -mood stable with intermittent agitation -Continue venlafaxine, Seroquel, buspar (seroquel reduced to 12.5mg daily and buspar reduced to 10mg tid upon last discharge) Psychiatry service consulted for medication evaluation in light of patient's lethargy (9) GERD (gastroesophageal reflux disease): -continue PPI and ranitidine (10) DVT prophylaxis: -SCDS, given recent hx of IPH will avoid chemoprophylaxis Disposition: return to [facility] once medically able, case management consulted Follow up: PCP Dr. Mckinney/Majo Ramon PA-C upon discharge Subjective ff up for lethargy seen resting in bed, awake smiling, answers yes/no, nods head denies headache, chest pain, dyspnea, pain no other symptoms tries to hold/shake my hand denies other symptoms Physical Exam Vital Signs (Past 24 Hours): Last Vital Signs Temp 36.8 C 01/26/19 07:08 Pulse 76 01/26/19 07:08 Resp 18 01/26/19 07:08 BP 124/68 01/26/19 07:08 Pulse Ox 98 01/26/19 07:08 Physical Exam: General- alert, not in distress, no acc muscle use Eyes- anicteric Neck- no JVD Lungs- clear BS BL no crackles no wheezing Heart- normal rate, regular rhythm; no murmurs Abdomen- normal bowel sounds, nondistended, soft, nontender Extremities- no pretibial edema, no calf tenderness Neuro- alert, no gross focal neurologic deficits noted Skin- warm & dry Results & Data Laboratory Results all noted and reviewed (1) Atrial flutter Atrial flutter type: unspecified Qualified Code(s): I48.92 - Unspecified atrial flutter (2) Vascular dementia Dementia behavioral disturbance: with behavioral disturbance Qualified Code(s): F01.51 - Vascular dementia with behavioral disturbance (3) HTN (hypertension) Hypertension type: essential hypertension Qualified Code(s): I10 - Essential (primary) hypertension (4) Diastolic CHF Heart failure chronicity: chronic Qualified Code(s): I50.32 - Chronic diastolic (congestive) heart failure (5) Depression Depression Type: unspecified Qualified Code(s): F32.9 - Major depressive disorder, single episode, unspecified (6) GERD (gastroesophageal reflux disease) Esophagitis presence: without esophagitis Qualified Code(s): K21.9 - Gastro- esophageal reflux disease without esophagitis
[2019-01-26] MEDS ORDERED: LISINOPRIL 40 MG TAB PO SCH (09:30)
--- NOTE | 2019-01-26 09:46 | Hospitalist Progress Note ---
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 In ED pt noted to have hypernatremia 154, acute kidney insufficiency bun/cr 33/1.04, mag elevated 2.6, Urine clean, CT head multiple old infarcts, CXR w/o acute abnormality, ecg aflutter Hyponatremia likely secondary to dehydration from poor oral intake improved In terms of lethargy: CT head negative for acute process Dehydration contributing: given IV fluids will need more encouragement to take more oral fluids check Na level in 2-3 days, then regularly Secondary to medications, currently on risperidone, Effexor, Seroquel Psychiatry service consulted for psychiatric medications evaluation Check with [facility], patient not taking [place] or Ativan for at least a month now Seroquel changed to PRN more awake, eating more as per staff attorney improving daily recommend NO Benzodiazepenes, Narcotics as per Psych: I would encourage nursing to get her OOB during the day and provide stimulation and reorientation to prevent day/night flip and to address disorientation. Infection ruled out Afebrile, no leukocytosis UA: does not indicate UTI blood cultures negative (2) CKD (chronic kidney disease) stage 3, GFR 30-59 ml/min: -baseline Cr 0.8, now with mild acute renal insufficiency -BUN/Cr 33/ 1.04 at baseline (3) Atrial flutter: -Patient with history of paroxysmal atrial fibrillation/flutter requiring numerous ablation and cardioversions in past -Currently on metoprolol and digoxin therapy, metoprolol recently titrated up secondary to RVR -Patient is not on anticoagulation despite chadsvasc 7 given recent intraparenchymal hemorrhage and high fall risk -Further given patient's advanced dementia do not feel it would improve QOL at this point Continue metoprolol and digoxin (4) Vascular dementia: -with intermittent agitation and evening flight risk per family -continue buspar - seroquel changed to PRN (5) HTN (hypertension): reduce Lisinopril to 20mg po daily continue Metoprolol monitor daily (6) History of CVA (cerebrovascular accident): -Continue ASA and statin -Recent admission for CVA workup -CT of head :multiple old infarcts in patient with significant vascular dementia -Not a candidate for oral anticoagulation (7) Diastolic CHF: -echo 01/12/19 preserved EF, mild LVH, severe left atrial dilation, mild -continue BB (8) Depression: Psychiatry service consulted for medication evaluation in light of patient's lethargy management per #1 (9) GERD (gastroesophageal reflux disease): -continue PPI and ranitidine (10) DVT prophylaxis: -SCDS, given recent hx of IPH will avoid chemoprophylaxis Disposition: return to [facility] Follow up: PCP Dr. Mckinney/Majo Ramon PA-C Subjective ff up for lethargy seen resting in bed, sleeping but easily rousable not in distress nods/shakes head when asked questions no headache, pain, dyspnea was able to take pills , have some breakfast this morning no other symptoms noted Physical Exam Vital Signs (Past 24 Hours): Last Vital Signs Temp 36.8 C 01/26/19 07:08 Pulse 76 01/26/19 07:08 Resp 18 01/26/19 07:08 BP 124/68 01/26/19 07:08 Pulse Ox 98 01/26/19 07:08 Physical Exam: General- not in distress, no accessory muscle use Eyes- anicteric Neck- no JVD Lungs- clear breath sounds bilaterally Heart- normal rate, regular rhythm; no murmurs Abdomen- normal bowel sounds, nondistended, soft, nontender Extremities- no pretibial edema, no calf tenderness Neuro- alert no new gross focal neurologic deficits Skin- warm & dry Results & Data Laboratory Results Laboratory Results - last 24 hr 01/26/19 06:44 Sodium 147 H Potassium 3.8 D Chloride 113 H Carbon Dioxide 30 Anion Gap 3.0 BUN 14 Creatinine 0.80 Est Cr Clr Drug Dosing 62.9 Est GFR ( Amer) 83.0 Est GFR (Non-Af Amer) 71.6 BUN/Creatinine Ratio 17.1 Glucose 76 Calcium 8.6 (1) Atrial flutter Atrial flutter type: unspecified Qualified Code(s): I48.92 - Unspecified atrial flutter (2) Vascular dementia Dementia behavioral disturbance: with behavioral disturbance Qualified Code(s): F01.51 - Vascular dementia with behavioral disturbance (3) HTN (hypertension) Hypertension type: essential hypertension Qualified Code(s): I10 - Essential (primary) hypertension (4) Diastolic CHF Heart failure chronicity: chronic Qualified Code(s): I50.32 - Chronic diastolic (congestive) heart failure (5) Depression Depression Type: unspecified Qualified Code(s): F32.9 - Major depressive disorder, single episode, unspecified (6) GERD (gastroesophageal reflux disease) Esophagitis presence: without esophagitis Qualified Code(s): K21.9 - Gastro- esophageal reflux disease without esophagitis
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
[2019-01-26 12:27] VITALS: BP 124/68; PULSE 76
== END 2019-01-26 13:02 | DRG 641 ==
LOC: ED 07:56 → 2N 11:40

== ENCOUNTER 2019-03-01 06:15 | Inpatient (IN) ==
[2019-03-01 06:34] LABS: Basophils # (auto) 0.01 K/uL (0-0.2); Basophils % (auto) 0.2 %; Hematocrit (blood only) 37.3 % (37-47); Hemoglobin 12.4 g/dL (12.0-16.0); Immature Granulocytes # (auto) 0.02 K/uL (0.00-0.02); Immature Granulocytes % (auto) 0.3 %; Lymphocytes # (auto) 1.25 K/uL (1.2-3.4); Lymphocytes % (auto) 21.4 %; Mean Corpuscular Hgb Conc 33.2 g/dL (32-36); Mean Corpuscular Volume 89.4 fL (80-100); Mean Platelet Volume 8.9 fL (7.4-10.4); Monocytes # (auto) 0.56 K/uL (0.11-0.59); Monocytes % (auto) 9.6 %; Neutrophils # (auto) 4.01 K/uL (1.4-6.5); Neutrophils % (auto) 68.5 %; Platelet Count 260 K/uL (130-400); RDW Coefficient of Variation 15.9 % (11.5-14.5); Red Blood Count 4.17 M/uL (4.2-5.4); White Blood Count 5.85 K/uL (4.8-10.8)
[2019-03-01 06:47] LABS: INR 1.1 (0.9-1.1); Partial Thromboplastin Ratio 0.8; Partial Thromboplastin Time 22.8 Seconds (21.0-31.0); Prothrombin Time 11.2 Seconds (9.0-12.0)
[2019-03-01 06:51] LABS: Alanine Aminotransferase 17 U/L (12-78); Albumin Level 3.7 gm/dl (3.4-5.0); Aspartate Aminotransferase 20 U/L (15-37); BUN Creatinine Ratio 20.4 (10-20); Blood Urea Nitrogen 18 mg/dl (7-18); Carbon Dioxide 30 mmol/L (21-32); Chloride 109 mmol/L (98-107); Est GFR (Non-African American) 62.1; Glucose 85 mg/dl (70-99); Magnesium 2.2 mg/dl (1.8-2.4); Potassium 4.1 mmol/L (3.5-5.1); Sodium 142 mmol/L (136-145)
[2019-03-01 07:00] LABS: Albumin Globulin Ratio 1.1 (0.9-2); Alkaline Phosphatase 82 U/L (45-117); Bilirubin,Total 0.5 mg/dl (0.2-1); Globulin 3.5 gm/dl (2.5-4.0); Total Protein 7.2 gm/dl (6.4-8.2); Troponin I 0.885 ng/ml (0-0.045)
--- NOTE | 2019-03-01 07:06 | CT Scan Report ---
HEAD CT NONCONTRAST CT DOSE: 1074.96 mGy.cm HISTORY: Stroke symptoms. Stroke evaluation TECHNIQUE: Multiaxial CT images of the head were performed without the use of intravenous contrast. A utomated exposure control was utilized for this study. A dose lowering technique was utilized adheri ng to the principles of ALARA. Comparison: Head CT 01/21/2019. Findings: The paranasal sinuses and mastoid air cells are clear. The calvarium and skull base are int act. There is no mass, hematoma, midline shift, acute infarct. White matter hypodensity is nonspecifi c but suggestive of microvascular ischemic change. The ventricles and sulci demonstrate mild age-rela rolo involutional changes. Multiple old scattered infarcts are again noted. There is no aneurysm clip at the basilar cisterns and right frontal craniotomy changes. This remains unchanged. Impression: No significant change compared to the prior study. No acute intracranial abnormality. Multiple old in farcts are again noted. Electronically signed by: Tapan Cat M.D. 03/01/2019 7:05 AM
--- NOTE | 2019-03-01 07:15 | XRay Report ---
XR chest 1V portable CLINICAL HISTORY: weakness dyspnea COMPARISON STUDY: 01/21/2019 FINDINGS: The bones soft tissues and hemidiaphragms are normal. The cardiomediastinal silhouette is n ormal. The lungs are clear. The pulmonary vasculature is normal. IMPRESSION: Negative chest. The above report was generated using voice recognition software. It may contain grammatical, syntax or spelling errors. Electronically signed by: David Fields M.D. 03/01/2019 7:14 AM
--- NOTE | 2019-03-01 09:26 | History & Physical Report ---
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 -Difficult to fully assess due to impaired cognitive state, history of vascular dementia -Facial droop has resolved. Still with garbled speech, ? mild LUE weakness -Recently admitted in January 2019 for strokelike symptoms, unable to obtain MRI brain at that time due to patient uncooperative * Also performed during admission: Echo with bubble study: preserved EF of 60- 65%, mild aortic stenosis. Carotid Doppler ultrasound: plaque in left carotid as well as age-indeterminate thrombosis in distal RCA, new since 2013 -Will attempt to get brain MRI with/without contrast today, ordered for Ativan to be given prior to study -Hold off on further imaging for now, per neuro -Will give full dose aspirin once passes dysphagia screen -Neuro checks, PT, OT, speech therapy evaluations -Routine neurology consult (2) Elevated troponin: Initial troponin elevated at 0.885 -Remote history of CAD with RCA stent in 1999 -Denies chest pain, no acute EKG changes -Continue trending troponin, monitor on telemetry (3) Atrial fibrillation: Today's EKG with A. fib at 84 bpm -Not on anticoagulation due to history of hemorrhagic stroke as well as frequent falls -Continue digoxin and Lopressor (4) Vascular dementia: Oriented to person at baseline -Seroquel and Ativan recently discontinued, thought to be contributing to lethargy during the day -Seen by geriatric psychiatrist earlier this week, mirtazapine dose increased (5) Infected skin tear: Recently treated for infected skin tear on her right forearm that grew MRSA sensitive to Bactrim. Completed course of Bactrim on 02/24. -Wound care consult (6) HTN (hypertension): Allow for permissive HTN in setting of possible ischemic event -Hold lisinopril for now (7) Diastolic CHF: Euvolemic. Closely monitor volume status (8) CKD (chronic kidney disease) stage 3, GFR 30-59 ml/min: Kidney function at baseline -Continue to monitor with daily BMP (9) SUSY (obstructive sleep apnea): CPAP intolerant DVT Ppx: SCDs, history of hemorrhagic stroke in May 2018 Code status: DNR per documentation sent from [facility] PCP: Majo Ramon PA-C Dispo: Observation med telemetry. Discharge planning for return to [facility] once medically appropriate. Patient seen in collaboration with Dr. Erickson. Please see addendum. 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 Patient was last seen well at 0300 but when evaluated 0520 this morning, staff noted a left facial droop and garbled speech. Per discussion with daughter Autumn on phone, patient is alert and oriented to person at baseline and is able to ambulate by wheelchair/walker with assistance. Seemed more confused this morning and with garbled speech, per daughter. Was brought to ED for further evaluation via EMS. Exam limited due to patient's cognitive status. Patient responds to painful stimuli and is able to tell me her name only. Denies any headache, chest pain or difficulty breathing. Unable to determine the remainder of ROS. Moves all 4 extremities. Mild LUE weakness noted by ED physician during initial exam. Was recently admitted January 12- due to similar symptoms of slurred speech, also with right-sided weakness. MRI unable to be obtained due to patient unable to cooperate. Echo with bubble study revealed preserved EF of 60-65%, mild aortic stenosis. Carotid Doppler ultrasound revealed plaque in left carotid as well as age-indeterminate thrombosis in distal RCA, new since 2013. Was seen by neurology service and started on aspirin with recommended sedation to continue at discharge. Of note, was recently treated for infected skin tear on her right forearm that grew MRSA sensitive to Bactrim. Completed course of Bactrim on 02/24. Allergies Allergy/AdvReac Type Severity Reaction Status Date / Time Penicillins Allergy Intermediate HIVES Verified 03/01/19 06:35 pneumococcal vaccine Allergy Mild FEVER/RASH Verified 03/01/19 06:35 carbenicillin Allergy Unknown "DON'T Verified 03/01/19 06:35 REMEMBER" Bactrim AdvReac Mild GI SYMPTOMS Verified 09/20/17 23:30 sulfamethoxazole AdvReac Mild GI SYMPTOMS Verified 03/01/19 06:35 trimethoprim AdvReac Mild GI SYMPTOMS Verified 03/01/19 06:35 Home Medications Home Medications Medication Instructions Recorded Confirmed Type atorvastatin 80 mg PO HS #0 06/22/15 03/01/19 History omeprazole 20 mg PO QAM #0 cap 02/08/16 03/01/19 History digoxin 0.125 mg PO Q2D #0 05/10/18 03/01/19 History Fleet Enema 118 ml [place] HS PRN 01/12/19 03/01/19 History Miconazorb AF 1 applic TOPICAL BID PRN 01/12/19 03/01/19 History acetaminophen 325 mg PO Q4H PRN MDD 3 /01/12/19 03/01/19 History HOURS. bisacodyl 10 mg [place] DAILY PRN 01/12/19 03/01/19 History magnesium oxide 400 mg PO QAM 01/12/19 03/01/19 History potassium chloride 20 meq PO PM 01/12/19 03/01/19 History ranitidine HCl 150 mg PO BID 01/12/19 03/01/19 History aspirin [Ecotrin Low Strength] 81 mg PO QAM 81 Days #81 tab 01/17/19 03/01/19 Rx buspirone 10 mg PO TID 01/21/19 03/01/19 History metoprolol tartrate 100 mg PO BID 01/21/19 03/01/19 History Med Pass Suppliment 120 ml PO TID 03/01/19 03/01/19 History linaclotide [Linzess] 145 mcg PO DAILYBB 03/01/19 03/01/19 History lisinopril 20 mg PO QAM 03/01/19 03/01/19 History mirtazapine 45 mg PO HS 03/01/19 03/01/19 History mupirocin 1 applic TOPICAL BID 03/01/19 03/01/19 History polyethylene glycol 3350 [Miralax] 17 g PO QAM 03/01/19 03/01/19 History sennosides-docusate sodium 2 tab PO BID 03/01/19 03/01/19 History [Senna-S] Past Med/Surg History Medical History Atrial fibrillation (Chronic) Vascular dementia (Chronic) HTN (hypertension) (Chronic) History of CVA (cerebrovascular accident) (Chronic) SUSY (obstructive sleep apnea) (Chronic) Diastolic CHF (Chronic) GERD (gastroesophageal reflux disease) (Chronic) CKD (chronic kidney disease) stage 3, GFR 30-59 ml/min (Chronic) Depression (Chronic) History of pulmonary embolus (PE) (Resolved) Atrial fibrillation (Chronic) HLD (hyperlipidemia) (Chronic) Hypothyroidism (Chronic) Stroke (Resolved) Surgical History History of appendectomy (Resolved) History of resection of small bowel (Resolved) secondary to high grade SBO History of total left knee replacement (TKR) (Resolved) History of percutaneous coronary intervention (Resolved) s/p Stent of RCA in 1999 History of radiofrequency ablation procedure for cardiac arrhythmia (Resolved) S/P PVI ablation in 2009 for afib/flutter s/p CTI flutter ablation in 2014 S/P Cardioversion in 04/2015 and 12/27/15 H/O craniotomy (Resolved) Right frontotemporal craniotomy with aneurysm clip Family History Other Family history non-contributory Social History Preferred Language: Maori Communication Ability: dementia 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 current occupational status: retired Other Information That Helps Us Care for You: No Feels Safe at Home: Yes Safety Concerns: Feels Safe At This Time Smoking Status: Never smoker Do You Dip or Chew Tobacco: No Second Hand Exposure: No Tobacco Cessation Education Requested by Patient: No Hx Alcohol Use: No Hx Substance Use: No Review of Systems Review of Systems: Unobtainable due to cognitive status Physical Exam Physical Exam: General Appearance: WD/WN, no apparent distress, elderly woman, lethargic but responds to painful stimuli Head: normocephalic, atraumatic Eyes: normal inspection, PERRL, EOMI ENT: hearing grossly normal, pharynx normal (moist mucous membranes) Neck: supple, no JVD, no adenopathy Respiratory/Chest: lungs clear to auscultation. No wheezes, rales or rhonci. No respiratory distress or accessory muscle use Cardiovascular: regular rate, rhythm, systolic murmur, normal peripheral pulses Abdomen/GI: normal bowel sounds, soft, non-tender to palpation Extremities/Musculoskelatal: normal inspection, no calf tenderness, normal capillary refill, no pedal edema Neurologic/Psych: alert, oriented to person only. Unable to follow commands 2/2 cognitive status. Moves all 4 extremities Skin: normal color, warm/dry. R forearm bandage in place Results & Data Vital Signs (Past 12 Hours) Vital Signs Temp Pulse Pulse Resp BP BP Pulse Ox 03/01/19 09:00 76 18 107/85 98 03/01/19 08:20 76 18 134/66 98 03/01/19 08:01 96 H 25 H 134/56 L 96 03/01/19 08:00 99 H 29 H 94 03/01/19 07:52 106 H 27 H 147/74 H 95 03/01/19 07:45 74 18 147/74 H 98 03/01/19 07:30 95 H 16 95 03/01/19 07:15 76 18 98 03/01/19 07:00 72 23 96 03/01/19 06:57 70 18 146/64 H 98 03/01/19 06:54 76 18 146/64 H 03/01/19 06:46 71 20 119/57 L 98 03/01/19 06:40 97 03/01/19 06:31 85 19 146/86 H 03/01/19 06:30 94 H 18 03/01/19 06:29 78 18 03/01/19 06:27 78 18 103/66 03/01/19 06:15 36.5 C 80 17 146/86 H 99 Laboratory Results Short CBC 03/01/19 Range/Units 06:23 WBC 5.85 (4.8-10.8) K/uL Hgb 12.4 (12.0-16.0) g/dL Hct 37.3 (37-47) % Plt Count 260 (130-400) K/uL BMP 03/01/19 06:23 Sodium 142 Potassium 4.1 Chloride 109 H Carbon Dioxide 30 BUN 18 Creatinine 0.90 Glucose 85 Calcium 9.0 Cardiac Enzymes 03/01/19 Range/Units 06:23 Troponin I 0.885 H* (0-0.045) ng/ml Liver Function 03/01/19 Range/Units 06:23 Total Bilirubin 0.5 (0.2-1) mg/dl AST 20 (15-37) U/L ALT 17 (12-78) U/L Alkaline Phosphatase 82 (45-117) U/L Albumin 3.7 (3.4-5.0) gm/dl Diagnostic Findings CT head: Impression:No significant change compared to the prior study. No acute intracranial abnormality. Multiple old infarcts are again noted. CXR: IMPRESSION: Negative chest. ECG Rhythm: atrial fibrillation Supervising Physician Co-Signing Physician Notes Attending addendum The patient was seen and examined in the emergency room This is a 78-year-old female with PMH of profound vascular dementia, history of ischemic CVA x 2, recent spontaneous non-aneurysmal left thalamic IPH 05/2018, hx of R frontotemporal aneurysm s/p craniotomy and clip, PAF, CAD (s/p stenting of RCA in 1999), diastolic CHF, nonobstructive carotid occlusive disease, SUSY intolerant to CPAP, history of DVT and PE, HTN, HLD, hypothyroidism, CKD stage III, depression who presents to [facility] ED from [facility] with left-sided facial droop and slurred speech. She was noted to be not in any distress She has profound dementia and no history is possible from her. 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 Admission labs and imaging studies reviewed Doubt any new stroke Please send a stroke workups were negative And we will not repeat this Agree with assessment and plan as documented above by Kellie Erickson (1) Diastolic CHF Heart failure chronicity: chronic Qualified Code(s): I50.32 - Chronic diastolic (congestive) heart failure (2) Vascular dementia Dementia behavioral disturbance: with behavioral disturbance Qualified Code(s): F01.51 - Vascular dementia with behavioral disturbance (3) HTN (hypertension) Hypertension type: essential hypertension Qualified Code(s): I10 - Essential (primary) hypertension
[2019-03-01] MEDS ORDERED: LORazepam 0.5 MG/1 ML VIAL IV ONE (11:20)
[2019-03-01] MEDS ORDERED: PHARMACIST DISCHARGE MED REC CONSULT PRN (13:55)
--- NOTE | 2019-03-01 13:58 | Emergency Department Note ---
Entered by Lexie Rubio acting as a scribe for Sean Joseph M.D. History of Present Illness General Chief complaint: Stroke Alert Stated complaint: STROKE SYMPTOMS Source: patient and EMS History of Present Illness Onset (ago): hour(s) (2 hours) Location: head Pain Consistency: + other (episode) Quality: + other (stroke alert) The patient is a 78 year old female that is presenting to the Emergency Room with complaints of an episode of a possible stroke. The patient was last seen normal at 0300 by facility staff where the patient lives. EMS states that the patient was found to have some left arm weakness around 0520 this morning and that her speech had become mildly garbled. She presents at the Emergency Room today as a stroke alert. The patient states that it is January and that she is in [place]. She denies taking any anti-coagulants currently. The patient has a history of stroke. The HPI and ROS are limited due to the patient's current mental status. Home Medications Home Medications Medication Instructions Recorded Confirmed Type atorvastatin 80 mg PO HS #0 06/22/15 03/01/19 History omeprazole 20 mg PO QAM #0 cap 02/08/16 03/01/19 History digoxin 0.125 mg PO Q2D #0 05/10/18 03/01/19 History Fleet Enema 118 ml SD HS PRN 01/12/19 03/01/19 History Miconazorb AF 1 applic TOPICAL BID PRN 01/12/19 03/01/19 History acetaminophen 325 mg PO Q4H PRN MDD 3 GRAMS/24 01/12/19 03/01/19 History HOURS. bisacodyl 10 mg SD DAILY PRN 01/12/19 03/01/19 History magnesium oxide 400 mg PO QAM 01/12/19 03/01/19 History potassium chloride 20 meq PO PM 01/12/19 03/01/19 History ranitidine HCl 150 mg PO BID 01/12/19 03/01/19 History aspirin [Ecotrin Low Strength] 81 mg PO QAM 81 Days #81 tab 01/17/19 03/01/19 Rx buspirone 10 mg PO TID 01/21/19 03/01/19 History metoprolol tartrate 100 mg PO BID 01/21/19 03/01/19 History Med Pass Suppliment 120 ml PO TID 03/01/19 03/01/19 History linaclotide [Linzess] 145 mcg PO DAILYBB 03/01/19 03/01/19 History lisinopril 20 mg PO QAM 03/01/19 03/01/19 History mirtazapine 45 mg PO HS 03/01/19 03/01/19 History mupirocin 1 applic TOPICAL BID 03/01/19 03/01/19 History polyethylene glycol 3350 [Miralax] 17 g PO QAM 03/01/19 03/01/19 History sennosides-docusate sodium 2 tab PO BID 03/01/19 03/01/19 History [Senna-S] Allergies Allergy/AdvReac Type Severity Reaction Status Date / Time Penicillins Allergy Intermediate HIVES Verified 03/01/19 06:35 pneumococcal vaccine Allergy Mild FEVER/RASH Verified 03/01/19 06:35 carbenicillin Allergy Unknown "DON'T Verified 03/01/19 06:35 REMEMBER" Bactrim AdvReac Mild GI SYMPTOMS Verified 09/20/17 23:30 sulfamethoxazole AdvReac Mild GI SYMPTOMS Verified 03/01/19 06:35 trimethoprim AdvReac Mild GI SYMPTOMS Verified 03/01/19 06:35 Past Med/Surg History Medical History Atrial fibrillation (Chronic) Vascular dementia (Chronic) HTN (hypertension) (Chronic) History of CVA (cerebrovascular accident) (Chronic) SUSY (obstructive sleep apnea) (Chronic) Diastolic CHF (Chronic) GERD (gastroesophageal reflux disease) (Chronic) CKD (chronic kidney disease) stage 3, GFR 30-59 ml/min (Chronic) Depression (Chronic) History of pulmonary embolus (PE) (Resolved) Atrial fibrillation (Chronic) HLD (hyperlipidemia) (Chronic) Hypothyroidism (Chronic) Stroke (Resolved) Surgical History History of appendectomy (Resolved) History of resection of small bowel (Resolved) secondary to high grade SBO History of total left knee replacement (TKR) (Resolved) History of percutaneous coronary intervention (Resolved) s/p Stent of RCA in 1999 History of radiofrequency ablation procedure for cardiac arrhythmia (Resolved) S/P PVI ablation in 2009 for afib/flutter s/p CTI flutter ablation in 2014 S/P Cardioversion in 04/2015 and 12/27/15 H/O craniotomy (Resolved) Right frontotemporal craniotomy with aneurysm clip Family History Other Family history non-contributory Social History Preferred Language: Estonian Communication Ability: dementia Title Search Manager Required: No Beliefs That Will Affect Care: None marital status: Current Living Situation: Senior Care [facility] current occupational status: retired Other Information That Helps Us Care for You: No Feels Safe at Home: Yes Safety Concerns: Feels Safe At This Time Smoking Status: Never smoker Do You Dip or Chew Tobacco: No Second Hand Exposure: No Tobacco Cessation Education Requested by Patient: No Hx Alcohol Use: No Hx Substance Use: No Review of Systems See HPI for pertinent positives & negatives. The HPI and ROS are limited due to the patient's current mental status. Physical Exam Vital Signs Vital Signs - 24 hr 03/01/19 06:15 03/01/19 06:27 03/01/19 06:29 Temperature 36.5 C Temperature Source Oral Sepsis Recent Fever Within 48 Hours No Sepsis Action Taken by Nursing No Action Required Pulse Rate 80 78 78 Pulse Rate [Apical] Pulse Rate from SpO2 Sensor Pulse Rhythm [Apical] Pulse Strength [Apical] Respiratory Rate 17 18 18 Respiratory Effort / Characteristics Non-Labored Spontaneous Respiratory Depth Normal Respiratory Pattern Blood Pressure 146/86 H 103/66 Blood Pressure [Right Arm] Blood Pressure Mean 106 78 Blood Pressure Mean [Right Arm] Blood Pressure Position Lying Blood Pressure Position [Right Arm] Pulse Oximetry 99 Oxygen Delivery Method Room Air 03/01/19 06:30 03/01/19 06:31 03/01/19 06:40 Temperature Temperature Source Sepsis Recent Fever Within 48 Hours Sepsis Action Taken by Nursing Pulse Rate 94 H 85 Pulse Rate [Apical] Pulse Rate from SpO2 Sensor Pulse Rhythm [Apical] Pulse Strength [Apical] Respiratory Rate 18 19 Respiratory Effort / Characteristics Respiratory Depth Respiratory Pattern Blood Pressure 146/86 H Blood Pressure [Right Arm] Blood Pressure Mean 106 Blood Pressure Mean [Right Arm] Blood Pressure Position Blood Pressure Position [Right Arm] Pulse Oximetry 97 Oxygen Delivery Method Room Air 03/01/19 06:46 03/01/19 06:54 04/23/19 06:57 Temperature Temperature Source Sepsis Recent Fever Within 48 Hours Sepsis Action Taken by Nursing Pulse Rate 71 76 Pulse Rate [Apical] 70 Pulse Rate from SpO2 Sensor 74 Pulse Rhythm [Apical] Irregular Pulse Strength [Apical] Normal Respiratory Rate 20 18 18 Respiratory Effort / Characteristics Non-Labored Spontaneous Respiratory Depth Normal Respiratory Pattern Regular Blood Pressure 119/57 L 146/64 H Blood Pressure [Right Arm] 146/64 H Blood Pressure Mean 77 91 Blood Pressure Mean [Right Arm] 91 Blood Pressure Position Blood Pressure Position [Right Arm] Lying Pulse Oximetry 98 98 Oxygen Delivery Method Room Air 03/01/19 07:00 03/01/19 07:15 03/01/19 07:30 Temperature Temperature Source Sepsis Recent Fever Within 48 Hours Sepsis Action Taken by Nursing Pulse Rate 72 95 H Pulse Rate [Apical] 76 Pulse Rate from SpO2 Sensor 73 94 H Pulse Rhythm [Apical] Irregular Pulse Strength [Apical] Normal Respiratory Rate 23 18 16 Respiratory Effort / Characteristics Non-Labored Spontaneous Respiratory Depth Normal Respiratory Pattern Regular Blood Pressure Blood Pressure [Right Arm] Blood Pressure Mean Blood Pressure Mean [Right Arm] Blood Pressure Position Blood Pressure Position [Right Arm] Pulse Oximetry 96 98 95 Oxygen Delivery Method Room Air 03/01/19 07:45 03/01/19 07:52 03/01/19 08:00 Temperature Temperature Source Sepsis Recent Fever Within 48 Hours Sepsis Action Taken by Nursing Pulse Rate 106 H 99 H Pulse Rate [Apical] 74 Pulse Rate from SpO2 Sensor 64 91 H Pulse Rhythm [Apical] Irregular Pulse Strength [Apical] Normal Respiratory Rate 18 27 H 29 H Respiratory Effort / Characteristics Non-Labored Spontaneous Non-Labored Spontaneous Respiratory Depth Normal Normal Respiratory Pattern Regular Regular Blood Pressure 147/74 H Blood Pressure [Right Arm] 147/74 H Blood Pressure Mean 98 Blood Pressure Mean [Right Arm] 98 Blood Pressure Position Blood Pressure Position [Right Arm] Lying Pulse Oximetry 98 95 94 Oxygen Delivery Method Room Air Room Air 03/01/19 08:01 03/01/19 08:02 03/01/19 08:20 Temperature Temperature Source Sepsis Recent Fever Within 48 Hours Sepsis Action Taken by Nursing Pulse Rate 96 H 106 H Pulse Rate [Apical] 76 Pulse Rate from SpO2 Sensor 64 57 L Pulse Rhythm [Apical] Irregular Pulse Strength [Apical] Normal Respiratory Rate 25 H 20 18 Respiratory Effort / Characteristics Non-Labored Spontaneous Respiratory Depth Normal Respiratory Pattern Regular Blood Pressure 134/56 L Blood Pressure [Right Arm] 134/66 Blood Pressure Mean 82 Blood Pressure Mean [Right Arm] 88 Blood Pressure Position Blood Pressure Position [Right Arm] Lying Pulse Oximetry 96 96 98 Oxygen Delivery Method Room Air 03/01/19 08:30 03/01/19 09:00 03/01/19 09:01 Temperature Temperature Source Sepsis Recent Fever Within 48 Hours Sepsis Action Taken by Nursing Pulse Rate 92 H 100 H 86 Pulse Rate [Apical] 76 Pulse Rate from SpO2 Sensor 93 H 102 H 77 Pulse Rhythm [Apical] Irregular Pulse Strength [Apical] Normal Respiratory Rate 21 20 17 Respiratory Effort / Characteristics Non-Labored Spontaneous Respiratory Depth Normal Respiratory Pattern Regular Blood Pressure 148/75 H 107/85 Blood Pressure [Right Arm] 107/85 Blood Pressure Mean 99 92 Blood Pressure Mean [Right Arm] 92 Blood Pressure Position Blood Pressure Position [Right Arm] Lying Pulse Oximetry 89 L 96 96 Oxygen Delivery Method Room Air 03/01/19 09:30 03/01/19 10:00 03/01/19 10:04 Temperature Temperature Source Sepsis Recent Fever Within 48 Hours Sepsis Action Taken by Nursing Pulse Rate 100 H 83 Pulse Rate [Apical] 89 89 Pulse Rate from SpO2 Sensor 95 H 80 Pulse Rhythm [Apical] Irregular Irregular Pulse Strength [Apical] Normal Normal Respiratory Rate 17 21 17 Respiratory Effort / Characteristics Non-Labored Spontaneous Non-Labored Spontaneous Respiratory Depth Normal Normal Respiratory Pattern Regular Regular Blood Pressure 116/86 131/63 Blood Pressure [Right Arm] 116/86 131/63 Blood Pressure Mean 96 85 Blood Pressure Mean [Right Arm] 96 85 Blood Pressure Position Blood Pressure Position [Right Arm] Lying Lying Pulse Oximetry 96 96 96 Oxygen Delivery Method Room Air Room Air 03/01/19 10:31 03/01/19 11:01 03/01/19 11:30 Temperature Temperature Source Sepsis Recent Fever Within 48 Hours Sepsis Action Taken by Nursing Pulse Rate 79 74 84 Pulse Rate [Apical] Pulse Rate from SpO2 Sensor 79 78 81 Pulse Rhythm [Apical] Pulse Strength [Apical] Respiratory Rate 16 18 21 Respiratory Effort / Characteristics Respiratory Depth Respiratory Pattern Blood Pressure 156/76 H 130/74 145/68 H Blood Pressure [Right Arm] Blood Pressure Mean 102 92 93 Blood Pressure Mean [Right Arm] Blood Pressure Position Blood Pressure Position [Right Arm] Pulse Oximetry 98 100 96 Oxygen Delivery Method 03/01/19 12:01 03/01/19 13:19 Temperature Temperature Source Sepsis Recent Fever Within 48 Hours Sepsis Action Taken by Nursing Pulse Rate 86 79 Pulse Rate [Apical] Pulse Rate from SpO2 Sensor 86 Pulse Rhythm [Apical] Pulse Strength [Apical] Respiratory Rate 15 20 Respiratory Effort / Characteristics Respiratory Depth Respiratory Pattern Blood Pressure 165/68 H 149/68 H Blood Pressure [Right Arm] Blood Pressure Mean 100 Blood Pressure Mean [Right Arm] Blood Pressure Position Blood Pressure Position [Right Arm] Pulse Oximetry 98 98 Oxygen Delivery Method Room Air GENERAL: Awake, alert to verbal stimuli, slow to answer questions, mildly confused-appearing, in no distress HENT: Normocephalic, atraumatic. Oropharynx unremarkable. EYES: Normal conjunctiva. Sclera non-icteric. NECK: Supple. No nuchal rigidity. RESPIRATORY: Clear to auscultation. Normal respiratory effort. CARDIAC: Irregularly irregular rhythm. Extremities warm and well perfused. GI: Soft, non-distended. No tenderness to palpation. No rebound or guarding. RECTAL: Deferred. MUSCULOSKELETAL: Atraumatic. Chest examination reveals no tenderness. LOWER EXTREMITIES: Calves are equal size bilaterally and non-tender. No edema NEURO: Normal sensorium. No sensory deficits noted. No facial droop. Drift of the right lower extremity. Mild bilateral weakness of the upper extremities . Difficulty with hand eye coordination; some ataxia. SKIN: Warm and dry. No rash or jaundice noted. Course 0620:The patient was evaluated in room B01. A complete history and physical examination was performed. 0640: I discussed the patient's case with Dr. Bautista, [facility], who recommended continued observation for the patient with a non-stroke follow-up. He agrees that no acute intervention is needed at this time. 0729: I spoke with the patient's daughter, La Nena Ferreira, about the patient's current treatment plan. She verbalized agreement with the plan. 0754: I reviewed the patient's case with RICARDO Mauricio, who will evaluate the patient for further management with Dr. Bethea as her attending physician. 0800: Upon reevaluation, the patient is resting comfortably. I discussed laboratory and radiographic results with the patient. She verbalized agreement of the treatment plan. The patient will be evaluated for further management and care. Consultations Consultation #1: I discussed the patient's case with Dr. Bautista, [facility], who recommended continued observation for the patient with a non-stroke follow-up. He agrees that no acute intervention is needed at this time. Time: 06:40 Consultation #2: I reviewed the patient's case with RIACRDO Mauricio, who will evaluate the patient for further management with Dr. Bethea as her attending physician. Time: 07:54 Medical Decision Making Differential Diagnosis Differential diagnosis: Etiologies such as metabolic, infection, hypo/hyperglycemia, electrolyte abnormalities, cardiac sources, intracerebral event, toxicologic, neurologic, as well as others were entertained. Medical Records Attestation: I reviewed the patient's medical records. Home Medications Current Medication List: was personally reviewed by me Laboratory Data Attestation: I reviewed the patient's lab results. Result diagrams: 03/01/19 06:23 03/01/19 06:23 Lab Results 03/01/19 03/01/19 03/01/19 Range/Units 06:23 06:23 06:23 WBC 5.85 (4.8-10.8) K/uL RBC 4.17 L (4.2-5.4) M/uL Hgb 12.4 (12.0-16.0) g/dL Hct 37.3 (37-47) % MCV 89.4 (80-100) fL MCH 29.7 (25-34) pg MCHC 33.2 (32-36) g/dL RDW Std Deviation 51.0 H (36.4-46.3) fL RDW Coeff of Tre 15.9 H (11.5-14.5) % Plt Count 260 (130-400) K/uL MPV 8.9 (7.4-10.4) fL Immature Gran % (Auto) 0.3 % Neut % (Auto) 68.5 % Lymph % (Auto) 21.4 % Whitman % (Auto) 9.6 % Eos % (Auto) 0.0 % Baso % (Auto) 0.2 % Immature Gran # (Auto) 0.02 (0.00-0.02) K/uL Neut # (Auto) 4.01 (1.4-6.5) K/uL Lymph # (Auto) 1.25 (1.2-3.4) K/uL Whitman # (Auto) 0.56 (0.11-0.59) K/uL Eos # (Auto) 0.00 (0-0.5) K/uL Baso # (Auto) 0.01 (0-0.2) K/uL PT (9.0-12.0) Seconds INR (0.9-1.1) APTT (21.0-31.0) Seconds PTT Ratio Sodium 142 (136-145) mmol/L Potassium 4.1 (3.5-5.1) mmol/L Chloride 109 H (98-107) mmol/L Carbon Dioxide 30 (21-32) mmol/L Anion Gap 3.0 (3-11) BUN 18 (7-18) mg/dl Creatinine 0.90 (0.6-1.2) mg/dl Est Cr Clr Drug Dosing Not Reportable Est GFR ( Amer) 72.0 Est GFR (Non-Af Amer) 62.1 BUN/Creatinine Ratio 20.4 H (10-20) Glucose 85 (70-99) mg/dl Calcium 9.0 (8.5-10.1) mg/dl Magnesium 2.2 (1.8-2.4) mg/dl Total Bilirubin 0.5 (0.2-1) mg/dl AST 20 (15-37) U/L ALT 17 (12-78) U/L Alkaline Phosphatase 82 (45-117) U/L Troponin I 0.885 H* (0-0.045) ng/ml Total Protein 7.2 (6.4-8.2) gm/dl Albumin 3.7 (3.4-5.0) gm/dl Globulin 3.5 (2.5-4.0) gm/dl Albumin/Globulin Ratio 1.1 (0.9-2) Digoxin 0.4 L (0.8-2.0) ng/ml Blood Type Antibody Screen 03/01/19 03/01/19 Range/Units 06:28 06:28 WBC (4.8-10.8) K/uL RBC (4.2-5.4) M/uL Hgb (12.0-16.0) g/dL Hct (37-47) % MCV (80-100) fL MCH (25-34) pg MCHC (32-36) g/dL RDW Std Deviation (36.4-46.3) fL RDW Coeff of Tre (11.5-14.5) % Plt Count (130-400) K/uL MPV (7.4-10.4) fL Immature Gran % (Auto) % Neut % (Auto) % Lymph % (Auto) % Whitman % (Auto) % Eos % (Auto) % Baso % (Auto) % Immature Gran # (Auto) (0.00-0.02) K/uL Neut # (Auto) (1.4-6.5) K/uL Lymph # (Auto) (1.2-3.4) K/uL Whitman # (Auto) (0.11-0.59) K/uL Eos # (Auto) (0-0.5) K/uL Baso # (Auto) (0-0.2) K/uL PT 11.2 (9.0-12.0) Seconds INR 1.1 (0.9-1.1) APTT 22.8 (21.0-31.0) Seconds PTT Ratio 0.8 Sodium (136-145) mmol/L Potassium (3.5-5.1) mmol/L Chloride (98-107) mmol/L Carbon Dioxide (21-32) mmol/L Anion Gap (3-11) BUN (7-18) mg/dl Creatinine (0.6-1.2) mg/dl Est Cr Clr Drug Dosing Est GFR ( Amer) Est GFR (Non-Af Amer) BUN/Creatinine Ratio (10-20) Glucose (70-99) mg/dl Calcium (8.5-10.1) mg/dl Magnesium (1.8-2.4) mg/dl Total Bilirubin (0.2-1) mg/dl AST (15-37) U/L ALT (12-78) U/L Alkaline Phosphatase (45-117) U/L Troponin I (0-0.045) ng/ml Total Protein (6.4-8.2) gm/dl Albumin (3.4-5.0) gm/dl Globulin (2.5-4.0) gm/dl Albumin/Globulin Ratio (0.9-2) Digoxin (0.8-2.0) ng/ml Blood Type B Negative Antibody Screen NEGATIVE Imaging Data Radiologist's Impression: Radiology results as stated below per my review and the radiologist's interpretation: HEAD CT NONCONTRAST CT DOSE: 1074.96 mGy.cm HISTORY: Stroke symptoms. Stroke evaluation TECHNIQUE: Multiaxial CT images of the head were performed without the use of intravenous contrast. Automated exposure control was utilized for this study. A dose lowering technique was utilized adhering to the principles of ALARA. Comparison: Head CT 01/21/2019. Findings: The paranasal sinuses and mastoid air cells are clear. The calvarium and skull base are intact. There is no mass, hematoma, midline shift, acute infarct. White matter hypodensity is nonspecific but suggestive of microvascular ischemic change. The ventricles and sulci demonstrate mild age-related involutional changes. Multiple old scattered infarcts are again noted. There is no aneurysm clip at the basilar cisterns and right frontal craniotomy changes. This remains unchanged. Impression: No significant change compared to the prior study. No acute intracranial abnormality. Multiple old infarcts are again noted. Electronically signed by: Tapan Cat M.D. 03/01/2019 7:05 AM XR chest 1V portable CLINICAL HISTORY: weakness dyspnea COMPARISON STUDY: 01/21/2019 FINDINGS: The bones soft tissues and hemidiaphragms are normal. The cardiomediastinal silhouette is normal. The lungs are clear. The pulmonary vasculature is normal. IMPRESSION: Negative chest. The above report was generated using voice recognition software. It may contain grammatical, syntax or spelling errors. Electronically signed by: David Fields M.D. 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 Patient with recent admission in January of this year for report of right-sided weakness and UTI/hyponatremia. Patient is currently not anticoagulated. Reportedly seen by facility staff around 3 AM normal. At 520 found to have reported of left-sided weakness. Has some baseline right-sided upper arm weakness 2. Patient herself is a limited and poor historian stating she is in [place] and that is January. Does have some mild drift of right lower extremity and mild weakness of the upper extremities but no significant facial droop. Head CT shows no acute intracranial bleed. Patient is outside the TPA window based on time. Also with her history of intracranial spontaneous hemorrhage and questionable deficits do not believe she would benefit from TPA at this time. Discussed with [facility] tele- neurology who agrees. No evidence of significant leukocytosis or anemia. BMP grossly unremarkable. EKG shows believe is more atrial fib nonspecific T wave changes; unfortunately the prior EKG records are not available on the computer at this point. Troponin does come back elevated and appears newly elevated at 0.885. Patient does have cardiac history but given comorbidities is not been anticoagulated. Discussed via phone with the patient's daughter. Given the troponin abnormality and possible new weakness did discuss with the hospitalist for admission. Impression & Plan Weakness, Elevated troponin Discharge Plan Visit Data *Final* Discharge Date/Time: 03/01/19 13:19 Chief Complaint: Stroke Alert Stated Complaint: STROKE SYMPTOMS ED Provider: Sean Joseph Discharge Problem: Weakness, Elevated troponin Patient Disposition: Admitted As Inpatient Discharge Instructions Interventions: ED Discharge Assessment Last Done: 03/01/19 13:19 The dominikibe's documentation has been prepared under my direction and personally reviewed by me in its entirety. I confirm that the note above accurately reflects all work, treatment, procedures, and medical decision making performed by me.
--- NOTE | 2019-03-01 14:31 | Neurology Consultation ---
Date of Consultation March 01, 2019 Assessment & Plan (1) Slurred speech: 1. CT head- old infarcts 2. TTE- previous admission in January no ASD 3. aspirin 81 mg continue 4. MRI would be helpful to r/o new stroke- when cooperative 5. r/o infectious process 6. unable to obtain a full exam due to dementia and not cooperating 7. history of afib and refusing meds digoxin is subtherapeutic Supervising Physician Co-Signing Physician Notes I have seen and discussed above patient with Dr Dre Chicas, neurology I know Mrs. Collazo from multiple outpatient visits. Her history is well outlined Tammy James's note history and physical She has a profound increasing vascular dementia status post subarachnoid hemorrhage, multiple cerebral infarcts, dominant left thalamic hemorrhage and has been on a progressive decline for the last several years. She is failed to respond to Aricept and Namenda which frankly is not surprising as these agents are more designed for degenerative dementia rather than a vascular process we elected not to try these again in the future. She was just in the hospital in January for presumptive delirium related to urinary tract infection. MRI could not be performed because of lack of patient cooperation at that time but the rest of the vascular workup including a transthoracic echocardiogram was unremarkable. She now presents from an extended care facility theoretically with slurred speech and new left-sided weakness but unfortunately at this point is resistant to physical examination, is basically nonverbal, offers no complaints and cannot be assessed neurologically. She is in a position moaning will follow no commands but seems to move all extremities symmetrically has no gross visual threat response Imaging studies I have been limited the CT scans and show no changes but a series of emboli, a small single acute infarction etc. could not be excluded. At this point we are simply going to return tomorrow reassess her and see if she might be more cooperative with performance of an MRI for an hour to make no suggestion since about further management of possible stroke as we really have no documentation of same in the picture again is more consistent with a diffuse delirium. By tomorrow some of the initial laboratory studies to assess infectious processes, pneumonitis urinary tract infection etc. 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 She was brought to [facility] with left-sided facial droop and slurred speech. According to daughter she was alert and oriented to person at baseline and is able to ambulate by wheelchair/walker with assistance. Responds to painful stimuli and only stays "no" Was recently admitted January 12- due to similar symptoms of slurred speech, also with right-sided weakness. MRI unable to be obtained due to patient unable to cooperate. Echo with bubble study revealed preserved EF of 60-65%, mild aortic stenosis. Carotid Doppler ultrasound revealed plaque in left carotid as well as age-indeterminate thrombosis in distal RCA, new since 2013. there are no family in room and she is not cooperative with exam. Reported she is refusing her medications intermittently. Allergies Allergy/AdvReac Type Severity Reaction Status Date / Time Penicillins Allergy Intermediate HIVES Verified 03/01/19 06:35 pneumococcal vaccine Allergy Mild FEVER/RASH Verified 03/01/19 06:35 carbenicillin Allergy Unknown "DON'T Verified 03/01/19 06:35 REMEMBER" Bactrim AdvReac Mild GI SYMPTOMS Verified 09/20/17 23:30 sulfamethoxazole AdvReac Mild GI SYMPTOMS Verified 03/01/19 06:35 trimethoprim AdvReac Mild GI SYMPTOMS Verified 03/01/19 06:35 Home Medications Home Medications Medication Instructions Recorded Confirmed Type atorvastatin 80 mg PO HS #0 06/22/15 03/01/19 History omeprazole 20 mg PO QAM #0 cap 02/08/16 03/01/19 History digoxin 0.125 mg PO Q2D #0 05/10/18 03/01/19 History Fleet Enema 118 ml OR HS PRN 01/12/19 03/01/19 History Miconazorb AF 1 applic TOPICAL BID PRN 01/12/19 03/01/19 History acetaminophen 325 mg PO Q4H PRN MDD 3 GRAMS/24 01/12/19 03/01/19 History HOURS. bisacodyl 10 mg OR DAILY PRN 01/12/19 03/01/19 History magnesium oxide 400 mg PO QAM 01/12/19 03/01/19 History potassium chloride 20 meq PO PM 01/12/19 03/01/19 History ranitidine HCl 150 mg PO BID 01/12/19 03/01/19 History aspirin [Ecotrin Low Strength] 81 mg PO QAM 81 Days #81 tab 01/17/19 03/01/19 Rx buspirone 10 mg PO TID 01/21/19 03/01/19 History metoprolol tartrate 100 mg PO BID 01/21/19 03/01/19 History Med Pass Suppliment 120 ml PO TID 03/01/19 03/01/19 History linaclotide [Linzess] 145 mcg PO DAILYBB 03/01/19 03/01/19 History lisinopril 20 mg PO QAM 03/01/19 03/01/19 History mirtazapine 45 mg PO HS 03/01/19 03/01/19 History mupirocin 1 applic TOPICAL BID 03/01/19 03/01/19 History polyethylene glycol 3350 [Miralax] 17 g PO QAM 03/01/19 03/01/19 History sennosides-docusate sodium 2 tab PO BID 03/01/19 03/01/19 History [Senna-S] Patient History Medical History Atrial fibrillation (Chronic) Vascular dementia (Chronic) HTN (hypertension) (Chronic) History of CVA (cerebrovascular accident) (Chronic) SUSY (obstructive sleep apnea) (Chronic) Diastolic CHF (Chronic) GERD (gastroesophageal reflux disease) (Chronic) CKD (chronic kidney disease) stage 3, GFR 30-59 ml/min (Chronic) Depression (Chronic) History of pulmonary embolus (PE) (Resolved) Atrial fibrillation (Chronic) HLD (hyperlipidemia) (Chronic) Hypothyroidism (Chronic) Stroke (Resolved) Surgical History History of appendectomy (Resolved) History of resection of small bowel (Resolved) secondary to high grade SBO History of total left knee replacement (TKR) (Resolved) History of percutaneous coronary intervention (Resolved) s/p Stent of RCA in 1999 History of radiofrequency ablation procedure for cardiac arrhythmia (Resolved) S/P PVI ablation in 2009 for afib/flutter s/p CTI flutter ablation in 2014 S/P Cardioversion in 04/2015 and 12/27/15 H/O craniotomy (Resolved) Right frontotemporal craniotomy with aneurysm clip Family History Other Family history non-contributory Social History Preferred Language: Libyan Communication Ability: dementia Staff Development Coordinator Required: No Beliefs That Will Affect Care: None marital status: Current Living Situation: [facility] Current Living Situation Comment: Resides in [facility]. current occupational status: retired Other Information That Helps Us Care for You: No Feels Safe at Home: Yes Safety Concerns: Feels Safe At This Time Smoking Status: Never smoker Do You Dip or Chew Tobacco: No Second Hand Exposure: No Tobacco Cessation Education Requested by Patient: No Hx Alcohol Use: No Hx Substance Use: No Physical Exam Physical Exam: Gen: responsive to voice lungs CTA CV RRR moves all ext with stimuli but not with command say "no" to all questions, where she is, is she hunger? does she have pain? Results & Data Vital Signs (Past 12 Hours) Vital Signs Temp Pulse Pulse Resp BP BP Pulse Ox 03/01/19 13:19 79 20 149/68 H 98 03/01/19 12:01 86 15 165/68 H 98 03/01/19 11:30 84 21 145/68 H 96 03/01/19 11:01 74 18 130/74 100 03/01/19 10:31 79 16 156/76 H 98 03/01/19 10:04 89 17 131/63 96 03/01/19 10:00 83 21 131/63 96 03/01/19 09:30 100 H 89 17 116/86 116/86 96 03/01/19 09:01 86 17 107/85 96 03/01/19 09:00 100 H 76 20 107/85 96 03/01/19 08:30 92 H 21 148/75 H 89 L 03/01/19 08:20 76 18 134/66 98 03/01/19 08:02 106 H 20 96 03/01/19 08:01 96 H 25 H 134/56 L 96 03/01/19 08:00 99 H 29 H 94 03/01/19 07:52 106 H 27 H 147/74 H 95 03/01/19 07:45 74 18 147/74 H 98 03/01/19 07:30 95 H 16 95 03/01/19 07:15 76 18 98 03/01/19 07:00 72 23 96 03/01/19 06:57 70 18 146/64 H 98 03/01/19 06:54 76 18 146/64 H 03/01/19 06:46 71 20 119/57 L 98 03/01/19 06:40 97 03/01/19 06:31 85 19 146/86 H 03/01/19 06:30 94 H 18 03/01/19 06:29 78 18 03/01/19 06:27 78 18 103/66 03/01/19 06:15 36.5 C 80 17 146/86 H 99 Laboratory Results Abnormal lab results 03/01/19 03/01/19 03/01/19 Range/Units 06:23 06:23 06:23 RBC 4.17 L (4.2-5.4) M/uL RDW Std Deviation 51.0 H (36.4-46.3) fL RDW Coeff of Tre 15.9 H (11.5-14.5) % Chloride 109 H (98-107) mmol/L BUN/Creatinine Ratio 20.4 H (10-20) Troponin I 0.885 H* (0-0.045) ng/ml Digoxin 0.4 L (0.8-2.0) ng/ml 03/01/19 Range/Units 14:26 RBC (4.2-5.4) M/uL RDW Std Deviation (36.4-46.3) fL RDW Coeff of Tre (11.5-14.5) % Chloride (98-107) mmol/L BUN/Creatinine Ratio (10-20) Troponin I 1.110 H* (0-0.045) ng/ml Digoxin (0.8-2.0) ng/ml Diagnostic Findings CT head-No significant change compared to the prior study. No acute intracranial abnormality. Multiple old infarcts are again noted. CXR- Negative chest.
[2019-03-01 14:53] LABS: Estimated Average Glucose 114 mg/dl; Hemoglobin A1C 5.6 % (4.5-5.6)
[2019-03-02 06:51] LABS: Hematocrit (blood only) 38.5 % (37-47); Hemoglobin 12.7 g/dL (12.0-16.0); Mean Corpuscular Volume 90.2 fL (80-100); Mean Platelet Volume 8.9 fL (7.4-10.4); Platelet Count 225 K/uL (130-400); RDW Coefficient of Variation 15.8 % (11.5-14.5); RDW Standard Deviation 51.5 fL (36.4-46.3); Red Blood Count 4.27 M/uL (4.2-5.4); White Blood Count 4.87 K/uL (4.8-10.8)
[2019-03-02 07:24] LABS: BUN Creatinine Ratio 15.8 (10-20); Calcium 8.8 mg/dl (8.5-10.1); Creatinine Clr Calc Pharmacy 49.5 ml/min; Est GFR (Non-African American) 71.6; Potassium 3.7 mmol/L (3.5-5.1)
[2019-03-02] MEDS ORDERED: METOPROLOL TARTRATE 1 MG/ML VIAL IV PRN (08:35)
[2019-03-02] MEDS ORDERED: ACETAMINOPHEN 325 MG TAB PO PRN (08:36)
[2019-03-02] MEDS ORDERED: DIGOXIN 0.125 MG TAB PO SCH (08:45)
[2019-03-02] MEDS ORDERED: BUSPIRONE HCL 10 MG TAB PO SCH (09:00)
[2019-03-02] MEDS ORDERED: METOPROLOL TARTRATE 100 MG TAB PO SCH ×2 (09:00→21:00)
[2019-03-02] MEDS: METOPROLOL TARTRATE 1 MG/ML VIAL IV PRN ×2 (09:13→19:54)
[2019-03-02] MEDS: DOCUSATE SODIUM/SENNA 50/8.6MG TAB PO SCH ×3 (09:51→22:52)
[2019-03-02] MEDS: ASPIRIN 81 MG ECTAB PO SCH (09:51)
[2019-03-02] MEDS: PANTOprazole 40 MG TAB PO SCH (09:51)
[2019-03-02] MEDS: DIGOXIN 0.125 MG TAB PO SCH (09:52)
--- NOTE | 2019-03-02 10:43 | Hospitalist Progress Note ---
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 -Clinical state much improved since yesterday, although interview and physical exam still limited by profound vascular dementia -Facial droop and speech has resolved. Unable to obtain MRI brain at this point, may be more successful now that patient is more alert -Recently admitted in January 2019 for strokelike symptoms, unable to obtain MRI then, echo with bubble study without ASD. Carotid Doppler ultrasound: plaque in left carotid as well as age-indeterminate thrombosis in distal RCA -Neuro checks, PT, OT, speech therapy evaluations -Routine neurology consult (2) Atrial fibrillation: Developed A Fib with RVR this morning with HR 105-170 -In setting of Lopressor being held yesterday evening to allow for permissive hypertension -Given IV Lopressor 2.5mg x 1, home dose Digoxin and 25mg PO Lopressor today with HR now 84 -Not on anticoagulation due to history of hemorrhagic stroke as well as frequent falls -Obtaining CT head wo contrast to evaluate for CVA. If negative, will feel comfortable increasing Lopressor dose (3) Elevated troponin: Initial troponin of 0.885 with peak of 1.11 yesterday afternoon -Remote history of CAD with RCA stent in 1999 -Denies chest pain. Repeat troponin if becomes symptomatic (4) Vascular dementia: Oriented to person at baseline -Seroquel and Ativan recently discontinued, thought to be contributing to lethargy during the day -Seen by geriatric psychiatrist earlier this week, mirtazapine dose increased (5) Infected skin tear: Recently treated for infected skin tear on her right forearm that grew MRSA sensitive to Bactrim. Completed course of Bactrim on 02/24. -Wound care consult (6) HTN (hypertension): Allow for permissive HTN in setting of possible ischemic event -Holding lisinopril due to hypotension (7) Diastolic CHF: Euvolemic. Closely monitor volume status (8) CKD (chronic kidney disease) stage 3, GFR 30-59 ml/min: Kidney function at baseline -Continue to monitor with daily BMP (9) SUSY (obstructive sleep apnea): CPAP intolerant DVT Ppx: SCDs, history of hemorrhagic stroke in May 2018 Code status: DNR per documentation sent from [facility] PCP: Majo Ramon PA-C Dispo: Observation med telemetry. Discharge planning for return to [facility] once medically appropriate. Patient seen in collaboration with Dr. Bethea. Please see addendum. Attending Addendum: Delayed entry, date of service noted above care coordinated with TYLER Stevenson please refer to her notes for full details, I agree with her notes patient seen and examined, records reviewed by myself as well on exam, patient resting in bed, comfortable, sleeping, easily arousable Persistent examiner although appears somewhat confused Denies weakness, numbness, neurologic deficits Denies chest pain, palpitations, dizziness, shortness of breath no other symptoms VS noted and reviewed Not oriented, not in distress, speaks in sentences with no effort nor accessory muscle use normal rate, regularly irregular, no murmurs clear breath sounds bilaterally non distended, soft, nontender no bipedal edema, erythema, warmth no gross focal neuro deficits WBC 4.8 Hg 12.7 Crea 0.8 ASSESSMENT AND PLAN Stroke like symptoms, CVA Patient not cooperative with MRI Discussed with neurology with regards to possible repeating CT head today Currently on aspirin Anti-coagulation contraindicated in the past secondary to recent intra-cranial hemorrhage History of atrial fibrillation Resume usual metoprolol but lower dose to prevent hypotension in light of possible CVA Continue aspirin other diagnoses and plan of care as per TYLER Stevenson's notes Lamine Bethea MD Subjective Patient seen and examined. Much more alert today. Endorses feeling tired and has headache but denies lightheadedness, chest pain, palpitations, shortness of breath. When asked about weakness, patient did not respond. Was able to eat a small amount of her breakfast. Did develop A Fib with RVR with HR ranging from 105-170 this morning. Was given 2.5mg IV Lopressor x 1 and home dose Digoxin 0.125 mg PO. HR improved to 90s but then patient developed hypotension at 75/49. Looked well clinically. Given 500mg NSS bolus and BP improved to 100/57. Review of Systems Review of Systems: At least ten systems reviewed and negative except as noted in the HPI. Physical Exam Physical Exam: General Appearance: WD/WN, no apparent distress, elderly woman, more alert today, answering questions Head: normocephalic, atraumatic Eyes: normal inspection, PERRL, EOMI ENT: hearing grossly normal, pharynx normal (moist mucous membranes) Neck: supple, no JVD, no adenopathy Respiratory/Chest: lungs clear to auscultation. No wheezes, rales or rhonci. No respiratory distress or accessory muscle use Cardiovascular: irregular rate & rhythm, systolic murmur, normal peripheral pulses Abdomen/GI: normal bowel sounds, soft, non-tender to palpation Extremities/Musculoskelatal: normal inspection, no calf tenderness, normal capillary refill, no pedal edema Neurologic/Psych: alert, oriented to person only. 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 Moves all extremities. Skin: normal color, warm/dry. R forearm bandage in place Results & Data Vital Signs (Past 12 Hours) Vital Signs Temp Pulse Pulse Resp BP BP Pulse Ox 03/02/19 09:52 93 H 03/02/19 09:13 128 H 101/61 03/02/19 08:52 101/61 03/02/19 08:00 87 03/02/19 07:40 36.5 C 102 H 18 97/65 L 92 03/02/19 04:24 36.8 C 94 H 20 126/78 97 (1) Diastolic CHF Heart failure chronicity: chronic Qualified Code(s): I50.32 - Chronic diastolic (congestive) heart failure (2) Vascular dementia Dementia behavioral disturbance: with behavioral disturbance Qualified Code(s): F01.51 - Vascular dementia with behavioral disturbance (3) HTN (hypertension) Hypertension type: essential hypertension Qualified Code(s): I10 - Essential (primary) hypertension
[2019-03-02] MEDS ORDERED: SODIUM CHLORIDE 0.9% 1000ML 500 ML IV ONE (10:54)
[2019-03-02] MEDS ORDERED: METOPROLOL TARTRATE 100 MG TAB PO STA (11:07)
[2019-03-02] MEDS ORDERED: METOPROLOL TARTRATE 25 MG TAB PO STA (11:07)
--- NOTE | 2019-03-02 12:32 | CT Scan Report ---
CT head/brain wo con CT DOSE: 537.48 mGy.cm HISTORY: Mental status change r/o cva TECHNIQUE: Multiaxial CT images of the head were performed without the use of intravenous contrast. A dose lowering technique was utilized adhering to the principles of ALARA. Comparison: 03/01/2019 Findings: Mild sclerosis the mastoid air cells. The sinuses are otherwise clear. The right sided craniotomy flap is unchanged in location and is anatomically positioned. Stable surgical clips in the sellar region. Multiple old bilateral cerebral infarct. Moderate superimposed chronic small vessel change again cons idered chronic. No acute intracranial hemorrhage. Old right cerebellar infarct. The calvarium and sku ll base are intact. The ventricles and sulci are within normal limits. There is no mass, hematoma, mi dline shift, or acute infarct. Impression: No acute intracranial abnormality. Stable chronic and age-related findings as noted. The above report was generated using voice recognition software. It may contain grammatical, syntax or spelling errors. Electronically signed by: David Fields M.D. 03/02/2019 12:31 PM
--- NOTE | 2019-03-02 13:57 | Neurology Progress Note ---
Date of Service March 02, 2019 Assessment & Plan (1) Slurred speech: 1) Slurred speech: 1. CT head- old infarcts- repeat CT head no acute findings 2. TTE- previous admission in January no ASD 3. aspirin 81 mg continue 4. MRI would be helpful to r/o new stroke- when cooperative 5. r/o infectious process UTI/pneumonia etc 6. unable to obtain a full exam due to dementia and not cooperating- more cooperative today 7. history of afib and refusing meds digoxin is subtherapeutic - a fib last night given lopressor - digoxin as level was subtherapeutic 8. daughter needs to be contacted for further input - dementia progression Supervising Physician Co-Signing Physician Notes I have seen and discussed above patient with Dr Dre Chicas, neurology I have seen Mrs. Collazo today in accompaniment of relatives who have just evaluated from [place]. They find her to be actually improved significantly compared to her status during her hospitalization in January and compared to her status in the extended care facility That having been said she is still fairly dismissive of the examiner, will not cooperate with examination and insisted I do something else with my time and at this point while improved and without any clear-cut focal neurologic deficits, we still are in the dark diagnostically about what might have transpired at [facility] yesterday MRI might settle the issue about whether there has been a new series of possibly embolic strokes but at this point the patient is really not going to cooperate with imaging studies and all we can do is continue the current program of anticoagulation, observe her, and perhaps if she improves go ahead with the study We will check back tomorrow Dre Chicas MD Huber Lion is a 78 year old female with PMH profound vascular dementia, history of ischemic CVA x 2, recent spontaneous non-aneurysmal left thalamic IPH 05/2018, 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 She was brought to [facility] with left-sided facial droop and slurred speech. According to daughter she was alert and oriented to person at baseline and is able to ambulate by wheelchair/walker with assistance. Responds to painful stimuli and only stays "no" Was recently admitted January 12- due to similar symptoms of slurred speech, also with right-sided weakness. MRI unable to be obtained due to patient unable to cooperate. Echo with bubble study revealed preserved EF of 60-65%, mild aortic stenosis. Carotid Doppler ultrasound revealed plaque in left carotid as well as age-indeterminate thro mbosis in distal RCA, new since 2013. there are no family in room but she is more responsive today. She states she has a headache but does not answer any further questions. denies CP, SOB, abdominal pain, one sided weakness, numbness tingling, N, V. recorded did eat some breakfast this am. also had developed A Fib with RVR this morning with HR 105- 170 and given Lopressor. Physical Exam Physical Exam: gen:alert to voice lungs course breath sounds CV RRR opens eyes to command, states she has a headache squeezes with hands but does not follow any other commands reflexes symmetric 2/5 plantar extension with stimulation Results & Data Vital Signs (Past 12 Hours) Vital Signs Temp Pulse Pulse Pulse Resp BP BP 03/02/19 11:35 84 100/57 L 03/02/19 11:01 75/49 L 03/02/19 09:52 93 H 03/02/19 09:13 128 H 101/61 03/02/19 08:52 101/61 03/02/19 08:00 87 03/02/19 07:40 36.5 C 102 H 18 97/65 L 03/02/19 04:24 36.8 C 94 H 20 126/78 Pulse Ox 03/02/19 11:35 03/02/19 11:01 03/02/19 09:52 03/02/19 09:13 03/02/19 08:52 03/02/19 08:00 03/02/19 07:40 92 03/02/19 04:24 97 Laboratory Results Abnormal lab results 03/01/19 03/01/19 03/02/19 Range/Units 14:26 19:48 06:37 RDW Std Deviation 51.5 H (36.4-46.3) fL RDW Coeff of Tre 15.8 H (11.5-14.5) % Chloride (98-107) mmol/L Troponin I 1.110 H* 0.501 H* (0-0.045) ng/ml 03/02/19 Range/Units 06:37 RDW Std Deviation (36.4-46.3) fL RDW Coeff of Tre (11.5-14.5) % Chloride 111 H (98-107) mmol/L Troponin I (0-0.045) ng/ml Diagnostic Findings CT head repeated 03/02- No acute intracranial abnormality. Stable chronic and age-related findings as noted.
[2019-03-02] MEDS: ATORVASTATIN 40 MG TAB PO SCH ×2 (21:41→22:51)
[2019-03-02] MEDS: METOPROLOL TARTRATE 50 MG TAB PO SCH ×2 (22:23→22:52)
[2019-03-02] MEDS ORDERED: OLANZapine 10 MG/2.1 ML SDV IM PRN (23:54)
[2019-03-02] MEDS ORDERED: METOPROLOL TARTRATE 1 MG/ML VIAL IV STA (23:54)
[2019-03-03] MEDS ORDERED: LACTATED RINGER'S 1,000 ML IV ONE (00:11)
[2019-03-03] MEDS ORDERED: DIGOXIN 250 MCG in SYRINGE 9 ML IV STA (00:16)
[2019-03-03 00:42] LABS: Basophils # (auto) 0.01 K/uL (0-0.2); Basophils % (auto) 0.2 %; Hematocrit (blood only) 37.3 % (37-47); Hemoglobin 12.5 g/dL (12.0-16.0); Immature Granulocytes # (auto) 0.01 K/uL (0.00-0.02); Immature Granulocytes % (auto) 0.2 %; Lymphocytes # (auto) 1.18 K/uL (1.2-3.4); Lymphocytes % (auto) 20.5 %; Mean Corpuscular Hgb Conc 33.5 g/dL (32-36); Mean Corpuscular Volume 89.2 fL (80-100); Mean Platelet Volume 8.7 fL (7.4-10.4); Monocytes # (auto) 0.54 K/uL (0.11-0.59); Monocytes % (auto) 9.4 %; Neutrophils # (auto) 4.03 K/uL (1.4-6.5); Neutrophils % (auto) 69.7 %; Platelet Count 214 K/uL (130-400); RDW Coefficient of Variation 15.8 % (11.5-14.5); RDW Standard Deviation 51.4 fL (36.4-46.3); Red Blood Count 4.18 M/uL (4.2-5.4); White Blood Count 5.77 K/uL (4.8-10.8)
[2019-03-03] MEDS: POTASSIUM CHLORIDE / WTR 10 MEQ/100 ML PLCT IV SCH ×4 (00:43→03:54)
[2019-03-03 00:58] LABS: BUN Creatinine Ratio 16.7 (10-20); Calcium 8.5 mg/dl (8.5-10.1); Creatinine Clr Calc Pharmacy 41.2 ml/min; Est GFR (African American) 66.6; Est GFR (Non-African American) 57.4; Magnesium 2.1 mg/dl (1.8-2.4); Potassium 3.6 mmol/L (3.5-5.1)
[2019-03-03] MEDS: PANTOprazole 40 MG TAB PO SCH (07:47)
[2019-03-03] MEDS: DOCUSATE SODIUM/SENNA 50/8.6MG TAB PO SCH ×3 (07:48→21:23)
[2019-03-03] MEDS: ASPIRIN 81 MG ECTAB PO SCH (07:50)
[2019-03-03] MEDS: METOPROLOL TARTRATE 50 MG TAB PO SCH ×2 (08:44→20:30)
[2019-03-03] MEDS ORDERED: GADOBUTROL 65ML VIAL IV PRN (10:12)
--- NOTE | 2019-03-03 10:34 | Magnetic Resonance Report ---
MRI OF THE BRAIN WITHOUT AND WITH IV CONTRAST CLINICAL HISTORY: Left-sided weakness and slurred speech. Suspected stroke. COMPARISON STUDY: Noncontrast head CT dated 03/01/2019 TECHNIQUE: MRI of the brain was performed from the vertex to the skull base utilizing various T1 and T2 weighted sequences. Following the IV administration of 6 mL of Gadavist contrast, additional enhan jessica images were obtained. FINDINGS: Sagittal T1, axial diffusion, proton density and T2 weighted axial, coronal FLAIR, and pre and post a xial T1-weighted images were acquired. These were supplemented with post gadolinium coronal T1 weight ed images. No intra or extra-axial mass lesions are visualized. There is a focus of restricted water diffusion within the right frontoparietal vertex measuring 19 mm . This is consistent with an acute infarct. There is no evidence of ventricular dilatation. Proton density T2-weighted and FLAIR images reveal extensive foci of increased T2 signal within the w magalys matter likely on a small vessel basis. There are bilateral old cerebellar infarcts. There is an old right temporal lobe infarct. There is an old left parietotemporal or infarct. There is an old lef t frontal infarct. There are no abnormal flow voids. There is no evidence of pathologic enhancement. There is artifact secondary to a aneurysm clip. There are postcraniotomy changes. This patient was originally imaged on 03/01/2019, and brought back for additional images on 03/03/2019 due to marked motion artifact. The patient was again uncooperative and additional images could not be obtained. The study is being dictated this time with the motion degraded images. IMPRESSION: 1. Acute/subacute infarct involving the right frontoparietal vertex 2. In addition there are multiple old bihemispheric and cerebellar infarcts. 3. Postsurgical changes of a prior aneurysm clipping Electronically signed by: Matheus Krishnamurthy M.D. 03/03/2019 10:32 AM
--- NOTE | 2019-03-03 14:52 | Neurology Progress Note ---
Date of Service March 03, 2019 Assessment & Plan (1) Slurred speech: 1) Slurred speech: 1. CT head- old infarcts- repeat CT head no acute findings 2. TTE- previous admission in January no ASD 3. aspirin 81 mg continue cardiology recommends no anticoagulation 4. MRI brain with acute and subacute 5. r/o infectious process UTI/pneumonia etc 6. family input to baseline very helpful 7. history of afib and refusing meds digoxin is subtherapeutic - a fib last night given lopressor - digoxin as level was subtherapeutic 8. daughter needs to be contacted for further input - dementia progression - they understand the difficulty with afib and anticoagulation 9. limit medications to essential medications may be more cooperative to take medications can see back in office in 4-6 weeks if further evaluation of dementia is needed Supervising Physician Co-Signing Physician Notes I have seen and discussed above patient with Dr Dre Chicas, neurology I have seen Mrs. Ferreira today and concur that she is probably getting close to her old baseline she is alert clearly disoriented seems to know my face but cannot come up with the name is a little more cooperative. There may be a slight left upper motor neuron facial asymmetry but this could be long-standing I certainly cannot state that there is any hard left upper extremity weakness or indeed evidence for left arm or leg pyramidal tract dysfunction MRI has shown evidence for a right parietal cortical CVA which in my opinion is probably embolic in light of her paroxysmal atrial fibrillation Both neurology and cardiology agree that she is a poor candidate for anticoagulation having had spontaneous intracerebral hemorrhages, subarachnoid hemorrhage and history of relative noncompliance with medications released refusal to take many medications There is really little role for antiplatelet agents and treating or preventing vascular events related to atrial fibrillation and I certainly would simply continue her current antiplatelet regimen without change again. He needs to be more compliant with her medications, hopefully this will control her paroxysmal atrial fibrillation somewhat more effectively and what sounds happened in the past but despite this I suspect she will continue to have episodes of atrial fibrillation and probably further cerebral embolic events At this time is not a whole lot more for neurology to offer. 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 She was brought to [facility] with left-sided facial droop and slurred speech. According to daughter she was alert and oriented to person at baseline and is able to ambulate by wheelchair/walker with assistance. Responds to painful stimuli and only stays "no" Was recently admitted January 12- due to similar symptoms of slurred speech, also with right-sided weakness. MRI unable to be obtained due to patient unable to cooperate. Echo with bubble study revealed preserved EF of 60-65%, mild aortic stenosis. Carotid Doppler ultrasound revealed plaque in left carotid as well as age-indeterminate thrombosis in distal RCA, new since 2013. She is more responsive today and talking to her family. , daughter and son-in-law are in the room and state they feel she is back to her baseline. Discussion regarding criteria to come back to hospital discussed and they understand the issues with afib and anticoagulation, and missing medication doses. denies CP, SOB, abdominal pain, one sided weakness, numbness tingling, N, V. recorded did eat some breakfast this am. also had developed A Fib with RVR this morning with HR 105-170 and given Lopressor. Physical Exam Physical Exam: Gen: alert NAD sitting up in bed and conversing with family but will only say I'm ok to provider lungs course breath sounds CV RRR moves all ext spontaneously Results & Data Vital Signs (Past 12 Hours) Vital Signs Temp Pulse Pulse Resp BP Pulse Ox 03/03/19 11:23 36.2 C L 82 20 167/86 H 93 03/03/19 06:50 36.1 C L 74 18 162/77 H 92 03/03/19 03:24 74 03/03/19 03:04 73 15 130/77 97 Laboratory Results Abnormal lab results 03/03/19 03/03/19 Range/Units 00:26 00:26 RBC 4.18 L (4.2-5.4) M/uL RDW Std Deviation 51.4 H (36.4-46.3) fL RDW Coeff of Tre 15.8 H (11.5-14.5) % Lymph # (Auto) 1.18 L (1.2-3.4) K/uL Chloride 111 H (98-107) mmol/L Diagnostic Findings MRI brain - Acute/subacute infarct involving the right frontoparietal vertex In addition there are multiple old bihemispheric and cerebellar infarcts. Postsurgical changes of a prior aneurysm clipping
[2019-03-03 15:47] LABS: Appearance Urine Cloudy (Clear); Bacteria Urine Automated 1+ (Negative); Bilirubin Urine Negative (Negative); Blood Urine Negative (Negative); Color Urine Yellow; Epithelial Cell Urine Auto >30 /lpf (0-5); Glucose Urine UA Negative (Negative); Ketones Urine Negative (Negative); Leukocyte Esterase Urine Negative (Negative); Nitrite Urine Negative (Negative); Protein Urine Negative (Negative); RBC Urine Automated 0-4 /hpf (0-4); Specific Gravity Urine 1.011 (1.000-1.030); Urobilinogen Urine Negative (Negative)
--- NOTE | 2019-03-03 15:47 | Hospitalist Progress Note ---
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 -Clinical state continues to improve, although interview and physical exam still limited by profound vascular dementia -Cooperative with MRI brain today, which revealed acute/subacute infarct involving the right frontoparietal vertex -Likely embolic due to paroxysmal A fib/flutter. Anticoagulation has been contraindicated in the past due to history of spontaneous intracerebral hemorrhage and frequent falls -Routine cardiology consult placed to reassess need for anticoagulation -Neurology recommends to continue baby aspirin, discontinue non-essential medications -Primary service and neurology service touched base with family (2) Atrial fibrillation: Continued to have A flutter/A Fib overnight with HR 105-170 -In setting of Lopressor being held on day of admission to allow for permissive hypertension -Given IV digoxin and fluids overnight due to HR in 170s, returned to 60s-80s today -Continued scheduled home dose of Lopressor 100mg BID, Digoxin 0.125mg Q2D -Appreciate cardiology input (3) Elevated troponin: Initial troponin of 0.885 with peak of 1.11 yesterday afternoon -Remote history of CAD with RCA stent in 1999 -Denies chest pain. Repeat troponin if becomes symptomatic (4) Vascular dementia: Oriented to person at baseline -Seroquel and Ativan recently discontinued, thought to be contributing to lethargy during the day -Seen by geriatric psychiatrist earlier this week, mirtazapine dose increased (5) Infected skin tear: Recently treated for infected skin tear on her right forearm that grew MRSA sensitive to Bactrim. Completed course of Bactrim on 02/24. -Wound care (6) HTN (hypertension): Resumed home dose Lopressor and lisinopril (7) Diastolic CHF: Euvolemic. Closely monitor volume status (8) CKD (chronic kidney disease) stage 3, GFR 30-59 ml/min: Kidney function at baseline -Continue to monitor with daily BMP (9) SUSY (obstructive sleep apnea): CPAP intolerant DVT Ppx: SCDs, history of hemorrhagic stroke in May 2018 Code status: DNR per documentation sent from [facility] PCP: Majo Ramon PA-C Dispo: Observation med telemetry. Discharge planning for return to [facility] once medically appropriate. Patient seen in collaboration with Dr. Bethea. Please see addendum. Attending Addendum: Delayed entry date of service the rebound care coordinated with TYLER Stevenson please refer to her notes for full details, I agree with her notes patient seen and examined, records reviewed by myself as well on exam, patient seen resting in bedside chair, sitting up, seen at the bedside Awake alert in good spirits States she feels fine overall Denies neurologic symptoms No chest pain shortness of breath no other symptoms VS noted and reviewed Not oriented, pleasantly confused, not in distress, speaks in sentences with no effort nor accessory muscle use normal rate, irregularly irregular rhythm, no murmurs clear breath sounds bilaterally non distended, soft, nontender no bipedal edema, erythema, warmth no gross focal deficits /neuro deficits WBC 5.77 Hg 12.5 Crea 0.96 ASSESSMENT AND PLAN Acute CVA right frontoparietal cortex History of CVA, atrial for ablation MRI confirmed acute CVA Discussed with neurology service Recommends to continue aspirin for now as patient is not a candidate for anticoagulation per cardiology service Atrial fibrillation, chronic Cardiology consulted Recommending against anticoagulation for stroke prevention secondary to history of recent renal hemorrhage Continue aspirin We will continue usual metoprolol 100 mg twice a day for rate control other diagnoses and plan of care as per TYLER Stevenson's notes Lamine Bethea MD Subjective Seen and examined this morning, sleepy but responsive. Headache has resolved, no chest pain or difficulty breathing. Pleasantly confused. Was up during the evening and required a sitter. This seems to be in line with noted by Ainsley Heredia. Seems to be back to behavioral baseline or slightly improved, per family. Telemetry reviewed, with A flutter up to 170s overnight. Has been maintained in the 60s-80s today. Review of Systems Review of Systems: See HPI, remainder of HPI difficult to obtain due to dementia and superimposed delirium. Physical Exam Physical Exam: General Appearance: WD/WN, no apparent distress, sleeping intermittently, pleasantly confused Head: normocephalic, atraumatic Eyes: normal inspection, PERRL, EOMI ENT: hearing grossly normal, pharynx normal Neck: supple, no JVD, no adenopathy Respiratory/Chest: lungs clear to auscultation. No wheezes, rales or rhonci. No respiratory distress or accessory muscle use Cardiovascular: tachycardia, irregular rhythm, no murmur appreciated, normal peripheral pulses Abdomen/GI: normal bowel sounds, soft, non-tender to palpation Extremities/Musculoskelatal: normal inspection, no calf tenderness, normal capillary refill, no pedal edema Neurologic/Psych: alert, normal mood/affect, oriented x person. Moving all extremities spontaneously but does not cooperate for strength assessment. Skin: normal color, warm/dry Results & Data Vital Signs (Past 12 Hours) Vital Signs Temp Pulse Resp BP Pulse Ox 03/03/19 11:23 36.2 C L 82 20 167/86 H 93 03/03/19 06:50 36.1 C L 74 18 162/77 H 92 Laboratory Results Short CBC 03/03/19 Range/Units 00:26 WBC 5.77 (4.8-10.8) K/uL Hgb 12.5 (12.0-16.0) g/dL Hct 37.3 (37-47) % Plt Count 214 (130-400) K/uL BMP 03/03/19 00:26 Sodium 143 Potassium 3.6 Chloride 111 H Carbon Dioxide 27 BUN 16 Creatinine 0.96 Glucose 95 Calcium 8.5 Diagnostic Findings Brain MRI: IMPRESSION: 1. Acute/subacute infarct involving the right frontoparietal vertex 2. In addition there are multiple old bihemispheric and cerebellar infarcts. 3. Postsurgical changes of a prior aneurysm clipping (1) Diastolic CHF Heart failure chronicity: chronic Qualified Code(s): I50.32 - Chronic diastolic (congestive) heart failure (2) Vascular dementia Dementia behavioral disturbance: with behavioral disturbance Qualified Code(s): F01.51 - Vascular dementia with behavioral disturbance (3) HTN (hypertension) Hypertension type: essential hypertension Qualified Code(s): I10 - Essential (primary) hypertension
[2019-03-03] MEDS: ATORVASTATIN 40 MG TAB PO SCH (20:32)
[2019-03-04 07:04] LABS: Hematocrit (blood only) 37.3 % (37-47); Hemoglobin 12.8 g/dL (12.0-16.0); Mean Corpuscular Hgb Conc 34.3 g/dL (32-36); Mean Corpuscular Volume 88.4 fL (80-100); Platelet Count 201 K/uL (130-400); RDW Coefficient of Variation 15.8 % (11.5-14.5); RDW Standard Deviation 50.8 fL (36.4-46.3); Red Blood Count 4.22 M/uL (4.2-5.4); White Blood Count 4.44 K/uL (4.8-10.8)
[2019-03-04 07:42] LABS: BUN Creatinine Ratio 14.9 (10-20); Calcium 8.6 mg/dl (8.5-10.1); Creatinine Clr Calc Pharmacy 56.6 ml/min; Est GFR (African American) 97.5; Est GFR (Non-African American) 84.2; Potassium 3.5 mmol/L (3.5-5.1)
[2019-03-04] MEDS ORDERED: LISINOPRIL 20 MG TAB PO SCH (09:00)
[2019-03-04] MEDS: ASPIRIN 81 MG ECTAB PO SCH (09:18)
[2019-03-04] MEDS: PANTOprazole 40 MG TAB PO SCH (09:18)
[2019-03-04] MEDS: DOCUSATE SODIUM/SENNA 50/8.6MG TAB PO SCH (09:19)
[2019-03-04] MEDS: METOPROLOL TARTRATE 50 MG TAB PO SCH (09:19)
--- NOTE | 2019-03-04 10:12 | Cardiology Consultation ---
Date of Consultation March 04, 2019 Assessment & Plan (1) Atrial fibrillation: Pt has a history of spontaneous nonaneurysmal left thalamic IPH and recurrent frequent falls along with her profound dementia and has been deemed not an anticoagulation candidate previously by our practice. I agree that the risks of systemic anticoagulation far outweigh the benefits. her rates are controlled, cont metoprolol and digoxin (2) Vascular dementia: (3) History of CVA (cerebrovascular accident): (4) Acute ischemic stroke: recommend palliative care consultation to discuss hospice care with family History of Present Illness Reason for Consultation: anticoagulation candidacy Requesting Physician: Tammy James PA-C Attending Physician: Lamine Bethea MD History of Present Illness 78 yo severely demented F presented to [facility] on 03/01 from [facility] with report of new facial droop. Pt suffers from profound vascular dementia and is unable to answer questions correctly. Hx obtained through review of medical records and discussion with Kellie Stevenson PA-C. Pt seen by neurology and her anticoagulation candidacy was questioned given chronic afib. PMHX: 1. History of tachycardia induced cardiomyopathy 2. Paroxysmal, persistent, atrial fibrillation and atrial flutter. 1. Status post PVI ablation in 2009 2. Status post cardioversion in April 2015 3. Status post CTI flutter ablation in 07/2015. 4. Recurrent atrial flutter requiring resumption of amiodarone, successful ALPA guided synchronized electrical cardioversion using a single 125 J biphasic shock on December 27, 2015 5. Presentation on 12/09/2016 with with recurrent ASYMPTOMATIC atrial flutter with a controlled ventricular response. 24-hour holter monitor revealed normal sinus with an average heart rate of 63 bpm. There were rare PAC's and PVCs. S ymptoms of shortness of breath and dizziness correlated with normal sinus rhythm. Minimum heart rate was 63 bpm. Maximum heart rate was 110 bpm. 3. Hospitalized at [facility] in May 2018 with a spontaneous nonaneurysmal left thalamic IPH and urinary tract infection. Hemorrhage felt to be in a typical location for a primary hypertensive bleed. No definitive evidence of amyloid on limited MRI per documentation. 4. ASCVD with prior stenting of the RCA in 1999 5. Cardiac catheterization in 2006 and again on February 03, 2012 showing nonobstructive coronary artery disease 6. Nonobstructive carotid occlusive disease 7. Diastolic CHF, NYHA Class II-III 8. Obstructive sleep apnea 9. Asthmatic lung disease 10. Past DVT and PE 11. Prior CVA 12. Hypertension with hypertensive heart disease 13. Dyslipidemia 14. Hypothyroidism 15. Obesity 16. Obstructive sleep apnea 17. Stage III CKD 18. Chronic fatigue syndrome 19. CKD 20. Osteoarthritis with cervical spinal stenosis Allergies Allergy/AdvReac Type Severity Reaction Status Date / Time Penicillins Allergy Intermediate HIVES Verified 03/01/19 06:35 pneumococcal vaccine Allergy Mild FEVER/RASH Verified 03/01/19 06:35 carbenicillin Allergy Unknown "DON'T Verified 03/01/19 06:35 REMEMBER" Bactrim AdvReac Mild GI SYMPTOMS Verified 09/20/17 23:30 sulfamethoxazole AdvReac Mild GI SYMPTOMS Verified 03/01/19 06:35 trimethoprim AdvReac Mild GI SYMPTOMS Verified 03/01/19 06:35 Home Medications Home Medications Medication Instructions Recorded Confirmed Type atorvastatin 80 mg PO HS #0 06/22/15 03/01/19 History omeprazole 20 mg PO QAM #0 cap 02/08/16 03/01/19 History digoxin 0.125 mg PO Q2D #0 05/10/18 03/01/19 History Fleet Enema 118 ml WA HS PRN 01/12/19 03/01/19 History Miconazorb AF 1 applic TOPICAL BID PRN 01/12/19 03/01/19 History acetaminophen 325 mg PO Q4H PRN MDD 3 /01/12/19 03/01/19 History HOURS. bisacodyl 10 mg WA DAILY PRN 01/12/19 03/01/19 History magnesium oxide 400 mg PO QAM 01/12/19 03/01/19 History potassium chloride 20 meq PO PM 01/12/19 03/01/19 History ranitidine HCl 150 mg PO BID 01/12/19 03/01/19 History aspirin [Ecotrin Low Strength] 81 mg PO QAM 81 Days #81 tab 01/17/19 03/01/19 Rx buspirone 10 mg PO TID 01/21/19 03/01/19 History metoprolol tartrate 100 mg PO BID 01/21/19 03/01/19 History Med Pass Suppliment 120 ml PO TID 03/01/19 03/01/19 History linaclotide [Linzess] 145 mcg PO DAILYBB 03/01/19 03/01/19 History lisinopril 20 mg PO QAM 03/01/19 03/01/19 History mirtazapine 45 mg PO HS 03/01/19 03/01/19 History mupirocin 1 applic TOPICAL BID 03/01/19 03/01/19 History polyethylene glycol 3350 [Miralax] 17 g PO QAM 03/01/19 03/01/19 History sennosides-docusate sodium 2 tab PO BID 03/01/19 03/01/19 History [Senna-S] Patient History Medical History Atrial fibrillation (Chronic) Vascular dementia (Chronic) HTN (hypertension) (Chronic) History of CVA (cerebrovascular accident) (Chronic) SUSY (obstructive sleep apnea) (Chronic) Diastolic CHF (Chronic) GERD (gastroesophageal reflux disease) (Chronic) CKD (chronic kidney disease) stage 3, GFR 30-59 ml/min (Chronic) Depression (Chronic) History of pulmonary embolus (PE) (Resolved) Atrial fibrillation (Chronic) HLD (hyperlipidemia) (Chronic) Hypothyroidism (Chronic) Stroke (Resolved) Surgical History History of appendectomy (Resolved) History of resection of small bowel (Resolved) secondary to high grade SBO History of total left knee replacement (TKR) (Resolved) History of percutaneous coronary intervention (Resolved) s/p Stent of RCA in 1999 History of radiofrequency ablation procedure for cardiac arrhythmia (Resolved) S/P PVI ablation in 2009 for afib/flutter s/p CTI flutter ablation in 2014 S/P Cardioversion in 04/2015 and 12/27/15 H/O craniotomy (Resolved) Right frontotemporal craniotomy with aneurysm clip Family History Other Family history non-contributory Social History Preferred Language: Latvian Communication Ability: dementia 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 current occupational status: retired Other Information That Helps Us Care for You: No Feels Safe at Home: Yes Safety Concerns: Feels Safe At This Time Smoking Status: Never smoker Do You Dip or Chew Tobacco: No Second Hand Exposure: No Tobacco Cessation Education Requested by Patient: No Hx Alcohol Use: No Hx Substance Use: No Review of Systems Review of Systems: Unobtainable due to cognitive status Physical Exam Physical Exam: General: Awake, alert and oriented x 0. No acute distress. HEENT: Normocephalic, atraumatic. Pupils equal, round and reactive to light and accommodation. Extraocular muscles are intact. Anicteric sclera. Moist mucous membranes. Neck: No JVD. No bruit. Cardiovascular: irregularly irregular, unable to appreciate murmur, rub or gallop. Pulmonary: Clear to auscultation bilaterally. No rales, rhonchi, or wheezing. Abdomen: Bowel sounds x 4, soft. No rebound, guarding or tenderness. No organomegaly. Extremities: No clubbing, cyanosis or edema. +2 pedal pulses bilaterally. Skin: Warm and dry. Results & Data Vital Signs (Past 12 Hours) Vital Signs Temp Pulse Pulse Pulse Pulse Resp BP 03/04/19 04:32 75 164/78 H 03/04/19 01:54 123 H 03/03/19 23:10 36.5 C 76 18 162/77 H 03/03/19 22:38 85 03/03/19 22:23 134 H 115/64 Pulse Ox 03/04/19 04:32 03/04/19 01:54 03/03/19 23:10 95 03/03/19 22:38 03/03/19 22:23 (1) Vascular dementia Dementia behavioral disturbance: with behavioral disturbance Qualified Code(s): F01.51 - Vascular dementia with behavioral disturbance
--- NOTE | 2019-03-04 12:09 | Hospitalist Progress Note ---
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 -Clinical state improved, although interview and physical exam still limited by profound vascular dementia -Cooperative with MRI brain today, which revealed acute/subacute infarct involving the right frontoparietal vertex -Likely embolic due to paroxysmal A fib/flutter. Anticoagulation has been contraindicated in the past due to history of spontaneous intracerebral hemorrhage and frequent falls -Cardiology agrees that risks of systemic anticoagulation far outweigh the benefits -Neurology recommends to continue baby aspirin, discontinue non-essential medications -Primary service and neurology service touched base with family (2) Atrial fibrillation: Continued to have A flutter/A Fib overnight with HR 105-150 -In setting of Lopressor being held on day of admission to allow for permissive hypertension -Has now resumed home schedule of Lopressor 100mg BID, Digoxin 0.125mg Q2D -Cardiology recommends continuing present regimen (3) Elevated troponin: Initial troponin of 0.885 with peak of 1.11 yesterday afternoon -Remote history of CAD with RCA stent in 1999 -Denies chest pain. Repeat troponin if becomes symptomatic (4) Vascular dementia: Oriented to person at baseline -Seroquel and Ativan recently discontinued, thought to be contributing to lethargy during the day -Seen by geriatric psychiatrist earlier this week, mirtazapine dose increased (5) Infected skin tear: Recently treated for infected skin tear on her right forearm that grew MRSA sensitive to Bactrim. Completed course of Bactrim on 02/24. -Wound care (6) HTN (hypertension): Resumed home dose Lopressor and lisinopril (7) Diastolic CHF: Euvolemic. Closely monitor volume status (8) CKD (chronic kidney disease) stage 3, GFR 30-59 ml/min: Kidney function at baseline -Continue to monitor with daily BMP (9) SUSY (obstructive sleep apnea): CPAP intolerant DVT Ppx: SCDs, history of hemorrhagic stroke in May 2018 Code status: DNR per documentation sent from Ainsley Heredia PCP: Majo Ramon PA-C [facility] this afternoon. Patient seen in collaboration with Dr. Bethea. Please see addendum. Attending Addendum: care coordinated with TYLER Stevenson please refer to her notes for full details, I agree with her notes patient seen and examined, records reviewed by myself as well on exam, patient seen sleeping, but easily arousable next alert, comfortable, denies any symptoms She feels fine overall no other symptoms VS noted and reviewed Oriented, pleasantly confused, not in distress, speaks in sentences with no effort nor accessory muscle use normal rate, irregularly irregular rhythm, no murmurs clear breath sounds bilaterally non distended, soft, nontender no bipedal edema, erythema, warmth no other new gross neuro deficits WBC 4.4 Hg 12.8 Crea 0.7 ASSESSMENT AND PLAN Recurrent CVA in the setting of chronic A. fib Anti-coagulation still not recommended per cardiology service Continue usual aspirin 81 mg p.o. daily Chronic A. fib Usual metoprolol 100 mg p.o. twice daily resume, heart rate improving Hypertension Continue usual metoprolol and lisinopril Avoid hypotension other diagnoses and plan of care as per TYLER Stevenson's notes Lamine Bethea MD Subjective Seen and examined this morning, sleepy but responsive. Feeling "good" today, denies chest pain, shortness of breath or headache. Pleasantly confused. Was up during the evening and required a sitter. This seems to be in line with ing noted by Ainsley Heredia. Seems to be back to behavioral baseline or slightly improved, per family. Telemetry reviewed, with A flutter/A Fib fluctuating overnight between 60s-150s. Is back on normal medication regimen. Review of Systems Review of Systems: See HPI for limited ROS, otherwise unobtainable due to cognitive status Physical Exam Physical Exam: General Appearance: WD/WN, no apparent distress, sleeping intermittently, pleasantly confused Head: normocephalic, atraumatic Eyes: normal inspection, PERRL, EOMI ENT: hearing grossly normal, pharynx normal Neck: supple, no JVD, no adenopathy Respiratory/Chest: lungs clear to auscultation. No wheezes, rales or rhonci. No respiratory distress or accessory muscle use Cardiovascular: irregular rate & rhythm, no murmur appreciated, normal peripheral pulses Abdomen/GI: normal bowel sounds, soft, non-tender to palpation Extremities/Musculoskelatal: normal inspection, no calf tenderness, normal capillary refill, no pedal edema Neurologic/Psych: alert, normal mood/affect, oriented x person. Moving all extremities spontaneously but does not cooperate for strength assessment. Skin: normal color, warm/dry Results & Data Vital Signs (Past 12 Hours) Vital Signs Pulse Pulse BP 03/04/19 04:32 75 164/78 H 03/04/19 01:54 123 H Laboratory Results Short CBC 03/04/19 Range/Units 06:33 WBC 4.44 L (4.8-10.8) K/uL Hgb 12.8 (12.0-16.0) g/dL Hct 37.3 (37-47) % Plt Count 201 (130-400) K/uL BMP 03/04/19 06:33 Sodium 142 Potassium 3.5 Chloride 111 H Carbon Dioxide 25 BUN 10 D Creatinine 0.70 Glucose 72 Calcium 8.6 Urine 03/03/19 Range/Units 15:20 Urine Color Yellow Urine Appearance Cloudy H (Clear) Urine pH 8.0 H (4.5-7.5) Ur Specific [place] 1.011 (1.000-1.030) Urine Protein Negative (Negative) Urine Glucose (UA) Negative (Negative) (1) Diastolic CHF Heart failure chronicity: chronic Qualified Code(s): I50.32 - Chronic diastolic (congestive) heart failure (2) Vascular dementia Dementia behavioral disturbance: with behavioral disturbance Qualified Code(s): F01.51 - Vascular dementia with behavioral disturbance (3) HTN (hypertension) Hypertension type: essential hypertension Qualified Code(s): I10 - Essential (primary) hypertension
[2019-03-04] MEDS ORDERED: STROKE PATIENT DISCHARGE STA (15:18)
--- NOTE | 2019-03-04 15:43 | Discharge Summary ---
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 Patient was last seen well at 0300 but when evaluated 0520 this morning, staff noted a left facial droop and garbled speech. Per discussion with daughter Autumn on phone, patient is alert and oriented to person at baseline and is able to ambulate by wheelchair/walker with assistance. Seemed more confused this morning and with garbled speech, per daughter. Was brought to ED for further evaluation via EMS. Exam limited due to patient's cognitive status. Patient responds to painful stimuli and is able to tell me her name only. Denies any headache, chest pain or difficulty breathing. Unable to determine the remainder of ROS. Moves all 4 extremities. Mild LUE weakness noted by ED physician during initial exam. Was recently admitted January 12- due to similar symptoms of slurred speech, also with right-sided weakness. MRI unable to be obtained due to patient unable to cooperate. Echo with bubble study revealed preserved EF of 60-65%, mild aortic stenosis. Carotid Doppler ultrasound revealed plaque in left carotid as well as age-indeterminate thrombosis in distal RCA, new since 2013. Was seen by neurology service and started on aspirin with recommended sedation to continue at discharge. Of note, was recently treated for infected skin tear on her right forearm that grew MRSA sensitive to Bactrim. Completed course of Bactrim on 02/24. Admission Exam Per Admitting Provider General Appearance: WD/WN, no apparent distress, elderly woman, lethargic but responds to painful stimuli Head: normocephalic, atraumatic Eyes: normal inspection, PERRL, EOMI ENT: hearing grossly normal, pharynx normal (moist mucous membranes) Neck: supple, no JVD, no adenopathy Respiratory/Chest: lungs clear to auscultation. No wheezes, rales or rhonci. No respiratory distress or accessory muscle use Cardiovascular: regular rate, rhythm, systolic murmur, normal peripheral pulses Abdomen/GI: normal bowel sounds, soft, non-tender to palpation Extremities/Musculoskelatal: normal inspection, no calf tenderness, normal capillary refill, no pedal edema Neurologic/Psych: alert, oriented to person only. Unable to follow commands 2/2 cognitive status. Moves all 4 extremities Skin: normal color, warm/dry. R forearm bandage in place Principal Diagnosis Acute/subacute infarct involving the right frontoparietal vertex Discharge Exam General Appearance: WD/WN, no apparent distress, sleeping intermittently, pleasantly confused Head: normocephalic, atraumatic Eyes: normal inspection, PERRL, EOMI ENT: hearing grossly normal, pharynx normal Neck: supple, no JVD, no adenopathy Respiratory/Chest: lungs clear to auscultation. No wheezes, rales or rhonci. No respiratory distress or accessory muscle use Cardiovascular: irregular rate & rhythm, no murmur appreciated, normal peripheral pulses Abdomen/GI: normal bowel sounds, soft, non-tender to palpation Extremities/Musculoskelatal: normal inspection, no calf tenderness, normal capillary refill, no pedal edema Neurologic/Psych: alert, normal mood/affect, oriented x person. Moving all extremities spontaneously but does not cooperate for strength assessment. Skin: normal color, warm/dry Discharge Data Allergies Allergy/AdvReac Type Severity Reaction Status Date / Time Penicillins Allergy Intermediate HIVES Verified 03/01/19 06:35 pneumococcal vaccine Allergy Mild FEVER/RASH Verified 03/01/19 06:35 carbenicillin Allergy Unknown "DON'T Verified 03/01/19 06:35 REMEMBER" Bactrim AdvReac Mild GI SYMPTOMS Verified 09/20/17 23:30 sulfamethoxazole AdvReac Mild GI SYMPTOMS Verified 03/01/19 06:35 trimethoprim AdvReac Mild GI SYMPTOMS Verified 03/01/19 06:35 Consultations 03/01/19 08:05 ED Decision to Admit Stat 03/01/19 13:55 Consult Case Management - Discharge Planning Routine Consult Neurology Routine 03/03/19 16:09 Consult Cardiology Routine Ordered Studies 03/01/19 06:10 CT head/brain wo con Urgent 03/02/19 11:12 CT head/brain wo con Urgent 03/03/19 09:44 MR brain wo/w con Routine Hospital Course (1) Acute ischemic stroke: This is a 78-year-old female with PMH of profound vascular dementia, history of ischemic CVA x 2, recent spontaneous non-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 Patient was found by [facility] staff to have woken up with left facial droop and garbled speech. Per discussion with daughter Autumn on phone, patient is alert and oriented x person at baseline and is able to ambulate by wheelchair/walker with assistance. Was brought to ED for further evaluation and was found to be confused and uncooperative with physical exam initially. Received IV fluids with improved cognitive status by the morning. Unable to obtain MRI brain initially due to patient cooperation, but underwent MRI study on 3rd day of admission that revealed acute/subacute infarct involving the right frontoparietal vertex. Was seen by neurology service, who felt that stroke was of embolic nature due to uncontrolled atrial fibrillation. Recommended continuing baby aspirin only for antiplatelet therapy. Also seen by show card writer service, who recommend continue rate and rhythm control with Lopressor 100 mg twice daily as well as digoxin 0.125 mg every other day. We also discussed that discontinuing nonessential medications would improve likelihood that patient would be willing to take cardiac medication daily. The best form of preventing future strokes is to control condition of paroxysmal atrial fibrillation. Patient is back to cognitive and behavioral baseline, per nursing staff and family. Has had fluctuating rate of a flutter/A. fib during admission but is now consistently taking home medications again and has been rate-controlled. Is medically appropriate for return to [facility]. addendum: Possible Type 2 MA due to demand ischemia --Troponins trended down No chest pain or cardiac symptoms noted --Cardiology consulted Continued on aspirin and beta-chon Gayle Bethea MD (2) Atrial fibrillation: (3) Elevated troponin: (4) Vascular dementia: (5) Infected skin tear: (6) HTN (hypertension): (7) Diastolic CHF: (8) CKD (chronic kidney disease) stage 3, GFR 30-59 ml/min: (9) SUSY (obstructive sleep apnea): Total Time Total Time Spent Total Time Spent (In Minutes): 50 Discharge Plan Discharge Items Patient Disposition: Trans Resident Long-Term Care Reason For Visit: STROKE LIKE SYMPTOMS Discharge Diagnosis: acute/subacute infarct involving the right frontoparietal vertex Discharge Goals: Decrease discomfort and Improve disease control Activity: Resume your previous activity Non-emergency contact: Primary Care Provider Call non-emergency contact if: you have any medication questions and your symptoms worsen Follow-up/Referrals: Kendra Chappell [Primary Care Provider] - Diet: Heart Healthy Diet Texture: Mechanical soft (ground) Addtl Provider Instructions: * Patient was admitted with slurred speech and LUE weakness and was found to have had an acute/subacute infarct involving the right frontoparietal vertex. * Stroke thought to have been caused by uncontrolled atrial fibrillation. * Discussed discontinuing nonessential home medications (i.e. Linzess, Omeprazole, Zantac) so that patient is more agreeable to taking current dose of Lopressor, digoxin, aspirin, lisinopril. Will defer to [facility] medical staff to discontinue nonessential medications since they are more familiar with patient's needs. * Cardiology feels that risk outweighs benefit with anticoagulation due to history of hemorrhagic stroke, frequent falls and dementia. * Neurology recommends continuing baby aspirin. The best thing for stroke prevention is to control Atrial Fibrillation by patient consistently taking Lopressor and digoxin. It was a pleasure taking care of you. You can reach the [facility] Hospitalist team at [facility] by calling [phone] if you have any questions or concerns. Take care of yourself. Kellie Stevenson PA-C [facility] Prescriptions: Continued atorvastatin 80 mg Tablet 80 mg PO HS Qty: 0 RF: 0 omeprazole 20 mg Capsule,Delayed Release(Dr/Ec) 20 mg PO QAM Qty: 0 RF: 0 digoxin 125 mcg Tablet 0.125 mg PO Q2D Qty: 0 RF: 0 acetaminophen 325 mg Tablet 325 mg PO Q4H MDD 3 GRAMS/24 HOURS. PRN (Reason: Pain) RF: 0 Miconazorb AF 2 % Powder 1 applic TOPICAL BID PRN (Reason: Skin Irritation) RF: 0 bisacodyl 10 mg Suppository 10 mg SD DAILY PRN (Reason: Constipation) RF: 0 Fleet Enema 19-7 gram/118 mL Enema 118 ml SD HS PRN (Reason: Constipation) RF: 0 magnesium oxide 400 mg (241.3 mg magnesium) Tablet 400 mg PO QAM RF: 0 ranitidine HCl 150 mg Tablet 150 mg PO BID RF: 0 potassium chloride 20 mEq Tablet Extended Release 20 meq PO PM RF: 0 aspirin [Ecotrin Low Strength] 81 mg Tablet,Delayed Release (Dr/Ec) 81 mg PO QAM 81 Days Qty: 81 RF: 0 metoprolol tartrate 100 mg Tablet 100 mg PO BID RF: 0 buspirone 10 mg Tablet 10 mg PO TID RF: 0 polyethylene glycol 3350 [Miralax] 17 gram Powder In Packet 17 g PO QAM RF: 0 sennosides-docusate sodium [Senna-S] 8.6-50 mg Tablet 2 tab PO BID RF: 0 mirtazapine 45 mg Tablet 45 mg PO HS RF: 0 mupirocin 2 % Ointment 1 applic TOPICAL BID RF: 0 Linzess 145 mcg Capsule 145 mcg PO DAILYBB RF: 0 lisinopril 20 mg tablet 20 mg PO QAM RF: 0 Discontinued Med Pass Suppliment 120 ml PO TID RF: 0 Stand-Alone Forms: [facility] Discharge Orders: Discharge Order (Routine); Ordered 03/04/19 Ordered By: Kellie Stevenson Admission Data Admit Date/Time: 03/03/19 12:10 Attending Provider: Lamine Bethea Admit Provider: Ramos Erickson Primary Care Provider: Kendra Chappell Other Providers: Dre Chicas ; Lamine Bethea ; Varinder Pimentel Service: Telemetry Other Interventions: Discharge Summary Assessment (RN) Last Done: 03/04/19 16:13 Pending Studies at Discharge: No DC Date/Time DO NOT enter until pt leaves facility: 03/04/19 16:39
[2019-03-04] MEDS: DIGOXIN 0.125 MG TAB PO SCH (16:27)
--- OUTSIDE RECORDS SUMMARY | 2019-03-07 15:51 | External Medical Summary | Continuity of Care Document ---
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) Dizziness (780.4) (R42) Dyslipidemia (272.4) (E78.5) Functional Status Hearing loss Allergies and Adverse Reactions Geocillin (Allergy) Penicillins (Allergy) Pneumovax 23 25 MCG/0.5ML Injection Injectable (Allergy) Medications Probiotic Formula CAPS Refills: 0 Estrace 0.1 MG/GM Vaginal Cream Refills: 0 Detrol LA 4 MG Oral Capsule Extended Release 24 Hour Refills: 0 Atorvastatin Calcium 80 MG Oral Tablet Refills: 0 busPIRone HCl - 10 MG Oral Tablet Refills: 0 Cymbalta 60 MG Oral Capsule Delayed Release Particles Refills: 0 Lisinopril 2.5 MG Oral Tablet Refills: 0 Amiodarone HCl - 200 MG Oral Tablet Refills: 0 Carvedilol 6.25 MG Oral Tablet Refills: 0 Warfarin Sodium 5 MG Oral Tablet Refills: 0 Potassium Chloride CR 20 MEQ TBCR Refills: 0 Magnesium Oxide 400 MG Oral Capsule Refills: 0 LORazepam 0.5 MG Oral Tablet Refills: 0 Procedures History of Appendectomy Status: Complete d History of Neuroplasty Decompression Median Nerve At Carpal Status: Completed Tunnel History of Knee Replacement Status: Comp leted History of Back Surgery Status: Complete d Immunizations Immunizations not documented Social History - Smoking Status Former smoker Plan of Treatment Planned Observations Planned Goals not documented Results No Known Results Results not documented Encounters Appointment; Casie Barfield PA-C 02-Feb-2015 13:15 Encounter Diagnosis: Problem not documented
== END 2019-03-04 16:39 | DRG 64 ==
LOC: 2W 06:15 → ED 06:15 → 2W 13:19

== ENCOUNTER 2019-04-07 22:01 | Inpatient (IN) ==
[2019-04-07] MEDS ORDERED: LORazepam 0.5 MG/1 ML VIAL IV STA (22:21)
--- NOTE | 2019-04-07 22:23 | Emergency Department Note ---
Entered by Vince Patel acting as a scribe for Ish Howard DO History of Present Illness General Chief complaint: Mental Health Evaluation Stated complaint: MHID Time Seen by Provider: 04/07/19 22:04 Source: patient and RN notes reviewed History of Present Illness Provider complaint: Altered mental status Onset (ago): hour(s) (Tonight) Location: head Pain Consistency: + constant Relieved By: + none Exacerbated By: + none Associated symptoms: + other (Epistaxis) The patient is a 78 year old female who presents to the Emergency Room via EMS with complaints of constant altered mental status that started today, per the EMS. They stated that the patient was biting, hitting, and yelling at the staff. The patient also was also laughing and crying intermittently. The patient noted that two days ago she had a nose bleed. The patient does have a history of a stroke. HPI is limited secondary to altered mental status. Home Medications Home Medications Medication Instructions Recorded Confirmed Type atorvastatin 80 mg PO HS #0 06/22/15 04/07/19 History omeprazole 20 mg PO QAM #0 cap 02/08/16 04/07/19 History digoxin 0.125 mg PO Q2D #0 05/10/18 04/07/19 History Fleet Enema 118 ml OH HS PRN 01/12/19 04/07/19 History Miconazorb AF 1 applic TOPICAL BID PRN 01/12/19 04/07/19 History acetaminophen 325 mg PO Q4H PRN MDD 3 GRAMS/24 01/12/19 04/07/19 History HOURS. bisacodyl 10 mg OH DAILY PRN 01/12/19 04/07/19 History magnesium oxide 400 mg PO QAM 01/12/19 04/07/19 History potassium chloride 20 meq PO PM 01/12/19 04/07/19 History ranitidine HCl 150 mg PO BID 01/12/19 04/07/19 History buspirone 10 mg PO TID 01/21/19 04/07/19 History metoprolol tartrate 100 mg PO BID 01/21/19 04/07/19 History lisinopril 20 mg PO QAM 03/01/19 04/07/19 History mirtazapine 45 mg PO HS 03/01/19 04/07/19 History polyethylene glycol 3350 [Miralax] 17 g PO QAM 03/01/19 04/07/19 History sennosides-docusate sodium 2 tab PO BID 03/01/19 04/07/19 History [Senna-S] Med Pass Suppliment 120 ml PO TID 04/07/19 04/07/19 History ceftriaxone 1 g IM DAILY 04/07/19 04/07/19 History ciprofloxacin HCl [Cipro] 500 mg PO BID 04/07/19 04/07/19 History linaclotide [Linzess] 290 mcg PO QAM 04/07/19 04/07/19 History melatonin 5 mg PO HS 04/07/19 04/07/19 History olanzapine 2.5 mg PO Q6 PRN 04/07/19 04/07/19 History quetiapine [Seroquel] 25 mg PO TID 04/07/19 04/07/19 History Allergies Allergy/AdvReac Type Severity Reaction Status Date / Time Penicillins Allergy Intermediate HIVES Verified 04/07/19 23:05 pneumococcal vaccine Allergy Mild FEVER/RASH Verified 04/07/19 23:05 carbenicillin Allergy Unknown "DON'T Verified 04/07/19 23:05 REMEMBER" Bactrim AdvReac Mild GI SYMPTOMS Verified 09/20/17 23:30 sulfamethoxazole AdvReac Mild GI SYMPTOMS Verified 04/07/19 23:05 trimethoprim AdvReac Mild GI SYMPTOMS Verified 04/07/19 23:05 Past Med/Surg History Medical History Atrial fibrillation (Chronic) Vascular dementia (Chronic) HTN (hypertension) (Chronic) History of CVA (cerebrovascular accident) (Chronic) SUSY (obstructive sleep apnea) (Chronic) Diastolic CHF (Chronic) GERD (gastroesophageal reflux disease) (Chronic) CKD (chronic kidney disease) stage 3, GFR 30-59 ml/min (Chronic) Depression (Chronic) History of pulmonary embolus (PE) (Resolved) Atrial fibrillation (Chronic) HLD (hyperlipidemia) (Chronic) Hypothyroidism (Chronic) Stroke (Resolved) Surgical History History of appendectomy (Resolved) History of resection of small bowel (Resolved) secondary to high grade SBO History of total left knee replacement (TKR) (Resolved) History of percutaneous coronary intervention (Resolved) s/p Stent of RCA in 1999 History of radiofrequency ablation procedure for cardiac arrhythmia (Resolved) S/P PVI ablation in 2009 for afib/flutter s/p CTI flutter ablation in 2014 S/P Cardioversion in 04/2015 and 12/27/15 H/O craniotomy (Resolved) Right frontotemporal craniotomy with aneurysm clip Family History Other Family history non-contributory Social History Preferred Language: Tunisian Communication Ability: dementia Beliefs That Will Affect Care: None marital status: Current Living Situation: Prison Current Living Situation Comment: Resides in [facility]. current occupational status: retired Feels Safe at Home: Declines to Answer Smoking Status: Unknown if ever smoked Hx Alcohol Use: No Hx Substance Use: No Review of Systems See HPI for pertinent positives & negatives. Other (Limited secondary to altered mental status) Physical Exam Vital Signs Vital Signs - 24 hr 04/07/19 22:14 04/08/19 00:17 04/08/19 00:25 Temperature 36.0 C L Temperature Source Axillary Sepsis Recent Fever Within 48 Hours No Sepsis New/Unexplained Change in Mental Status No Sepsis Action Taken by Nursing No Action Required Pulse Rate 109 H Pulse Rate [Finger] 87 Respiratory Rate 20 18 Blood Pressure 175/97 H Blood Pressure [Right Arm] 105/71 Blood Pressure Mean 123 Blood Pressure Mean [Right Arm] 82 Pulse Oximetry 98 95 82 L Oxygen Delivery Method Room Air Room Air Room Air Oxygen Flow Rate 04/08/19 00:26 Temperature Temperature Source Sepsis Recent Fever Within 48 Hours Sepsis New/Unexplained Change in Mental Status Sepsis Action Taken by Nursing Pulse Rate Pulse Rate [Finger] Respiratory Rate Blood Pressure Blood Pressure [Right Arm] Blood Pressure Mean Blood Pressure Mean [Right Arm] Pulse Oximetry 96 Oxygen Delivery Method Nasal Cannula Oxygen Flow Rate 2 GENERAL: Patient is awake and alert. She is very anxious appearing and appears guarded. EYES: The conjunctivae are clear. The pupils are round and reactive. EARS, NOSE, MOUTH AND THROAT: The nose is without any evidence of any deformity. Mucous membranes are moist tongue is midline NECK: The neck is nontender and supple. RESPIRATORY: Normal respiratory effort is noted there is no evidence of wheezing rhonchi or rales CARDIOVASCULAR: Regular rate and rhythm noted there no murmurs rubs or gallops normal S1 normal S2 GASTROINTESTINAL: The abdomen is soft. Bowel sounds are present in all quadrants. Abdomen is nontender MUSCULOSKELETAL/EXTREMITIES: There is no evidence of gross deformity full range of motion is noted in the hips and shoulders SKIN: There is no obvious evidence of any rash. Pedal edema was noted bilaterally. There is erythema in the left lower extremity which could be consistent with cellulitis. There is no calf tenderness bilaterally. NEUROLOGIC: Patient is awake alert and oriented to person place and situation. She is not oriented to time. Strength is symmetric bilaterally. PSYCH: Patient is very anxious and guarded appearing. She is currently denying any suicidal ideation. There is report that the patient was hitting staff at the assisted which prompted the transfer to the emergency department. Course 2210: The patient was evaluated in room A08, and a complete history and physical examination were performed. 2345: I reevaluated the patient and updated her on results. 0025: I spoke to Dr. Helder Cantrell about the patient's case. He recommended IV Heparin. He also will be accepting the patient for further evaluation. 0035: I updated the patient on the treatment plan and she agreed. Consultations Consultation #1: I spoke to Dr. Helder Cantrell about the patient's case. He recommended IV Heparin. He also will be accepting the patient for further evaluation. Time: 00:25 Administered Medications Sodium Chloride (Nss 1000ml) 1,000 mls @ 999 mls/hr IV .Q1H1M ONE Stop: 04/08/19 01:26 Last Admin: 04/08/19 00:42 Dose: 999 mls/hr Documented by: [id number] Discontinued Medications Heparin Sodium/Dextrose () 1 ea IV ONE ONE; Protocol Stop: 04/08/19 00:27 Last Admin: 04/08/19 00:45 Dose: Not Given Documented by: [id number] Heparin Sodium/Dextrose (Heparin Sodium/Dextrose) Confirm Administered Dose 25,000 units IV .STK-MED ONE Stop: 04/08/19 00:45 Last Admin: 04/08/19 00:44 Dose: 1,000 units Documented by: [id number] Cosigned by: [id number] Sodium Chloride (Nss) 500 mls @ 999 mls/hr IV .Q31M [facility] Stop: 04/07/19 23:00 Last Admin: 04/07/19 23:20 Dose: Not Given Documented by: [id number] Lorazepam (Ativan) 0.5 mg in 1 mls @ 1 mls/min IV NOW STA Stop: 04/07/19 22:22 Last Admin: 04/07/19 23:38 Dose: Not Given Documented by: [id number] Lorazepam (Ativan) 1 mg IM NOW STA Stop: 04/07/19 23:07 Last Admin: 04/07/19 23:10 Dose: 1 mg Documented by: [id number] Medical Decision Making Differential Diagnosis Differential diagnosis includees etiologies such as cellulitis, abscess, MRSA infection, DVT, necrotizing fasciitis, dermatitis, drug eruption, as well as others were entertained. Medical Records Attestation: I reviewed the patient's medical records. Home Medications Current Medication List: was personally reviewed by me Laboratory Data Attestation: I reviewed the patient's lab results. Result diagrams: 04/07/19 22:40 04/07/19 22:40 Lab Results 04/07/19 04/07/19 04/07/19 Range/Units 22:40 22:40 22:40 WBC (4.8-10.8) K/uL RBC (4.2-5.4) M/uL Hgb (12.0-16.0) g/dL Hct (37-47) % MCV (80-100) fL MCH (25-34) pg MCHC (32-36) g/dL RDW Std Deviation (36.4-46.3) fL RDW Coeff of Tre (11.5-14.5) % Plt Count (130-400) K/uL MPV (7.4-10.4) fL Immature Gran % (Auto) % Neut % (Auto) % Lymph % (Auto) % Monroe % (Auto) % Eos % (Auto) % Baso % (Auto) % Immature Gran # (Auto) (0.00-0.02) K/uL Neut # (Auto) (1.4-6.5) K/uL Lymph # (Auto) (1.2-3.4) K/uL Monroe # (Auto) (0.11-0.59) K/uL Eos # (Auto) (0-0.5) K/uL Baso # (Auto) (0-0.2) K/uL ESR 6 (0-21) mm/hr PT 11.1 (9.0-12.0) Seconds INR 1.1 (0.9-1.1) APTT 23.3 (21.0-31.0) Seconds PTT Ratio 0.9 Sodium (136-145) mmol/L Potassium (3.5-5.1) mmol/L Chloride (98-107) mmol/L Carbon Dioxide (21-32) mmol/L Anion Gap (3-11) BUN (7-18) mg/dl Creatinine (0.6-1.2) mg/dl Est Cr Clr Drug Dosing Est GFR ( Amer) Est GFR (Non-Af Amer) BUN/Creatinine Ratio (10-20) Glucose (70-99) mg/dl Calcium (8.5-10.1) mg/dl Magnesium (1.8-2.4) mg/dl Total Bilirubin (0.2-1) mg/dl AST (15-37) U/L ALT (12-78) U/L Alkaline Phosphatase (45-117) U/L Total Creatine Kinase (26-192) U/L Troponin I (0-0.045) ng/ml C-Reactive Protein (0-0.29) mg/dl Total Protein (6.4-8.2) gm/dl Albumin (3.4-5.0) gm/dl Globulin (2.5-4.0) gm/dl Albumin/Globulin Ratio (0.9-2) TSH (0.300-4.500) uIu/ml Digoxin 0.3 L (0.8-2.0) ng/ml Ethyl Alcohol mg/dL (0-3) mg/dl 04/07/19 04/07/19 04/07/19 Range/Units 22:40 22:40 22:46 WBC 6.41 (4.8-10.8) K/uL RBC 4.31 (4.2-5.4) M/uL Hgb 12.9 (12.0-16.0) g/dL Hct 39.3 (37-47) % MCV 91.2 (80-100) fL MCH 29.9 (25-34) pg MCHC 32.8 (32-36) g/dL RDW Std Deviation 53.4 H (36.4-46.3) fL RDW Coeff of Tre 15.8 H (11.5-14.5) % Plt Count 208 (130-400) K/uL MPV 9.3 (7.4-10.4) fL Immature Gran % (Auto) 0.3 % Neut % (Auto) 73.4 % Lymph % (Auto) 18.9 % Monroe % (Auto) 7.2 % Eos % (Auto) 0.0 % Baso % (Auto) 0.2 % Immature Gran # (Auto) 0.02 (0.00-0.02) K/uL Neut # (Auto) 4.71 (1.4-6.5) K/uL Lymph # (Auto) 1.21 (1.2-3.4) K/uL Monroe # (Auto) 0.46 (0.11-0.59) K/uL Eos # (Auto) 0.00 (0-0.5) K/uL Baso # (Auto) 0.01 (0-0.2) K/uL ESR (0-21) mm/hr PT (9.0-12.0) Seconds INR (0.9-1.1) APTT (21.0-31.0) Seconds PTT Ratio Sodium 145 (136-145) mmol/L Potassium 3.8 (3.5-5.1) mmol/L Chloride 110 H (98-107) mmol/L Carbon Dioxide 29 (21-32) mmol/L Anion Gap 6.0 (3-11) BUN 18 (7-18) mg/dl Creatinine 0.90 (0.6-1.2) mg/dl Est Cr Clr Drug Dosing Not Reportable Est GFR ( Amer) 72.0 Est GFR (Non-Af Amer) 62.1 BUN/Creatinine Ratio 19.8 (10-20) Glucose 119 H (70-99) mg/dl Calcium 9.2 (8.5-10.1) mg/dl Magnesium 2.0 (1.8-2.4) mg/dl Total Bilirubin 0.4 (0.2-1) mg/dl AST 17 (15-37) U/L ALT 19 (12-78) U/L Alkaline Phosphatase 95 (45-117) U/L Total Creatine Kinase 133 (26-192) U/L Troponin I 0.018 (0-0.045) ng/ml C-Reactive Protein < 0.29 (0-0.29) mg/dl Total Protein 7.3 (6.4-8.2) gm/dl Albumin 3.8 (3.4-5.0) gm/dl Globulin 3.5 (2.5-4.0) gm/dl Albumin/Globulin Ratio 1.1 (0.9-2) TSH 2.070 (0.300-4.500) uIu/ml Digoxin (0.8-2.0) ng/ml Ethyl Alcohol mg/dL < 3.0 (0-3) mg/dl Imaging Data Radiologist's Impression: Radiology results as stated below per my review and the radiologist's interpretation: XR chest 1V portable CLINICAL HISTORY: weakness COMPARISON STUDY: 03/01/2019 FINDINGS: The study is rotated. The heart is mildly enlarged. There is aortic tortuosity. There is no focal pulmonary consolidation. There are no pleural effusions. There is slight interstitial prominence without evidence of overt failure.[ IMPRESSION: Mild cardiomegaly. No evidence of focal pulmonary consolidation Electronically signed by: Matheus Krishnamurthy M.D. 04/07/2019 10:[address] HEAD: Comparison 03/01/2019 Motion artifact No evidence of intracranial hemorrhage, mass effect or large vascular territory acute infarct by CT Ventricles are unchanged in size and remain midline Multifocal old infarcts Craniotomy with anterior aneurysm clip again seen Visualized paranasal sinuses, mastoids and orbits appear within limits Radiologist: Vince Serna M.D. Study ready at 23:50 and initial results transmitted at 00:33 US VENOUS LEFT LOWER EXTREMITY: Study is limited due to patient condition Near occlusive appearing thrombus noted with involvement of the visualized dis cynthia external iliac through the gastroc and peroneal veins with possible occlusive DVT at the anterior and posterior tibial veins Radiologist: Vince Serna M.D. Study ready at 00:28 and initial results transmitted at 00:35 ECG Data Attestation: I personally reviewed and interpreted this ECG as follows: Indication: altered mental status Rate (beats per minute): 130 Rhythm: atrial fibrillation (With RVR) Findings: no nonspecific-ST abn and no PVC Comparison ECG Date: from (03/02/19) Change: no significant change Blood Pressure Blood Pressure Findings: Normal blood pressure Blood Pressure Disposition: further management by hospitalist MDM Narrative The patient is a 78-year-old female who presented to the emergency department initially as an evaluation of mental health problems. The patient lives at a assisted. She was having aggressive behavior. She was biting staff members and was being argumentative. When she arrived here she was very guarded and anxious. She was treated with Ativan. The patient is currently being treated with an antibiotic for urinary tract infection. She has a history of atrial fibrillation and at this time was found to have rapid ventricular response. I discussed the patient's laboratory and radiographic studies with her. She was started on heparin as well as IV fluids for a large DVT in her left leg. I discussed her presentation with the on-call [facility] hospitalist group. They have agreed to evaluate the patient in the emergency department for further management and disposition. Impression & Plan Atrial fibrillation with RVR, Deep vein thrombosis (DVT), Agitation Critical Care Time I have personally spent greater than 45 minutes of critical care time in the direct management of this patient. This includes bedside care, interpretation of diagnostic studies, and testing, discussion with consultants, patient, and family members, and other required patient management activities. This 45 minutes is in excess of all separately billable procedures. Critical Care Time: Yes Total Critical Care Time: 45 Discharge Plan Visit Data Chief Complaint: Mental Health Evaluation Stated Complaint: MHID ED Provider: Ish Howard Discharge Problem: Atrial fibrillation with RVR, Deep vein thrombosis (DVT), Agitation Patient Disposition: Being Evaluated by Hospitalist Forms Stand Alone Forms: My [facility] Prescriptions Prescriptions: No Action atorvastatin 80 mg Tablet 80 mg PO HS Qty: 0 RF: 0 omeprazole 20 mg Capsule,Delayed Release(Dr/Ec) 20 mg PO QAM Qty: 0 RF: 0 digoxin 125 mcg Tablet 0.125 mg PO Q2D Qty: 0 RF: 0 quetiapine [Seroquel] 25 mg Tablet 25 mg PO TID RF: 0 ciprofloxacin HCl [Cipro] 500 mg Tablet 500 mg PO BID RF: 0 olanzapine 2.5 mg Tablet 2.5 mg PO Q6 PRN (Reason: Agitation) RF: 0 ceftriaxone 1 gram Recon Soln 1 g IM DAILY RF: 0 melatonin 5 mg Tablet 5 mg PO HS RF: 0 Linzess 290 mcg Capsule 290 mcg PO QAM RF: 0 Med Pass Suppliment 120 ml PO TID RF: 0 acetaminophen 325 mg Tablet 325 mg PO Q4H MDD 3 GRAMS/24 HOURS. PRN (Reason: Pain) RF: 0 Miconazorb AF 2 % Powder 1 applic TOPICAL BID PRN (Reason: Skin Irritation) RF: 0 bisacodyl 10 mg Suppository 10 mg OH DAILY PRN (Reason: Constipation) RF: 0 Fleet Enema 19-7 gram/118 mL Enema 118 ml OH HS PRN (Reason: Constipation) RF: 0 magnesium oxide 400 mg (241.3 mg magnesium) Tablet 400 mg PO QAM RF: 0 ranitidine HCl 150 mg Tablet 150 mg PO BID RF: 0 potassium chloride 20 mEq Tablet Extended Release 20 meq PO PM RF: 0 metoprolol tartrate 100 mg Tablet 100 mg PO BID RF: 0 buspirone 10 mg Tablet 10 mg PO TID RF: 0 polyethylene glycol 3350 [Miralax] 17 gram Powder In Packet 17 g PO QAM RF: 0 sennosides-docusate sodium [Senna-S] 8.6-50 mg Tablet 2 tab PO BID RF: 0 mirtazapine 45 mg Tablet 45 mg PO HS RF: 0 lisinopril 20 mg tablet 20 mg PO QAM RF: 0 Referrals Referrals: Kendra Chappell [Primary Care Provider] - Discharge Problem: Deep vein thrombosis (DVT) Qualifiers: DVT location: lower extremity Affected thrombotic vein of extremity: unspecified lower extremity distal vein Chronicity: unspecified Laterality: left Qualified Code(s): I82.4Z2 - Acute embolism and thrombosis of unspecified deep veins of left distal lower extremity The scribe's documentation has been prepared under my direction and personally reviewed by me in its entirety. I confirm that the note above accurately reflects all work, treatment, procedures, and medical decision making performed by me.
[2019-04-07] MEDS ORDERED: SODIUM CHLORIDE 0.9% 500 ML IV SCH (22:30)
--- NOTE | 2019-04-07 22:49 | XRay Report ---
XR chest 1V portable CLINICAL HISTORY: weakness COMPARISON STUDY: 03/01/2019 FINDINGS: The study is rotated. The heart is mildly enlarged. There is aortic tortuosity. There is no focal pulmonary consolidation. There are no pleural effusions. There is slight interstitial prominen ce without evidence of overt failure.[ IMPRESSION: Mild cardiomegaly. No evidence of focal pulmonary consolidation Electronically signed by: Matheus Krishnamurthy M.D. 04/07/2019 10:47 PM
[2019-04-07] MEDS ORDERED: LORazepam 2 MG/ML VIAL (IM USE) IM STA (23:06)
[2019-04-07 23:12] LABS: Basophils # (auto) 0.01 K/uL (0-0.2); Basophils % (auto) 0.2 %; Hematocrit (blood only) 39.3 % (37-47); Hemoglobin 12.9 g/dL (12.0-16.0); Immature Granulocytes # (auto) 0.02 K/uL (0.00-0.02); Immature Granulocytes % (auto) 0.3 %; Lymphocytes # (auto) 1.21 K/uL (1.2-3.4); Lymphocytes % (auto) 18.9 %; Mean Corpuscular Hgb Conc 32.8 g/dL (32-36); Mean Corpuscular Volume 91.2 fL (80-100); Mean Platelet Volume 9.3 fL (7.4-10.4); Monocytes # (auto) 0.46 K/uL (0.11-0.59); Monocytes % (auto) 7.2 %; Neutrophils # (auto) 4.71 K/uL (1.4-6.5); Neutrophils % (auto) 73.4 %; Platelet Count 208 K/uL (130-400); RDW Coefficient of Variation 15.8 % (11.5-14.5); RDW Standard Deviation 53.4 fL (36.4-46.3); Red Blood Count 4.31 M/uL (4.2-5.4); White Blood Count 6.41 K/uL (4.8-10.8)
[2019-04-07 23:22] LABS: INR 1.1 (0.9-1.1); Partial Thromboplastin Ratio 0.9; Partial Thromboplastin Time 23.3 Seconds (21.0-31.0); Prothrombin Time 11.1 Seconds (9.0-12.0)
[2019-04-07 23:29] LABS: Alanine Aminotransferase 19 U/L (12-78); Albumin Level 3.8 gm/dl (3.4-5.0); Aspartate Aminotransferase 17 U/L (15-37); BUN Creatinine Ratio 19.8 (10-20); Blood Urea Nitrogen 18 mg/dl (7-18); C Reactive Protein < 0.29 mg/dl (0-0.29); Calcium 9.2 mg/dl (8.5-10.1); Carbon Dioxide 29 mmol/L (21-32); Chloride 110 mmol/L (98-107); Est GFR (Non-African American) 62.1; Glucose 119 mg/dl (70-99); Potassium 3.8 mmol/L (3.5-5.1); Sodium 145 mmol/L (136-145)
[2019-04-07 23:38] LABS: Albumin Globulin Ratio 1.1 (0.9-2); Alkaline Phosphatase 95 U/L (45-117); Bilirubin,Total 0.4 mg/dl (0.2-1); Creatine Kinase 133 U/L (26-192); Globulin 3.5 gm/dl (2.5-4.0); Total Protein 7.3 gm/dl (6.4-8.2); Troponin I 0.018 ng/ml (0-0.045)
[2019-04-08] MEDS ORDERED: SODIUM CHLORIDE 0.9% 1000ML 1,000 ML IV ONE (00:26)
[2019-04-08] MEDS ORDERED: Heparin IV Standard *NO* Bolus IV ONE (00:26)
[2019-04-08] MEDS ORDERED: HEPARIN 25000 UNIT/500 ML D5W IV ONE (00:44)
[2019-04-08 01:49] LABS: Appearance Urine Clear (Clear); Bilirubin Urine Negative (Negative); Blood Urine Negative (Negative); Color Urine Yellow; Glucose Urine UA Negative (Negative); Ketones Urine Negative (Negative); Leukocyte Esterase Urine Negative (Negative); Nitrite Urine Negative (Negative); Protein Urine Negative (Negative); Specific Gravity Urine 1.015 (1.000-1.030); Urobilinogen Urine Negative (Negative); pH Urine 7.5 (4.5-7.5)
[2019-04-08] MEDS ORDERED: OPTIRAY 320 125ml IV PRN (02:46)
[2019-04-08] MEDS ORDERED: MICONAZOLE NITRATE POWDER 43 GM TOP PRN (03:04)
[2019-04-08] MEDS ORDERED: SOD PHOSPHATE/SOD BIPHOSPHATE ENEMA 132 ML BTL PR PRN (03:04)
[2019-04-08] MEDS ORDERED: BISACODYL 10 MG SUPP PR PRN (03:04)
[2019-04-08] MEDS ORDERED: ACETAMINOPHEN 325 MG TAB PO PRN ×2 (03:04)
[2019-04-08] MEDS ORDERED: ONDANSETRON INJ 2 MG/ML 2 ML VIAL IV PRN (03:04)
[2019-04-08] MEDS ORDERED: NITROGLYCERIN SL 0.4 MG/TAB TAB SL PRN (03:04)
[2019-04-08] MEDS: SODIUM CHLORIDE 0.9% 1000ML 1,000 ML IV SCH ×2 (03:31→17:40)
[2019-04-08] MEDS: Heparin Adult LOW DOSE Wt-Based Dextrose 5% 25,000 units/500 mL IV SCH (04:06)
--- NOTE | 2019-04-08 05:08 | History and Physical Report ---
DATE OF ADMISSION: 04/08/2019 CHIEF COMPLAINT: Confusion and agitation. 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, paroxysmal atrial fibrillation, not on anticoagulation secondary to spontaneous cerebral hemorrhages and fall risk; history of coronary artery disease, status post stenting of RCA in 1999; diastolic CHF; nonobstructive carotid occlusive disease; obstructive sleep apnea, intolerant to CPAP; history of DVT and PE; hypertension, hyperlipidemia, hypothyroidism, chronic kidney disease stage III, depression, peripheral vascular disease, who was in the hospital in last month in February last week with a stroke, at that time, MRI scan showed acute subacute infarct involving the right frontoparietal vertex and multiple old bihemispheric and cerebral infarcts. The patient was not started on any anticoagulation because of history of spontaneous cerebral hemorrhages risk. Her mental status was close to baseline at discharge and was continued on aspirin and seen by cardiology and neurology who agreed with the plan and was discharged back to [facility]. The patient is DNR/DNI as per my discussion with daughter and [facility]. The patient has mostly poor ambulatory status, ambulates only with 2 assists. She is on mechanical soft diet with thin liquids. Lately, she is getting more and more agitated and nursing staff at [facility] was giving her medications crushed and mixing in ice cream. As per the daughter, the patient was started on psych medications because of her agitation, which made her more sedated and caused worsening of her ambulatory status and requiring assistance for ambulation. She was today brought in because of her increasing agitation. When she came into the ER, she was agitated and she [pulled of IV line, IM Ativan was given and she became calmer and sedative. CT head shows old stroke, nothing acute. She has swelling in the left lower extremity and Doppler was done in the ER which showed extensive DVT in left lower extremity, at which time, IV heparin was started. Discussed with the daughter about the risk factors of anticoagulation because of her bleeding risk in the past and daughter is okay to continue IV heparin for now and also notified daughter that there is no vascular surgery available at this time for IVC filter. She wants to continue the IV heparin for now and she want to discuss with her siblings and get back to us in the morning. Currently, patient is resting comfortably and hemodynamically stable. After Ativan, oxygen saturation dropped to 86%, but with 2 liters oxygen her oxygen saturations improved; could not get any history from the patient as patient has vascular dementia and also currently sedated with Ativan. ALLERGIES: PENICILLINS, PNEUMOCOCCAL VACCINE, CARBENICILLIN, BACTRIM. PAST MEDICAL HISTORY: As mentioned above. PAST SURGICAL HISTORY: Ablation of the heart for SVT in 2009, left knee arthroplasty in 2000, craniotomy complex intracranial aneurysm in 2011, cardiac catheterization in 2011, colonoscopy, coronary artery dilatation in 1999, exploratory laparotomy in 2014, removal of small intestine in 2014. MEDICATIONS: The patient is on Linzess 290 mcg p.o. daily, melatonin 5 mg p.o. at bedtime, MiraLax 17 grams p.o. b.i.d., aspirin 81 mg p.o. daily, Remeron 45 mg p.o. at bedtime, lisinopril 20 mg p.o. daily, Zantac 150 mg p.o. b.i.d., Senokot-S 2 tablets p.o. b.i.d., buspirone 10 mg p.o. t.i.d., digoxin 125 mcg every other day, atorvastatin 80 mg p.o. daily, magnesium 400 mg p.o. daily, Lopressor 100 mg p.o. b.i.d., omeprazole 20 mg p.o. daily, potassium chloride 20 mEq p.o. daily. FAMILY HISTORY: Significant for mother had diabetes and heart disorder. Father had stroke, in his 60s. SOCIAL HISTORY: Currently [facility] resident, has dementia. Former smoker, quit in 1969. No alcohol use, no drug use. REVIEW OF SYSTEMS: Unobtainable at this time. PHYSICAL EXAMINATION: GENERAL: The patient is moderately built, currently sleeping. VITAL SIGNS: Temperature 36, pulse 86, respiratory rate 18, blood pressure 112/51, oxygen 100% on 2 liters. HEENT: No pallor, no icterus. Pupils sluggish to react. NECK: No neck masses, no carotid bruit. CARDIOVASCULAR: S1, S2 heard, irregular rhythm. No murmur, no gallop. RESPIRATORY SYSTEM: Normal AP diameter. No accessory muscle use. No wheezing, no crackles. ABDOMEN: Soft, bowel sounds present. Nontender. No distention. CENTRAL NERVOUS SYSTEM: Currently sleepy but was agitated on presentation. EXTREMITIES: Left lower extremity slightly warm and erythematous and slightly swollen. LABORATORIESS: WBC 6.4, hemoglobin 12.9, hematocrit 39.3, platelets 208. PT 11.1, INR 1.1, APTT 23.3. Sodium 145, potassium 3.8, chloride 110, bicarbonate 29, BUN 18, creatinine 0.9, serum glucose 119, calcium 9.2, magnesium 2, total bilirubin 0.4, AST 17, ALT 19, alkaline phosphatase 95, total creatine kinase 133. Troponin I 0.018. C-reactive protein is less than 0.29, TSH 2.07. Urinalysis negative. Digoxin 0.3. Ethyl alcohol less than 3. Chest x-ray, mild cardiomegaly, no evidence of focal pulmonary consolidation. CT head, old strokes. No acute findings. Await official report. Venous Doppler study, extensive left lower extremity DVT, await official report. EKG. A flutter with variable Av block at rate of 130. ASSESSMENT AND PLAN: 1. This 78-year-old female presents with agitation , history of severe vascular dementia, history of multiple strokes; history of atrial fibrillation, not on anticoagulation secondary to history of spontaneous cerebral hemorrhage and fall risk. Received IM Ativan in the ER and currently sleeping. Continue her home medications of buspirone, Seroquel and olanzapine p.r.n. We will also place on IV Ativan p.r.n. and monitor. 2. Left lower extremity deep venous thrombosis. We will also get a CTA of the chest to rule out PE as patient was slightly hypoxic in the ER after giving Ativan, saturating okay on 2 liters and she was also having tachycardia but it improved, starting on IV heparin low dose without bolus. The patient has risk of cerebral hemorrhages, last one was in 05/2018. Discussed with the daughter currently no vascular surgeon available for IVC filter and also patient was started on IV heparin, which daughter wants to continue for now until she discussed with other siblings in the morning and she knows the bleeding risk. 3. History of depression. Continue Remeron. 4. Hypertension. Continue lisinopril, and Lopressor.Will monitor. 5. History of diastolic congestive heart failure, currently on gentle fluids. Monitor for any volume overload. 6. History of obstructive sleep apnea, could not tolerate CPAP. 7. History of strokes secondary to atrial fibrillation, on aspirin and statin.Not on anticoagulation secondary to bleeding risk and fall risk. 8. A fib. On Lopressor, digoxin and aspirin. Initially was tachycardic but rates are under control now. 9. Hyperlipidemia, on statin. 10. GERD, on omeprazole and Zantac. 11. Recent UTI. Started on cipro 500mg bid on march 31 for 2 week course. Will Change it to Iv Rocephin and follow urine analysis. 12. CKD stage 3. Cr 0.9 at baseline. 13. Deep venous thrombosis prophylaxis, started on IV heparin. 14. Disposition. Closely monitor in the med/surg tele. Code status DNR as per my discussion with her daughter and also with [facility]. Social Service to help with discharge planning. IVAN
--- NOTE | 2019-04-08 06:30 | Ultrasound Report ---
US venous doppler LE LT CLINICAL HISTORY: swelling PAIN. EDEMA. COMPARISON STUDY: 06/26/2010 FINDINGS: Extensive acute deep venous stenosis throughout the left leg. There is involvement of the c ommon femoral vein, superficial femoral vein, popliteal, gastrocnemius as well as peroneal veins. Ant erior and posterior tibial veins are also involved. IMPRESSION: Extensive acute deep venous thrombosis. The above report was generated using voice recognition software. It may contain grammatical, syntax or spelling errors. Electronically signed by: David Fields M.D. 04/08/2019 6:29 AM
[2019-04-08] MEDS: LORazepam 0.5 MG/1 ML VIAL IV PRN ×2 (06:59→23:06)
--- NOTE | 2019-04-08 07:01 | CT Scan Report ---
HEAD CT NONCONTRAST CT DOSE: 614.27 mGy.cm HISTORY: Altered mental status. TECHNIQUE: Multiaxial CT images of the head were performed without the use of intravenous contrast. A utomated exposure control was utilized for this study. A dose lowering technique was utilized adheri ng to the principles of ALARA. Comparison: Head CT 03/02/2019. Findings: The paranasal sinuses and mastoid air cells are clear. The calvarium and skull base are int act. There is no mass, hematoma, midline shift, acute infarct. White matter hypodensity is nonspecifi c but suggestive of microvascular ischemic change. The ventricles and sulci demonstrate mild age-rela rolo involutional changes. Old right frontal craniotomy. Multifocal old infarcts remain unchanged. Mil d motion artifact. Aneurysm clip is again identified. Impression: No significant change compared to the prior study. No acute intracranial abnormality. Electronically signed by: Tapan Cat M.D. 04/08/2019 7:00 AM
--- NOTE | 2019-04-08 07:13 | CT Scan Report ---
CT angio chest PE protocol CT DOSE: 468.13 mGy.cm HISTORY: Dyspnea PE TECHNIQUE: Multiaxial CT images of the chest were performed following the intravenous administration of contrast to evaluate the pulmonary arteries. Maximal intensity projection images were also obtaine d. A dose lowering technique was utilized adhering to the principles of ALARA. COMPARISON STUDY: 05/12/2014 FINDINGS: Somewhat compromised exam due to restaurant somatic motion. There are vessels are not diagn ostically evaluated. Increased diameter of the pulmonary arterial vasculature consistent with a component of pulmonary art erial hypertension. Cardiomegaly. Calcification coronary arterial vasculature. Prominent pulmonary vascular congestion thoracic aorta is not well evaluated due to absence of contra st at that site. A component of cardiac decompensation is considered. IMPRESSION: 1. No evidence for pulmonary embolus. 2. Cardiomegaly with components of cardiac decompensation. 3. Considerable degenerative/atherosclerotic change thoracic aorta. 4. Components of pulmonary arterial hypertension are present. The above report was generated using voice recognition software. It may contain grammatical, syntax or spelling errors. Electronically signed by: David Fields M.D. 04/08/2019 7:12 AM
[2019-04-08 07:15] LABS: Basophils # (auto) 0.02 K/uL (0-0.2); Basophils % (auto) 0.4 %; Hematocrit (blood only) 37.9 % (37-47); Hemoglobin 12.4 g/dL (12.0-16.0); Immature Granulocytes # (auto) 0.04 K/uL (0.00-0.02); Immature Granulocytes % (auto) 0.7 %; Lymphocytes # (auto) 1.59 K/uL (1.2-3.4); Lymphocytes % (auto) 27.9 %; Mean Corpuscular Hgb Conc 32.7 g/dL (32-36); Mean Corpuscular Volume 91.3 fL (80-100); Mean Platelet Volume 8.9 fL (7.4-10.4); Monocytes % (auto) 8.8 %; Neutrophils # (auto) 3.55 K/uL (1.4-6.5); Neutrophils % (auto) 62.2 %; Platelet Count 170 K/uL (130-400); RDW Coefficient of Variation 15.8 % (11.5-14.5); RDW Standard Deviation 53.3 fL (36.4-46.3); Red Blood Count 4.15 M/uL (4.2-5.4)
[2019-04-08] MEDS: Heparin IV Low Dose *NO* Bolus IV SCH ×2 (07:18→07:19)
[2019-04-08 07:24] LABS: Partial Thromboplastin Ratio 1.3; Partial Thromboplastin Time 35.9 Seconds (21.0-31.0)
[2019-04-08 07:42] LABS: BUN Creatinine Ratio 18.2 (10-20); Blood Urea Nitrogen 14 mg/dl (7-18); Calcium 8.6 mg/dl (8.5-10.1); Carbon Dioxide 28 mmol/L (21-32); Chloride 113 mmol/L (98-107); Est GFR (African American) 89.7; Est GFR (Non-African American) 77.4; Glucose 83 mg/dl (70-99); Potassium 3.8 mmol/L (3.5-5.1); Sodium 148 mmol/L (136-145)
[2019-04-08] MEDS: LINZESS~ORDER AWAITING ACTION SCH ×3 (10:31→23:48)
[2019-04-08] MEDS: MAGNESIUM OXIDE 400 MG TAB PO SCH (10:33)
[2019-04-08] MEDS: METOPROLOL TARTRATE 100 MG TAB PO SCH ×2 (10:33→20:26)
[2019-04-08] MEDS: POLYETHYLENE (MIRALAX) 17 GM PACK PO SCH (10:34)
[2019-04-08] MEDS: PANTOprazole 40 MG TAB PO SCH (10:34)
[2019-04-08] MEDS: DOCUSATE SODIUM/SENNA 50/8.6MG TAB PO SCH ×2 (10:34→20:25)
[2019-04-08] MEDS: QUETIAPINE FUMARATE 25 MG TABLET PO SCH ×3 (10:35→20:25)
[2019-04-08] MEDS: LISINOPRIL 20 MG TAB PO SCH (10:35)
[2019-04-08] MEDS ORDERED: HEPARIN IV BOLUS 4,000 UNITS in SYRINGE 0 ML IV ONE (11:00)
[2019-04-08] MEDS: cefTRIAXone SODIUM 1,000 MG in DEXTROSE 5% 50 ML IV SCH (11:37)
[2019-04-08 17:01] LABS: Partial Thromboplastin Ratio 2.1
[2019-04-08 17:07] LABS: Partial Thromboplastin Time 56.4 Seconds (21.0-31.0)
[2019-04-08] MEDS: MIRTAZAPINE SOLTAB 15 MG PO SCH (20:25)
[2019-04-08] MEDS: ATORVASTATIN 40 MG TAB PO SCH (20:27)
--- NOTE | 2019-04-08 20:42 | Hospitalist Progress Note ---
Date of Service April 08, 2019 Assessment & Plan (1) Altered mental status: Presented with altered mental status. Underlying dementia. History of strokes. No acute event per CT head. Suspect delirium / metabolic encephalopathy from UTI or meds. (2) Urinary tract infection: Diagnosed with UTI 03/30/19. Urine culture grew Proteus mirabilis. Treated with ciprofloxacin, but organism resistant. C&S demonstrated organism sensitive to cefazolin. Currently receiving ceftriaxone. (3) Deep vein thrombosis (DVT): Extensive DVT LLE, (present on admission) Receiving IV heparin low dose protocol. No long-term anticoagulation due to history of intracranial hemorrhage. Consider IVC filter- discuss with family. (4) Atrial flutter: Continue metoprolol and digoxin for rate control. No long-term anticoagulation due to history of intracranial hemorrhage. (5) HTN (hypertension): Continue metoprolol and lisinopril. (6) Diastolic CHF: Chronic left ventricular diastolic heart failure. Compensated. (7) CKD (chronic kidney disease) stage 3, GFR 30-59 ml/min: Serum creatinine stable at 0.75. (8) Dementia: History of dementia, may be multifactorial. Ongoing monitoring for delirium. (9) Do not resuscitate status: Per patient's previously expressed wishes. (10) DVT prophylaxis: Receiving IV heparin for acute DVT LLE. (11) Discharge planning issues: Anticipated return to [facility]. Daughter Autumn visiting this evening and given update. She will discuss status and plans with other family members. Subjective Recheck for multiple problems. Patient seen in their room around 16:30. Patient confused and unable to answer questions reliably. No new problems / concerns reported by nursing staff. Review of Systems Review of Systems: Unobtainable due to cognitive status Physical Exam Constitutional: no acute distress Respiratory: no respiratory distress Auscultation: lungs clear to auscultation bilaterally Cardiovascular: Rate/Rhythm: + abnormal rhythm Heart Sounds: no gallop Extremities: + edema (pretibial, L > R) Gastrointestinal (Abdomen): Inspection/Auscultation: normal bowel sounds Percussion/Palpation: abdomen soft; abdomen nontender Skin: no rashes, warm and dry Neurologic: Speech / Cognition: + abnormal cognition Results & Data Vital Signs (Past 12 Hours) Vital Signs Temp Pulse Pulse Resp BP BP Pulse Ox 04/08/19 19:08 36.7 C 87 20 170/79 H 96 04/08/19 16:00 36.7 C 71 18 162/89 H 97 04/08/19 10:30 36.5 C 74 22 182/64 H 94 Laboratory Results Laboratory Results - last 24 hr 04/07/19 04/07/19 04/07/19 22:40 22:40 22:40 WBC RBC Hgb Hct MCV MCH MCHC RDW Std Deviation RDW Coeff of Tre Plt Count MPV Immature Gran % (Auto) Neut % (Auto) Lymph % (Auto) [place] % (Auto) Eos % (Auto) Baso % (Auto) Immature Gran # (Auto) Neut # (Auto) Lymph # (Auto) [place] # (Auto) Eos # (Auto) Baso # (Auto) ESR 6 PT 11.1 INR 1.1 APTT 23.3 PTT Ratio 0.9 Sodium Potassium Chloride Carbon Dioxide Anion Gap BUN Creatinine Est Cr Clr Drug Dosing Est GFR ( Amer) Est GFR (Non-Af Amer) BUN/Creatinine Ratio Glucose Calcium Magnesium Total Bilirubin AST ALT Alkaline Phosphatase Total Creatine Kinase Troponin I C-Reactive Protein Total Protein Albumin Globulin Albumin/Globulin Ratio TSH Urine Color Urine Appearance Urine pH Ur Specific [place] Urine Protein Urine Glucose (UA) Urine Ketones Urine Blood Urine Nitrite Urine Bilirubin Urine Urobilinogen Ur Leukocyte Esterase Digoxin 0.3 L Ethyl Alcohol mg/dL 04/07/19 04/07/19 04/07/19 22:40 22:40 22:46 WBC 6.41 RBC 4.31 Hgb 12.9 Hct 39.3 MCV 91.2 MCH 29.9 MCHC 32.8 RDW Std Deviation 53.4 H RDW Coeff of Tre 15.8 H Plt Count 208 MPV 9.3 Immature Gran % (Auto) 0.3 Neut % (Auto) 73.4 Lymph % (Auto) 18.9 [place] % (Auto) 7.2 Eos % (Auto) 0.0 Baso % (Auto) 0.2 Immature Gran # (Auto) 0.02 Neut # (Auto) 4.71 Lymph # (Auto) 1.21 [place] # (Auto) 0.46 Eos # (Auto) 0.00 Baso # (Auto) 0.01 ESR PT INR APTT PTT Ratio Sodium 145 Potassium 3.8 Chloride 110 H Carbon Dioxide 29 Anion Gap 6.0 BUN 18 Creatinine 0.90 Est Cr Clr Drug Dosing Not Reportable Est GFR ( Amer) 72.0 Est GFR (Non-Af Amer) 62.1 BUN/Creatinine Ratio 19.8 Glucose 119 H Calcium 9.2 Magnesium 2.0 Total Bilirubin 0.4 AST 17 ALT 19 Alkaline Phosphatase 95 Total Creatine Kinase 133 Troponin I 0.018 C-Reactive Protein < 0.29 Total Protein 7.3 Albumin 3.8 Globulin 3.5 Albumin/Globulin Ratio 1.1 TSH 2.070 Urine Color Urine Appearance Urine pH Ur Specific [place] Urine Protein Urine Glucose (UA) Urine Ketones Urine Blood Urine Nitrite Urine Bilirubin Urine Urobilinogen Ur Leukocyte Esterase Digoxin Ethyl Alcohol mg/dL < 3.0 04/08/19 04/08/19 04/08/19 01:39 06:58 06:58 WBC 5.70 RBC 4.15 L Hgb 12.4 Hct 37.9 MCV 91.3 MCH 29.9 MCHC 32.7 RDW Std Deviation 53.3 H RDW Coeff of Tre 15.8 H Plt Count 170 MPV 8.9 Immature Gran % (Auto) 0.7 Neut % (Auto) 62.2 Lymph % (Auto) 27.9 [place] % (Auto) 8.8 Eos % (Auto) 0.0 Baso % (Auto) 0.4 Immature Gran # (Auto) 0.04 H Neut # (Auto) 3.55 Lymph # (Auto) 1.59 [place] # (Auto) 0.50 Eos # (Auto) 0.00 Baso # (Auto) 0.02 ESR PT INR APTT PTT Ratio Sodium 148 H Potassium 3.8 Chloride 113 H Carbon Dioxide 28 Anion Gap 7.0 BUN 14 Creatinine 0.75 Est Cr Clr Drug Dosing Not Reportable Est GFR ( Amer) 89.7 Est GFR (Non-Af Amer) 77.4 BUN/Creatinine Ratio 18.2 Glucose 83 Calcium 8.6 Magnesium 2.0 Total Bilirubin AST ALT Alkaline Phosphatase Total Creatine Kinase Troponin I C-Reactive Protein Total Protein Albumin Globulin Albumin/Globulin Ratio TSH Urine Color Yellow Urine Appearance Clear Urine pH 7.5 Ur Specific [place] 1.015 Urine Protein Negative Urine Glucose (UA) Negative Urine Ketones Negative Urine Blood Negative Urine Nitrite Negative Urine Bilirubin Negative Urine Urobilinogen Negative Ur Leukocyte Esterase Negative Digoxin Ethyl Alcohol mg/dL 04/08/19 04/08/19 06:58 16:33 WBC RBC Hgb Hct MCV MCH MCHC RDW Std Deviation RDW Coeff of Tre Plt Count MPV Immature Gran % (Auto) Neut % (Auto) Lymph % (Auto) [place] % (Auto) Eos % (Auto) Baso % (Auto) Immature Gran # (Auto) Neut # (Auto) Lymph # (Auto) [place] # (Auto) Eos # (Auto) Baso # (Auto) ESR PT INR APTT 35.9 H 56.4 H* PTT Ratio 1.3 2.1 Sodium Potassium Chloride Carbon Dioxide Anion Gap BUN Creatinine Est Cr Clr Drug Dosing Est GFR ( Amer) Est GFR (Non-Af Amer) BUN/Creatinine Ratio Glucose Calcium Magnesium Total Bilirubin AST ALT Alkaline Phosphatase Total Creatine Kinase Troponin I C-Reactive Protein Total Protein Albumin Globulin Albumin/Globulin Ratio TSH Urine Color Urine Appearance Urine pH Ur Specific [place] Urine Protein Urine Glucose (UA) Urine Ketones Urine Blood Urine Nitrite Urine Bilirubin Urine Urobilinogen Ur Leukocyte Esterase Digoxin Ethyl Alcohol mg/dL (1) Deep vein thrombosis (DVT) Affected thrombotic vein of extremity: unspecified lower extremity distal vein Chronicity: unspecified DVT location: lower extremity Laterality: left Qualified Code(s): I82.4Z2 - Acute embolism and thrombosis of unspecified deep veins of left distal lower extremity (2) HTN (hypertension) Hypertension type: essential hypertension Qualified Code(s): I10 - Essential (primary) hypertension (3) Diastolic CHF Heart failure chronicity: chronic Qualified Code(s): I50.32 - Chronic diastolic (congestive) heart failure
[2019-04-08] MEDS ORDERED: NON-FORMULARY MEDICATION (Melatonin 5 MG) PO SCH (21:00)
[2019-04-08] MEDS ORDERED: POTASSIUM CHLORIDE 20 MEQ TABCR PO SCH (21:00)
[2019-04-09] MEDS ORDERED: OLANZapine 10 MG/2.1 ML SDV IM STA (00:53)
[2019-04-09] MEDS ORDERED: FUROSEMIDE 40 MG/4 ML VIAL IV STA (01:01)
[2019-04-09] MEDS ORDERED: LEVALBUTEROL HCL 1.25 MG/3 ML NEB NEB PRN (01:02)
[2019-04-09] MEDS ORDERED: FUROSEMIDE 40 MG/4 ML VIAL IV ONE (01:02)
[2019-04-09] MEDS ORDERED: FUROSEMIDE 40 MG in SYRINGE 0 ML IV ONE (01:15)
[2019-04-09 01:31] LABS: HCO3 ABG 22 mmol/L (19-24); Oxygen Saturation ABG 92.5 % (90-95); PCO2 ABG 40 mmHg (35-46); PO2 ABG 69 mm/Hg (80-95); pH ABG 7.36 (7.35-7.45)
[2019-04-09 01:32] LABS: Allen Test Pos (Pos)
[2019-04-09] MEDS: Heparin Adult LOW DOSE Wt-Based Dextrose 5% 25,000 units/500 mL IV SCH (04:25)
--- NOTE | 2019-04-09 07:05 | XRay Report ---
XR chest 1V portable CLINICAL HISTORY: congestion COMPARISON STUDY: 04/07/2019 FINDINGS: The heart is the upper limits of normal in size. There are bilateral airspace opacities, ying ggestive of pulmonary edema. Small pleural effusions are suspected.[ IMPRESSION: Interval development of bilateral pulmonary airspace opacities, likely representing pulmo nary edema. Clinical and radiographic follow-up is recommended. Electronically signed by: Matheus Krishnamurthy M.D. 04/09/2019 7:03 AM
[2019-04-09 08:11] LABS: Hematocrit (blood only) 39.7 % (37-47); Mean Corpuscular Hgb Conc 32.7 g/dL (32-36); Mean Platelet Volume 9.3 fL (7.4-10.4); Platelet Count 188 K/uL (130-400); RDW Coefficient of Variation 15.6 % (11.5-14.5); RDW Standard Deviation 51.6 fL (36.4-46.3); Red Blood Count 4.41 M/uL (4.2-5.4); White Blood Count 8.89 K/uL (4.8-10.8)
[2019-04-09] MEDS: METOPROLOL TARTRATE 100 MG TAB PO SCH ×2 (08:15→21:34)
[2019-04-09] MEDS: PANTOprazole 40 MG TAB PO SCH (08:16)
[2019-04-09] MEDS: MAGNESIUM OXIDE 400 MG TAB PO SCH (08:17)
[2019-04-09] MEDS: LINZESS~ORDER AWAITING ACTION SCH ×3 (08:18→23:16)
[2019-04-09] MEDS: QUETIAPINE FUMARATE 25 MG TABLET PO SCH ×3 (08:18→21:35)
[2019-04-09] MEDS: DOCUSATE SODIUM/SENNA 50/8.6MG TAB PO SCH ×2 (08:18→21:32)
[2019-04-09] MEDS: LISINOPRIL 20 MG TAB PO SCH (08:19)
[2019-04-09] MEDS: POLYETHYLENE (MIRALAX) 17 GM PACK PO SCH (08:20)
[2019-04-09 08:22] LABS: Partial Thromboplastin Ratio 1.4; Partial Thromboplastin Time 36.8 Seconds (21.0-31.0)
[2019-04-09] MEDS ORDERED: OLANZAPINE ZYDIS 5 MG ORALLY DIS. TAB PO ONE (08:25)
[2019-04-09 08:46] LABS: BUN Creatinine Ratio 12.2 (10-20); Calcium 8.7 mg/dl (8.5-10.1); Creatinine Clr Calc Pharmacy 48.5 ml/min; Est GFR (Non-African American) 61.3; Potassium 3.7 mmol/L (3.5-5.1)
[2019-04-09] MEDS ORDERED: HEPARIN BOLUS IV ONE (09:30)
[2019-04-09] MEDS: cefTRIAXone SODIUM 1,000 MG in DEXTROSE 5% 50 ML IV SCH (09:30)
[2019-04-09] MEDS ORDERED: OPTIRAY 320 125ml IV PRN (11:40)
--- NOTE | 2019-04-09 11:58 | CT Scan Report ---
CT ANGIOGRAM OF THE CHEST CLINICAL HISTORY: Atypical chest pain and shortness of breath. Possible pulmonary embolism. COMPARISON STUDY: 04/08/2019 TECHNIQUE: Following the IV administration of 120 mL of [id number]-[id number], CT angiogram of the thorax was p erformed from the thoracic inlet to the lung bases utilizing the pulmonary embolus protocol. Images a re reviewed in the axial, sagittal, and coronal planes. IV contrast was administered without complica tion. MIP imaging was performed. A dose lowering technique was utilized adhering to the principles o f ALARA. CT DOSE: 478.20 mGy.cm FINDINGS: No pathologically enlarged axillary mediastinal or hilar lymph nodes were visualized. The ascending thoracic aorta measures 37 mm There is suboptimal lower lobe arterial opacification. There are no filling defects to indicate acute pulmonary embolism. There are small bilateral pleural effusions. There are bilateral pulmonary airspace opacities, likely representing pulmonary edema. There are depe ndent atelectatic changes. There is reflux of contrast into the hepatic veins suggesting elevated right heart pressures. The hea rt is enlarged with extensive coronary artery calcifications. There is mild thyromegaly. IMPRESSION: 1. Cardiomegaly and coronary calcifications 2. Evidence of elevated right heart pressures with reflux of contrast into the hepatic veins 3. CT evidence of congestive failure with pulmonary edema and bilateral pleural effusions 4. No CT evidence of acute pulmonary embolism, given the limitations of suboptimal arterial opacifica tion of the lower lobe pulmonary arteries Electronically signed by: Matheus Krishnamurthy M.D. 04/09/2019 11:56 AM
[2019-04-09] MEDS: DIGOXIN 0.125 MG TAB PO SCH (15:37)
[2019-04-09] MEDS: POTASSIUM CHLORIDE 20 MEQ TABCR PO SCH ×2 (15:38→21:34)
[2019-04-09] MEDS: OLANZAPINE 2.5 MG TAB PO PRN ×2 (15:38→23:17)
[2019-04-09 16:50] LABS: Partial Thromboplastin Ratio 2.2
[2019-04-09 17:00] LABS: Partial Thromboplastin Time 59.3 Seconds (21.0-31.0)
--- NOTE | 2019-04-09 18:11 | Hospitalist Progress Note ---
Date of Service April 09, 2019 Assessment & Plan (1) Altered mental status: Presented with altered mental status. Underlying dementia. History of strokes. No acute event per CT head. Suspect delirium / metabolic encephalopathy from UTI or meds. More alert today, but still confused. Avoid meds with anticholinergic and other OPTICAL SYSTEMS ENGINEER side-effects. (2) Urinary tract infection: Diagnosed with UTI 03/30/19. Urine culture grew Proteus mirabilis. Treated with ciprofloxacin, but organism resistant. C&S demonstrated organism sensitive to cefazolin. Currently receiving ceftriaxone. (3) Deep vein thrombosis (DVT): Extensive DVT LLE, (present on admission). No PE per CTA chest x 2. Receiving IV heparin low dose protocol. No long-term anticoagulation due to history of intracranial hemorrhage. Consider IVC filter- discussed with family; decision pending. (4) Atrial flutter: Continue metoprolol and digoxin for rate control. No long-term anticoagulation due to history of intracranial hemorrhage. (5) HTN (hypertension): Continue metoprolol and lisinopril. (6) Diastolic CHF: Developed CHF / pulmonary edema last night. Acute on chronic left ventricular diastolic heart failure. IV fluids stopped. Received IV furosemide. Check f/u chest x-ray in a.m. Repeat diuretics as needed. (7) CKD (chronic kidney disease) stage 3, GFR 30-59 ml/min: Serum creatinine stable at 0.91. (8) Dementia: History of dementia, may be multifactorial. Ongoing monitoring for delirium. (9) Do not resuscitate status: Per patient's previously expressed wishes. (10) DVT prophylaxis: Receiving IV heparin for acute DVT LLE. (11) Discharge planning issues: Anticipated return to [facility]. Subjective Recheck for multiple problems. Patient seen in their room around 10:40. Increasing agitation during the night associated with hypoxia. Chest x-ray showed pulmonary edema. Received IV furosemide with good diuresis and improvement of pulmonary status. Alert, but somewhat agitated this morning. Requiring 1:1 staffing for safety. Patient confused and unable to answer questions reliably, but denies CP, cough, SOB. Nursing staff notes that she is able to swallow fluids and meds without an signs of aspiration. Physical Exam Constitutional: no acute distress Respiratory: no respiratory distress Auscultation: + rales (bibasilar) Cardiovascular: Rate/Rhythm: + irregularly irregular Heart Sounds: no gallop ((none appreciated)) Extremities: + edema (pretibial, L > R) Gastrointestinal (Abdomen): Inspection/Auscultation: normal bowel sounds Percussion/Palpation: abdomen soft; abdomen nontender Skin: no rashes, warm and dry Neurologic: Speech / Cognition: + abnormal cognition (more alert, but confused) Results & Data Vital Signs (Past 12 Hours) Vital Signs Temp Pulse Pulse Pulse Resp BP BP 04/09/19 16:25 04/09/19 16:12 04/09/19 15:37 75 04/09/19 15:25 36.9 C 73 137/75 04/09/19 14:47 134 H 04/09/19 12:56 04/09/19 07:39 36.4 C L 94 H 20 162/98 H 04/09/19 07:33 112 H 04/09/19 06:25 04/09/19 06:10 Pulse Ox 04/09/19 16:25 94 04/09/19 16:12 95 04/09/19 15:37 04/09/19 15:25 99 04/09/19 14:47 04/09/19 12:56 91 04/09/19 07:39 92 04/09/19 07:33 04/09/19 06:25 98 04/09/19 06:10 83 L Laboratory Results Laboratory Results - last 24 hr 04/09/19 04/09/19 04/09/19 00:40 01:18 07:53 WBC 8.89 RBC 4.41 Hgb 13.0 Hct 39.7 MCV 90.0 MCH 29.5 MCHC 32.7 RDW Std Deviation 51.6 H RDW Coeff of Tre 15.6 H Plt Count 188 MPV 9.3 APTT PTT Ratio ABG pH 7.36 ABG pCO2 40 ABG pO2 69 L ABG HCO3 22 ABG O2 Saturation 92.5 ABG Base Excess -3.2 Sherman Test Pos Barometric Pressure 728.5 Oxygen Given 2L Sodium Potassium Chloride Carbon Dioxide Anion Gap BUN Creatinine Est Cr Clr Drug Dosing Est GFR ( Amer) Est GFR (Non-Af Amer) BUN/Creatinine Ratio Glucose Calcium Nasal Screen MRSA (PCR) Positive A 04/09/19 04/09/19 04/09/19 07:53 07:53 15:16 WBC RBC Hgb Hct MCV MCH MCHC RDW Std Deviation RDW Coeff of Tre Plt Count MPV APTT 36.8 H Cancelled PTT Ratio 1.4 Cancelled ABG pH ABG pCO2 ABG pO2 ABG HCO3 ABG O2 Saturation ABG Base Excess Sherman Test Barometric Pressure Oxygen Given Sodium 146 H Potassium 3.7 Chloride 110 H Carbon Dioxide 30 Anion Gap 6.0 BUN 11 Creatinine 0.91 Est Cr Clr Drug Dosing 48.5 Est GFR ( Amer) 71.0 Est GFR (Non-Af Amer) 61.3 BUN/Creatinine Ratio 12.2 Glucose 98 Calcium 8.7 Nasal Screen MRSA (PCR) 04/09/19 16:20 WBC RBC Hgb Hct MCV MCH MCHC RDW Std Deviation RDW Coeff of Tre Plt Count MPV APTT 59.3 H* PTT Ratio 2.2 ABG pH ABG pCO2 ABG pO2 ABG HCO3 ABG O2 Saturation ABG Base Excess Sherman Test Barometric Pressure Oxygen Given Sodium Potassium Chloride Carbon Dioxide Anion Gap BUN Creatinine Est Cr Clr Drug Dosing Est GFR ( Amer) Est GFR (Non-Af Amer) BUN/Creatinine Ratio Glucose Calcium Nasal Screen MRSA (PCR) (1) Deep vein thrombosis (DVT) Affected thrombotic vein of extremity: unspecified lower extremity distal vein Chronicity: unspecified DVT location: lower extremity Laterality: left Qual ified Code(s): I82.4Z2 - Acute embolism and thrombosis of unspecified deep veins of left distal lower extremity (2) HTN (hypertension) Hypertension type: essential hypertension Qualified Code(s): I10 - Essential (primary) hypertension (3) Diastolic CHF Heart failure chronicity: chronic Qualified Code(s): I50.32 - Chronic diastolic (congestive) heart failure
[2019-04-09] MEDS: MIRTAZAPINE SOLTAB 15 MG PO SCH (21:32)
[2019-04-09] MEDS: ATORVASTATIN 40 MG TAB PO SCH (21:32)
[2019-04-10] MEDS: Heparin Adult LOW DOSE Wt-Based Dextrose 5% 25,000 units/500 mL IV SCH (04:28)
[2019-04-10 07:48] LABS: Partial Thromboplastin Ratio 1.7
[2019-04-10 07:59] LABS: Partial Thromboplastin Time 47.2 Seconds (21.0-31.0)
[2019-04-10 08:01] LABS: BUN Creatinine Ratio 13.5 (10-20); Calcium 8.7 mg/dl (8.5-10.1); Creatinine Clr Calc Pharmacy 56.5 ml/min; Est GFR (African American) 85.6; Est GFR (Non-African American) 73.8; Potassium 3.7 mmol/L (3.5-5.1)
[2019-04-10] MEDS: LINZESS~ORDER AWAITING ACTION SCH ×3 (09:09→23:58)
[2019-04-10] MEDS: LISINOPRIL 20 MG TAB PO SCH (09:34)
[2019-04-10] MEDS: POTASSIUM CHLORIDE 20 MEQ TABCR PO SCH ×3 (09:34→20:11)
[2019-04-10] MEDS: METOPROLOL TARTRATE 100 MG TAB PO SCH ×2 (09:35→20:01)
[2019-04-10] MEDS: DOCUSATE SODIUM/SENNA 50/8.6MG TAB PO SCH ×2 (09:35→20:12)
[2019-04-10] MEDS: PANTOprazole 40 MG TAB PO SCH (09:35)
[2019-04-10] MEDS: QUETIAPINE FUMARATE 25 MG TABLET PO SCH ×3 (09:36→20:11)
[2019-04-10] MEDS: MAGNESIUM OXIDE 400 MG TAB PO SCH (09:36)
[2019-04-10] MEDS: cefTRIAXone SODIUM 1,000 MG in DEXTROSE 5% 50 ML IV SCH (09:36)
[2019-04-10] MEDS: POLYETHYLENE (MIRALAX) 17 GM PACK PO SCH (09:37)
[2019-04-10] MEDS ORDERED: FUROSEMIDE 20 MG in SYRINGE 0 ML IV ONE (11:45)
--- NOTE | 2019-04-10 15:32 | XRay Report ---
SINGLE VIEW CHEST CLINICAL HISTORY: Congestive heart failure. FINDINGS: An AP, portable, supine chest radiograph is compared to chest x-ray and chest CT dated 2018. The examination is degraded by portable technique and patient rotation. The heart is enlarged and there is atherosclerotic calcification of the thoracic aorta. There is pulmonary vascular congest ion and mild interstitial edema. Trace pleural effusions are suspected. No pneumothorax is seen. The skeletal structures are osteopenic. The bony thorax is grossly intact. Degenerative change is seen in the shoulders and thoracic spine. IMPRESSION: 1. Cardiomegaly with evidence of congestive failure and mild interstitial edema. This is similar in a ppearance to yesterday. 2. Suspect trace pleural effusions. Electronically signed by: Bubba Diaz M.D. 04/10/2019 3:30 PM
[2019-04-10 19:50] LABS: Basophils # (auto) 0.01 K/uL (0-0.2); Basophils % (auto) 0.2 %; Hematocrit (blood only) 37.1 % (37-47); Hemoglobin 12.2 g/dL (12.0-16.0); Immature Granulocytes # (auto) 0.02 K/uL (0.00-0.02); Immature Granulocytes % (auto) 0.3 %; Lymphocytes # (auto) 0.93 K/uL (1.2-3.4); Mean Corpuscular Hgb Conc 32.9 g/dL (32-36); Mean Corpuscular Volume 90.7 fL (80-100); Mean Platelet Volume 9.2 fL (7.4-10.4); Monocytes # (auto) 0.58 K/uL (0.11-0.59); Monocytes % (auto) 8.7 %; Neutrophils # (auto) 5.12 K/uL (1.4-6.5); Neutrophils % (auto) 76.8 %; Platelet Count 174 K/uL (130-400); RDW Coefficient of Variation 15.4 % (11.5-14.5); RDW Standard Deviation 51.2 fL (36.4-46.3); Red Blood Count 4.09 M/uL (4.2-5.4); White Blood Count 6.66 K/uL (4.8-10.8)
[2019-04-10] MEDS: MIRTAZAPINE SOLTAB 15 MG PO SCH (20:12)
[2019-04-10] MEDS: ATORVASTATIN 40 MG TAB PO SCH (20:13)
[2019-04-10] MEDS ORDERED: SODIUM CHLORIDE 0.9% 1000ML 500 ML IV ONE (20:58)
--- NOTE | 2019-04-10 21:14 | Hospitalist Progress Note ---
Date of Service April 10, 2019 Assessment & Plan (1) Altered mental status: Presented with altered mental status. Underlying dementia. History of strokes. No acute event per CT head. Suspect delirium / metabolic encephalopathy from UTI or meds. Mental status fluctuating. Treat underlying problems as discussed below. Avoid meds with anticholinergic and other BLUEPRINT DEVELOPER side-effects. (2) Urinary tract infection: Diagnosed with UTI 03/30/19. Urine culture grew Proteus mirabilis. Treated with ciprofloxacin, but organism resistant. C&S demonstrated organism sensitive to cefazolin. Currently receiving ceftriaxone. (3) Deep vein thrombosis (DVT): Extensive DVT LLE, (present on admission). No PE per CTA chest x 2. Receiving IV heparin low dose protocol. Best to avoid long-term anticoagulation due to history of intracranial hemorrhage. Consider IVC filter- discussed with family; decision pending. (4) Atrial flutter: Continue metoprolol and digoxin for rate control. No long-term anticoagulation due to history of intracranial hemorrhage. (5) HTN (hypertension): Continue metoprolol and lisinopril. (6) Diastolic CHF: Developed CHF / pulmonary edema. Acute on chronic left ventricular diastolic heart failure. IV fluids stopped. Received IV furosemide with improvement. Today's chest x-ray showed some persistent CHF. IV furosemide 20 mg IV x 1 today. (7) CKD (chronic kidney disease) stage 3, GFR 30-59 ml/min: Serum creatinine stable at 0.78. (8) Dementia: History of dementia, may be multifactorial. Ongoing monitoring for delirium. (9) Do not resuscitate status: Per patient's previously expressed wishes. (10) DVT prophylaxis: Receiving IV heparin for acute DVT LLE. (11) Discharge planning issues: Anticipated return to [facility]. Spoke with daughter Autumn by phone. She was given update on CHF, repeat CTA chest. Options for management of DVT discussed: (1) no further Rx (2) anticoagulation with risk of recurrent ICH (3) IVC filter Pros and cons of Glory filter reviewed- short-term prevention of massive PE , possible complications of insertion, possible chronic lower extremity swelling / pain, etc. She was advised that it would be good to make decision regarding filter in next 1-2 days. Subjective Recheck for multiple problems. Patient seen in their room around 13:50. Good urine output yesterday. Respiratory status / oxygenation improved. Somnolent at time of my assessment. Staff reports that patient was somewhat agitated and combative earlier today. Physical Exam Constitutional: no acute distress Respiratory: no respiratory distress Auscultation: + rales (few bibasilar) Cardiovascular: Rate/Rhythm: + irregularly irregular Heart Sounds: no gallop ((none appreciated)) Extremities: + edema (trace pretibial) Gastrointestinal (Abdomen): Inspection/Auscultation: normal bowel sounds Percussion/Palpation: abdomen soft; abdomen nontender Skin: no rashes, warm and dry Neurologic: Speech / Cognition: + abnormal cognition (somnolent) Results & Data Vital Signs (Past 12 Hours) Vital Signs Temp Pulse Pulse Resp BP BP Pulse Ox 04/10/19 20:07 62/36 L 04/10/19 19:10 80/48 L 04/10/19 19:00 36.8 C 59 L 18 82/48 L 97 04/10/19 16:31 75 04/10/19 15:11 36.6 C 76 18 156/79 H 93 04/10/19 10:50 75 (1) Deep vein thrombosis (DVT) Affected thrombotic vein of extremity: unspecified lower extremity distal vein Chronicity: unspecified DVT location: lower extremity Laterality: left Qualified Code(s): I82.4Z2 - Acute embolism and thrombosis of unspecified deep veins of left distal lower extremity (2) HTN (hypertension) Hypertension type: essential hypertension Qualified Code(s): I10 - Essential (primary) hypertension (3) Diastolic CHF Heart failure chronicity: chronic Qualified Code(s): I50.32 - Chronic diastolic (congestive) heart failure
[2019-04-10] MEDS: OLANZAPINE 2.5 MG TAB PO PRN (23:39)
[2019-04-11] MEDS ORDERED: METOPROLOL TARTRATE 25 MG TAB PO ONE (01:00)
[2019-04-11] MEDS: Heparin Adult LOW DOSE Wt-Based Dextrose 5% 25,000 units/500 mL IV SCH (03:52)
[2019-04-11 08:40] LABS: Hemoglobin 12.3 g/dL (12.0-16.0); Mean Corpuscular Hgb Conc 32.4 g/dL (32-36); Mean Corpuscular Volume 91.8 fL (80-100); Mean Platelet Volume 9.4 fL (7.4-10.4); Platelet Count 173 K/uL (130-400); RDW Coefficient of Variation 15.5 % (11.5-14.5); RDW Standard Deviation 52.1 fL (36.4-46.3); Red Blood Count 4.14 M/uL (4.2-5.4); White Blood Count 4.43 K/uL (4.8-10.8)
[2019-04-11] MEDS: LINZESS~ORDER AWAITING ACTION SCH ×3 (08:53→23:23)
[2019-04-11 09:04] LABS: Partial Thromboplastin Ratio 1.7
[2019-04-11 09:06] LABS: Partial Thromboplastin Time 45.7 Seconds (21.0-31.0)
[2019-04-11 09:09] LABS: BUN Creatinine Ratio 17.4 (10-20); Calcium 8.8 mg/dl (8.5-10.1); Creatinine Clr Calc Pharmacy 47.9 ml/min; Est GFR (African American) 70.1; Est GFR (Non-African American) 60.5; Potassium 3.8 mmol/L (3.5-5.1)
[2019-04-11] MEDS ORDERED: HEPARIN IV BOLUS 2,000 UNITS in SYRINGE 0 ML IV ONE (09:45)
[2019-04-11] MEDS: METOPROLOL TARTRATE 100 MG TAB PO SCH ×2 (09:55→20:06)
[2019-04-11] MEDS: QUETIAPINE FUMARATE 25 MG TABLET PO SCH ×3 (09:58→20:06)
[2019-04-11] MEDS: MAGNESIUM OXIDE 400 MG TAB PO SCH ×2 (10:00→10:07)
[2019-04-11] MEDS: PANTOprazole 40 MG TAB PO SCH (10:00)
[2019-04-11] MEDS: POTASSIUM CHLORIDE 20 MEQ TABCR PO SCH ×3 (10:00→20:04)
[2019-04-11] MEDS: POLYETHYLENE (MIRALAX) 17 GM PACK PO SCH (10:05)
[2019-04-11] MEDS: DOCUSATE SODIUM/SENNA 50/8.6MG TAB PO SCH ×2 (10:06→20:04)
[2019-04-11] MEDS: cefTRIAXone SODIUM 1,000 MG in DEXTROSE 5% 50 ML IV SCH (10:08)
[2019-04-11] MEDS: DIGOXIN 0.125 MG TAB PO SCH (16:24)
[2019-04-11 17:58] LABS: Partial Thromboplastin Time 53.3 Seconds (21.0-31.0)
[2019-04-11] MEDS: ATORVASTATIN 40 MG TAB PO SCH (20:05)
[2019-04-11] MEDS: MIRTAZAPINE SOLTAB 15 MG PO SCH (20:06)
--- NOTE | 2019-04-11 20:23 | Hospitalist Progress Note ---
Date of Service April 11, 2019 Assessment & Plan (1) Altered mental status: Presented with altered mental status. Underlying dementia. History of strokes. No acute event per CT head. Suspect delirium / metabolic encephalopathy from UTI or meds. Mental status fluctuating, better today. Treat underlying problems as discussed below. Avoid meds with anticholinergic and other MULTICUT LINE OPERATOR side-effects. (2) Urinary tract infection: Diagnosed with UTI 03/30/19. Urine culture grew Proteus mirabilis. Treated with ciprofloxacin, but organism resistant. C&S demonstrated organism sensitive to cefazolin. Currently receiving ceftriaxone. (3) Deep vein thrombosis (DVT): Extensive DVT LLE, (present on admission). No PE per CTA chest x 2. Receiving IV heparin low dose protocol. Best to avoid long-term anticoagulation due to history of intracranial hemorrhage. Consider IVC filter- discussed with family; decision pending. (4) Atrial flutter: Continue metoprolol and digoxin for rate control. No long-term anticoagulation due to history of intracranial hemorrhage. (5) HTN (hypertension): Continue metoprolol and lisinopril. (6) Diastolic CHF: Developed CHF / pulmonary edema. Acute on chronic left ventricular diastolic heart failure. IV fluids stopped. Received IV furosemide with improvement. (7) CKD (chronic kidney disease) stage 3, GFR 30-59 ml/min: Serum creatinine stable at 0.92. (8) Dementia: History of dementia, may be multifactorial. Ongoing monitoring for delirium. (9) Do not resuscitate status: Per patient's previously expressed wishes. (10) DVT prophylaxis: Receiving IV heparin for acute DVT LLE. (11) Discharge planning issues: Anticipated return to [facility] when medically stable. Subjective Recheck for multiple problems. Patient seen in their room around 09:50. More alert and cooperative this morning. Denies any CP, cough, SOB, nausea, vomiting, pain. Physical Exam Constitutional: no acute distress Respiratory: normal respiratory effort, lungs clear to auscultation no respiratory distress Cardiovascular: Rate/Rhythm: + irregularly irregular Heart Sounds: no gallop ((none appreciated)) Extremities: + edema (trace pretibial) Gastrointestinal (Abdomen): Inspection/Auscultation: normal bowel sounds Percussion/Palpation: abdomen soft; abdomen nontender Skin: no rashes, warm and dry Neurologic: Speech / Cognition: + abnormal cognition (confused, more alert) Results & Data Vital Signs (Past 12 Hours) Vital Signs Temp Pulse Pulse Pulse Resp BP BP 04/11/19 19:01 36.7 C 64 18 121/74 04/11/19 16:33 65 04/11/19 16:24 105 H 04/11/19 15:06 36.5 C 64 18 143/80 H 04/11/19 14:21 04/11/19 11:23 36.8 C 69 16 104/66 Pulse Ox 04/11/19 19:01 95 04/11/19 16:33 04/11/19 16:24 04/11/19 15:06 95 04/11/19 14:21 97 04/11/19 11:23 95 Laboratory Results Short CBC 04/11/19 Range/Units 08:21 WBC 4.43 L (4.8-10.8) K/uL Hgb 12.3 (12.0-16.0) g/dL Hct 38.0 (37-47) % Plt Count 173 (130-400) K/uL BMP 04/11/19 08:21 Sodium 144 Potassium 3.8 Chloride 109 H Carbon Dioxide 29 BUN 16 Creatinine 0.92 Glucose 82 Calcium 8.8 (1) Deep vein thrombosis (DVT) Affected thrombotic vein of extremity: unspecified lower extremity distal vein Chronicity: unspecified DVT location: lower extremity Laterality: left Qualified Code(s): I82.4Z2 - Acute embolism and thrombosis of unspecified deep veins of left distal lower extremity (2) HTN (hypertension) Hypertension type: essential hypertension Qualified Code(s): I10 - Essential (primary) hypertension (3) Diastolic CHF Heart failure chronicity: chronic Qualified Code(s): I50.32 - Chronic diastolic (congestive) heart failure
[2019-04-11] MEDS: OLANZAPINE 2.5 MG TAB PO PRN (20:42)
[2019-04-12] MEDS: Heparin Adult LOW DOSE Wt-Based Dextrose 5% 25,000 units/500 mL IV SCH (06:39)
[2019-04-12] MEDS: LINZESS~ORDER AWAITING ACTION SCH ×3 (07:41→23:37)
[2019-04-12] MEDS: cefTRIAXone SODIUM 1,000 MG in DEXTROSE 5% 50 ML IV SCH (07:53)
[2019-04-12] MEDS: DOCUSATE SODIUM/SENNA 50/8.6MG TAB PO SCH ×2 (07:55→20:18)
[2019-04-12] MEDS: METOPROLOL TARTRATE 100 MG TAB PO SCH ×2 (07:56→20:22)
[2019-04-12] MEDS: PANTOprazole 40 MG TAB PO SCH (07:57)
[2019-04-12] MEDS: QUETIAPINE FUMARATE 25 MG TABLET PO SCH ×3 (07:57→20:17)
[2019-04-12] MEDS: MAGNESIUM OXIDE 400 MG TAB PO SCH (07:58)
[2019-04-12] MEDS: POLYETHYLENE (MIRALAX) 17 GM PACK PO SCH (09:11)
[2019-04-12 11:58] LABS: Partial Thromboplastin Ratio 1.5; Partial Thromboplastin Time 41.3 Seconds (21.0-31.0)
[2019-04-12 12:02] LABS: BUN Creatinine Ratio 22.3 (10-20); Calcium 8.8 mg/dl (8.5-10.1); Creatinine Clr Calc Pharmacy 54.7 ml/min; Est GFR (Non-African American) 64.7; Potassium 3.5 mmol/L (3.5-5.1)
[2019-04-12] MEDS ORDERED: HEPARIN IV BOLUS 2,000 UNITS in SYRINGE 0 ML IV ONE (12:30)
--- NOTE | 2019-04-12 17:30 | Hospitalist Progress Note ---
Date of Service April 12, 2019 Assessment & Plan (1) Altered mental status: Presented with altered mental status. Underlying dementia. History of strokes. No acute event per CT head. Suspect delirium / metabolic encephalopathy from UTI or meds. Mental status fluctuating, better today. Treat underlying problems as discussed below. Avoid meds with anticholinergic and other MINUTE CLERK side-effects. (2) Urinary tract infection: Diagnosed with UTI 03/30/19. Urine culture grew Proteus mirabilis. Treated with ciprofloxacin, but organism resistant. C&S demonstrated organism sensitive to cefazolin. Currently receiving ceftriaxone. Will continue for 7 day course. (3) Deep vein thrombosis (DVT): Extensive DVT LLE, (present on admission). No PE per CTA chest x 2. Receiving IV heparin low dose protocol. Best to avoid long-term anticoagulation due to history of intracranial hemorrhage. Consider IVC filter- discussed with family. Ebony Leyva indicates that we should proceed with surgical consultation for filter. Continue IV heparin until filter placed. (4) Atrial flutter: Continue metoprolol and digoxin for rate control. No long-term anticoagulation due to history of intracranial hemorrhage. (5) HTN (hypertension): Continue metoprolol and lisinopril. (6) Diastolic CHF: Developed CHF / pulmonary edema. Acute on chronic left ventricular diastolic heart failure. IV fluids stopped. Received IV furosemide with improvement. (7) CKD (chronic kidney disease) stage 3, GFR 30-59 ml/min: Serum creatinine stable at 0.87. (8) Dementia: History of dementia, may be multifactorial. Ongoing monitoring for delirium. (9) Do not resuscitate status: Per patient's previously expressed wishes. (10) DVT prophylaxis: Receiving IV heparin for acute DVT LLE. (11) Discharge planning issues: Anticipated return to [facility] when medically stable. Ebony Leyva given update today. Subjective Recheck for multiple problems. More alert and cooperative. Weeks catheter removed. Denies any CP, cough, SOB, nausea, vomiting, pain. Physical Exam Constitutional: no acute distress Respiratory: normal respiratory effort, lungs clear to auscultation no respiratory distress Cardiovascular: Rate/Rhythm: + irregularly irregular Heart Sounds: no gallop ((none appreciated)) Extremities: + edema (trace pretibial) Gastrointestinal (Abdomen): Inspection/Auscultation: normal bowel sounds Percussion/Palpation: abdomen soft; abdomen nontender Skin: no rashes, warm and dry Neurologic: Speech / Cognition: + abnormal cognition (confused, more alert) Results & Data Vital Signs (Past 12 Hours) Vital Signs Temp Pulse Pulse Pulse Resp BP Pulse Ox 04/12/19 14:50 36.4 C L 79 18 134/71 95 04/12/19 12:00 36.6 C 79 16 121/69 95 04/12/19 07:36 69 04/12/19 06:47 36.8 C 69 122/81 95 Laboratory Results Laboratory Results - last 24 hr 04/12/19 04/12/19 04/12/19 11:37 11:37 19:03 APTT 41.3 H 52.1 H* PTT Ratio 1.5 1.9 Sodium 145 Potassium 3.5 Chloride 109 H Carbon Dioxide 28 Anion Gap 8.0 BUN 19 H Creatinine 0.87 Est Cr Clr Drug Dosing 54.7 Est GFR ( Amer) 75.0 Est GFR (Non-Af Amer) 64.7 BUN/Creatinine Ratio 22.3 H Glucose 105 H Calcium 8.8 (1) Deep vein thrombosis (DVT) Affected thrombotic vein of extremity: unspecified lower extremity distal vein Chronicity: unspecified DVT location: lower extremity Laterality: left Qualified Code(s): I82.4Z2 - Acute embolism and thrombosis of unspecified deep veins of left distal lower extremity (2) HTN (hypertension) Hypertension type: essential hypertension Qualified Code(s): I10 - Essential (primary) hypertension (3) Diastolic CHF Heart failure chronicity: chronic Qualified Code(s): I50.32 - Chronic diastolic (congestive) heart failure
[2019-04-12 19:40] LABS: Partial Thromboplastin Ratio 1.9
[2019-04-12 19:45] LABS: Partial Thromboplastin Time 52.1 Seconds (21.0-31.0)
[2019-04-12] MEDS: MIRTAZAPINE SOLTAB 15 MG PO SCH (20:19)
[2019-04-12] MEDS: ATORVASTATIN 40 MG TAB PO SCH (20:20)
[2019-04-13] MEDS: OLANZAPINE 2.5 MG TAB PO PRN ×2 (02:07→02:17)
[2019-04-13] MEDS: Heparin Adult LOW DOSE Wt-Based Dextrose 5% 25,000 units/500 mL IV SCH ×2 (03:52→09:23)
[2019-04-13] MEDS: LINZESS~ORDER AWAITING ACTION SCH ×2 (07:40→15:31)
[2019-04-13] MEDS: DOCUSATE SODIUM/SENNA 50/8.6MG TAB PO SCH ×2 (07:50→21:16)
[2019-04-13] MEDS: MAGNESIUM OXIDE 400 MG TAB PO SCH (07:52)
[2019-04-13] MEDS: PANTOprazole 40 MG TAB PO SCH (07:52)
[2019-04-13] MEDS: QUETIAPINE FUMARATE 25 MG TABLET PO SCH ×3 (07:52→21:15)
[2019-04-13] MEDS: LISINOPRIL 10 MG TAB PO SCH (07:54)
[2019-04-13] MEDS: METOPROLOL TARTRATE 100 MG TAB PO SCH ×2 (07:56→21:17)
[2019-04-13] MEDS: POLYETHYLENE (MIRALAX) 17 GM PACK PO SCH (07:58)
[2019-04-13] MEDS: cefTRIAXone SODIUM 1,000 MG in DEXTROSE 5% 50 ML IV SCH (08:06)
[2019-04-13 08:16] LABS: Hemoglobin 12.3 g/dL (12.0-16.0); Mean Corpuscular Hgb Conc 32.4 g/dL (32-36); Mean Corpuscular Volume 90.3 fL (80-100); Mean Platelet Volume 9.8 fL (7.4-10.4); Platelet Count 204 K/uL (130-400); RDW Coefficient of Variation 15.4 % (11.5-14.5); RDW Standard Deviation 50.6 fL (36.4-46.3); Red Blood Count 4.21 M/uL (4.2-5.4); White Blood Count 5.58 K/uL (4.8-10.8)
[2019-04-13 08:35] LABS: Partial Thromboplastin Ratio 1.8
[2019-04-13 08:37] LABS: Partial Thromboplastin Time 49.9 Seconds (21.0-31.0)
--- NOTE | 2019-04-13 08:45 | Hospitalist Progress Note ---
Date of Service April 13, 2019 Assessment & Plan (1) Altered mental status: RESOLVED Presented with altered mental status with underlying dementia, hx of strokes. -Suspect delirium / metabolic encephalopathy from UTI or meds- RESOLVED. Near her baseline- Oriented x 2 -Avoid meds with anticholinergic and other RENAL DIALYSIS TECHNICIAN side-effects. -Work up- CT head - neg for acute abnormalities (2) Urinary tract infection: Diagnosed with UTI 03/30/19. Urine culture grew Proteus mirabilis. -Treated with ciprofloxacin, but organism resistant. -C&S demonstrated organism sensitive to cefazolin. -IV Rocephin - Day 6/ (3) Deep vein thrombosis (DVT): Extensive DVT LLE, (present on admission). No PE per CTA chest x 2. -Receiving IV heparin low dose protocol. -Best to avoid long-term anticoagulation due to history of intracranial hemorrhage. -Consider IVC filter- discussed with family by Dr Rosenthal. -Ebony Leyva indicated that we should proceed with surgical consultation for filter. -Continue IV heparin until filter placed. Dr Cummings on leave. Dr Hubbard will place IVC Filter. (4) Atrial flutter: -Continue metoprolol and digoxin for rate control. -No long-term anticoagulation due to history of intracranial hemorrhage. (5) HTN (hypertension): -Slightly elevated -Continue metoprolol and lisinopril. (6) Diastolic CHF: Developed CHF / pulmonary edema. -Acute on chronic left ventricular diastolic heart failure. -S/P IV fluids stopped. -Received IV furosemide with improvement. (7) CKD (chronic kidney disease) stage 3, GFR 30-59 ml/min: -Serum creatinine stable at 0.87. (8) Dementia: History of dementia, may be multifactorial. -On and off episodes of delirium requiring 1:1 observation, Zyprexa PRN -On Seroquel 25 mg TID, Zyprexa 2.5 mg q 6 hours PRN agitation (9) Do not resuscitate status: -Per patient's previously expressed wishes. (10) DVT prophylaxis: -Receiving IV heparin for acute DVT LLE (11) Discharge planning issues: Anticipated return to [facility] when medically stable. Awaiting IVC filter placement. Ebony Leyva was updated yesterday by Dr Rosenthal Subjective Patient was seen and evaluated. Under one-to-one observation with sitter by bedside. Patient was agitated overnight and received Zyprexa around 2 AM. Currently a little sedated but arousable. Disoriented x3 as at baseline Physical Exam Physical Exam: Constitutional: no acute distress Respiratory: normal respiratory effort, lungs clear to auscultation no respiratory distress Cardiovascular: Rate/Rhythm: + irregularly irregular rhythm; Gastrointestinal (Abdomen): Inspection/Auscultation: normal bowel sounds Percussion/Palpation: abdomen soft; abdomen nontender Ext: LLE swelling > Right Neurologic: Speech / Cognition: Oriented x 3, no focal deficits Results & Data Vital Signs (Past 12 Hours) Vital Signs Temp Pulse Pulse Resp BP Pulse Ox 04/13/19 07:16 77 04/13/19 01:47 76 04/13/19 01:46 36.8 C 98 H 24 154/98 H 95 (1) Diastolic CHF Heart failure chronicity: chronic Qualified Code(s): I50.32 - Chronic diastolic (congestive) heart failure (2) Deep vein thrombosis (DVT) Affected thrombotic vein of extremity: unspecified lower extremity distal vein Chronicity: unspecified DVT location: lower extremity Laterality: left Qualified Code(s): I82.4Z2 - Acute embolism and thrombosis of unspecified deep veins of left distal lower extremity (3) HTN (hypertension) Hypertension type: essential hypertension Qualified Code(s): I10 - Essential (primary) hypertension
[2019-04-13] MEDS: DIGOXIN 0.125 MG TAB PO SCH (17:05)
[2019-04-13] MEDS: ATORVASTATIN 40 MG TAB PO SCH (21:15)
[2019-04-13] MEDS: MIRTAZAPINE SOLTAB 15 MG PO SCH (21:17)
[2019-04-14] MEDS: LINZESS~ORDER AWAITING ACTION SCH ×4 (00:08→23:00)
[2019-04-14 08:30] LABS: Partial Thromboplastin Ratio 1.9; Partial Thromboplastin Time 50.4 Seconds (21.0-31.0)
[2019-04-14] MEDS: cefTRIAXone SODIUM 1,000 MG in DEXTROSE 5% 50 ML IV SCH (10:26)
[2019-04-14] MEDS: Heparin Adult LOW DOSE Wt-Based Dextrose 5% 25,000 units/500 mL IV SCH (10:27)
[2019-04-14] MEDS: QUETIAPINE FUMARATE 25 MG TABLET PO SCH ×4 (11:09→21:08)
--- NOTE | 2019-04-14 11:58 | Surgery Consultation ---
Date of Consultation April 14, 2019 Assessment & Plan (1) Deep vein thrombosis (DVT): extensive thrombosis of the LLE history of atrial fibrillation and ischemic stroke not on anticoagulation due to history of spontaneous cerebral hemorrhage. At risk for bleeding on custodial anticoagulation. Plan: Dr. Hubbard discussed with patient's daughter La Nena who is the decision maker and has spoken to family members in regards to placement of IVC filter. Daughter states her and family have decided to proceed with placement of IVC filter. Patient's daughter will be present tomorrow to sign informed consent prior to procedure Continue current medical management Hold Heparin at [address] Hubbard has seen patient, talked with daughter and agrees with above plan. See addendum for additional plan/recommendations. Supervising Physician Co-Signing Physician Notes I saw and examined this patient and discussed placement of a filter with her daughter. I agree with the above note. We discussed the procedure and the possible complications. They would like to proceed with surgery. We are planning for tomorrow. History of Present Illness Reason for Consultation: need for IVC filter DVT of LLE, extensive Requesting Physician: MD Ariadna Attending Physician: Liliana Lynn History of Present Illness Germaine is a 78 year-old female with dementia whose history was obtained by chart as patient unable to give history and no family present at bedside. 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 She was found to have left lower extremity swelling and ultrasound showed extensive DVT. Given her risk of bleeding on anticoagulation and history of cerebral hemorrhage our services have been consulted for placement of IVC filter. Allergies Allergy/AdvReac Type Severity Reaction Status Date / Time Penicillins Allergy Intermediate HIVES Verified 04/15/19 11:25 pneumococcal vaccine Allergy Mild FEVER/RASH Verified 04/15/19 11:25 carbenicillin Allergy Unknown "DON'T Verified 04/15/19 11:25 REMEMBER" Bactrim AdvReac Mild GI SYMPTOMS Verified 09/20/17 23:30 sulfamethoxazole AdvReac Mild GI SYMPTOMS Verified 04/15/19 11:25 trimethoprim AdvReac Mild GI SYMPTOMS Verified 04/15/19 11:25 Home Medications Home Medications Medication Instructions Recorded Confirmed Type atorvastatin 80 mg PO HS #0 06/22/15 04/07/19 History omeprazole 20 mg PO QAM #0 cap 02/08/16 04/07/19 History digoxin 0.125 mg PO Q2D #0 05/10/18 04/07/19 History Fleet Enema 118 ml ID HS PRN 01/12/19 04/07/19 History Miconazorb AF 1 applic TOPICAL BID PRN 01/12/19 04/07/19 History acetaminophen 325 mg PO Q4H PRN MDD 3 /01/12/19 04/07/19 History HOURS. bisacodyl 10 mg ID DAILY PRN 01/12/19 04/07/19 History magnesium oxide 400 mg PO QAM 01/12/19 04/07/19 History potassium chloride 20 meq PO PM 01/12/19 04/07/19 History ranitidine HCl 150 mg PO BID 01/12/19 04/07/19 History buspirone 10 mg PO TID 01/21/19 04/07/19 History metoprolol tartrate 100 mg PO BID 01/21/19 04/07/19 History lisinopril 20 mg PO QAM 03/01/19 04/07/19 History mirtazapine 45 mg PO HS 03/01/19 04/07/19 History polyethylene glycol 3350 [Miralax] 17 g PO QAM 03/01/19 04/07/19 History sennosides-docusate sodium 2 tab PO BID 03/01/19 04/07/19 History [Senna-S] Med Pass Suppliment 120 ml PO TID 04/07/19 04/07/19 History ceftriaxone 1 g IM DAILY 04/07/19 04/07/19 History ciprofloxacin HCl [Cipro] 500 mg PO BID 04/07/19 04/07/19 History linaclotide [Linzess] 290 mcg PO QAM 04/07/19 04/07/19 History melatonin 5 mg PO HS 04/07/19 04/07/19 History olanzapine 2.5 mg PO Q6 PRN 04/07/19 04/07/19 History quetiapine [Seroquel] 25 mg PO TID 04/07/19 04/07/19 History aspirin [Aspirin Low Dose] 81 mg PO DAILY 04/08/19 04/08/19 History Patient History Medical History Atrial fibrillation (Chronic) Vascular dementia (Chronic) HTN (hypertension) (Chronic) History of CVA (cerebrovascular accident) (Chronic) SUSY (obstructive sleep apnea) (Chronic) Diastolic CHF (Chronic) GERD (gastroesophageal reflux disease) (Chronic) CKD (chronic kidney disease) stage 3, GFR 30-59 ml/min (Chronic) Depression (Chronic) History of pulmonary embolus (PE) (Resolved) ASCVD (arteriosclerotic cardiovascular disease) CAD (coronary artery disease) Atrial fibrillation (Chronic) HLD (hyperlipidemia) (Chronic) Hypothyroidism (Chronic) Stroke (Resolved) Surgical History History of appendectomy (Resolved) History of resection of small bowel (Resolved) secondary to high grade SBO History of total left knee replacement (TKR) (Resolved) History of percutaneous coronary intervention (Resolved) s/p Stent of RCA in 1999 History of radiofrequency ablation procedure for cardiac arrhythmia (Resolved) S/P PVI ablation in 2009 for afib/flutter s/p CTI flutter ablation in 2014 S/P Cardioversion in 04/2015 and 12/27/15 H/O craniotomy (Resolved) Right frontotemporal craniotomy with aneurysm clip Family History Other Family history non-contributory Social History Preferred Language: Greenlandic Communication Ability: Unable Communication Ability Comment: pt not following commands or answering appropriately Architectural Engineer Required: No Beliefs That Will Affect Care: None marital status: Current Living Situation: Snf Current Living Situation Comment: [facility] current occupational status: retired Feels Safe at Home: Declines to Answer Smoking Status: Unknown if ever smoked Hx Alcohol Use: No Hx Substance Use: No Review of Systems Review of Systems: Unobtainable due to cognitive status (patient with profound dementia) Physical Exam Constitutional: WD/WN, vitals as above Respiratory: normal respiratory effort and + respiratory distress Skin: no rashes, warm and dry Results & Data Vital Signs (Past 12 Hours) Vital Signs Temp Pulse Pulse Resp BP BP Pulse Ox 04/14/19 07:34 65 04/14/19 07:19 36.5 C 57 L 16 147/77 H 94 04/14/19 03:11 36.4 C L 70 18 136/76 95 04/14/19 00:27 80 Laboratory Results 04/14/19 Range/Units 07:39 APTT 50.4 H* (21.0-31.0) Seconds PTT Ratio 1.9 Diagnostic Findings US venous doppler LE LT CLINICAL HISTORY: swelling PAIN. EDEMA. COMPARISON STUDY: 06/26/2010 FINDINGS: Extensive acute deep venous stenosis throughout the left leg. There is involvement of the common femoral vein, superficial femoral vein, popliteal, gastrocnemius as well as peroneal veins. Anterior and posterior tibial veins are also involved. IMPRESSION: Extensive acute deep venous thrombosis. (1) Deep vein thrombosis (DVT) Affected thrombotic vein of extremity: unspecified lower extremity distal vein Chronicity: unspecified DVT location: lower extremity Laterality: left Claudy lified Code(s): I82.4Z2 - Acute embolism and thrombosis of unspecified deep veins of left distal lower extremity
[2019-04-14] MEDS: DOCUSATE SODIUM/SENNA 50/8.6MG TAB PO SCH ×2 (12:10→20:57)
[2019-04-14] MEDS: METOPROLOL TARTRATE 100 MG TAB PO SCH ×3 (12:12→21:07)
[2019-04-14] MEDS: MAGNESIUM OXIDE 400 MG TAB PO SCH (12:12)
[2019-04-14] MEDS: PANTOprazole 40 MG TAB PO SCH (12:13)
[2019-04-14] MEDS: LISINOPRIL 10 MG TAB PO SCH (12:14)
[2019-04-14] MEDS: POLYETHYLENE (MIRALAX) 17 GM PACK PO SCH (12:15)
--- NOTE | 2019-04-14 13:58 | Hospitalist Progress Note ---
Date of Service April 14, 2019 Assessment & Plan (1) Altered mental status: RESOLVED Presented with altered mental status with underlying dementia, hx of strokes. -Suspect delirium / metabolic encephalopathy from UTI or meds- RESOLVED. Near her baseline- Oriented x 2 -Avoid meds with anticholinergic and other TEACHER'S AIDE side-effects. -Work up- CT head - neg for acute abnormalities (2) Urinary tract infection: Diagnosed with UTI 03/30/19. Urine culture grew Proteus mirabilis. -Treated with ciprofloxacin, but organism resistant. -C&S demonstrated organism sensitive to cefazolin. -IV Rocephin - Day 05/15 (3) Deep vein thrombosis (DVT): Extensive DVT LLE, (present on admission). No PE per CTA chest x 2. -Receiving IV heparin low dose protocol. -Best to avoid long-term anticoagulation due to history of intracranial hemorrhage. -Consider IVC filter- discussed with family by Dr Rosenthal. -Ebony Leyva indicated that we should proceed with surgical consultation for filter. -Continue IV heparin until filter placed. Dr Cummings on leave. Dr Hubbard will place IVC Filter today. (4) Atrial flutter: -Continue metoprolol and digoxin for rate control. -No long-term anticoagulation due to history of intracranial hemorrhage. (5) HTN (hypertension): -Slightly elevated -Continue metoprolol and lisinopril. (6) Diastolic CHF: Developed CHF / pulmonary edema. -Acute on chronic left ventricular diastolic heart failure. -S/P IV fluids stopped. -Received IV furosemide with improvement. (7) CKD (chronic kidney disease) stage 3, GFR 30-59 ml/min: -Serum creatinine stable at 0.87. (8) Dementia: History of dementia, may be multifactorial. -On and off episodes of delirium requiring 1:1 observation PRN, Zyprexa PRN -On Seroquel 25 mg TID, Zyprexa 2.5 mg q 6 hours PRN agitation (9) Do not resuscitate status: -Per patient's previously expressed wishes. (10) DVT prophylaxis: -Receiving IV heparin for acute DVT LLE (11) Discharge planning issues: Anticipated return to [facility] when medically stable. Awaiting IVC filter placement. Ebony Leyva was updated over phone today Subjective Patient was seen and evaluated. Didnt sleep much at night and today AM sleepy but arousable Disoriented x3 as at baseline Physical Exam Physical Exam: Constitutional: Disoriented x 3, Respiratory: normal respiratory effort, lungs clear to auscultation no respiratory distress Cardiovascular: Rate/Rhythm: + irregularly irregular rhythm; Gastrointestinal (Abdomen): Inspection/Auscultation: normal bowel sounds Percussion/Palpation: abdomen soft; abdomen nontender Ext: LLE swelling > Right Neurologic: Speech / Cognition: DisoOriented x 3, no focal deficits Results & Data Vital Signs (Past 12 Hours) Vital Signs Temp Pulse Pulse Resp BP BP Pulse Ox 04/14/19 07:34 65 04/14/19 07:19 36.5 C 57 L 16 147/77 H 94 04/14/19 03:11 36.4 C L 70 18 136/76 95 (1) Deep vein thrombosis (DVT) Affected thrombotic vein of extremity: unspecified lower extremity distal vein Chronicity: unspecified DVT location: lower extremity Laterality: left Qualified Code(s): I82.4Z2 - Acute embolism and thrombosis of unspecified deep veins of left distal lower extremity (2) HTN (hypertension) Hypertension type: essential hypertension Qualified Code(s): I10 - Essential (primary) hypertension (3) Diastolic CHF Heart failure chronicity: chronic Qualified Code(s): I50.32 - Chronic diastolic (congestive) heart failure
[2019-04-14] MEDS: OLANZapine 10 MG/2.1 ML SDV IM PRN (21:02)
[2019-04-14] MEDS: ATORVASTATIN 40 MG TAB PO SCH (21:06)
[2019-04-14] MEDS: MIRTAZAPINE SOLTAB 15 MG PO SCH (21:06)
[2019-04-15 07:56] LABS: Hematocrit (blood only) 37.9 % (37-47); Hemoglobin 12.6 g/dL (12.0-16.0); Mean Corpuscular Hgb Conc 33.2 g/dL (32-36); Mean Corpuscular Volume 90.7 fL (80-100); Platelet Count 210 K/uL (130-400); RDW Coefficient of Variation 15.4 % (11.5-14.5); RDW Standard Deviation 51.2 fL (36.4-46.3); Red Blood Count 4.18 M/uL (4.2-5.4); White Blood Count 4.96 K/uL (4.8-10.8)
[2019-04-15 08:06] LABS: Partial Thromboplastin Ratio 0.9; Partial Thromboplastin Time 25.6 Seconds (21.0-31.0)
[2019-04-15] MEDS: LINZESS~ORDER AWAITING ACTION SCH ×3 (08:11→23:53)
[2019-04-15] MEDS: POLYETHYLENE (MIRALAX) 17 GM PACK PO SCH (08:12)
[2019-04-15] MEDS: METOPROLOL TARTRATE 100 MG TAB PO SCH ×2 (08:12→21:57)
[2019-04-15] MEDS: PANTOprazole 40 MG TAB PO SCH (08:12)
[2019-04-15] MEDS: MAGNESIUM OXIDE 400 MG TAB PO SCH (08:12)
[2019-04-15] MEDS: QUETIAPINE FUMARATE 25 MG TABLET PO SCH ×3 (08:13→21:27)
[2019-04-15] MEDS: LISINOPRIL 10 MG TAB PO SCH (08:13)
[2019-04-15] MEDS: DOCUSATE SODIUM/SENNA 50/8.6MG TAB PO SCH ×2 (08:13→21:59)
[2019-04-15] MEDS: cefTRIAXone SODIUM 1,000 MG in DEXTROSE 5% 50 ML IV SCH (11:01)
[2019-04-15] MEDS ORDERED: fentaNYL citrate 100 MCG/2 ML VIAL ONE (11:45)
[2019-04-15] MEDS ORDERED: HEPARIN 100 UNIT/ML 5ML FLUSH ONE ×3 (11:51→14:05)
[2019-04-15] MEDS ORDERED: IODIXANOL (VISIPAQUE) 270 MG/ML 50ML ONE (11:51)
[2019-04-15] MEDS ORDERED: LIDOCAINE HCL 1% 20 ML VIAL ONE (11:51)
[2019-04-15] MEDS ORDERED: CONRAY 60% 50 ML VIAL ONE (12:12)
--- NOTE | 2019-04-15 12:18 | Hospitalist Progress Note ---
Date of Service April 15, 2019 Assessment & Plan (1) Altered mental status: RESOLVED Presented with altered mental status with underlying dementia, hx of strokes. -Suspect delirium / metabolic encephalopathy from UTI or meds- RESOLVED. Near her baseline, but on and off sleepy as sleep cycle altered -Avoid meds with anticholinergic and other DIGITAL COMMENTATOR side-effects. -Work up- CT head - neg for acute abnormalities (2) Urinary tract infection: Diagnosed with UTI 03/30/19. Urine culture grew Proteus mirabilis. -Treated with ciprofloxacin, but organism resistant. (Urine cx done at [place]) -C&S demonstrated organism sensitive to cefazolin. -IV Rocephin - Day 05/15- Completed course on 04/14/19 (3) Deep vein thrombosis (DVT): Extensive DVT LLE, (present on admission). No PE per CTA chest x 2. -Receiving IV heparin low dose protocol. -Best to avoid long-term anticoagulation due to history of intracranial hemorrhage. -Consider IVC filter- discussed with family by Dr Rosenthal. -Daughter Autumn indicated that we should proceed with surgical consultation for filter. -Continue IV heparin until filter placed. Dr Cummings on leave. Dr Hubbard will place IVC Filter today. (4) Atrial flutter: -Continue metoprolol and digoxin for rate control. -No long-term anticoagulation due to history of intracranial hemorrhage. (5) HTN (hypertension): -Slightly elevated -Continue metoprolol and lisinopril. (6) Diastolic CHF: Developed CHF / pulmonary edema. -Acute on chronic left ventricular diastolic heart failure. -S/P IV fluids stopped. -Received IV furosemide with improvement. (7) CKD (chronic kidney disease) stage 3, GFR 30-59 ml/min: -Serum creatinine stable at 0.87. (8) Dementia: History of dementia, may be multifactorial. Disoriented x 2---> sleepy on and off due to sleep pattern and meds -On and off episodes of delirium requiring 1:1 observation PRN (Off 1:1 ) , Zyprexa PRN -On Seroquel 25 mg TID, Zyprexa 2.5 mg q 6 hours PRN agitation (9) Do not resuscitate status: -Per patient's previously expressed wishes. (10) DVT prophylaxis: -Receiving IV heparin for acute DVT LLE (11) Discharge planning issues: Anticipated return to [facility] when medically stable. Awaiting IVC filter placement. Daughter Autumn by bedside today. Aware about discharge plan to [facility] tomorrow after IVC filter placement today Subjective Patient was seen and evaluated. Didnt sleep much at night and today AM sleepy but arousable Disoriented x3 as at baseline Physical Exam Physical Exam: Constitutional: Disoriented x 3, Respiratory: normal respiratory effort, lungs clear to auscultation no respiratory distress Cardiovascular: Rate/Rhythm: + irregularly irregular rhythm; Gastrointestinal (Abdomen): Inspection/Auscultation: normal bowel sounds Percussion/Palpation: abdomen soft; abdomen nontender Ext: LLE swelling > Right Neurologic: Speech / Cognition: DisoOriented x 3, no focal deficits Results & Data Vital Signs (Past 12 Hours) Vital Signs Temp Pulse Pulse Resp BP BP Pulse Ox 04/15/19 12:03 36.7 C 66 66 16 123/61 97 04/15/19 07:06 37.0 C 66 20 120/70 98 (1) Deep vein thrombosis (DVT) Affected thrombotic vein of extremity: unspecified lower extremity distal vein Chronicity: unspecified DVT location: lower extremity Laterality: left Qualified Code(s): I82.4Z2 - Acute embolism and thrombosis of unspecified deep veins of left distal lower extremity (2) HTN (hypertension) Hypertension type: essential hypertension Qualified Code(s): I10 - Essential (primary) hypertension (3) Diastolic CHF Heart failure chronicity: chronic Qualified Code(s): I50.32 - Chronic diastolic (congestive) heart failure
--- NOTE | 2019-04-15 12:22 | Anesthesiology Consultation ---
Date of Service April 15, 2019 Assessment & Plan Chart Review Chart Review: Acceptable Risk for Surgery and Patient NOT seen in Pre Admission Testing Consults Requested none ASA ASA4 Proposed Anesthesia Anesthesia Type: MAC Risk / Benefits Reviewed With: PT / POA / Parent / Guardian, Accepts Plan and Informed Consent Obtained History Surgery Operation Date: 04/15/19 07:00 Proposed Procedures p IVC Filter Insertion - Glory Filter - David Hubbard MD Height/Weight Height: 5 ft 3 in Weight: 65 kg Allergies Allergy/AdvReac Type Severity Reaction Status Date / Time Penicillins Allergy Intermediate HIVES Verified 04/15/19 11:25 pneumococcal vaccine Allergy Mild FEVER/RASH Verified 04/15/19 11:25 carbenicillin Allergy Unknown "DON'T Verified 04/15/19 11:25 REMEMBER" Bactrim AdvReac Mild GI SYMPTOMS Verified 09/20/17 23:30 sulfamethoxazole AdvReac Mild GI SYMPTOMS Verified 04/15/19 11:25 trimethoprim AdvReac Mild GI SYMPTOMS Verified 04/15/19 11:25 Medications Home Medications Medication Instructions Recorded Confirmed Last Taken atorvastatin 80 mg PO HS #0 06/22/15 04/07/19 04/07/19 omeprazole 20 mg PO QAM #0 cap 02/08/16 04/07/19 04/07/19 digoxin 0.125 mg PO Q2D #0 05/10/18 04/07/19 04/07/19 Fleet Enema 118 ml [place] HS PRN 01/12/19 04/07/19 Unknown Miconazorb AF 1 applic TOPICAL BID PRN 01/12/19 04/07/19 02/28/19 acetaminophen 325 mg PO Q4H PRN MDD 3 GRAMS/24 01/12/19 04/07/19 03/01/19 05:11 HOURS. bisacodyl 10 mg [place] DAILY PRN 01/12/19 04/07/19 Unknown magnesium oxide 400 mg PO QAM 01/12/19 04/07/19 04/07/19 potassium chloride 20 meq PO PM 01/12/19 04/07/19 04/07/19 ranitidine HCl 150 mg PO BID 01/12/19 04/07/19 04/07/19 buspirone 10 mg PO TID 01/21/19 04/07/19 04/07/19 metoprolol tartrate 100 mg PO BID 01/21/19 04/07/19 04/07/19 lisinopril 20 mg PO QAM 03/01/19 04/07/19 04/07/19 mirtazapine 45 mg PO HS 03/01/19 04/07/19 04/07/19 polyethylene glycol 3350 [Miralax] 17 g PO QAM 03/01/19 04/07/19 04/07/19 sennosides-docusate sodium 2 tab PO BID 03/01/19 04/07/19 04/07/19 [Senna-S] Med Pass Suppliment 120 ml PO TID 04/07/19 04/07/19 04/07/19 ceftriaxone 1 g IM DAILY 04/07/19 04/07/19 04/07/19 ciprofloxacin HCl [Cipro] 500 mg PO BID 04/07/19 04/07/19 04/07/19 linaclotide [Linzess] 290 mcg PO QAM 04/07/19 04/07/19 04/07/19 melatonin 5 mg PO HS 04/07/19 04/07/19 04/07/19 olanzapine 2.5 mg PO Q6 PRN 04/07/19 04/07/19 04/07/19 17:51 quetiapine [Seroquel] 25 mg PO TID 04/07/19 04/07/19 04/07/19 aspirin [Aspirin Low Dose] 81 mg PO DAILY 04/08/19 04/08/19 Unknown Active Medications Generic Name Dose Route Start Last Admin Trade Name Freq PRN Reason Stop Dose Admin Acetaminophen 325 mg 04/08/19 03:04 04/08/19 20:24 Tylenol PO 05/08/19 03:03 325 mg Q4H PRN Administration Pain Atorvastatin Calcium 80 mg 04/08/19 21:00 04/14/19 21:06 Lipitor PO 05/08/19 20:59 Not Given HS RUSH Buspirone HCl 10 mg 04/08/19 09:00 04/15/19 08:12 Buspar PO 05/08/19 08:59 Not Given TID RUSH Digoxin 0.125 mg 04/09/19 16:00 04/13/19 17:05 Lanoxin PO 05/09/19 15:59 0.125 mg Q2D@1600 RUSH Administration Heparin Sodium/Dextrose 25,000 units in 500 mls @ 19 mls/hr 04/08/19 03:45 04/14/19 19:02 Heparin Sodium/Dextrose IV 05/08/19 03:44 950 units/hr .Q24H RUSH 19 mls/hr Titration Protocol 950 UNITS/HR Lisinopril 10 mg 04/13/19 09:00 04/15/19 08:13 Zestril PO 05/13/19 08:59 Not Given QAM RUSH Magnesium Oxide 400 mg 04/08/19 09:00 04/15/19 08:12 Mag-Ox PO 05/08/19 08:59 Not Given QAM RUSH Metoprolol Tartrate 100 mg 04/08/19 09:00 04/15/19 08:12 Lopressor PO 05/08/19 08:59 Not Given BID RUSH Mirtazapine 45 mg 04/08/19 21:00 04/14/19 21:06 Remeron Solutab PO 05/08/19 20:59 Not Given HS RUSH Miscellaneous 1 ea 04/08/19 08:00 04/15/19 08:11 Order Awaiting Action N/A 05/08/19 07:59 Not Given QS RUSH Olanzapine 2.5 mg 04/14/19 20:33 04/14/19 21:02 Zyprexa IM 05/14/19 20:32 2.5 mg Q4H PRN Administration Anxiety/Agitation Pantoprazole Sodium 40 mg 04/08/19 09:00 04/15/19 08:12 Protonix PO 05/08/19 08:59 Not Given QAM RUSH Polyethylene Glycol 17 gm 04/08/19 09:00 04/15/19 08:12 Miralax Powder Packet PO 05/08/19 08:59 Not Given QAM RUSH Quetiapine Fumarate 25 mg 04/08/19 09:00 04/15/19 08:13 Seroquel PO 05/08/19 08:59 Not Given TID RUSH Ranitidine HCl 150 mg 04/08/19 09:00 04/15/19 08:13 Zantac PO 05/08/19 08:59 Not Given BID RUSH Senna/Docusate Sodium 2 tab 04/08/19 09:00 04/15/19 08:13 Senokot S PO 05/08/19 08:59 Not Given BID RUSH NPO Date Last Intake of Fluids: 04/14/19 Time Last Intake of Fluids: 23:55 Date Last Intake of Solids: 04/14/19 Time Last Intake of Solids: 23:55 Last Intake of Solids Comment: ice cream Past Medical History Medical History Atrial fibrillation (Chronic) Vascular dementia (Chronic) HTN (hypertension) (Chronic) History of CVA (cerebrovascular accident) (Chronic) SUSY (obstructive sleep apnea) (Chronic) Diastolic CHF (Chronic) GERD (gastroesophageal reflux disease) (Chronic) CKD (chronic kidney disease) stage 3, GFR 30-59 ml/min (Chronic) Depression (Chronic) History of pulmonary embolus (PE) (Resolved) ASCVD (arteriosclerotic cardiovascular disease) CAD (coronary artery disease) Atrial fibrillation (Chronic) HLD (hyperlipidemia) (Chronic) Hypothyroidism (Chronic) Stroke (Resolved) Exercise / Class Metabolic Activity IV < 2 Limit ADL/Bedbound Past Family History Family History Other Family history non-contributory Past Surgical History Surgical History History of appendectomy (Resolved) History of resection of small bowel (Resolved) secondary to high grade SBO History of total left knee replacement (TKR) (Resolved) History of percutaneous coronary intervention (Resolved) s/p Stent of RCA in 1999 History of radiofrequency ablation procedure for cardiac arrhythmia (Resolved) S/P PVI ablation in 2009 for afib/flutter s/p CTI flutter ablation in 2014 S/P Cardioversion in 04/2015 and 12/27/15 H/O craniotomy (Resolved) Right frontotemporal craniotomy with aneurysm clip Past Anesthesia History No Hx of Anesthesia Complications and No Family Hx of Anesthesia Complications History of PONV No Hx of PONV and No Hx of Motion Sickness Social History Smoking Status: Unknown if ever smoked Hx Alcohol Use: No Hx Substance Use: No Physical Exam Vital Signs Last Vital Signs Temp 36.7 C 04/15/19 12:03 Pulse 66 04/15/19 12:03 Resp 16 04/15/19 12:03 BP 123/61 04/15/19 12:03 Pulse Ox 97 04/15/19 12:03 Constitutional not obese ENMT Mouth: + edentulous Thyromental Distance: < 3.5 Finger Breadths Mallampati Class: II Neck normal visual inspection and trachea midline; neck extension not limited Respiratory normal respiratory effort Auscultation: lungs clear to auscultation bilaterally Cardiovascular Rate/Rhythm: + abnormal rate (irregular) and + abnormal rhythm (a flutter) Heart Sounds: no murmur Vessels: no carotid bruit Musculoskeletal Spine: normal cervical ROM Neurologic moves all extremities Motor/Sensory: no sensory deficit Psychiatric Orientation: + not alert and + not oriented x 3 Testing Electrocardiogram Date: 04/07/19 Findings: + AFIB @ (Aflutter at 130w/ variable AV bLock) Chest X-Ray Date: 04/10/19 Findings: + cardiomegaly, + pulmonary vascular congestion and + atherosclerosis of thoracic aorta Echocardiogram Date: 01/12/19 LV Function: normal Other Findings: + atrial enlargement (severely LA dilated) and + LVH Valvular Disease: + (mild /AR) Other Testing Carotid U/S(01/12/2019) B/L plaques;distal Right ICA thrombosis
--- NOTE | 2019-04-15 12:52 | Anesthesiology Consultation ---
Date of Service April 15, 2019 Assessment & Plan Chart Review Chart Review: Acceptable Risk for Surgery and Patient NOT seen in Pre Admission Testing Consults Requested none ASA ASA4 Proposed Anesthesia Anesthesia Type: MAC Risk / Benefits Reviewed With: PT / POA / Parent / Guardian, Accepts Plan and Informed Consent Obtained History Surgery Operation Date: 04/15/19 07:00 Proposed Procedures p IVC Filter Insertion - Glory Filter - David Hubbard MD Height/Weight Height: 5 ft 3 in Weight: 65 kg Allergies Allergy/AdvReac Type Severity Reaction Status Date / Time Penicillins Allergy Intermediate HIVES Verified 04/15/19 11:25 pneumococcal vaccine Allergy Mild FEVER/RASH Verified 04/15/19 11:25 carbenicillin Allergy Unknown "DON'T Verified 04/15/19 11:25 REMEMBER" Bactrim AdvReac Mild GI SYMPTOMS Verified 09/20/17 23:30 sulfamethoxazole AdvReac Mild GI SYMPTOMS Verified 04/15/19 11:25 trimethoprim AdvReac Mild GI SYMPTOMS Verified 04/15/19 11:25 Medications Home Medications Medication Instructions Recorded Confirmed Last Taken atorvastatin 80 mg PO HS #0 06/22/15 04/07/19 04/07/19 omeprazole 20 mg PO QAM #0 cap 02/08/16 04/07/19 04/07/19 digoxin 0.125 mg PO Q2D #0 05/10/18 04/07/19 04/07/19 Fleet Enema 118 ml NH HS PRN 01/12/19 04/07/19 Unknown Miconazorb AF 1 applic TOPICAL BID PRN 01/12/19 04/07/19 02/28/19 acetaminophen 325 mg PO Q4H PRN MDD 3 GRAMS/24 01/12/19 04/07/19 03/01/19 05:11 HOURS. bisacodyl 10 mg NH DAILY PRN 01/12/19 04/07/19 Unknown magnesium oxide 400 mg PO QAM 01/12/19 04/07/19 04/07/19 potassium chloride 20 meq PO PM 01/12/19 04/07/19 04/07/19 ranitidine HCl 150 mg PO BID 01/12/19 04/07/19 04/07/19 buspirone 10 mg PO TID 01/21/19 04/07/19 04/07/19 metoprolol tartrate 100 mg PO BID 01/21/19 04/07/19 04/07/19 lisinopril 20 mg PO QAM 03/01/19 04/07/19 04/07/19 mirtazapine 45 mg PO HS 03/01/19 04/07/19 04/07/19 polyethylene glycol 3350 [Miralax] 17 g PO QAM 03/01/19 04/07/19 04/07/19 sennosides-docusate sodium 2 tab PO BID 03/01/19 04/07/19 04/07/19 [Senna-S] Med Pass Suppliment 120 ml PO TID 04/07/19 04/07/19 04/07/19 ceftriaxone 1 g IM DAILY 04/07/19 04/07/19 04/07/19 ciprofloxacin HCl [Cipro] 500 mg PO BID 04/07/19 04/07/19 04/07/19 linaclotide [Linzess] 290 mcg PO QAM 04/07/19 04/07/19 04/07/19 melatonin 5 mg PO HS 04/07/19 04/07/19 04/07/19 olanzapine 2.5 mg PO Q6 PRN 04/07/19 04/07/19 04/07/19 17:51 quetiapine [Seroquel] 25 mg PO TID 04/07/19 04/07/19 04/07/19 aspirin [Aspirin Low Dose] 81 mg PO DAILY 04/08/19 04/08/19 Unknown Active Medications Generic Name Dose Route Start Last Admin Trade Name Freq PRN Reason Stop Dose Admin Acetaminophen 325 mg 04/08/19 03:04 04/08/19 20:24 Tylenol PO 05/08/19 03:03 325 mg Q4H PRN Administration Pain Atorvastatin Calcium 80 mg 04/08/19 21:00 04/14/19 21:06 Lipitor PO 05/08/19 20:59 Not Given HS RUSH Buspirone HCl 10 mg 04/08/19 09:00 04/15/19 08:12 Buspar PO 05/08/19 08:59 Not Given TID RUSH Digoxin 0.125 mg 04/09/19 16:00 04/13/19 17:05 Lanoxin PO 05/09/19 15:59 0.125 mg Q2D@1600 RUSH Administration Heparin Sodium/Dextrose 25,000 units in 500 mls @ 19 mls/hr 04/08/19 03:45 04/14/19 19:02 Heparin Sodium/Dextrose IV 05/08/19 03:44 950 units/hr .Q24H RUSH 19 mls/hr Titration Protocol 950 UNITS/HR Lisinopril 10 mg 04/13/19 09:00 04/15/19 08:13 Zestril PO 05/13/19 08:59 Not Given QAM RUSH Magnesium Oxide 400 mg 04/08/19 09:00 04/15/19 08:12 Mag-Ox PO 05/08/19 08:59 Not Given QAM RUSH Metoprolol Tartrate 100 mg 04/08/19 09:00 04/15/19 08:12 Lopressor PO 05/08/19 08:59 Not Given BID RUSH Mirtazapine 45 mg 04/08/19 21:00 04/14/19 21:06 Remeron Solutab PO 05/08/19 20:59 Not Given HS RUSH Miscellaneous 1 ea 04/08/19 08:00 04/15/19 08:11 Order Awaiting Action N/A 05/08/19 07:59 Not Given QS RUSH Olanzapine 2.5 mg 04/14/19 20:33 04/14/19 21:02 Zyprexa IM 05/14/19 20:32 2.5 mg Q4H PRN Administration Anxiety/Agitation Pantoprazole Sodium 40 mg 04/08/19 09:00 04/15/19 08:12 Protonix PO 05/08/19 08:59 Not Given QAM RUSH Polyethylene Glycol 17 gm 04/08/19 09:00 04/15/19 08:12 Miralax Powder Packet PO 05/08/19 08:59 Not Given QAM RUSH Quetiapine Fumarate 25 mg 04/08/19 09:00 04/15/19 08:13 Seroquel PO 05/08/19 08:59 Not Given TID RUSH Ranitidine HCl 150 mg 04/08/19 09:00 04/15/19 08:13 Zantac PO 05/08/19 08:59 Not Given BID RUSH Senna/Docusate Sodium 2 tab 04/08/19 09:00 04/15/19 08:13 Senokot S PO 05/08/19 08:59 Not Given BID RUSH NPO Date Last Intake of Fluids: 04/14/19 Time Last Intake of Fluids: 23:55 Date Last Intake of Solids: 04/14/19 Time Last Intake of Solids: 23:55 Last Intake of Solids Comment: ice cream Past Medical History Medical History Atrial fibrillation (Chronic) Vascular dementia (Chronic) HTN (hypertension) (Chronic) History of CVA (cerebrovascular accident) (Chronic) SUSY (obstructive sleep apnea) (Chronic) Diastolic CHF (Chronic) GERD (gastroesophageal reflux disease) (Chronic) CKD (chronic kidney disease) stage 3, GFR 30-59 ml/min (Chronic) Depression (Chronic) History of pulmonary embolus (PE) (Resolved) ASCVD (arteriosclerotic cardiovascular disease) CAD (coronary artery disease) Atrial fibrillation (Chronic) HLD (hyperlipidemia) (Chronic) Hypothyroidism (Chronic) Stroke (Resolved) Past Family History Family History Other Family history non-contributory Past Surgical History Surgical History History of appendectomy (Resolved) History of resection of small bowel (Resolved) secondary to high grade SBO History of total left knee replacement (TKR) (Resolved) History of percutaneous coronary intervention (Resolved) s/p Stent of RCA in 1999 History of radiofrequency ablation procedure for cardiac arrhythmia (Resolved) S/P PVI ablation in 2009 for afib/flutter s/p CTI flutter ablation in 2014 S/P Cardioversion in 04/2015 and 12/27/15 H/O craniotomy (Resolved) Right frontotemporal craniotomy with aneurysm clip Social History Smoking Status: Unknown if ever smoked Hx Alcohol Use: No Hx Substance Use: No Physical Exam Vital Signs Last Vital Signs Temp 36.7 C 04/15/19 12:03 Pulse 66 04/15/19 12:03 Resp 16 04/15/19 12:03 BP 123/61 04/15/19 12:03 Pulse Ox 97 04/15/19 12:03 Testing Electrocardiogram Date: 04/07/19 Findings: + AFIB @ (a flutter)
--- NOTE | 2019-04-15 13:02 | History & Physical Bridge Note ---
Date of Service April 15, 2019 History & Physical Bridge Note I have examined the patient, reviewed the History & Physical and in the interval since the performance of the History & Physical I have noted the following changes of clinical significance: no changes noted
[2019-04-15] MEDS ORDERED: LIDOCAINE HCL 2% 2 ML VIAL/AMP(20MG/ML) INFIL ONE (13:34)
[2019-04-15] MEDS ORDERED: CLINDAMYCIN PHOS 300 MG/2 ML VIAL ONE (13:34)
[2019-04-15] MEDS ORDERED: PROPOFOL IV EMULSION 10 MG/ML 20 ML VIAL IV ONE (13:34)
[2019-04-15] MEDS ORDERED: CLINDAMYCIN 600 MG in DEXTROSE 5% 50 ML IV ONE (14:08)
--- NOTE | 2019-04-15 14:15 | Fluoroscopy Report ---
ADRIÁN CAMEJO CLINICAL HISTORY: 78 years-old Female presenting with IVC FILTER PLACEMENT. TECHNIQUE: 1 fluoroscopic image(s) recorded as part of an intraoperative procedure. COMPARISON: None. FINDINGS/IMPRESSION: IVC filter projects over the L2-3 level. Surgical and she mentation projects over the lumbar spine. E vidence of posterior bilateral transpedicular screw and daphnie fixation in the lower lumbar spine, likel y L5-S1. Associated laminectomy defect likely at the L5. Please see surgical report for further details. Fluoroscopy dosage (mGy): 12.14. Fluoroscopy time: 84 seconds. Number or time of high level fluoroscopy (HLF), digital spot, or digital subtraction images: 0. Electronically signed by: Kleber Gabriel M.D. 04/15/2019 2:14 PM
--- NOTE | 2019-04-15 14:29 | Post Operative Brief Note ---
Immediate Post Op Note v1 Date of Surgery April 15, 2019 Pre & Post Diagnosis Operation Date: 04/15/19 07:00 Pre-Op Diagnosis: Left lower deep vein thrombosis Post-Op Diagnosis: Left lower deep vein thrombosis Procedure Operation Date: 04/15/19 07:00 Actual Procedures p Inferior Venacava Filter Insertion - [place] Filter(Right) - David Hubbard MD Surgeon David Hubbard MD Model Builder Display None Estimated Blood Loss 5 Findings Consistent with Post-Op Diagnosis Anesthesia Type MAC Complications none
--- NOTE | 2019-04-15 14:49 | Anesthesiology Progress Note ---
Date of Service April 15, 2019 Anesthesia Post Procedure Vital Signs Vital Signs: Temp Pulse Pulse Pulse Resp BP BP 04/15/19 14:40 36.2 C L 60 16 132/67 04/15/19 14:30 36.2 C L 88 16 105/56 L 04/15/19 14:20 36.2 C L 68 16 98/51 L 04/15/19 12:03 36.7 C 66 66 16 123/61 04/15/19 07:06 37.0 C 66 20 120/70 04/15/19 00:05 36.6 C 67 18 124/66 04/14/19 23:25 36.6 C 49 L 16 124/66 Pulse Ox 04/15/19 14:40 100 04/15/19 14:30 100 04/15/19 14:20 98 04/15/19 12:03 97 04/15/19 07:06 98 04/15/19 00:05 98 04/14/19 23:25 Transfer of Care Handoff Completed per policy Notes Mental Status: alert / awake / arousable Patient Amnestic to Procedure: Yes Nausea / Vomiting: adequately controlled Pain: adequately controlled Airway Patency, RR, SpO2: stable & adequate BP & HR: stable & adequate Hydration State: stable & adequate Anesthetic Complications: no major complications apparent
[2019-04-15] MEDS ORDERED: ePHEDrine sulfate 50 MG/ML AMP IV PRN (15:13)
[2019-04-15] MEDS ORDERED: ATROPINE SULFATE 0.1 MG/ML 10ML SYR IV PRN (15:13)
--- NOTE | 2019-04-15 15:56 | XRay Report ---
KUB HISTORY: S/P IVC filter placement COMPARISON: Chest 10/16/2015. FINDINGS: The bowel gas pattern is unremarkable. There are no dilated loops of small bowel to suggest an obstruction. Prior cholecystectomy. L5-S1 posterior decompression and fusion. There is an IVC fi lter along the right side of the L3 and L4 vertebral bodies. Vascular calcifications are noted. Mary cystectomy. No pneumoperitoneum or pneumatosis. IMPRESSION: Interval placement of an IVC filter which is likely in good position. Electronically signed by: Tapan Cat M.D. 04/15/2019 3:55 PM
[2019-04-15] MEDS: DIGOXIN 0.125 MG TAB PO SCH (17:46)
[2019-04-15] MEDS: ATORVASTATIN 40 MG TAB PO SCH (21:43)
[2019-04-15] MEDS: MIRTAZAPINE SOLTAB 15 MG PO SCH (21:45)
--- NOTE | 2019-04-16 00:17 | Operative Report ---
DATE OF OPERATION: 04/15/2019 PREOPERATIVE DIAGNOSIS: Deep venous thrombosis with contraindication to anticoagulation. POSTOPERATIVE DIAGNOSIS: Deep venous thrombosis with contraindication to anticoagulation. PROCEDURE: Placement of inferior vena cava Glory filter using right femoral approach using ultrasound guidance and fluoroscopy guidance. SURGEON: David Hubbard MD FINDINGS: The patient had a previous CT scan showing the renal veins at the lower portion of the L1 vertebral body. The top of the filter was placed in the mid portion of the L2 vertebral body. TECHNIQUE: The patient was placed on the operating table and the L1 and L5 vertebrae were then localized. The area was then prepped and draped in the usual sterile fashion. The skin and subcutaneous tissue were anesthetized with 1% Xylocaine without epinephrine. I attempted to access the vein. I accessed the artery on one occasion and removed the needle. There was no bleeding. I could not then identify the vein, so the ultrasound was then used. The vein was seen lying posteromedial to the artery and using ultrasound, I guided the needle into the vein with good access. The wire passed with ease. The wire was confirmed to be passing through the iliac towards the inferior vena cava by fluoroscopy. A small incision was made at the exit site of the wire to assure forward passage of the dilators. The dilators were then sequentially passed and removed. The introducer sheath device was then passed under fluoroscopic guidance such that the introducer was beyond the target area. The introducer was removed. The deploying device was then passed through the sheath also under fluoroscopic guidance until the tip of the filter was in position. The sheath was then withdrawn until I could then secure it. Under fluoroscopic guidance, the filter was deployed. It was in good position and it was not migrating. The deploying device was then withdrawn into the sheath and the sheath and device were removed as a unit. Pressure was held for 5 minutes by the clock. There was no bleeding. A Steri-Strip was placed and a dressing applied. Estimated blood loss was 5 mL. Sponge, needle, and instrument counts were correct prior to closure. The patient tolerated the surgical procedure without complication. I attest to the content of the Intraoperative Record and any orders documented therein. Any exception s are noted below.
[2019-04-16] MEDS: OLANZapine 10 MG/2.1 ML SDV IM PRN ×2 (00:24→17:56)
--- NOTE | 2019-04-16 10:11 | Anesthesiology Progress Note ---
Date of Service April 16, 2019 Anesthesia Post Procedure Vital Signs Vital Signs: Temp Pulse Pulse Pulse Pulse Resp BP 04/16/19 07:39 69 18 04/15/19 21:47 36.9 C 87 14 04/15/19 17:46 67 04/15/19 15:00 36.6 C 68 16 04/15/19 14:51 36.6 C 61 19 04/15/19 14:40 36.2 C L 60 16 04/15/19 14:30 36.2 C L 88 16 04/15/19 14:20 36.2 C L 68 16 98/51 L 04/15/19 12:03 36.7 C 66 66 16 123/61 BP Pulse Ox 04/16/19 07:39 157/74 H 04/15/19 21:47 132/87 04/15/19 17:46 04/15/19 15:00 112/69 98 04/15/19 14:51 106/59 L 96 04/15/19 14:40 132/67 100 04/15/19 14:30 105/56 L 100 04/15/19 14:20 98 04/15/19 12:03 97 Notes Mental Status: see notes below (Pt sleeping at time of visit) Nausea / Vomiting: adequately controlled Pain: adequately controlled Airway Patency, RR, SpO2: stable & adequate BP & HR: stable & adequate Hydration State: stable & adequate Anesthetic Complications: no major complications apparent
[2019-04-16 10:22] LABS: Hematocrit (blood only) 37.3 % (37-47); Hemoglobin 12.6 g/dL (12.0-16.0); Mean Corpuscular Hgb Conc 33.8 g/dL (32-36); Mean Corpuscular Volume 90.1 fL (80-100); Mean Platelet Volume 8.9 fL (7.4-10.4); Platelet Count 210 K/uL (130-400); RDW Coefficient of Variation 15.2 % (11.5-14.5); RDW Standard Deviation 50.7 fL (36.4-46.3); Red Blood Count 4.14 M/uL (4.2-5.4); White Blood Count 4.66 K/uL (4.8-10.8)
[2019-04-16 10:51] LABS: BUN Creatinine Ratio 13.8 (10-20); Calcium 8.9 mg/dl (8.5-10.1); Creatinine Clr Calc Pharmacy 57.9 ml/min; Est GFR (African American) 89.7; Est GFR (Non-African American) 77.4; Partial Thromboplastin Time 27.1 Seconds (21.0-31.0); Potassium 3.7 mmol/L (3.5-5.1)
[2019-04-16] MEDS: LINZESS~ORDER AWAITING ACTION SCH ×2 (12:58→16:22)
[2019-04-16] MEDS: METOPROLOL TARTRATE 100 MG TAB PO SCH ×2 (12:59→22:40)
--- NOTE | 2019-04-16 12:59 | Surgery Progress Note ---
Date of Service April 16, 2019 Assessment & Plan (1) Deep vein thrombosis (DVT): Status post placement of inferior vena cava filter No evidence of hematoma or other complication We will sign off. Please let me know if I can be of further assistance Present on Admission?: Yes Subjective Status post placement of inferior vena cava filter, postop day #1 Remains confused Does not complain of pain at the incision site Physical Exam Musculoskeletal: Incision site is clean and dry No evidence of hematoma or seroma No bruising Results & Data Vital Signs (Past 12 Hours) Vital Signs Pulse Resp BP 04/16/19 07:39 69 18 157/74 H (1) Deep vein thrombosis (DVT) Affected thrombotic vein of extremity: unspecified lower extremity distal vein Chronicity: unspecified DVT location: lower extremity Laterality: left Qualified Code(s): I82.4Z2 - Acute embolism and thrombosis of unspecified deep veins of left distal lower extremity
[2019-04-16] MEDS: MAGNESIUM OXIDE 400 MG TAB PO SCH (13:01)
[2019-04-16] MEDS: POLYETHYLENE (MIRALAX) 17 GM PACK PO SCH (13:01)
[2019-04-16] MEDS: PANTOprazole 40 MG TAB PO SCH (13:02)
[2019-04-16] MEDS: DOCUSATE SODIUM/SENNA 50/8.6MG TAB PO SCH (13:03)
[2019-04-16] MEDS: QUETIAPINE FUMARATE 25 MG TABLET PO SCH ×3 (13:04→22:17)
[2019-04-16] MEDS: LISINOPRIL 10 MG TAB PO SCH (13:04)
--- NOTE | 2019-04-16 14:36 | Hospitalist Progress Note ---
Date of Service April 16, 2019 Assessment & Plan (1) Altered mental status: RESOLVED Presented with altered mental status with underlying dementia, hx of strokes -Suspect delirium / metabolic encephalopathy from UTI or meds- RESOLVED. Near her baseline, but on and off sleepy as sleep cycle altered -Avoid meds with anticholinergic and other [employer] side-effects. -Work up- CT head - neg for acute abnormalities (2) Urinary tract infection: Diagnosed with UTI 03/30/19. Urine culture grew Proteus mirabilis. -Treated with ciprofloxacin, but organism resistant. (Urine cx done at [place]) -C&S demonstrated organism sensitive to cefazolin. -S/P IV Rocephin - Completed 7 day course on 04/14/19 (3) Deep vein thrombosis (DVT): Extensive DVT LLE, (present on admission). No PE per CTA chest x 2. -S/P IV heparin low dose protocol. -Best to avoid long-term anticoagulation due to history of intracranial hemorrhage. -Ebony Leyva indicated that we should proceed with surgical consultation for filter. -Dr Hubbard placed IVC filter on 04/15/19 (4) Atrial flutter: -Continue metoprolol and digoxin for rate control. -No long-term anticoagulation due to history of intracranial hemorrhage. (5) HTN (hypertension): -Stable -Continue metoprolol and lisinopril. (6) Diastolic CHF: Developed CHF / pulmonary edema. -Acute on chronic left ventricular diastolic heart failure. -S/P IV fluids stopped. -Received IV furosemide with improvement. (7) CKD (chronic kidney disease) stage 3, GFR 30-59 ml/min: -Serum creatinine stable at 0.87. (8) Dementia: History of dementia, may be multifactorial. Disoriented x 2---> sleepy on and off due to sleep pattern and meds -On and off episodes of delirium requiring 1:1 observation PRN (Off 1:1 ) , Zyprexa PRN -On Seroquel 25 mg TID, Zyprexa 2.5 mg q 6 hours PRN agitation (9) Do not resuscitate status: -Per patient's previously expressed wishes. (10) DVT prophylaxis: -Receiving IV heparin for acute DVT LLE (11) Discharge planning issues: Ok to discharge to [facility] today- on a bed hold Ebony leyva aware about discharge plan today Subjective Patient is Status post placement of inferior vena cava filter, postop day #1 Remains confused No overnight events Physical Exam Physical Exam: Constitutional: Disoriented x 3, Respiratory: normal respiratory effort, lungs clear to auscultation no respiratory distress Cardiovascular: Rate/Rhythm: + irregularly irregular rhythm; Gastrointestinal (Abdomen): Inspection/Auscultation: normal bowel sounds Percussion/Palpation: abdomen soft; abdomen nontender Ext: LLE swelling > Right Neurologic: Speech / Cognition: DisoOriented x 3, no focal deficits SKIN- S/P IVC filter placement Results & Data Vital Signs (Past 12 Hours) Vital Signs Pulse Resp BP 04/16/19 07:39 69 18 157/74 H (1) Deep vein thrombosis (DVT) Affected thrombotic vein of extremity: unspecified lower extremity distal vein Chronicity: unspecified DVT location: lower extremity Laterality: left Qualified Code(s): I82.4Z2 - Acute embolism and thrombosis of unspecified deep veins of left distal lower extremity (2) HTN (hypertension) Hypertension type: essential hypertension Qualified Code(s): I10 - Essential (primary) hypertension (3) Diastolic CHF Heart failure chronicity: chronic Qualified Code(s): I50.32 - Chronic diastolic (congestive) heart failure
--- NOTE | 2019-04-16 14:38 | Discharge Summary ---
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, paroxysmal atrial fibrillation, not on anticoagulation secondary to spontaneous cerebral hemorrhages and fall risk; history of coronary artery disease, status post stenting of RCA in 1999; diastolic CHF; nonobstructive carotid occlusive disease; obstructive sleep apnea, intolerant to CPAP; history of DVT and PE; hypertension, hyperlipidemia, hypothyroidism, chronic kidney disease stage III, depression, peripheral vascular disease, who was in the hospital in last month in February last week with a stroke, at that time, MRI scan showed acute subacute infarct involving the right frontoparietal vertex and multiple old bihemispheric and cerebral infarcts. The patient was not started on any anticoagulation because of history of spontaneous cerebral hemorrhages risk. Her mental status was close to baseline at discharge and was continued on aspirin and seen by cardiology and neurology who agreed with the plan and was discharged back to [facility]. The patient is DNR/DNI as per my discussion with daughter and [facility]. The patient has mostly poor ambulatory status, ambulates only with 2 assists. She is on mechanical soft diet with thin liquids. Lately, she is getting more and more agitated and nursing staff at [facility] was giving her medications crushed and mixing in ice cream. As per the daughter, the patient was started on psych medications because of her agitation, which made her more sedated and caused worsening of her ambulatory status and requiring assistance for ambulation. She was today brought in because of her increasing agitation. When she came into the ER, she was agitated and she [pulled of IV line, IM Ativan was given and she became calmer and sedative. CT head shows old stroke, nothing acute. She has swelling in the left lower extremity and Doppler was done in the ER which showed extensive DVT in left lower extremity, at which time, IV heparin was started. Discussed with the daughter about the risk factors of anticoagulation because of her bleeding risk in the past and daughter is okay to continue IV heparin for now and also notified daughter that there is no vascular surgery available at this time for IVC filter. She wants to continue the IV heparin for now and she want to discuss with her siblings and get back to us in the morning. Currently, patient is resting comfortably and hemodynamically stable. After Ativan, oxygen saturation dropped to 86%, but with 2 liters oxygen her oxygen saturations improved; could not get any history from the patient as patient has vascular dementia and also currently sedated with Ativan. Discharge Data Allergies Allergy/AdvReac Type Severity Reaction Status Date / Time Penicillins Allergy Intermediate HIVES Verified 04/15/19 11:25 pneumococcal vaccine Allergy Mild FEVER/RASH Verified 04/15/19 11:25 carbenicillin Allergy Unknown "DON'T Verified 04/15/19 11:25 REMEMBER" Bactrim AdvReac Mild GI SYMPTOMS Verified 09/20/17 23:30 sulfamethoxazole AdvReac Mild GI SYMPTOMS Verified 04/15/19 11:25 trimethoprim AdvReac Mild GI SYMPTOMS Verified 04/15/19 11:25 Consultations 04/08/19 00:26 ED Decision to Admit Stat 04/08/19 03:04 Consult Case Management - Discharge Planning Routine 04/13/19 03:59 Consult General Surgery Routine Procedures Performed Operation Date: 04/15/19 07:00 Actual Procedures p Inferior Venacava Filter Insertion - Glory Filter(Right) - David Hubbard MD Ordered Studies 04/07/19 22:19 CT head/brain wo con Stat US venous doppler LE LT Urgent 04/08/19 01:57 CT angio chest PE protocol Stat 04/09/19 06:38 CT angio chest PE protocol Urgent 04/15/19 12:00 FL KUB Routine FL fluoroscopy <1hr Routine Hospital Course (1) Altered mental status: RESOLVED Presented with altered mental status with underlying dementia, hx of strokes -Suspect delirium / metabolic encephalopathy from UTI or meds- RESOLVED. Near her baseline, but on and off sleepy as sleep cycle altered -Avoid meds with anticholinergic and other RETAIL ATTENDANT side-effects. -Work up- CT head - neg for acute abnormalities (2) Urinary tract infection: Diagnosed with UTI 03/30/19. Urine culture grew Proteus mirabilis. -Treated with ciprofloxacin, but organism resistant. (Urine cx done at [place]) -C&S demonstrated organism sensitive to cefazolin. -S/P IV Rocephin - Completed 7 day course on 04/14/19 (3) Deep vein thrombosis (DVT): Extensive DVT LLE, (present on admission). No PE per CTA chest x 2. -S/P IV heparin low dose protocol. -Best to avoid long-term anticoagulation due to history of intracranial hemorrhage. -Daughter Autumn indicated that we should proceed with surgical consultation for filter. -Dr Hubbard placed IVC filter on 04/15/19 (4) Atrial flutter: -Continue metoprolol and digoxin for rate control. -No long-term anticoagulation due to history of intracranial hemorrhage. (5) HTN (hypertension): -Stable -Continue metoprolol and lisinopril. (6) Diastolic CHF: Developed CHF / pulmonary edema. -Acute on chronic left ventricular diastolic heart failure. -S/P IV fluids stopped. -Received IV furosemide with improvement. (7) CKD (chronic kidney disease) stage 3, GFR 30-59 ml/min: -Serum creatinine stable at 0.87. (8) Dementia: History of dementia, may be multifactorial. Disoriented x 2---> sleepy on and off due to sleep pattern and meds -On and off episodes of delirium requiring 1:1 observation PRN (Off 1:1 ) , Zyprexa PRN -On Seroquel 25 mg TID, Zyprexa 2.5 mg q 6 hours PRN agitation (9) Do not resuscitate status: -Per patient's previously expressed wishes. (10) DVT prophylaxis: -Receiving IV heparin for acute DVT LLE (11) Discharge planning issues: Ok to discharge to [facility] today- on a bed hold Ebony merida aware about discharge plan today Discharge Plan Discharge Items Reason For Visit: AGITATION Prescriptions: No Action atorvastatin 80 mg Tablet 80 mg PO HS Qty: 0 RF: 0 omeprazole 20 mg Capsule,Delayed Release(Dr/Ec) 20 mg PO QAM Qty: 0 RF: 0 digoxin 125 mcg Tablet 0.125 mg PO Q2D Qty: 0 RF: 0 quetiapine [Seroquel] 25 mg Tablet 25 mg PO TID RF: 0 ciprofloxacin HCl [Cipro] 500 mg Tablet 500 mg PO BID RF: 0 olanzapine 2.5 mg Tablet 2.5 mg PO Q6 PRN (Reason: Agitation) RF: 0 ceftriaxone 1 gram Recon Soln 1 g IM DAILY RF: 0 melatonin 5 mg Tablet 5 mg PO HS RF: 0 Linzess 290 mcg Capsule 290 mcg PO QAM RF: 0 Med Pass Suppliment 120 ml PO TID RF: 0 aspirin [Aspirin Low Dose] 81 mg Tablet,Delayed Release (Dr/Ec) 81 mg PO DAILY RF: 0 acetaminophen 325 mg Tablet 325 mg PO Q4H MDD 3 GRAMS/24 HOURS. PRN (Reason: Pain) RF: 0 Miconazorb AF 2 % Powder 1 applic TOPICAL BID PRN (Reason: Skin Irritation) RF: 0 bisacodyl 10 mg Suppository 10 mg GA DAILY PRN (Reason: Constipation) RF: 0 Fleet Enema 19-7 gram/118 mL Enema 118 ml GA HS PRN (Reason: Constipation) RF: 0 magnesium oxide 400 mg (241.3 mg magnesium) Tablet 400 mg PO QAM RF: 0 ranitidine HCl 150 mg Tablet 150 mg PO BID RF: 0 potassium chloride 20 mEq Tablet Extended Release 20 meq PO PM RF: 0 metoprolol tartrate 100 mg Tablet 100 mg PO BID RF: 0 buspirone 10 mg Tablet 10 mg PO TID RF: 0 polyethylene glycol 3350 [Miralax] 17 gram Powder In Packet 17 g PO QAM RF: 0 sennosides-docusate sodium [Senna-S] 8.6-50 mg Tablet 2 tab PO BID RF: 0 mirtazapine 45 mg Tablet 45 mg PO HS RF: 0 lisinopril 20 mg tablet 20 mg PO QAM RF: 0 Admission Data Admit Date/Time: 04/08/19 01:55 Attending Provider: Liliana Lynn Admit Provider: Josh Pendleton Primary Care Provider: Kendra Chappell Other Providers: Davin Lemos ; Josh Pendleton ; David Hubbard Service: Medical
[2019-04-16] MEDS: MIRTAZAPINE SOLTAB 15 MG PO SCH (22:29)
[2019-04-16] MEDS: ATORVASTATIN 40 MG TAB PO SCH (22:46)
[2019-04-17] MEDS: LINZESS~ORDER AWAITING ACTION SCH ×3 (00:24→14:53)
[2019-04-17] MEDS: DOCUSATE SODIUM/SENNA 50/8.6MG TAB PO SCH ×2 (00:24→08:00)
[2019-04-17 07:41] LABS: Hematocrit (blood only) 39.3 % (37-47); Hemoglobin 12.9 g/dL (12.0-16.0); Mean Corpuscular Hgb Conc 32.8 g/dL (32-36); Mean Corpuscular Volume 90.8 fL (80-100); Mean Platelet Volume 9.6 fL (7.4-10.4); Platelet Count 217 K/uL (130-400); RDW Coefficient of Variation 15.1 % (11.5-14.5); RDW Standard Deviation 50.6 fL (36.4-46.3); Red Blood Count 4.33 M/uL (4.2-5.4); White Blood Count 5.26 K/uL (4.8-10.8)
[2019-04-17 07:51] LABS: Partial Thromboplastin Ratio 0.9; Partial Thromboplastin Time 25.4 Seconds (21.0-31.0)
[2019-04-17] MEDS: QUETIAPINE FUMARATE 25 MG TABLET PO SCH ×2 (08:00→13:39)
[2019-04-17] MEDS: LISINOPRIL 10 MG TAB PO SCH (08:00)
[2019-04-17] MEDS: MAGNESIUM OXIDE 400 MG TAB PO SCH (08:00)
[2019-04-17] MEDS: METOPROLOL TARTRATE 100 MG TAB PO SCH (08:01)
[2019-04-17] MEDS: PANTOprazole 40 MG TAB PO SCH (08:01)
[2019-04-17] MEDS: POLYETHYLENE (MIRALAX) 17 GM PACK PO SCH (10:38)
[2019-04-17] MEDS: OLANZapine 10 MG/2.1 ML SDV IM PRN (12:41)
[2019-04-17] MEDS ORDERED: OLANZAPINE 2.5 MG TAB PO PRN (13:32)
--- NOTE | 2019-04-17 13:34 | Hospitalist Progress Note ---
Date of Service April 17, 2019 Assessment & Plan (1) Altered mental status: Presented with altered mental status with underlying dementia, hx of strokes -Likely delirium / metabolic encephalopathy from UTI or meds- RESOLVED. Near her baseline, but on and off sleepy as sleep cycle altered, episodes of agitation -Off 1:1 for 24 hours -On Seroquel 25 mg TID and Zyprexa 2.5 mg PRN. Required 1 dose today afternoon -Avoid meds with anticholinergic and other EXPORT CLERK side-effects. -Work up- CT head - neg for acute abnormalities (2) Urinary tract infection: Diagnosed with UTI 03/30/19. Urine culture grew Proteus mirabilis. -Treated with ciprofloxacin, but organism resistant. (Urine cx done at [place]) -C&S demonstrated organism sensitive to cefazolin. -S/P IV Rocephin - Completed 7 day course on 04/14/19 (3) Deep vein thrombosis (DVT): Extensive DVT LLE, (present on admission). No PE per CTA chest x 2. -S/P IV heparin low dose protocol. -Best to avoid long-term anticoagulation due to history of intracranial hemorrhage. -Daughter Autumn indicated that we should proceed with surgical consultation for filter. -Dr Hubbard placed IVC filter on 04/15/19 (4) Atrial flutter: -Continue metoprolol and digoxin for rate control. -No long-term anticoagulation due to history of intracranial hemorrhage. (5) HTN (hypertension): -Stable -Continue metoprolol and lisinopril. (6) Diastolic CHF: Developed CHF / pulmonary edema. -Acute on chronic left ventricular diastolic heart failure. -S/P IV fluids stopped. -Received IV furosemide with improvement. (7) CKD (chronic kidney disease) stage 3, GFR 30-59 ml/min: -Serum creatinine stable at 0.87. (8) Dementia: History of dementia, may be multifactorial. Disoriented x 2---> sleepy on and off due to sleep pattern and meds -On and off episodes of delirium requiring 1:1 observation PRN (Off 1:1 ) , Zyprexa PRN -On Seroquel 25 mg TID, Zyprexa 2.5 mg q 6 hours PRN agitation (9) Do not resuscitate status: -Per patient's previously expressed wishes. (10) DVT prophylaxis: -S/P IV Heparin -Now has an IVC filter (11) Discharge planning issues: [facility] bed hold. Didnt take her yesterday as she was on 1:1 observation night before. Now off it 24 hours. Hope to discharge to [facility] today after d/w CM Left a voice message to daughter Autumn about discharge plan Subjective Patient is off 1:1 for 24 hours but on and off does get agitated. Required IM Zyprexa today afternoon due to agitation. No overnight events Physical Exam Physical Exam: Constitutional: Disoriented x 3, Respiratory: normal respiratory effort, lungs clear to auscultation no respiratory distress Cardiovascular: Rate/Rhythm: + irregularly irregular rhythm; Gastrointestinal (Abdomen): Inspection/Auscultation: normal bowel sounds Percussion/Palpation: abdomen soft; abdomen nontender Ext: LLE swelling > Right SKIN- S/P IVC filter placement Results & Data Vital Signs (Past 12 Hours) Vital Signs Temp Pulse Resp BP Pulse Ox 04/17/19 07:23 36.1 C L 79 18 139/71 93 (1) Deep vein thrombosis (DVT) Affected thrombotic vein of extremity: unspecified lower extremity distal vein Chronicity: unspecified DVT location: lower extremity Laterality: left Qualified Code(s): I82.4Z2 - Acute embolism and thrombosis of unspecified deep veins of left distal lower extremity (2) HTN (hypertension) Hypertension type: essential hypertension Qualified Code(s): I10 - Essential (primary) hypertension (3) Diastolic CHF Heart failure chronicity: chronic Qualified Code(s): I50.32 - Chronic diastolic (congestive) heart failure
--- NOTE | 2019-04-17 13:55 | Discharge Summary ---
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, paroxysmal atrial fibrillation, not on anticoagulation secondary to spontaneous cerebral hemorrhages and fall risk; history of coronary artery disease, status post stenting of RCA in 1999; diastolic CHF; nonobstructive carotid occlusive disease; obstructive sleep apnea, intolerant to CPAP; history of DVT and PE; hypertension, hyperlipidemia, hypothyroidism, chronic kidney disease stage III, depression, peripheral vascular disease, who was in the hospital in last month in February last week with a stroke, at that time, MRI scan showed acute subacute infarct involving the right frontoparietal vertex and multiple old bihemispheric and cerebral infarcts. The patient was not started on any anticoagulation because of history of spontaneous cerebral hemorrhages risk. Her mental status was close to baseline at discharge and was continued on aspirin and seen by cardiology and neurology who agreed with the plan and was discharged back to [facility]. The patient is DNR/DNI as per my discussion with daughter and [facility]. The patient has mostly poor ambulatory status, ambulates only with 2 assists. She is on mechanical soft diet with thin liquids. Lately, she is getting more and more agitated and nursing staff at [facility] was giving her medications crushed and mixing in ice cream. As per the daughter, the patient was started on psych medications because of her agitation, which made her more sedated and caused worsening of her ambulatory status and requiring assistance for ambulation. She was today brought in because of her increasing agitation. When she came into the ER, she was agitated and she [pulled of IV line, IM Ativan was given and she became calmer and sedative. CT head shows old stroke, nothing acute. She has swelling in the left lower extremity and Doppler was done in the ER which showed extensive DVT in left lower extremity, at which time, IV heparin was started. Discussed with the daughter about the risk factors of anticoagulation because of her bleeding risk in the past and daughter is okay to continue IV heparin for now and also notified daughter that there is no vascular surgery available at this time for IVC filter. She wants to continue the IV heparin for now and she want to discuss with her siblings and get back to us in the morning. Currently, patient is resting comfortably and hemodynamically stable. After Ativan, oxygen saturation dropped to 86%, but with 2 liters oxygen her oxygen saturations improved; could not get any history from the patient as patient has vascular dementia and also currently sedated with Ativan. Principal Diagnosis 1. Extensive DVT left lower extremity 2. Delirium/metabolic encephalopathy in setting of advanced dementia 3. UTI Secondary diagnoses on discharge 1. Atrial flutter not on anticoagulation 2. Hypertension 3. Diastolic congestive heart failure 4. Chronic kidney disease stage III 5. Advanced dementia Discharge Exam Constitutional: Disoriented x 3, Respiratory: normal respiratory effort, lungs clear to auscultation no respiratory distress Cardiovascular: Rate/Rhythm: + irregularly irregular rhythm; Gastrointestinal (Abdomen): Inspection/Auscultation: normal bowel sounds Percussion/Palpation: abdomen soft; abdomen nontender Ext: LLE swelling > Right SKIN- S/P IVC filter placement Discharge Data Allergies Allergy/AdvReac Type Severity Reaction Status Date / Time Penicillins Allergy Intermediate HIVES Verified 04/15/19 11:25 pneumococcal vaccine Allergy Mild FEVER/RASH Verified 04/15/19 11:25 carbenicillin Allergy Unknown "DON'T Verified 04/15/19 11:25 REMEMBER" Bactrim AdvReac Mild GI SYMPTOMS Verified 09/20/17 23:30 sulfamethoxazole AdvReac Mild GI SYMPTOMS Verified 04/15/19 11:25 trimethoprim AdvReac Mild GI SYMPTOMS Verified 04/15/19 11:25 Consultations 04/08/19 00:26 ED Decision to Admit Stat 04/08/19 03:04 Consult Case Management - Discharge Planning Routine 04/13/19 03:59 Consult General Surgery Routine Procedures Performed Operation Date: 04/15/19 07:00 Actual Procedures p Inferior Venacava Filter Insertion - Glory Filter(Right) - David Hubbard MD Ordered Studies 04/07/19 22:19 CT head/brain wo con Stat US venous doppler LE LT Urgent 04/08/19 01:57 CT angio chest PE protocol Stat 04/09/19 06:38 CT angio chest PE protocol Urgent 04/15/19 12:00 FL KUB Routine FL fluoroscopy <1hr Routine Hospital Course (1) Altered mental status: Presented with altered mental status with underlying dementia, hx of strokes -Likely delirium / metabolic encephalopathy from UTI or meds- RESOLVED. Near her baseline, but on and off sleepy as sleep cycle altered, episodes of agitation -Off 1:1 for 24 hours -On Seroquel 25 mg TID and Zyprexa 2.5 mg PRN. Required 1 dose today afternoon -Avoid meds with anticholinergic and other INTERSTATE BUS DRIVER side-effects. -Work up- CT head - neg for acute abnormalities (2) Urinary tract infection: Diagnosed with UTI 03/30/19. Urine culture grew Proteus mirabilis. -Treated with ciprofloxacin, but organism resistant. (Urine cx done at [place]) -C&S demonstrated organism sensitive to cefazolin. -S/P IV Rocephin - Completed 7 day course on 04/14/19 (3) Deep vein thrombosis (DVT): Extensive DVT LLE, (present on admission). No PE per CTA chest x 2. -S/P IV heparin low dose protocol. -Best to avoid long-term anticoagulation due to history of intracranial hemorrhage. -Daughter Autumn indicated that we should proceed with surgical consultation for filter. -Dr Hubbard placed IVC filter on 04/15/19 (4) Atrial flutter: -Continue metoprolol and digoxin for rate control. -No long-term anticoagulation due to history of intracranial hemorrhage. (5) HTN (hypertension): -Stable -Continue metoprolol and lisinopril. (6) Diastolic CHF: Developed CHF / pulmonary edema. -Acute on chronic left ventricular diastolic heart failure. -S/P IV fluids stopped. -Received IV furosemide with improvement. Not indicated on discharge. (7) CKD (chronic kidney disease) stage 3, GFR 30-59 ml/min: -Serum creatinine stable (8) Dementia: History of dementia, may be multifactorial. Disoriented x 2---> sleepy on and off due to sleep pattern and meds -On and off episodes of delirium requiring 1:1 observation PRN (Off 1:1 for 24 hours now ) , Zyprexa PRN -On Seroquel 25 mg TID, Zyprexa 2.5 mg q 6 hours PRN agitation (9) Do not resuscitate status: -Per patient's previously expressed wishes. (10) DVT prophylaxis: -S/P IV Heparin -Now has an IVC filter (11) Discharge planning issues: [place] bed hold. Off one-to-one observation for 24 hours. Okay to discharge today to wean the help Total Time Total Time Spent Total Time Spent (In Minutes): 38 minutes Discharge Plan Discharge Items [facility] Reason For Visit: AGITATION Discharge Diagnosis: 1. Extensive DVT, LLE 2. Status post IVC filter placement 3. UTI 4. Advanced dementia with agitative episodes Discharge Goals: Decrease discomfort Activity: Resume your previous activity Non-emergency contact: Primary Care Provider Call non-emergency contact if: your symptoms worsen Follow-up/Referrals: Kendra Chappell [Primary Care Provider] - Diet: Low Sodium (2gm) Addtl Provider Instructions: IVC filter was placed on 04/15/2019 as not an anticoagulation candidate Agitative episodes on and off requiring zyprexa prn and behavioral rx Prescriptions: Continued atorvastatin 80 mg Tablet 80 mg PO HS Qty: 0 RF: 0 omeprazole 20 mg Capsule,Delayed Release(Dr/Ec) 20 mg PO QAM Qty: 0 RF: 0 digoxin 125 mcg Tablet 0.125 mg PO Q2D Qty: 0 RF: 0 quetiapine [Seroquel] 25 mg Tablet 25 mg PO TID RF: 0 olanzapine 2.5 mg Tablet 2.5 mg PO Q6 PRN (Reason: Agitation) RF: 0 melatonin 5 mg Tablet 5 mg PO HS RF: 0 Linzess 290 mcg Capsule 290 mcg PO QAM RF: 0 Med Pass Suppliment 120 ml PO TID RF: 0 aspirin [Aspirin Low Dose] 81 mg Tablet,Delayed Release (Dr/Ec) 81 mg PO DAILY RF: 0 acetaminophen 325 mg Tablet 325 mg PO Q4H MDD 3 GRAMS/24 HOURS. PRN (Reason: Pain) RF: 0 Miconazorb AF 2 % Powder 1 applic TOPICAL BID PRN (Reason: Skin Irritation) RF: 0 bisacodyl 10 mg Suppository 10 mg VA DAILY PRN (Reason: Constipation) RF: 0 Fleet Enema 19-7 gram/118 mL Enema 118 ml VA HS PRN (Reason: Constipation) RF: 0 magnesium oxide 400 mg (241.3 mg magnesium) Tablet 400 mg PO QAM RF: 0 ranitidine HCl 150 mg Tablet 150 mg PO BID RF: 0 potassium chloride 20 mEq Tablet Extended Release 20 meq PO PM RF: 0 metoprolol tartrate 100 mg Tablet 100 mg PO BID RF: 0 buspirone 10 mg Tablet 10 mg PO TID RF: 0 polyethylene glycol 3350 [Miralax] 17 gram Powder In Packet 17 g PO QAM RF: 0 sennosides-docusate sodium [Senna-S] 8.6-50 mg Tablet 2 tab PO BID RF: 0 mirtazapine 45 mg Tablet 45 mg PO HS RF: 0 lisinopril 20 mg tablet 20 mg PO QAM RF: 0 Discontinued ciprofloxacin HCl [Cipro] 500 mg Tablet 500 mg PO BID RF: 0 ceftriaxone 1 gram Recon Soln 1 g IM DAILY RF: 0 Stand-Alone Forms: [facility] Discharge Orders: Discharge Order (Routine); Ordered 04/17/19 Ordered By: Liliana Lynn Skilled Items Patient informed of condition?: No (DEMENTIA ) DNR: Yes Discharge Level of Care: Skilled Communicable Disease: No Discharge Prognosis: Stable Admission Data Admit Date/Time: 04/08/19 01:55 Attending Provider: Liliana Lynn Admit Provider: Josh Pendleton Primary Care Provider: Kendra Chappell Other Providers: Davin Lemos ; Josh Pendleton ; David Hubbard Service: Medical
== END 2019-04-17 15:32 | DRG 299 ==
LOC: ED 22:01 → 2W 04-08 01:55 → SUATTDRO 04-08 01:55 → 2W 04-08 02:32 → 4E 04-15 14:29

== ENCOUNTER 2019-05-12 21:40 | Inpatient (IN) ==
[2019-05-12] MEDS ORDERED: SODIUM CHLORIDE 0.9% 1000ML 1,000 ML IV SCH (22:00)
--- NOTE | 2019-05-12 22:24 | XRay Report ---
XR chest 1V portable HISTORY: 78 years-old Female weakness acute weakness with agitation and altered mental status COMPARISON: Chest radiograph 04/10/2019 TECHNIQUE: Portable AP view of the chest FINDINGS: Cardiac silhouette is enlarged, unchanged. Calcification of the thoracic aortic arch. There is no pne umothorax, large pleural effusion or overt pulmonary edema. Mild chronic interstitial coarsening. Mil d blunting of the costophrenic angles may reflect trace effusions. Resolution of the previously descr ibed pulmonary edema. Degenerative changes of the shoulders and spine. IMPRESSION: Cardiomegaly without overt pulmonary edema. The above report was generated using voice recognition software. It may contain grammatical, syntax o r spelling errors. Electronically signed by: Goyo Maldonado M.D. 05/12/2019 10:23 PM
[2019-05-12 22:53] LABS: Appearance Urine Cloudy (Clear); Bacteria Urine Automated 4+ (Negative); Bilirubin Urine Negative (Negative); Blood Urine Trace (Negative); Color Urine Yellow; Glucose Urine UA Negative (Negative); Ketones Urine Negative (Negative); Leukocyte Esterase Urine 3+ (Negative); Nitrite Urine Positive (Negative); Protein Urine Negative (Negative); Specific Gravity Urine 1.018 (1.000-1.030); Urobilinogen Urine Negative (Negative); WBC Urine Automated >30 /hpf (0-5)
[2019-05-12 22:55] LABS: Basophils # (auto) 0.02 K/uL (0-0.2); Basophils % (auto) 0.3 %; Eosinophils # (auto) 0.04 K/uL (0-0.5); Eosinophils % (auto) 0.6 %; Immature Granulocytes # (auto) 0.02 K/uL (0.00-0.02); Immature Granulocytes % (auto) 0.3 %; Lymphocytes # (auto) 1.31 K/uL (1.2-3.4); Mean Corpuscular Hgb Conc 32.4 g/dL (32-36); Mean Corpuscular Volume 92.5 fL (80-100); Mean Platelet Volume 9.1 fL (7.4-10.4); Monocytes # (auto) 0.49 K/uL (0.11-0.59); Monocytes % (auto) 7.9 %; Neutrophils # (auto) 4.36 K/uL (1.4-6.5); Neutrophils % (auto) 69.9 %; Platelet Count 180 K/uL (130-400); RDW Coefficient of Variation 14.9 % (11.5-14.5); RDW Standard Deviation 50.2 fL (36.4-46.3); White Blood Count 6.24 K/uL (4.8-10.8)
[2019-05-12 23:14] LABS: Alanine Aminotransferase 30 U/L (12-78); Albumin Level 3.8 gm/dl (3.4-5.0); Aspartate Aminotransferase 20 U/L (15-37); BUN Creatinine Ratio 23.8 (10-20); Blood Urea Nitrogen 22 mg/dl (7-18); Calcium 8.9 mg/dl (8.5-10.1); Carbon Dioxide 28 mmol/L (21-32); Chloride 109 mmol/L (98-107); Creatinine Clr Calc Pharmacy 50.9 ml/min; Est GFR (African American) 68.3; Est GFR (Non-African American) 58.9; Glucose 101 mg/dl (70-99); Magnesium 2.3 mg/dl (1.8-2.4); Potassium 4.1 mmol/L (3.5-5.1); Sodium 145 mmol/L (136-145)
[2019-05-12 23:25] LABS: Albumin Globulin Ratio 1.1 (0.9-2); Alkaline Phosphatase 101 U/L (45-117); Bilirubin,Total 0.5 mg/dl (0.2-1); Globulin 3.5 gm/dl (2.5-4.0); Total Protein 7.3 gm/dl (6.4-8.2); Troponin I < 0.015 ng/ml (0-0.045)
[2019-05-13] MEDS ORDERED: CEFEPIME 2,000 MG/20 ML VIAL IV STA
--- NOTE | 2019-05-13 01:40 | History & Physical Report ---
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 IVC filter DNR as per daughter in law/POA, Ms. Autumn Ferreira. (Contact numbers [phone], [phone]) History of Present Illness Chief Complaint: "They think I may be ," as per patient Increased agitation as per records Primary Care Provider: [facility] History obtained from patient, family, and records. Patient is not a reliable historian secondary to dementia. Patient is a [facility] resident. 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 Recent confinement last month for delirium secondary to UTI. Patient also found to have extensive DVT LLE status post IVC filter placement. Long-term anticoagulation held due to history of intracranial hemorrhage. Patient noted to have increased agitation overnight. No fever, no chills. Patient denies chest pain, S OB, abdominal pain, dysuria symptoms. Patient thinks she was brought to the hospital because prison staff thought she may be . 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 Allergies Allergy/AdvReac Type Severity Reaction Status Date / Time Penicillins Allergy Intermediate HIVES Verified 05/13/19 00:10 pneumococcal vaccine Allergy Mild FEVER/RASH Verified 05/13/19 00:10 carbenicillin Allergy Unknown "DON'T Verified 04/15/19 11:25 REMEMBER" Bactrim AdvReac Mild GI SYMPTOMS Verified 09/20/17 23:30 sulfamethoxazole AdvReac Mild GI SYMPTOMS Verified 04/15/19 11:25 trimethoprim AdvReac Mild GI SYMPTOMS Verified 04/15/19 11:25 Home Medications Home Medications Medication Instructions Recorded Confirmed Type atorvastatin 80 mg PO HS #0 06/22/15 05/13/19 History omeprazole 20 mg PO QAM #0 cap 02/08/16 05/13/19 History digoxin 0.125 mg PO Q2D #0 05/10/18 05/13/19 History magnesium oxide 400 mg PO QAM 01/12/19 05/13/19 History potassium chloride 20 meq PO PM 01/12/19 05/13/19 History buspirone 10 mg PO TID 01/21/19 05/13/19 History metoprolol tartrate 100 mg PO BID 01/21/19 05/13/19 History lisinopril 20 mg PO QAM 03/01/19 05/13/19 History mirtazapine 45 mg PO HS 03/01/19 05/13/19 History polyethylene glycol 3350 [Miralax] 17 g PO QAM 03/01/19 05/13/19 History Linzess 290 mcg PO QAM 04/07/19 05/13/19 History melatonin 5 mg PO HS 04/07/19 05/13/19 History aspirin [Aspirin Low Dose] 81 mg PO DAILY 04/08/19 05/13/19 History acetaminophen 500 mg PO QID MDD 3g/24hr 05/13/19 05/13/19 History Past Med/Surg History Medical History Atrial fibrillation (Chronic) Vascular dementia (Chronic) HTN (hypertension) (Chronic) History of CVA (cerebrovascular accident) (Chronic) SUSY (obstructive sleep apnea) (Chronic) Diastolic CHF (Chronic) GERD (gastroesophageal reflux disease) (Chronic) CKD (chronic kidney disease) stage 3, GFR 30-59 ml/min (Chronic) Depression (Chronic) History of pulmonary embolus (PE) (Resolved) Atrial fibrillation (Chronic) HLD (hyperlipidemia) (Chronic) Hypothyroidism (Chronic) Stroke (Resolved) ASCVD (arteriosclerotic cardiovascular disease) CAD (coronary artery disease) Surgical History History of appendectomy (Resolved) History of resection of small bowel (Resolved) secondary to high grade SBO History of total left knee replacement (TKR) (Resolved) History of percutaneous coronary intervention (Resolved) s/p Stent of RCA in 1999 History of radiofrequency ablation procedure for cardiac arrhythmia (Resolved) S/P PVI ablation in 2009 for afib/flutter s/p CTI flutter ablation in 2014 S/P Cardioversion in 04/2015 and 12/27/15 H/O craniotomy (Resolved) Right frontotemporal craniotomy with aneurysm clip Family History Other Family history non-contributory Social History Preferred Language: Botswanan Communication Ability: Impaired Tobacco Drier Operator Required: No Beliefs That Will Affect Care: None marital status: Current Living Situation: Assisted Current Living Situation Comment: [facility] current occupational status: retired Other Information That Helps Us Care for You: No Feels Safe at Home: Declines to Answer Smoking Status: Unknown if ever smoked Hx Alcohol Use: No Hx Substance Use: No Review of Systems Review of Systems: Could not be reliably obtained Physical Exam Physical Exam: GENERAL: Comfortable, cheerful, demented, no respiratory distress SKIN: Normal color, warm HEENT: [place] palpebral conjunctivae, no ptosis, dry buccal mucosa, chronic lip asymmetry (as per daughter), edentulous NECK : Supple, no tenderness CHEST : CTA, no tenderness HEART : Tachycardic, systolic murmur ABDOMEN: Some distention, nontender EXTREMITIES : Bilateral LE swelling L>R, LLE tenderness, no other conspicuous deformities noted NEUROLOGIC : Coherent but demented, old upper lip asymmetry as per daughter, gait and stance not assessed Results & Data Vital Signs (Past 12 Hours) Vital Signs Temp Pulse Pulse Resp BP BP Pulse Ox 05/12/19 22:56 121 H 18 157/111 H 95 05/12/19 21:36 36.8 C 121 H 18 164/88 H 96 Laboratory Results Laboratory Results WBC 6.24 K/uL (4.8-10.8) 05/12/19 22:34 RBC 4.00 M/uL (4.2-5.4) L 05/12/19 22:34 Hgb 12.0 g/dL (12.0-16.0) 05/12/19 22:34 Hct 37.0 % (37-47) 05/12/19 22:34 MCV 92.5 fL (80-100) 05/12/19 22:34 MCH 30.0 pg (25-34) 05/12/19 22:34 MCHC 32.4 g/dL (32-36) 05/12/19 22:34 RDW Std Deviation 50.2 fL (36.4-46.3) H 05/12/19 22:34 RDW Coeff of Tre 14.9 % (11.5-14.5) H 05/12/19 22:34 Plt Count 180 K/uL (130-400) 05/12/19 22:34 MPV 9.1 fL (7.4-10.4) 05/12/19 22:34 Immature Gran % (Auto) 0.3 % 05/12/19 22:34 Neut % (Auto) 69.9 % 05/12/19 22:34 Lymph % (Auto) 21.0 % 05/12/19 22:34 [place] % (Auto) 7.9 % 05/12/19 22:34 Eos % (Auto) 0.6 % 05/12/19 22:34 Baso % (Auto) 0.3 % 05/12/19 22:34 Immature Gran # (Auto) 0.02 K/uL (0.00-0.02) 05/12/19 22:34 Neut # (Auto) 4.36 K/uL (1.4-6.5) 05/12/19 22:34 Lymph # (Auto) 1.31 K/uL (1.2-3.4) 05/12/19 22:34 [place] # (Auto) 0.49 K/uL (0.11-0.59) 05/12/19 22:34 Eos # (Auto) 0.04 K/uL (0-0.5) 05/12/19 22:34 Baso # (Auto) 0.02 K/uL (0-0.2) 05/12/19 22:34 Sodium 145 mmol/L (136-145) 05/12/19 22:34 Potassium 4.1 mmol/L (3.5-5.1) 05/12/19 22:34 Chloride 109 mmol/L (98-107) H 05/12/19 22:34 Carbon Dioxide 28 mmol/L (21-32) 05/12/19 22:34 Anion Gap 9.0 (3-11) 05/12/19 22:34 BUN 22 mg/dl (7-18) H 05/12/19 22:34 Creatinine 0.94 mg/dl (0.6-1.2) 05/12/19 22:34 Est Cr Clr Drug Dosing 50.9 ml/min 05/12/19 22:34 Est GFR ( Amer) 68.3 05/12/19 22:34 Est GFR (Non-Af Amer) 58.9 05/12/19 22:34 BUN/Creatinine Ratio 23.8 (10-20) H 05/12/19 22:34 Glucose 101 mg/dl (70-99) H 05/12/19 22:34 Calcium 8.9 mg/dl (8.5-10.1) 05/12/19 22:34 Magnesium 2.3 mg/dl (1.8-2.4) 05/12/19 22:34 Total Bilirubin 0.5 mg/dl (0.2-1) 05/12/19 22:34 AST 20 U/L (15-37) 05/12/19 22:34 ALT 30 U/L (12-78) 05/12/19 22:34 Alkaline Phosphatase 101 U/L (45-117) 05/12/19 22:34 Troponin I < 0.015 ng/ml (0-0.045) 05/12/19 22:34 Total Protein 7.3 gm/dl (6.4-8.2) 05/12/19 22:34 Albumin 3.8 gm/dl (3.4-5.0) 05/12/19 22:34 Globulin 3.5 gm/dl (2.5-4.0) 05/12/19 22:34 Albumin/Globulin Ratio 1.1 (0.9-2) 05/12/19 22:34 TSH 1.730 uIu/ml (0.300-4.500) 05/12/19 22:34 Urine Color Yellow 05/12/19 22:38 Urine Appearance Cloudy (Clear) A 05/12/19 22:38 Urine pH 7.0 (4.5-7.5) 05/12/19 22:38 Ur Specific [place] 1.018 (1.000-1.030) 05/12/19 22:38 Urine Protein Negative (Negative) 05/12/19 22:38 Urine Glucose (UA) Negative (Negative) 05/12/19 22:38 Urine Ketones Negative (Negative) 05/12/19 22:38 Urine Blood Trace (Negative) H 05/12/19 22:38 Urine Nitrite Positive (Negative) A 05/12/19 22:38 Urine Bilirubin Negative (Negative) 05/12/19 22:38 Urine Urobilinogen Negative (Negative) 05/12/19 22:38 Ur Leukocyte Esterase 3+ (Negative) H 05/12/19 22:38 Urine WBC (Auto) >30 /hpf (0-5) H 05/12/19 22:38 Urine RBC (Auto) 5-10 /hpf (0-4) H 05/12/19 22:38 U Hyaline Cast (Auto) 1-5 /lpf (0-5) 05/12/19 22:38 U Epithel Cells (Auto) 10-20 /lpf (0-5) H 05/12/19 22:38 Urine Bacteria (Auto) 4+ (Negative) H 05/12/19 22:[address] head initial read: No acute pathology Chest x-ray: Cardiomegaly EKG as per my interpretation: Rate 100, atrial flutter, low voltage: L LE venous Dopplers initial read: Widespread nonocclusive DVT and superficial venous thrombosis left calf
[2019-05-13] MEDS ORDERED: METOPROLOL TARTRATE 25 MG TAB PO STA (01:43)
--- NOTE | 2019-05-13 01:47 | Emergency Department Note ---
Entered by Vince Patel acting as a scribe for Dre Nova MD ED Provider Note CHIEF COMPLAINT: Confusion HISTORY OF PRESENT ILLNESS: The patient is a 78 year old female who presents to the Emergency Room after her daughter had concern with how agitated she was acting today. The daughter also w as worried about swelling in the patient's left leg because the patient does have a history of DVT. HPI is limited secondary to patient's dementia. REVIEW OF SYSTEMS: See HPI for pertinent positives and negatives. ROS is limited secondary to patient's dementia. PMHx/PSHx: UTI, DVT, Atrial flutter, Atrial fibrillation with RVR, Ischemic stroke, Dementia, Appendectomy, Resection of small bowel, HTN, CHF, GERD, PE, CKD, Depression SOCIAL HISTORY: Patient lives at home. PHYSICAL EXAM: GENERAL: Awake, alert, agitated-appearing, in no distress HENT: Normocephalic, atraumatic. Oropharynx unremarkable. EYES: Normal conjunctiva. Sclera non-icteric. NECK: Inspection normal. Non-tender. Supple. No nuchal rigidity. FROM. No masses. RESPIRATORY: Clear to auscultation. No wheezes. No rales. Normal respiratory effort. CARDIAC: Tachycardic rate. Normal rhythm. No murmurs. No rubs. Extremities warm and well perfused. Pulses equal. No JVD. GI: Soft, non-distended. No tenderness to palpation. No rebound or guarding. No masses. RECTAL: Deferred. MUSCULOSKELETAL: Atraumatic. Chest examination reveals no tenderness. The back is symmetrical on inspection without obvious abnormality. There is no CVA tenderness to palpation. No joint edema. LOWER EXTREMITIES: Non-tender. No edema. No discoloration. Left leg is larger than the right. NEURO: Demented sensorium. No sensory or motor deficits noted. SKIN: No rash or jaundice noted. EMERGENCY DEPARTMENT COURSE: 2225: The patient was evaluated in room B04B, and a complete history and physical examination were performed. 0020: I spoke to Dr. Zoe Flores Hospitalist about the patient's case and he will be accepting her for further evaluation. MEDICAL DECISION MAKING: Nursing notes reviewed and agree them. The patient's history was concerning for altered mental status and leg swelling. Differential diagnosis: Etiologies such as infection, hypoglycemia, electrolyte abnormalities, cardiac sources, intracerebral event, toxicologic, neurologic, DVT, as well as others were entertained. Physical examination: As above. The patient's legs were obviously asymmetric in size. The patient was awake and alert but agitated. ER treatment provided: IV Lock Normal saline hydration IV cefepime on reassessment the patient was stable Diagnostics interpretation by me: ECG: Mild tachycardia noted. The patient has a flutter. The labs revealed an unremarkable CBC and chemistry panel. Urinalysis concerning for infection. Troponin negative. Imaging studies: Chest x-ray negative. Ultrasound imaging of the left leg reveals a superficial thrombosis as well as deep vein thrombosis. Consultation: A consultation was placed with the hospitalist. The case was discussed and diagnostics were reviewed. The patient was evaluated in the ER for further treatment. IMPRESSION: Altered mental status UTI DVT PLAN: Admitted as inpatient The scribe's documentation has been prepared under my direction and personally reviewed by me in its entirety. I confirm that the note above accurately reflects all work, treatment, procedures, and medical decision making performed by me. Impression & Plan Altered mental status, DVT (deep venous thrombosis), Acute UTI Past Med/Surg History Medical History Atrial fibrillation (Chronic) Vascular dementia (Chronic) HTN (hypertension) (Chronic) History of CVA (cerebrovascular accident) (Chronic) SUSY (obstructive sleep apnea) (Chronic) Diastolic CHF (Chronic) GERD (gastroesophageal reflux disease) (Chronic) CKD (chronic kidney disease) stage 3, GFR 30-59 ml/min (Chronic) Depression (Chronic) History of pulmonary embolus (PE) (Resolved) Atrial fibrillation (Chronic) HLD (hyperlipidemia) (Chronic) Hypothyroidism (Chronic) Stroke (Resolved) ASCVD (arteriosclerotic cardiovascular disease) CAD (coronary artery disease) Surgical History History of appendectomy (Resolved) History of resection of small bowel (Resolved) secondary to high grade SBO History of total left knee replacement (TKR) (Resolved) History of percutaneous coronary intervention (Resolved) s/p Stent of RCA in 1999 History of radiofrequency ablation procedure for cardiac arrhythmia (Resolved) S/P PVI ablation in 2009 for afib/flutter s/p CTI flutter ablation in 2014 S/P Cardioversion in 04/2015 and 12/27/15 H/O craniotomy (Resolved) Right frontotemporal craniotomy with aneurysm clip Family History Other Family history non-contributory Social History Preferred Language: Albanian Communication Ability: Unable Beliefs That Will Affect Care: None marital status: Current Living Situation: [facility] Current Living Situation Comment: [facility] current occupational status: retired Feels Safe at Home: Yes Smoking Status: Never smoker Second Hand Exposure: No Hx Alcohol Use: No Hx Substance Use: No Results & Data Vital Signs Vital Signs - 24 hr 05/12/19 21:36 05/12/19 22:15 05/12/19 22:56 Temperature 36.8 C Temperature Source Oral Sepsis Recent Fever Within 48 Hours No Sepsis New/Unexplained Change in Mental Status No Sepsis Action Taken by Nursing No Action Required Pulse Rate 121 H Pulse Rate [Apical] 121 H Respiratory Rate 18 18 Respiratory Effort / Characteristics Non-Labored Respiratory Depth Normal Blood Pressure 164/88 H Blood Pressure [Left Arm] 157/111 H Blood Pressure Mean 113 Blood Pressure Mean [Left Arm] 126 Pulse Oximetry 96 95 Oxygen Delivery Method Room Air Room Air Home Medications Current Medication List: was personally reviewed by me Laboratory Data Attestation: I reviewed the patient's lab results. Result diagrams: 05/12/19 22:34 05/12/19 22:34 Lab Results 05/12/19 05/12/19 05/12/19 Range/Units 22:34 22:34 22:38 WBC 6.24 (4.8-10.8) K/uL RBC 4.00 L (4.2-5.4) M/uL Hgb 12.0 (12.0-16.0) g/dL Hct 37.0 (37-47) % MCV 92.5 (80-100) fL MCH 30.0 (25-34) pg MCHC 32.4 (32-36) g/dL RDW Std Deviation 50.2 H (36.4-46.3) fL RDW Coeff of Tre 14.9 H (11.5-14.5) % Plt Count 180 (130-400) K/uL MPV 9.1 (7.4-10.4) fL Immature Gran % (Auto) 0.3 % Neut % (Auto) 69.9 % Lymph % (Auto) 21.0 % [place] % (Auto) 7.9 % Eos % (Auto) 0.6 % Baso % (Auto) 0.3 % Immature Gran # (Auto) 0.02 (0.00-0.02) K/uL Neut # (Auto) 4.36 (1.4-6.5) K/uL Lymph # (Auto) 1.31 (1.2-3.4) K/uL [place] # (Auto) 0.49 (0.11-0.59) K/uL Eos # (Auto) 0.04 (0-0.5) K/uL Baso # (Auto) 0.02 (0-0.2) K/uL Sodium 145 (136-145) mmol/L Potassium 4.1 (3.5-5.1) mmol/L Chloride 109 H (98-107) mmol/L Carbon Dioxide 28 (21-32) mmol/L Anion Gap 9.0 (3-11) BUN 22 H (7-18) mg/dl Creatinine 0.94 (0.6-1.2) mg/dl Est Cr Clr Drug Dosing 50.9 ml/min Est GFR ( Amer) 68.3 Est GFR (Non-Af Amer) 58.9 BUN/Creatinine Ratio 23.8 H (10-20) Glucose 101 H (70-99) mg/dl Calcium 8.9 (8.5-10.1) mg/dl Magnesium 2.3 (1.8-2.4) mg/dl Total Bilirubin 0.5 (0.2-1) mg/dl AST 20 (15-37) U/L ALT 30 (12-78) U/L Alkaline Phosphatase 101 (45-117) U/L Troponin I < 0.015 (0-0.045) ng/ml Total Protein 7.3 (6.4-8.2) gm/dl Albumin 3.8 (3.4-5.0) gm/dl Globulin 3.5 (2.5-4.0) gm/dl Albumin/Globulin Ratio 1.1 (0.9-2) TSH 1.730 (0.300-4.500) uIu/ml Urine Color Yellow Urine Appearance Cloudy A (Clear) Urine pH 7.0 (4.5-7.5) Ur Specific [place] 1.018 (1.000-1.030) Urine Protein Negative (Negative) Urine Glucose (UA) Negative (Negative) Urine Ketones Negative (Negative) Urine Blood Trace H (Negative) Urine Nitrite Positive A (Negative) Urine Bilirubin Negative (Negative) Urine Urobilinogen Negative (Negative) Ur Leukocyte Esterase 3+ H (Negative) Urine WBC (Auto) >30 H (0-5) /hpf Urine RBC (Auto) 5-10 H (0-4) /hpf U Hyaline Cast (Auto) 1-5 (0-5) /lpf U Epithel Cells (Auto) 10-20 H (0-5) /lpf Urine Bacteria (Auto) 4+ H (Negative) Administered Medications Sodium Chloride (Nss 1000ml) 1,000 mls @ 125 mls/hr IV .Q8H RUSH Stop: 05/13/19 05:59 Last Admin: 05/12/19 22:47 Dose: 125 mls/hr Documented by: [id number] Discontinued Medications Cefepime HCl (Maxipime) 2,000 mg in 20 mls @ 5 mls/min IV NOW STA Stop: 05/13/19 00:03 Last Admin: 05/13/19 00:18 Dose: 5 mls/min Documented by: [id number] Imaging Data Radiologist's Impression: Radiology results as stated below per my review and the radiologist's interpretation: XR chest 1V portable HISTORY: 78 years-old Female weakness acute weakness with agitation and altered mental status COMPARISON: Chest radiograph 04/10/2019 TECHNIQUE: Portable AP view of the chest FINDINGS: Cardiac silhouette is enlarged, unchanged. Calcification of the thoracic aortic arch. There is no pneumothorax, large pleural effusion or overt pulmonary edema. Mild chronic interstitial coarsening. Mild blunting of the costophrenic angles may reflect trace effusions. Resolution of the previously described pulmonary edema. Degenerative changes of the shoulders and spine. IMPRESSION: Cardiomegaly without overt pulmonary edema. The above report was generated using voice recognition software. It may contain grammatical, syntax or spelling errors. Electronically signed by: Goyo Maldonado M.D. 05/12/2019 10:23 PM US VENOUS LEFT LOWER EXTREMITY: There is widespread nonocclusive DVT and superficial venous thrombosis Edema in the left calf Radiologist: Aj Newman MD Study ready at 23:33 and initial results transmitted at 23:44 ECG Data Attestation: I personally reviewed and interpreted this ECG as follows: Indication: altered mental status Rate (beats per minute): 100 Rhythm: atrial flutter (Variable block) Findings: no ST depression and no ST elevation Blood Pressure Blood Pressure Findings: Elevated blood pressure Blood Pressure Disposition: Referred to patients primary care provider Discharge Plan Visit Data Chief Complaint: Confusion Stated Complaint: AMS, AGGRESSIVE ED Provider: Dre Nova Discharge Problem: Altered mental status, DVT (deep venous thrombosis), Acute UTI Patient Disposition: Being Evaluated by Hospitalist Forms Stand Alone Forms: My [facility], Important Visit Information Prescriptions Prescriptions: No Action atorvastatin 80 mg Tablet 80 mg PO HS Qty: 0 RF: 0 omeprazole 20 mg Capsule,Delayed Release(Dr/Ec) 20 mg PO QAM Qty: 0 RF: 0 digoxin 125 mcg Tablet 0.125 mg PO Q2D Qty: 0 RF: 0 melatonin 5 mg Tablet 5 mg PO HS RF: 0 Linzess 290 mcg Capsule 290 mcg PO QAM RF: 0 aspirin [Aspirin Low Dose] 81 mg Tablet,Delayed Release (Dr/Ec) 81 mg PO DAILY RF: 0 acetaminophen 500 mg Tablet 500 mg PO QID MDD 3g/24hr RF: 0 magnesium oxide 400 mg (241.3 mg magnesium) Tablet 400 mg PO QAM RF: 0 potassium chloride 20 mEq Tablet Extended Release 20 meq PO PM RF: 0 metoprolol tartrate 100 mg Tablet 100 mg PO BID RF: 0 buspirone 10 mg Tablet 10 mg PO TID RF: 0 polyethylene glycol 3350 [Miralax] 17 gram Powder In Packet 17 g PO QAM RF: 0 mirtazapine 45 mg Tablet 45 mg PO HS RF: 0 lisinopril 20 mg tablet 20 mg PO QAM RF: 0 Referrals Referrals: Kendra Chappell [Primary Care Provider] - The scribe's documentation has been prepared under my direction and personally reviewed by me in its entirety. I confirm that the note above accurately reflects all work, treatment, procedures, and medical decision making performed by me.
[2019-05-13 01:55] LABS: INR 1.1 (0.9-1.1); Partial Thromboplastin Ratio 0.9; Partial Thromboplastin Time 24.3 Seconds (21.0-31.0); Prothrombin Time 11.1 Seconds (9.0-12.0)
[2019-05-13] MEDS ORDERED: NITROGLYCERIN SL 0.4 MG/TAB TAB SL PRN (03:13)
[2019-05-13] MEDS ORDERED: SODIUM CHLORIDE 0.45 % 1,000 ML IV STA (03:13)
[2019-05-13] MEDS ORDERED: PROMETHAZINE HCL 12.5 MG in SODIUM CHLORIDE 0.9% 50 ML IV PRN (03:13)
[2019-05-13] MEDS ORDERED: ACETAMINOPHEN 325 MG TAB PO PRN (03:13)
[2019-05-13] MEDS: OLANZapine 10 MG/2.1 ML SDV IM PRN ×2 (03:35→19:40)
[2019-05-13] MEDS ORDERED: METOPROLOL TARTRATE 1 MG/ML VIAL IV STA (04:12)
[2019-05-13] MEDS ORDERED: DIGOXIN 250 MCG in SYRINGE 9 ML IV ONE (04:15)
[2019-05-13] MEDS: OLANZapine 10 MG/2.1 ML SDV IM STA ×2 (04:30→05:01)
--- NOTE | 2019-05-13 06:01 | Ultrasound Report ---
US venous doppler LE LT CLINICAL HISTORY: swelling, eval for dvt- pt agitated COMPARISON STUDY: 04/07/2019 FINDINGS: Technically limited exam due to patient discomfort. Extensive nonocclusive thrombus remains within the left common femoral vein, superficial femoral vein, popliteal and posterior tibial as wel l as peroneal and anterior tibial veins. IMPRESSION: Extensive findings of acute venous thrombosis. The above report was generated using voice recognition software. It may contain grammatical, syntax or spelling errors. Electronically signed by: David Fields M.D. 05/13/2019 5:59 AM
--- NOTE | 2019-05-13 06:34 | CT Scan Report ---
CT head/brain wo con CT DOSE: 614.27 mGy.cm HISTORY: Mental status change ams, lip asymmetry TECHNIQUE: Multiaxial CT images of the head were performed without the use of intravenous contrast. A dose lowering technique was utilized adhering to the principles of ALARA. Comparison: 04/07/2019 Findings: The paranasal sinuses and mastoid air cells are clear. Multifocal infarcts throughout both cerebral hemispheres as well as right cerebellum. All findings are unchanged in the prior exam. Postoperative changes consistent with a right frontal c raniotomy and probable suprasellar vascular clipping procedure are again noted. No evidence for acute intracranial hemorrhage. No midline shift. Impression: No acute intracranial abnormality. Chronic and postoperative change. The above report was generated using voice recognition software. It may contain grammatical, syntax or spelling errors. Electronically signed by: David Fields M.D. 05/13/2019 6:32 AM
[2019-05-13] MEDS: POLYETHYLENE (MIRALAX) 17 GM PACK PO SCH (07:19)
[2019-05-13] MEDS: METOPROLOL TARTRATE 100 MG TAB PO SCH ×2 (07:19→21:39)
[2019-05-13] MEDS: LISINOPRIL 20 MG TAB PO SCH (07:19)
[2019-05-13] MEDS: ASPIRIN 81 MG ECTAB PO SCH (07:20)
[2019-05-13] MEDS: PANTOprazole 40 MG TAB PO SCH (07:20)
[2019-05-13] MEDS: LINZESS~ORDER AWAITING ACTION SCH ×2 (07:26→17:42)
[2019-05-13] MEDS ORDERED: METOPROLOL TARTRATE 100 MG TAB PO SCH (09:00)
[2019-05-13 09:28] LABS: BUN Creatinine Ratio 19.2 (10-20); Creatinine Clr Calc Pharmacy 50.6 ml/min; Est GFR (Non-African American) 63.8; Potassium 3.3 mmol/L (3.5-5.1)
[2019-05-13 09:51] LABS: Hematocrit (blood only) 41.1 % (37-47); Hemoglobin 13.6 g/dL (12.0-16.0); Mean Corpuscular Hgb Conc 33.1 g/dL (32-36); Mean Corpuscular Volume 91.9 fL (80-100); RDW Coefficient of Variation 14.9 % (11.5-14.5); RDW Standard Deviation 49.7 fL (36.4-46.3); Red Blood Count 4.47 M/uL (4.2-5.4); White Blood Count 14.53 K/uL (4.8-10.8)
[2019-05-13 09:57] LABS: Basophils # (auto) 0.03 K/uL (0-0.2); Basophils % (auto) 0.2 %; Eosinophils # (auto) 0.03 K/uL (0-0.5); Eosinophils % (auto) 0.2 %; Immature Granulocytes # (auto) 0.06 K/uL (0.00-0.02); Immature Granulocytes % (auto) 0.4 %; Lymphocytes # (auto) 0.56 K/uL (1.2-3.4); Lymphocytes % (auto) 3.9 %; Mean Platelet Volume 9.6 fL (7.4-10.4); Monocytes # (auto) 0.87 K/uL (0.11-0.59); Neutrophils # (auto) 12.98 K/uL (1.4-6.5); Neutrophils % (auto) 89.3 %; Platelet Count 220 K/uL (130-400); Platelet Estimate Normal (Normal)
[2019-05-13] MEDS: DIGOXIN 0.125 MG TAB PO SCH ×2 (17:54→18:24)
[2019-05-13] MEDS ORDERED: DIGOXIN 125 MCG in SYRINGE 9.5 ML IV ONE (18:45)
[2019-05-13] MEDS: ATORVASTATIN 40 MG TAB PO SCH (21:38)
--- NOTE | 2019-05-13 21:54 | Hospitalist Progress Note ---
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 Delirium / metabolic encephalopathy secondary to urinary tract infection. Underlying dementia. (2) Urinary tract infection: Urinalysis demonstrated leukocyte esterase, WBCs, bacteria. Preliminary urine culture growing gram-negative bacilli. Receiving intravenous ceftriaxone. (3) Atrial flutter: Continue digoxin and metoprolol for rate control. No anticoagulants secondary to history of intracranial hemorrhage. (4) Diastolic CHF: Chronic left ventricular diastolic heart failure. Follow exam, fluid status. (5) CKD (chronic kidney disease) stage 3, GFR 30-59 ml/min: Serum creatinine at time of admission 0.94. Follow. (6) DVT (deep venous thrombosis): Present on admission. Venous duplex of left lower extremity demonstrated extensive DVT. Prior history of VTE's. Not anticoagulated due to history of intracranial hemorrhage. Status post recent IVC filter placement. (7) Do not resuscitate status: Per advanced directives. (8) DVT prophylaxis: No anticoagulants due to history of intracranial hemorrhage. No SCDs due to acute DVT. (9) Discharge planning issues: Anticipated return to [facility] if her condition improves. Subjective Recheck for multiple problems. Patient seen in their room around 10:00. Admitted last night with altered mental status, UTI, DVT. Somnolent at time of my assessment. Staff reports confusion and agitation earlier this morning. Physical Exam Constitutional: + frail appearing; no acute distress Respiratory: no respiratory distress Auscultation: lungs clear to auscultation bilaterally Cardiovascular: Rate/Rhythm: + irregularly irregular Vessels: no JVD Extremities: + edema (1+ pretibial); no calf tenderness Gastrointestinal (Abdomen): normal bowel sounds, soft, nontender, no hepatosplenomegaly Skin: no rashes, warm and dry Psychiatric: Orientation: + not alert and + not oriented x 3 Results & Data Laboratory Results Laboratory Results - last 24 hr 05/12/19 05/12/19 05/12/19 22:34 22:34 22:38 WBC 6.24 RBC 4.00 L Hgb 12.0 Hct 37.0 MCV 92.5 MCH 30.0 MCHC 32.4 RDW Std Deviation 50.2 H RDW Coeff of Tre 14.9 H Plt Count 180 MPV 9.1 Immature Gran % (Auto) 0.3 Neut % (Auto) 69.9 Lymph % (Auto) 21.0 Weston % (Auto) 7.9 Eos % (Auto) 0.6 Baso % (Auto) 0.3 Immature Gran # (Auto) 0.02 Neut # (Auto) 4.36 Lymph # (Auto) 1.31 Weston # (Auto) 0.49 Eos # (Auto) 0.04 Baso # (Auto) 0.02 Platelet Estimate PT INR APTT PTT Ratio Sodium 145 Potassium 4.1 Chloride 109 H Carbon Dioxide 28 Anion Gap 9.0 BUN 22 H Creatinine 0.94 Est Cr Clr Drug Dosing 50.9 Est GFR ( Amer) 68.3 Est GFR (Non-Af Amer) 58.9 BUN/Creatinine Ratio 23.8 H Glucose 101 H Calcium 8.9 Magnesium 2.3 Total Bilirubin 0.5 AST 20 ALT 30 Alkaline Phosphatase 101 Troponin I < 0.015 Total Protein 7.3 Albumin 3.8 Globulin 3.5 Albumin/Globulin Ratio 1.1 TSH 1.730 Urine Color Yellow Urine Appearance Cloudy A Urine pH 7.0 Ur Specific Olpe 1.018 Urine Protein Negative Urine Glucose (UA) Negative Urine Ketones Negative Urine Blood Trace H Urine Nitrite Positive A Urine Bilirubin Negative Urine Urobilinogen Negative Ur Leukocyte Esterase 3+ H Urine WBC (Auto) >30 H Urine RBC (Auto) 5-10 H U Hyaline Cast (Auto) 1-5 U Epithel Cells (Auto) 10-20 H Urine Bacteria (Auto) 4+ H Digoxin Acetaminophen 05/13/19 05/13/19 05/13/19 01:23 01:23 01:23 WBC RBC Hgb Hct MCV MCH MCHC RDW Std Deviation RDW Coeff of Tre Plt Count MPV Immature Gran % (Auto) Neut % (Auto) Lymph % (Auto) Weston % (Auto) Eos % (Auto) Baso % (Auto) Immature Gran # (Auto) Neut # (Auto) Lymph # (Auto) Weston # (Auto) Eos # (Auto) Baso # (Auto) Platelet Estimate PT 11.1 INR 1.1 APTT 24.3 PTT Ratio 0.9 Sodium Potassium Chloride Carbon Dioxide Anion Gap BUN Creatinine Est Cr Clr Drug Dosing Est GFR ( Amer) Est GFR (Non-Af Amer) BUN/Creatinine Ratio Glucose Calcium Magnesium Total Bilirubin AST ALT Alkaline Phosphatase Troponin I Total Protein Albumin Globulin Albumin/Globulin Ratio TSH Urine Color Urine Appearance Urine pH Ur Specific Olpe Urine Protein Urine Glucose (UA) Urine Ketones Urine Blood Urine Nitrite Urine Bilirubin Urine Urobilinogen Ur Leukocyte Esterase Urine WBC (Auto) Urine RBC (Auto) U Hyaline Cast (Auto) U Epithel Cells (Auto) Urine Bacteria (Auto) Digoxin 0.2 L Acetaminophen < 2 L 05/13/19 05/13/19 08:18 08:18 WBC 14.53 H RBC 4.47 Hgb 13.6 Hct 41.1 MCV 91.9 MCH 30.4 MCHC 33.1 RDW Std Deviation 49.7 H RDW Coeff of Tre 14.9 H Plt Count 220 MPV 9.6 Immature Gran % (Auto) 0.4 Neut % (Auto) 89.3 Lymph % (Auto) 3.9 Weston % (Auto) 6.0 Eos % (Auto) 0.2 Baso % (Auto) 0.2 Immature Gran # (Auto) 0.06 H Neut # (Auto) 12.98 H Lymph # (Auto) 0.56 L Weston # (Auto) 0.87 H Eos # (Auto) 0.03 Baso # (Auto) 0.03 Platelet Estimate Normal PT INR APTT PTT Ratio Sodium 144 Potassium 3.3 L D Chloride 107 Carbon Dioxide 27 Anion Gap 10.0 BUN 17 Creatinine 0.88 Est Cr Clr Drug Dosing 50.6 Est GFR ( Amer) 74.0 Est GFR (Non-Af Amer) 63.8 BUN/Creatinine Ratio 19.2 Glucose 134 H Calcium 9.0 Magnesium Total Bilirubin AST ALT Alkaline Phosphatase Troponin I Total Protein Albumin Globulin Albumin/Globulin Ratio TSH Urine Color Urine Appearance Urine pH Ur Specific Olpe Urine Protein Urine Glucose (UA) Urine Ketones Urine Blood Urine Nitrite Urine Bilirubin Urine Urobilinogen Ur Leukocyte Esterase Urine WBC (Auto) Urine RBC (Auto) U Hyaline Cast (Auto) U Epithel Cells (Auto) Urine Bacteria (Auto) Digoxin Acetaminophen Microbiology 05/12/19 22:38 Urine,Straight Cath Urine Culture - Preliminary Gram negative bacilli (1) Diastolic CHF Heart failure chronicity: chronic Qualified Code(s): I50.32 - Chronic diastolic (congestive) heart failure
[2019-05-14] MEDS: METOPROLOL TARTRATE 1 MG/ML VIAL IV SCH ×4 (00:06→18:28)
[2019-05-14] MEDS: cefTRIAXone SODIUM 1,000 MG in DEXTROSE 5% 50 ML IV SCH (00:13)
[2019-05-14] MEDS: LINZESS~ORDER AWAITING ACTION SCH ×3 (00:13→17:18)
[2019-05-14] MEDS: ASPIRIN 81 MG ECTAB PO SCH (08:21)
[2019-05-14] MEDS: POLYETHYLENE (MIRALAX) 17 GM PACK PO SCH (08:21)
[2019-05-14] MEDS: LISINOPRIL 20 MG TAB PO SCH (08:22)
[2019-05-14] MEDS: PANTOprazole 40 MG TAB PO SCH (08:22)
--- NOTE | 2019-05-14 17:28 | Hospitalist Progress Note ---
Date of Service May 14, 2019 Assessment & Plan (1) Altered mental status: Head CT showed old infarcts, no bleed or other acute event. Delirium / metabolic encephalopathy secondary to urinary tract infection. Underlying dementia. (2) Urinary tract infection: Urinalysis demonstrated leukocyte esterase, WBCs, bacteria. Preliminary urine culture growing gram-negative bacilli - Citrobacter freundii and a second gram neg bacillus. Receiving intravenous ceftriaxone. (3) Atrial flutter: Rate under better control. Continue digoxin and metoprolol for rate control. No anticoagulants secondary to history of intracranial hemorrhage. (4) Diastolic CHF: Chronic left ventricular diastolic heart failure. Follow exam, fluid status. (5) CKD (chronic kidney disease) stage 3, GFR 30-59 ml/min: Serum creatinine at time of admission 0.94. Follow. (6) DVT (deep venous thrombosis): Present on admission. Venous duplex of left lower extremity demonstrated extensive DVT. Prior history of VTE's. Not anticoagulated due to history of intracranial hemorrhage. Status post recent IVC filter placement. (7) Do not resuscitate status: Per advanced directives. (8) DVT prophylaxis: No anticoagulants due to history of intracranial hemorrhage. No SCDs due to acute DVT. (9) Discharge planning issues: Anticipated return to [facility] if her condition improves. Subjective Recheck for multiple problems. Patient seen in their room around 14:10. More alert and cooperative today. Ate some breakfast. No new problems reported by nursing staff. Fo fever. Telemetry data reviewed. Atrial flutter with variable conduction. Review of Systems Review of Systems: Unobtainable due to cognitive status Physical Exam Constitutional: + frail appearing; no acute distress Respiratory: no respiratory distress Auscultation: lungs clear to auscultation bilaterally Cardiovascular: Rate/Rhythm: + irregularly irregular Vessels: no JVD Extremities: + edema (1+ pretibial); no calf tenderness Gastrointestinal (Abdomen): normal bowel sounds, soft, nontender, no hepatosplenomegaly Skin: no rashes, warm and dry Psychiatric: Orientation: + not alert and + not oriented x 3 Results & Data Vital Signs (Past 12 Hours) Vital Signs Temp Pulse Pulse Pulse Pulse Resp BP 05/14/19 12:35 71 162/91 H 05/14/19 12:26 36.4 C L 77 22 05/14/19 08:00 36.2 C L 77 20 05/14/19 07:23 75 05/14/19 06:09 76 168/74 H 05/14/19 06:07 76 BP BP Pulse Ox 05/14/19 12:35 05/14/19 12:26 162/91 H 95 05/14/19 08:00 137/87 95 05/14/19 07:23 05/14/19 06:09 05/14/19 06:07 168/74 H (1) Diastolic CHF Heart failure chronicity: chronic Qualified Code(s): I50.32 - Chronic diastolic (congestive) heart failure
[2019-05-14] MEDS: POTASSIUM CHLORIDE / WTR 10 MEQ/100 ML PLCT IV SCH ×2 (18:21→20:35)
[2019-05-14] MEDS ORDERED: TRAMADOL HCL 50 MG TABLET PO PRN (20:31)
[2019-05-14] MEDS: ATORVASTATIN 40 MG TAB PO SCH ×2 (21:21→22:35)
[2019-05-14] MEDS: METOPROLOL TARTRATE 100 MG TAB PO SCH ×2 (21:22→22:35)
[2019-05-14 21:25] LABS: Basophils # (auto) 0.02 K/uL (0-0.2); Basophils % (auto) 0.3 %; Eosinophils # (auto) 0.06 K/uL (0-0.5); Hematocrit (blood only) 37.4 % (37-47); Hemoglobin 12.1 g/dL (12.0-16.0); Immature Granulocytes # (auto) 0.01 K/uL (0.00-0.02); Immature Granulocytes % (auto) 0.2 %; Lymphocytes # (auto) 0.89 K/uL (1.2-3.4); Lymphocytes % (auto) 14.4 %; Mean Corpuscular Hgb Conc 32.4 g/dL (32-36); Mean Platelet Volume 9.2 fL (7.4-10.4); Monocytes % (auto) 9.7 %; Neutrophils # (auto) 4.62 K/uL (1.4-6.5); Neutrophils % (auto) 74.4 %; Platelet Count 174 K/uL (130-400); RDW Coefficient of Variation 14.4 % (11.5-14.5); RDW Standard Deviation 47.8 fL (36.4-46.3); Red Blood Count 4.11 M/uL (4.2-5.4)
[2019-05-14 21:43] LABS: Partial Thromboplastin Ratio 0.9; Partial Thromboplastin Time 24.2 Seconds (21.0-31.0)
[2019-05-14 21:58] LABS: Albumin Globulin Ratio 1.1 (0.9-2); Albumin Level 3.4 gm/dl (3.4-5.0); BUN Creatinine Ratio 18.9 (10-20); Bilirubin,Total 1.1 mg/dl (0.2-1); Calcium 8.7 mg/dl (8.5-10.1); Creatinine Clr Calc Pharmacy 45.9 ml/min; Est GFR (African American) 65.8; Est GFR (Non-African American) 56.7; Globulin 3.2 gm/dl (2.5-4.0); Magnesium 2.1 mg/dl (1.8-2.4); Potassium 3.9 mmol/L (3.5-5.1); Total Protein 6.6 gm/dl (6.4-8.2)
[2019-05-14] MEDS ORDERED: IOVERSOL 100ml IV PRN (22:40)
--- NOTE | 2019-05-14 23:10 | CT Scan Report ---
ABDOMEN AND PELVIS CT WITH IV CONTRAST CT DOSE: 587.64 mGy.cm HISTORY: Acute generalized abdominal pain abd pain TECHNIQUE: Multiaxial CT images of the abdomen and pelvis were performed following the use of intrave nous contrast. A dose lowering technique was utilized adhering to the principles of ALARA. COMPARISON STUDY: CT abdomen and pelvis 03/27/2018. FINDINGS: Study is limited secondary to patient motion and positioning of the upper extremities. Lung bases sera ear generally clear. No pneumatosis or pneumoperitoneum. Cardiomegaly. Coronary arterial calcificatio ns. Trace pericardial effusion. Cholecystectomy. Liver, pancreas and adrenal glands appear unremarkab le. There is a wedge-shaped area of hypodensity about the mid aspect of the posterior spleen measurin g up to 1.4 x 2.3 x 3.9 cm suggestive of an acute infarction. No perisplenic hematoma. Cyst of the in terpolar left kidney. No renal or ureteral calculi or obstructive uropathy. Moderate bladder wall thi ckening with perivesicular stranding. Hysterectomy. Extensive calcification of the aorta without aneu rysm. IVC filter. No bowel obstruction. Multiple nondilated fluid-filled loops of small bowel, likely physiologic. Larg e stool ball the rectum. Prior partial small bowel dissection with enteroenteric anastomosis. Nonvisu alization of the appendix. Soft tissues show mild generalized edema. Demineralized appearance the bon es. Grade 2 anterolisthesis L5 on S1. Posterior interbody daphnie and screw fusion at L5-S1 is noted with discectomy changes. IMPRESSION: 1. Limited exam as above. 2. Findings suggestive of cystitis. Correlate with urinalysis. 3. Infarct of the mid spleen, new from comparison. 4. No bowel obstruction or bowel wall thickening identified. 5. Postoperative changes as above. Electronically signed by: Goyo Maldonado M.D. 05/14/2019 11:08 PM
[2019-05-14] MEDS ORDERED: POTASSIUM CHLORIDE 20 MEQ TABCR PO STA (23:32)
[2019-05-14] MEDS ORDERED: DIGOXIN 250 MCG in SYRINGE 9 ML IV ONE (23:45)
[2019-05-15] MEDS: LACTATED RINGER'S 1,000 ML IV SCH ×4 (00:23→20:20)
[2019-05-15] MEDS: LINZESS~ORDER AWAITING ACTION SCH ×3 (00:35→15:52)
[2019-05-15] MEDS ORDERED: POLYETHYLENE (MIRALAX) 17 GM PACK PO PRN (00:45)
[2019-05-15] MEDS: cefTRIAXone SODIUM 1,000 MG in DEXTROSE 5% 50 ML IV SCH (00:49)
[2019-05-15] MEDS ORDERED: POLYETHYLENE (MIRALAX) 17 GM PACK PO ONE (01:00)
[2019-05-15] MEDS: DOCUSATE SODIUM/SENNA 50/8.6MG TAB PO SCH ×2 (01:09→10:18)
--- NOTE | 2019-05-15 01:27 | Hospitalist Progress Note ---
Date of Service May 15, 2019 Subjective Made aware by RN of patient complaints of abdominal pain not relieved by Tylenol. No bowel movement since confinement as per records. Patient currently denying abdominal pain complaints upon my inquiry. PPE : No focal abdominal tenderness CT abdomen pelvis: 1. Limited exam as above. 2. Findings suggestive of cystitis. Correlate with urinalysis. 3. Infarct of the mid spleen, new from comparison. 4. No bowel obstruction or bowel wall thickening identified. 5. Postoperative changes as above. 6. 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 for now Surgery consult in a.m. Bowel regimen Results & Data Vital Signs (Past 12 Hours) Vital Signs Temp Pulse Pulse Pulse Resp BP BP 05/15/19 00:17 124 H 05/14/19 23:33 154 H 05/14/19 23:00 37.0 C 141 H 20 109/57 L 05/14/19 20:39 36.5 C 73 18 161/78 H 05/14/19 18:28 153 H 130/85 05/14/19 18:00 37.1 C 154 H 20 130/85 05/14/19 17:00 73 Pulse Ox 05/15/19 00:17 05/14/19 23:33 05/14/19 23:00 92 05/14/19 20:39 97 05/14/19 18:28 05/14/19 18:00 100 05/14/19 17:00
--- NOTE | 2019-05-15 04:32 | Surgery Consultation ---
Date of Consultation May 15, 2019 Assessment & Plan (1) Splenic infarct: Patient with complaint of abdominal pain-it seems that most of her discomfort is in the lower abdomen which is likely from her cystitis. She does have significant stool in the rectum which may show some constipation. Her splenic infarct appears to be stable-it will be difficult to determine the etiology of this although atherosclerosis, atrial fibrillation hypercoagulable state are all possibilities. The other possibility is remote trauma since her last CT scan. Usual treatment is pain control and supportive care. Anticoagulation would be difficult with her history of cerebral hemorrhage. Surgical management only for abscess formation or rupture and hemorrhage. We will follow with you. History of Present Illness Attending Physician: Dre Rosenthal MD History of Present Illness Asked to see the patient for abdominal pain. She was admitted to the hospital on 05/12/2019 with urinary tract infection and suspected sepsis. Patient has a history of dementia, CAD, A. fib/flutter, cerebral aneurysm with hemorrhage and stroke, PE/DVT. She is on no coagulation. H/o cerebral hemorrhage, aneurysm Patient underwent CAT scan which showed a 3.9 x 2 cm splenic infarct no evidence of inflammation abscess or bleeding. Apparently this is new from prior comparison. She did have a CAT scan in March 2018. She also has evidence of cystitis, and significant stool in the rectum. Allergies Allergy/AdvReac Type Severity Reaction Status Date / Time Penicillins Allergy Intermediate HIVES Verified 05/13/19 00:10 pneumococcal vaccine Allergy Mild FEVER/RASH Verified 05/13/19 00:10 carbenicillin Allergy Unknown "DON'T Verified 04/15/19 11:25 REMEMBER" Bactrim AdvReac Mild GI SYMPTOMS Verified 09/20/17 23:30 sulfamethoxazole AdvReac Mild GI SYMPTOMS Verified 04/15/19 11:25 trimethoprim AdvReac Mild GI SYMPTOMS Verified 04/15/19 11:25 Home Medications Home Medications Medication Instructions Recorded Confirmed Type atorvastatin 80 mg PO HS #0 06/22/15 05/13/19 History omeprazole 20 mg PO QAM #0 cap 02/08/16 05/13/19 History digoxin 0.125 mg PO Q2D #0 05/10/18 05/13/19 History magnesium oxide 400 mg PO QAM 01/12/19 05/13/19 History potassium chloride 20 meq PO PM 01/12/19 05/13/19 History buspirone 10 mg PO TID 01/21/19 05/13/19 History metoprolol tartrate 100 mg PO BID 01/21/19 05/13/19 History lisinopril 20 mg PO QAM 03/01/19 05/13/19 History mirtazapine 45 mg PO HS 03/01/19 05/13/19 History polyethylene glycol 3350 [Miralax] 17 g PO QAM 03/01/19 05/13/19 History Linzess 290 mcg PO QAM 04/07/19 05/13/19 History melatonin 5 mg PO HS 04/07/19 05/13/19 History aspirin [Aspirin Low Dose] 81 mg PO DAILY 04/08/19 05/13/19 History acetaminophen 500 mg PO QID MDD 3g/24hr 05/13/19 05/13/19 History Patient History Medical History Atrial fibrillation (Chronic) Vascular dementia (Chronic) HTN (hypertension) (Chronic) History of CVA (cerebrovascular accident) (Chronic) SUSY (obstructive sleep apnea) (Chronic) Diastolic CHF (Chronic) GERD (gastroesophageal reflux disease) (Chronic) CKD (chronic kidney disease) stage 3, GFR 30-59 ml/min (Chronic) Depression (Chronic) History of pulmonary embolus (PE) (Resolved) Atrial fibrillation (Chronic) HLD (hyperlipidemia) (Chronic) Hypothyroidism (Chronic) Stroke (Resolved) ASCVD (arteriosclerotic cardiovascular disease) CAD (coronary artery disease) Surgical History History of appendectomy (Resolved) History of resection of small bowel (Resolved) secondary to high grade SBO History of total left knee replacement (TKR) (Resolved) History of percutaneous coronary intervention (Resolved) s/p Stent of RCA in 1999 History of radiofrequency ablation procedure for cardiac arrhythmia (Resolved) S/P PVI ablation in 2009 for afib/flutter s/p CTI flutter ablation in 2014 S/P Cardioversion in 04/2015 and 12/27/15 H/O craniotomy (Resolved) Right frontotemporal craniotomy with aneurysm clip Family History Other Family history non-contributory Social History Preferred Language: Brazilian Communication Ability: Impaired Fire Coordinator Required: No Beliefs That Will Affect Care: None marital status: Current Living Situation: Assisted Current Living Situation Comment: [facility] current occupational status: retired Other Information That Helps Us Care for You: No Feels Safe at Home: Declines to Answer Smoking Status: Unknown if ever smoked Hx Alcohol Use: No Hx Substance Use: No Review of Systems Review of Systems: All systems reviewed & are unremarkable except as noted in HPI & below Physical Exam Physical Exam: Patient is currently in her bed resting comfortably she is breathing comfortably Her abdomen is flat and soft he does have some discomfort to lower abdominal palpation Skin color is normal remedies are warm and well-perfused. Exam is somewhat difficult secondary to the patient's dementia Results & Data Vital Signs (Past 12 Hours) Vital Signs Temp Pulse Pulse Pulse Resp BP BP 05/15/19 00:17 124 H 05/14/19 23:33 154 H 05/14/19 23:00 37.0 C 141 H 20 109/57 L 05/14/19 20:39 36.5 C 73 18 161/78 H 05/14/19 18:28 153 H 130/85 05/14/19 18:00 37.1 C 154 H 20 130/85 05/14/19 17:00 73 Pulse Ox 05/15/19 00:17 05/14/19 23:33 05/14/19 23:00 92 05/14/19 20:39 97 05/14/19 18:28 05/14/19 18:00 100 05/14/19 17:00 I did review her CAT scan.
[2019-05-15 06:57] LABS: Hematocrit (blood only) 34.6 % (37-47); Hemoglobin 11.5 g/dL (12.0-16.0); Mean Corpuscular Hgb Conc 33.2 g/dL (32-36); Mean Corpuscular Volume 90.8 fL (80-100); Mean Platelet Volume 9.2 fL (7.4-10.4); Platelet Count 164 K/uL (130-400); RDW Coefficient of Variation 14.5 % (11.5-14.5); Red Blood Count 3.81 M/uL (4.2-5.4); White Blood Count 4.47 K/uL (4.8-10.8)
[2019-05-15 07:27] LABS: BUN Creatinine Ratio 20.4 (10-20); Calcium 8.3 mg/dl (8.5-10.1); Creatinine Clr Calc Pharmacy 51.7 ml/min; Est GFR (African American) 76.1; Est GFR (Non-African American) 65.6; Potassium 3.6 mmol/L (3.5-5.1)
[2019-05-15] MEDS: LISINOPRIL 20 MG TAB PO SCH (09:41)
[2019-05-15] MEDS: ASPIRIN 81 MG ECTAB PO SCH (09:41)
[2019-05-15] MEDS: POLYETHYLENE (MIRALAX) 17 GM PACK PO SCH (09:41)
[2019-05-15] MEDS: PANTOprazole 40 MG TAB PO SCH (09:42)
[2019-05-15] MEDS: METOPROLOL TARTRATE 100 MG TAB PO SCH (10:18)
[2019-05-15] MEDS ORDERED: SOD PHOSPHATE/SOD BIPHOSPHATE ENEMA 132 ML BTL PR ONE (13:59)
[2019-05-15] MEDS: DIGOXIN 0.125 MG TAB PO SCH (15:49)
--- NOTE | 2019-05-15 16:48 | Hospitalist Progress Note ---
Date of Service May 15, 2019 Assessment & Plan (1) Altered mental status: Head CT showed old infarcts, no bleed or other acute event. Delirium / metabolic encephalopathy secondary to urinary tract infection. Underlying dementia. (2) Urinary tract infection: Urinalysis demonstrated leukocyte esterase, WBCs, bacteria. Urine culture growing Citrobacter freundii and Klebsiella pneumoniae. Receiving intravenous ceftriaxone. Afebrile. (3) Atrial flutter: Rate under better control. Continue digoxin and metoprolol for rate control. No anticoagulants secondary to history of intracranial hemorrhage. (4) Diastolic CHF: Chronic left ventricular diastolic heart failure. Follow exam, fluid status. (5) CKD (chronic kidney disease) stage 3, GFR 30-59 ml/min: Serum creatinine 0.86. Follow. (6) Abdominal pain: CT demonstrated splenic infarct, but not clear if it is symptomatic. Seen by General Surgery. No indication for surgery. No anticoagulation because of history of ICH. Pain resolved. (7) DVT (deep venous thrombosis): Present on admission. Venous duplex of left lower extremity demonstrated extensive DVT. Prior history of VTE's. Not anticoagulated due to history of intracranial hemorrhage. Status post recent IVC filter placement. (8) Do not resuscitate status: Per advanced directives. (9) DVT prophylaxis: No anticoagulants due to history of intracranial hemorrhage. No SCDs due to acute DVT. (10) Discharge planning issues: Anticipated return to [facility] if her condition improves. Daughter Autumn given update by phone today. She expresses concerns about pt's depression and agitation (before current illness). Will try to reach outpatient psychiatrist to coordinate care. Subjective Recheck for multiple problems. Patient seen in their room around 11:5. Experienced some abdominal pain last night. CT demonstrated splenic infarct and fecal impaction. Surgical consultation obtained. Not clear that splenic infarct was symptomatic. No need for surgical intervention. No new problems reported by nursing staff. Ate most of her breakfast. Able to request bedpan to void. Quiet at time of my assessment and did not wish to converse. Physical Exam Constitutional: + frail appearing; no acute distress Respiratory: no respiratory distress Auscultation: lungs clear to auscultation bilaterally Cardiovascular: Rate/Rhythm: regular rate and regular rhythm Vessels: no JVD Extremities: + edema (1+ pretibial); no calf tenderness Gastrointestinal (Abdomen): normal bowel sounds, soft, nontender, no hepatosplenomegaly Skin: no rashes, warm and dry Psychiatric: Orientation: + not alert and + not oriented x 3 Results & Data Vital Signs (Past 12 Hours) Vital Signs Temp Pulse Pulse Resp BP Pulse Ox 05/15/19 15:49 78 05/15/19 09:31 148/73 H 05/15/19 06:56 36.4 C L 72 18 178/93 H 94 Laboratory Results Laboratory Results - last 24 hr 05/14/19 05/14/19 05/14/19 21:17 21:17 21:17 WBC 6.20 RBC 4.11 L Hgb 12.1 Hct 37.4 MCV 91.0 MCH 29.4 MCHC 32.4 RDW Std Deviation 47.8 H RDW Coeff of Tre 14.4 Plt Count 174 MPV 9.2 Immature Gran % (Auto) 0.2 Neut % (Auto) 74.4 Lymph % (Auto) 14.4 Mora % (Auto) 9.7 Eos % (Auto) 1.0 Baso % (Auto) 0.3 Immature Gran # (Auto) 0.01 Neut # (Auto) 4.62 Lymph # (Auto) 0.89 L Mora # (Auto) 0.60 H Eos # (Auto) 0.06 Baso # (Auto) 0.02 APTT 24.2 PTT Ratio 0.9 Sodium 144 Potassium 3.9 D Chloride 111 H Carbon Dioxide 25 Anion Gap 9.0 BUN 18 Creatinine 0.97 Est Cr Clr Drug Dosing 45.9 Est GFR ( Amer) 65.8 Est GFR (Non-Af Amer) 56.7 BUN/Creatinine Ratio 18.9 Glucose 95 Lactate Calcium 8.7 Magnesium 2.1 Total Bilirubin 1.1 H D AST 17 ALT 20 Alkaline Phosphatase 80 Total Protein 6.6 Albumin 3.4 Globulin 3.2 Albumin/Globulin Ratio 1.1 Lipase 276 05/14/19 05/15/19 05/15/19 21:17 06:28 06:28 WBC 4.47 L RBC 3.81 L Hgb 11.5 L Hct 34.6 L MCV 90.8 MCH 30.2 MCHC 33.2 RDW Std Deviation 48.0 H RDW Coeff of Tre 14.5 Plt Count 164 MPV 9.2 Immature Gran % (Auto) Neut % (Auto) Lymph % (Auto) Mora % (Auto) Eos % (Auto) Baso % (Auto) Immature Gran # (Auto) Neut # (Auto) Lymph # (Auto) Mora # (Auto) Eos # (Auto) Baso # (Auto) APTT PTT Ratio Sodium 142 Potassium 3.6 Chloride 110 H Carbon Dioxide 25 Anion Gap 7.0 BUN 18 Creatinine 0.86 Est Cr Clr Drug Dosing 51.7 Est GFR ( Amer) 76.1 Est GFR (Non-Af Amer) 65.6 BUN/Creatinine Ratio 20.4 H Glucose 79 Lactate 1.3 Calcium 8.3 L Magnesium Total Bilirubin AST ALT Alkaline Phosphatase Total Protein Albumin Globulin Albumin/Globulin Ratio Lipase Microbiology 05/12/19 22:38 Urine,Straight Cath Urine Culture - Final Citrobacter freundii Klebsiella pneumoniae 05/12/19 22:34 Blood Aerobic Blood Culture - Preliminary No growth in Aerobic bottle after 48 hours. 05/12/19 22:34 Blood Anaerobic Blood Culture - Preliminary No growth in Anaerobic bottle after [address] ABD + PELVIS IMPRESSION: 1. Limited exam as above. 2. Findings suggestive of cystitis. Correlate with urinalysis. 3. Infarct of the mid spleen, new from comparison. 4. No bowel obstruction or bowel wall thickening identified. 5. Postoperative changes as above. Electronically signed by: Goyo Maldonado M.D. 05/14/2019 11:08 PM (1) Diastolic CHF Heart failure chronicity: chronic Qualified Code(s): I50.32 - Chronic diastolic (congestive) heart failure
[2019-05-15] MEDS: METOPROLOL TARTRATE 1 MG/ML VIAL IV PRN (20:04)
[2019-05-15] MEDS ORDERED: POTASSIUM CHLORIDE 20 MEQ TABCR PO STA (20:23)
[2019-05-15] MEDS ORDERED: DIGOXIN 250 MCG in SYRINGE 9 ML IV ONE (20:30)
[2019-05-15] MEDS ORDERED: MAGNESIUM SULFATE / D5W 1 GM/100 ML BAG IV ONE (20:30)
[2019-05-15] MEDS ORDERED: METOPROLOL TARTRATE 50 MG TAB PO SCH (20:30)
[2019-05-15 21:07] LABS: Magnesium 2.2 mg/dl (1.8-2.4)
[2019-05-15] MEDS: ATORVASTATIN 40 MG TAB PO SCH (21:41)
[2019-05-15] MEDS: MIRTAZAPINE SOLTAB 15 MG PO SCH (21:42)
[2019-05-16] MEDS: LINZESS~ORDER AWAITING ACTION SCH ×3 (01:11→15:46)
[2019-05-16] MEDS: METOPROLOL TARTRATE 1 MG/ML VIAL IV PRN ×2 (01:12→17:48)
[2019-05-16] MEDS: cefTRIAXone SODIUM 1,000 MG in DEXTROSE 5% 50 ML IV SCH (01:43)
[2019-05-16] MEDS ORDERED: METOPROLOL TARTRATE 25 MG TAB PO STA (02:52)
[2019-05-16 07:10] LABS: Hematocrit (blood only) 37.1 % (37-47); Hemoglobin 12.3 g/dL (12.0-16.0); Mean Corpuscular Hgb Conc 33.2 g/dL (32-36); Mean Corpuscular Volume 91.6 fL (80-100); Mean Platelet Volume 9.5 fL (7.4-10.4); Platelet Count 192 K/uL (130-400); RDW Coefficient of Variation 14.1 % (11.5-14.5); Red Blood Count 4.05 M/uL (4.2-5.4); White Blood Count 5.22 K/uL (4.8-10.8)
[2019-05-16 07:35] LABS: BUN Creatinine Ratio 18.3 (10-20); Calcium 8.9 mg/dl (8.5-10.1); Creatinine Clr Calc Pharmacy 57.8 ml/min; Est GFR (African American) 86.9; Potassium 3.2 mmol/L (3.5-5.1)
[2019-05-16] MEDS: POTASSIUM CHLORIDE / WTR 10 MEQ/100 ML PLCT IV SCH ×2 (08:18→09:32)
[2019-05-16] MEDS: POLYETHYLENE (MIRALAX) 17 GM PACK PO SCH (08:20)
[2019-05-16] MEDS ORDERED: METOPROLOL TARTRATE 50 MG TAB PO SCH ×2 (09:00)
[2019-05-16] MEDS: PANTOprazole 40 MG TAB PO SCH (09:37)
[2019-05-16] MEDS: LISINOPRIL 20 MG TAB PO SCH (09:38)
[2019-05-16] MEDS: DOCUSATE SODIUM/SENNA 50/8.6MG TAB PO SCH (09:39)
[2019-05-16] MEDS: ASPIRIN 81 MG CHEW PO SCH (09:44)
--- NOTE | 2019-05-16 12:36 | Progress Note ---
Date of Service May 16, 2019 Assessment & Plan (1) Splenic infarct: seems to be stable with splenic infarct min pain from this supportive care Subjective see a/p Results & Data Vital Signs (Past 12 Hours) Vital Signs Temp Pulse Pulse Resp BP BP Pulse Ox 05/16/19 07:23 55 L 05/16/19 07:05 36.4 C L 61 18 138/67 92 05/16/19 04:33 76 05/16/19 04:31 105 H 05/16/19 03:32 36.6 C 73 18 157/75 H 97 05/16/19 01:23 78 175/83 H 05/16/19 01:12 136 H 163/84 H 05/16/19 01:00 112 H
--- NOTE | 2019-05-16 18:39 | Hospitalist Progress Note ---
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 Delirium / metabolic encephalopathy secondary to urinary tract infection. Underlying dementia. Improved. (2) Urinary tract infection: Urinalysis demonstrated leukocyte esterase, WBCs, bacteria. Urine culture growing Citrobacter freundii and Klebsiella pneumoniae. Received intravenous ceftriaxone with improvement. Transition to oral therapy. (3) Atrial flutter: Variable conduction. Continue digoxin and metoprolol for rate control. No anticoagulants secondary to history of intracranial hemorrhage. (4) Diastolic CHF: Chronic left ventricular diastolic heart failure. Follow exam, fluid status. (5) CKD (chronic kidney disease) stage 3, GFR 30-59 ml/min: Serum creatinine 0.77. Follow. (6) Abdominal pain: CT demonstrated splenic infarct, but not clear if it is symptomatic. Seen by General Surgery. No indication for surgery. No anticoagulation because of history of ICH. Pain resolved. (7) DVT (deep venous thrombosis): Present on admission. Venous duplex of left lower extremity demonstrated extensive DVT. Prior history of VTE's. Not anticoagulated due to history of intracranial hemorrhage. Status post recent IVC filter placement. (8) Hypokalemia: K = 3.2. Replace. Follow. (9) Do not resuscitate status: Per advanced directives. (10) DVT prophylaxis: No anticoagulants due to history of intracranial hemorrhage. No SCDs due to acute DVT. (11) Discharge planning issues: Anticipated return to [facility] if her condition improves. Daughter Autumn given update this afternoon. Subjective Recheck for multiple problems. Patient seen in their room around 11:50. Slow start early this morning, but awake and interactive later. Pleasantly confused. Denies any problems. No further abdominal pain. Moved bowels last night. Remains in atrial flutter with variable conduction. Review of Systems: Constitutional- no fever. Cardiac- no chest pain. Pulmonary- no cough or SOB. GI- no nausea, vomiting, diarrhea, melena, hematochezia. - no urinary symptoms. Otherwise, as noted above. Physical Exam Constitutional: + frail appearing; no acute distress Respiratory: no respiratory distress Auscultation: lungs clear to auscultation bilaterally Cardiovascular: Rate/Rhythm: regular rate and regular rhythm Vessels: no JVD Extremities: + edema (1+ pretibial); no calf tenderness Gastrointestinal (Abdomen): normal bowel sounds, soft, nontender, no hepatosplenomegaly Skin: no rashes, warm and dry Psychiatric: Orientation: alert and oriented to person; + not oriented to place and + not oriented to time Results & Data Vital Signs (Past 12 Hours) Vital Signs Temp Pulse Pulse Pulse Resp BP BP 05/16/19 17:48 126 H 123/65 05/16/19 14:45 36.7 C 112 H 20 180/84 H 05/16/19 07:23 55 L 05/16/19 07:05 36.4 C L 61 18 138/67 Pulse Ox 05/16/19 17:48 05/16/19 14:45 96 05/16/19 07:23 05/16/19 07:05 92 Laboratory Results Laboratory Results - last 24 hr 05/15/19 05/15/19 05/16/19 06:28 06:28 06:30 WBC 5.22 RBC 4.05 L Hgb 12.3 Hct 37.1 MCV 91.6 MCH 30.4 MCHC 33.2 RDW Std Deviation 47.0 H RDW Coeff of Tre 14.1 Plt Count 192 MPV 9.5 Sodium Potassium Chloride Carbon Dioxide Anion Gap BUN Creatinine Est Cr Clr Drug Dosing Est GFR ( Amer) Est GFR (Non-Af Amer) BUN/Creatinine Ratio Glucose Calcium Magnesium 2.2 Cancelled Triglycerides Cholesterol LDL Cholesterol, Calc VLDL Cholesterol, Calc HDL Cholesterol Cholesterol/HDL Ratio 05/16/19 06:30 WBC RBC Hgb Hct MCV MCH MCHC RDW Std Deviation RDW Coeff of Tre Plt Count MPV Sodium 143 Potassium 3.2 L Chloride 108 H Carbon Dioxide 25 Anion Gap 10.0 BUN 14 Creatinine 0.77 Est Cr Clr Drug Dosing 57.8 Est GFR ( Amer) 86.9 Est GFR (Non-Af Amer) 75.0 BUN/Creatinine Ratio 18.3 Glucose 83 Calcium 8.9 Magnesium Triglycerides 99 Cholesterol 150 LDL Cholesterol, Calc 91 VLDL Cholesterol, Calc 20 HDL Cholesterol 39 Cholesterol/HDL Ratio 4 (1) Diastolic CHF Heart failure chronicity: chronic Qualified Code(s): I50.32 - Chronic diastolic (congestive) heart failure
[2019-05-16] MEDS: METOPROLOL TARTRATE 100 MG TAB PO SCH (20:59)
[2019-05-16] MEDS ORDERED: POTASSIUM CHLORIDE 20 MEQ TABCR PO SCH (21:00)
[2019-05-16] MEDS: MIRTAZAPINE SOLTAB 15 MG PO SCH (21:02)
[2019-05-16] MEDS: ATORVASTATIN 40 MG TAB PO SCH (21:02)
[2019-05-17] MEDS: LINZESS~ORDER AWAITING ACTION SCH ×2 (01:14→07:50)
[2019-05-17] MEDS: cefTRIAXone SODIUM 1,000 MG in DEXTROSE 5% 50 ML IV SCH (01:34)
[2019-05-17] MEDS: PANTOprazole 40 MG TAB PO SCH (07:49)
[2019-05-17] MEDS: POLYETHYLENE (MIRALAX) 17 GM PACK PO SCH (07:49)
[2019-05-17] MEDS: LISINOPRIL 20 MG TAB PO SCH (07:50)
[2019-05-17] MEDS: ASPIRIN 81 MG CHEW PO SCH (07:51)
[2019-05-17] MEDS: DOCUSATE SODIUM/SENNA 50/8.6MG TAB PO SCH (07:52)
[2019-05-17] MEDS: METOPROLOL TARTRATE 100 MG TAB PO SCH (07:54)
--- NOTE | 2019-05-17 08:20 | Hospitalist Progress Note ---
Date of Service May 17, 2019 Assessment & Plan (1) Altered mental status: Improved and near baseline now- Oriented to self, not to place, time. Head CT showed old infarcts, no bleed or other acute event. -Delirium / metabolic encephalopathy secondary to urinary tract infection. -Underlying dementia. (2) Urinary tract infection: -Urinalysis demonstrated leukocyte esterase, WBCs, bacteria. -Urine culture growing Citrobacter freundii and Klebsiella pneumoniae. -Received intravenous ceftriaxone with improvement--> Change to ciprofloxacin ( Day 02/13 ) today (3) Atrial flutter: Variable conduction -Continue digoxin and metoprolol for rate control. -No anticoagulants secondary to history of intracranial hemorrhage. (4) Diastolic CHF: -Chronic left ventricular diastolic heart failure. -Stable with no exacerbation (5) CKD (chronic kidney disease) stage 3, GFR 30-59 ml/min: Stable near baseline. (6) Abdominal pain: CT demonstrated splenic infarct, but not clear if it is symptomatic. -Seen by General Surgery --> No indication for surgery. -No anticoagulation because of history of ICH. -Pain resolved. (7) DVT (deep venous thrombosis): Present on admission. -Venous duplex of left lower extremity demonstrated extensive DVT. -Prior history of VTE's. -Not anticoagulated due to history of intracranial hemorrhage. -Status post recent IVC filter placement. (8) Hypokalemia: Resolved (9) Do not resuscitate status: -Per advanced directives. (10) DVT prophylaxis: -No anticoagulants due to history of intracranial hemorrhage. -No SCDs due to acute DVT. (11) Discharge planning issues: Daughter Autumn updated about the discharge plan today. Subjective Patient is calmer and off 1:1 observation. No episodes of agitation overnight. No overnight events per RN Physical Exam Physical Exam: Constitutional + frail appearing; no acute distress, oriented to self, not to place, time Respiratory no respiratory distress Auscultation: lungs clear to auscultation bilaterally Cardiovascular Rate/Rhythm: regular rate and regular rhythm Vessels: no JVD Extremities: + edema (1+ pretibial); no calf tenderness Gastrointestinal (Abdomen) normal bowel sounds, soft, nontender, no hepatosplenomegaly Skin no rashes, warm and dry Results & Data Vital Signs (Past 12 Hours) Vital Signs Temp Pulse Pulse Pulse Resp BP BP 05/17/19 07:31 36.7 C 71 18 198/72 H 05/17/19 07:09 58 L 05/16/19 23:06 36.8 C 112 H 18 152/89 H 05/16/19 23:00 126 H 05/16/19 21:45 79 Pulse Ox 05/17/19 07:31 97 05/17/19 07:09 05/16/19 23:06 97 05/16/19 23:00 05/16/19 21:45 (1) Diastolic CHF Heart failure chronicity: chronic Qualified Code(s): I50.32 - Chronic diastolic (congestive) heart failure
[2019-05-17 08:26] LABS: BUN Creatinine Ratio 17.9 (10-20); Calcium 9.4 mg/dl (8.5-10.1); Creatinine Clr Calc Pharmacy 50.6 ml/min; Est GFR (Non-African American) 63.8; Potassium 3.6 mmol/L (3.5-5.1)
[2019-05-17] MEDS ORDERED: MAGNESIUM OXIDE 400 MG TAB PO SCH (09:00)
--- NOTE | 2019-05-17 10:37 | Discharge Summary ---
Date of Service May 17, 2019 Admission HPI Per Admitting Provider History obtained from patient, family, and records. Patient is not a reliable historian secondary to dementia. Patient is a [facility] resident. 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 Recent confinement last month for delirium secondary to UTI. Patient also found to have extensive DVT LLE status post IVC filter placement. Long-term anticoagulation held due to history of intracranial hemorrhage. Patient noted to have increased agitation overnight. No fever, no chills. Patient denies chest pain, S OB, abdominal pain, dysuria symptoms. Patient thinks she was brought [facility] the hospital because [facility] staff thought she may be . 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 Altered mental status/metabolic encephalopathy in setting of underlying dementia 2. Urinary tract infection, Citrobacter, Klebsiella pneumonia 3. Hypokalemia Secondary diagnosis on discharge 1. Atrial flutter 2. Chronic congestive heart failure, diastolic 3. CKD stage III 4. History of DVT status post IVC filter Discharge Exam Constitutional + frail appearing; no acute distress, oriented to self, not to place, time Respiratory no respiratory distress Auscultation: lungs clear to auscultation bilaterally Cardiovascular Rate/Rhythm: regular rate and regular rhythm Vessels: no JVD Extremities: + edema (1+ pretibial); no calf tenderness Gastrointestinal (Abdomen) normal bowel sounds, soft, nontender, no hepatosplenomegaly Skin no rashes, warm and dry Discharge Data Allergies Allergy/AdvReac Type Severity Reaction Status Date / Time Penicillins Allergy Intermediate HIVES Verified 05/13/19 00:10 pneumococcal vaccine Allergy Mild FEVER/RASH Verified 05/13/19 00:10 carbenicillin Allergy Unknown "DON'T Verified 04/15/19 11:25 REMEMBER" Bactrim AdvReac Mild GI SYMPTOMS Verified 09/20/17 23:30 sulfamethoxazole AdvReac Mild GI SYMPTOMS Verified 04/15/19 11:25 trimethoprim AdvReac Mild GI SYMPTOMS Verified 04/15/19 11:25 Consultations 05/13/19 00:22 ED Decision to Admit Stat 05/15/19 03:52 Consult General Surgery Routine Ordered Studies 05/12/19 22:39 US venous doppler LE LT Urgent 05/13/19 01:39 CT head/brain wo con Urgent 05/14/19 20:34 CT abd pelvis IV con only Urgent Hospital Course (1) Altered mental status: Delirium / metabolic encephalopathy secondary to urinary tract infection. Improved and near baseline now- Oriented to self, not to place, time. Head CT showed old infarcts, no bleed or other acute event. -Underlying dementia. -Was on Zyprexa 2.5 mg q 4 hours PRN IM --> Recommend PO Zyprexa 2.5 mg BID PRN for severe agitation outpatient -Off 1: 1 observation (2) Urinary tract infection: -Urinalysis demonstrated leukocyte esterase, WBCs, bacteria. -Urine culture growing Citrobacter freundii and Klebsiella pneumoniae. -Received intravenous ceftriaxone with improvement--> Change to ciprofloxacin ( Day 4 ) today (EKG- 430 on 05/13/19) (3) Atrial flutter: Variable conduction -Continue digoxin and metoprolol for rate control. -No anticoagulants secondary to history of intracranial hemorrhage. (4) Diastolic CHF: -Chronic left ventricular diastolic heart failure. -Stable with no exacerbation (5) CKD (chronic kidney disease) stage 3, GFR 30-59 ml/min: Stable near baseline. (6) Abdominal pain: CT demonstrated splenic infarct, but not clear if it is symptomatic. -Seen by General Surgery --> No indication for surgery. -No anticoagulation because of history of ICH. -Pain resolved. (7) DVT (deep venous thrombosis): Present on admission. -Venous duplex of left lower extremity demonstrated extensive DVT. -Prior history of VTE's. -Not anticoagulated due to history of intracranial hemorrhage. -Status post recent IVC filter placement. (8) Hypokalemia: Resolved (9) Do not resuscitate status: -Per advanced directives. (10) DVT prophylaxis: -No anticoagulants due to history of intracranial hemorrhage. -No SCDs due to acute DVT -S/P IVC filter placement during last admission (11) Discharge planning issues: Daughter Autumn updated about the discharge plan today over phone. Total Time Total Time Spent Total Time Spent (In Minutes): 35 minutes Discharge Plan Discharge Items Patient Disposition: [facility] Reason For Visit: DELIRIUM,COMP UTI Discharge Diagnosis: 1. Delirium 2. UTI 3. Hypokalemia 4. Advanced dementia Discharge Goals: Decrease discomfort Activity: Resume your previous activity Non-emergency contact: Primary Care Provider Call non-emergency contact if: your symptoms worsen Follow-up/Referrals: Kendra Chappell [Primary Care Provider] - Diet: Low Sodium (2gm) Addtl Provider Instructions: MEDICATION CHANGES: 1. New medication- Ciprofloxacin 500 mg PO BID x 4 more days to complete 7 day course of antibiotics 2. New medication- Recommend Zyprexa 2.5 mg PO twice a day as needed for severe agitation only Prescriptions: New olanzapine [Zyprexa] 2.5 mg tablet 2.5 mg PO BID PRN (Reason: Severe agitation ) Qty: 20 RF: 0 Continued atorvastatin 80 mg Tablet 80 mg PO HS Qty: 0 RF: 0 omeprazole 20 mg Capsule,Delayed Release(Dr/Ec) 20 mg PO QAM Qty: 0 RF: 0 digoxin 125 mcg Tablet 0.125 mg PO Q2D Qty: 0 RF: 0 melatonin 5 mg Tablet 5 mg PO HS RF: 0 Linzess 290 mcg Capsule 290 mcg PO QAM RF: 0 aspirin [Aspirin Low Dose] 81 mg Tablet,Delayed Release (Dr/Ec) 81 mg PO DAILY RF: 0 magnesium oxide 400 mg (241.3 mg magnesium) Tablet 400 mg PO QAM RF: 0 potassium chloride 20 mEq Tablet Extended Release 20 meq PO PM RF: 0 metoprolol tartrate 100 mg Tablet 100 mg PO BID RF: 0 buspirone 10 mg Tablet 10 mg PO TID RF: 0 polyethylene glycol 3350 [Miralax] 17 gram Powder In Packet 17 g PO QAM RF: 0 mirtazapine 45 mg Tablet 45 mg PO HS RF: 0 lisinopril 20 mg tablet 20 mg PO QAM RF: 0 Changed acetaminophen 500 mg Tablet 500 mg PO QID MDD 3g/24hr PRN (Reason: pain) Qty: 0 RF: 0 Stand-Alone Forms: [facility] Discharge Orders: Discharge Order (Routine); Ordered 05/17/19 Ordered By: Liliana Lynn Skilled Items Patient informed of condition?: Yes (Family informed- daughter) DNR: Yes Discharge Level of Care: Skilled Communicable Disease: No Discharge Prognosis: Stable Admission Data Admit Date/Time: 05/13/19 01:43 Attending Provider: Liliana Lynn Admit Provider: Guille Enriquez Primary Care Provider: Kendra Chappell Other Providers: Guille Enriquez ; Vince Jonas ; Dre Rosenthal Service: Telemetry Medical Other Pending Studies at Discharge: No
--- NOTE | 2019-05-17 13:36 | Communication Note ---
Date of Service: May 17, 2019 Received call from outpatient psychiatrist Dr. Chandler. Recommended following medication changes: stop buspirone change olanzapine to 1.25 mg in a.m., 2.5 mg with supper, 2.5 mg HS continue mirtazapine 45 mg HS Has follow-up appointment with Dr. Chandler 05/30. Shared info with providers at [facility].
== END 2019-05-17 13:12 | DRG 689 ==
LOC: ED 21:40 → 2N 05-13 01:43 → SUATTDRO 05-13 01:43 → 2N 05-13 02:46